=== PATIENT | female | born 1975 | race Caucasian/White ===

== ENCOUNTER → 2018-10-21 08:42 | Outpatient (CLI) | payer OTHER, SELFPAY ==
--- NOTE | 2018-10-21 08:50 | US_ITS ---
STUDY: ULTRASOUND BREAST - LEFT REASON FOR EXAM: Female, 43 years old. Palpable lump left breast. TECHNIQUE: Axial and longitudinal images of the LEFT breast were performed with a high resolution ultrasound transducer. COMPARISON: Comparison is made with prior mammogram done earlier today. FINDINGS: LEFT Breast: The lateral aspect of the left breast was examined by ultrasound. There is homogeneous fibroglandular tissue. No solid or cystic mass lesion is seen. US/Breast Limited Unilateral IMPRESSION: Unremarkable sonographic examination of the lateral aspect of the left breast. ASSESSMENT CATEGORY: BIRADS Category 2: Benign. A letter regarding these results will be sent to the patient by the facility within 30 days. Electronically Signed: Clyde Levin MD at 10:56 EST Tel [phone], Service support ,
--- NOTE | 2018-10-21 08:50 | BI_ITS ---
MAMMOGRAPHY - BILATERAL DIAGNOSTIC REASON FOR EXAM: Female, 43 years old. Left lateral breast discomfort for 3 weeks. PERTINENT HISTORY: Non-contributory. TECHNIQUE: Digital bilateral breast diana (3D mammographic acquisition) in the CC and MLO projections. 2-D mediolateral oblique (MLO) and craniocaudad (CC) views of both breasts were obtained. CAD: Full Field Digital Mammography with Computer Added Detection was performed. COMPARISON: None. Baseline examination. FINDINGS: Breast Composition: There are scattered areas of fibroglandular density. There are no dominant masses or suspicious calcifications. Small benign-appearing bilateral axillary lymph nodes. No other significant abnormalities are identified. BI/DIAG MAMM W/CAD, BILAT IMPRESSION: Negative diagnostic mammogram. With the patient's history of tenderness in the lateral aspect of the left breast, correlation with ultrasound is recommended. ASSESSMENT CATEGORY: BIRADS Category 0: Incomplete. Need additional imaging evaluation. A letter regarding these results will be sent to the patient by the facility within 30 days. Approximately 10% of breast cancers are not detected by mammography. A normal mammogram should not delay biopsy of a clinically suspicious abnormality. Electronically Signed: Clyde Levin MD at 10:46 EST Tel [phone], Service support ,
== END ==
PROVIDERS: Family Provider Family Medicine; PCP Family Medicine
DX: N64.4 Mastodynia (principal)
CPT/HCPCS: 76642; 77062; 77066; G0279

== ENCOUNTER → 2020-09-03 09:24 | Outpatient (CLI) | payer OTHER, SELFPAY ==
[2020-09-03 08:33] VITALS: BMI 27.4
[2020-09-03 12:36] LABS: Absolute Lymphocyte Count 1.35 X10^3/uL (0.83-4.51); Absolute Neutrophil Count 2.9 X10^3/uL (2.0-7.7); Basophil# 0.05 X10^3/uL; Eosinophil# 0.23 X10^3/uL; Eosinophils% 4.6 % (0-5); Hematocrit 32.9 % (37-47); Hemoglobin 9.5 g/dL (12.0-15.0); Lymphocyte # 1.35 X10^3/ul (4.0); Lymphocyte % 26.9 % (19-41); Mean Corp Hgb Conc 28.9 g/dL (32-36); Mean Corpuscular Hgb 20.5 pg (27.0-32.0); Mean Corpuscular Volume 70.9 fL (81-99); Mean Platelet Vol. 11.9 fl (6.2-12.0); Monocyte# 0.44 X10^3/uL; Monocyte% 8.8 % (0-10); NRBC Flagged by Analyzer 0 % (0-5); Neutrophil # 2.94 X10^3/uL (2.7-7.7); Neutrophil % 58.5 % (47-70); Platelet Count 314 K/mm3 (150-450); RBC Distribution Width CV 18.9 % (11.6-14.6); RBC Distribution Width SD 46.8 fl (35.1-43.9); Red Blood Count 4.64 M/mm3 (4.2-5.4)
[2020-09-03 13:00] LABS: ALB/GLOB Ratio 1.1 RATIO (0.9-2.4); AST(SGOT) 16 U/L (15-37); Alanine Aminotransfer ALT/SGPT 28 U/L (13-56); Albumin, Serum 3.7 g/dL (3.2-5.0); Alkaline Phosphatase 59 U/L (45-117); Anion Gap 7 (5-15); BUN 11 mg/dL (7-18); BUN/Creat Ratio 12.3 RATIO (10-20); Calcium,Total 9.1 mg/dL (8.5-10.1); Chloride 109 mmol/L (98-107); Cholesterol 187 mg/dL (200); Creatinine, Serum 0.89 mg/dL (0.55-1.02); EST Glomerular Filtration Rate 73 mL/min (>60); Est Glom Filt Rate - Afr Amer 89 mL/min (>60); Globulin 3.3 g/dL (2.2-4.2); Glucose 80 mg/dL (74-106); High Density Lipoprotein 61 mg/dL; Sodium Level 140 mmol/L (136-145); Triglycerides 64 mg/dL; Very Low Density Lipoprotein 13 mg/dL (5-40)
[2020-09-03 16:34] LABS: Ferritin 3 ng/mL (8-252); Iron 16 ug/dL (50-170); Iron Binding Capacity,Total 421 ug/dL (250-450)
== END ==
PROVIDERS: PCP Internal Medicine; Referring Provider Internal Medicine; Visit Provider Internal Medicine
DX: D64.9 Anemia, unspecified (principal); E78.5 Hyperlipidemia, unspecified
CPT/HCPCS: 36415; 80053; 80061; 82728; 83540; 83550; 85025

== ENCOUNTER → 2020-10-12 10:04 | Outpatient (CLI) | payer OTHER, SELFPAY ==
[2020-09-03 08:33] VITALS: BMI 27.4
[2020-10-12 12:49] LABS: Erythrocyte Sedimentation Rate 12 mm/hr (0-20)
[2020-10-12 12:55] LABS: Absolute Lymphocyte Count 1.48 X10^3/uL (0.83-4.51); Absolute Neutrophil Count 3.6 X10^3/uL (2.0-7.7); Basophil# 0.07 X10^3/uL; Basophil% 1.2 % (0-1); Eosinophil# 0.24 X10^3/uL; Eosinophils% 4.1 % (0-5); Hematocrit 44.4 % (37-47); Hemoglobin 13.4 g/dL (12.0-15.0); Lymphocyte # 1.48 X10^3/ul (4.0); Mean Corp Hgb Conc 30.2 g/dL (32-36); Mean Corpuscular Hgb 24.8 pg (27.0-32.0); Mean Corpuscular Volume 82.2 fL (81-99); Monocyte# 0.47 X10^3/uL; NRBC Flagged by Analyzer 0 % (0-5); Neutrophil # 3.63 X10^3/uL (2.7-7.7); Neutrophil % 61.4 % (47-70); POSITIVE MORPHOLOGY YES; Platelet Count 217 K/mm3 (150-450); White Blood Count 5.9 K/mm3 (4.4-11.0)
[2020-10-12 12:58] LABS: CRP < 2.90 mg/L (0.0-3.0); Rheumatoid Factor < 10.0 IU/mL (<15)
[2020-10-12 13:19] LABS: Differential Indicated SCAN CRITERIA MET
== END ==
PROVIDERS: PCP Internal Medicine; Visit Provider Internal Medicine
DX: D64.9 Anemia, unspecified (principal); M25.50 Pain in unspecified joint
CPT/HCPCS: 36415; 85025; 85652; 86140; 86431

== ENCOUNTER → 2020-12-01 16:17 | Outpatient (CLI) | payer OTHER, SELFPAY ==
[2020-11-30 16:58] VITALS: BMI 27.4
--- NOTE | 2020-12-01 16:19 | RAD_ITS ---
STUDY: X-RAY - LEFT ELBOW REASON FOR EXAM: Female, 45 years old. Worsening left elbow pain for one month. Pain radiates down arm. TECHNIQUE: 3 view(s) of the elbow. COMPARISON: None. FINDINGS: Normal visualized humerus, radius and ulna. Normal radiocapitellar and ulnotrochlear articulations. The soft tissue structures are unremarkable. RAD/Elbow min 3 Views IMPRESSION: Normal x-ray examination of the elbow. Electronically Signed: Pepe Plaza MD at 0:26 EST , Service support ,
== END ==
PROVIDERS: PCP Internal Medicine; Referring Provider Internal Medicine; Visit Provider Internal Medicine
DX: M25.522 Pain in left elbow (principal)
CPT/HCPCS: 73080

== ENCOUNTER → 2021-02-04 07:34 | Outpatient (CLI) | payer OTHER, SELFPAY ==
[2020-11-30 16:58] VITALS: BMI 27.4
--- NOTE | 2021-02-04 07:57 | BI_ITS ---
MAMMOGRAPHY - BILATERAL SCREENING REASON FOR EXAM: Female, 45 years old. Routine annual screening examination. PERTINENT HISTORY: Non-contributory. Occasional left lateral breast pain. TECHNIQUE: Digital bilateral breast yonathan (3D mammographic acquisition) in the CC and MLO projections. 2-D mediolateral oblique (MLO) and craniocaudad (CC) views of both breasts were obtained. CAD: Full Field Digital Mammography with Computer Added Detection was performed. COMPARISON: Comparison is made with prior study dated 10/21/2018. FINDINGS: Breast Composition: There are scattered areas of fibroglandular density. There are no dominant masses or suspicious calcifications. No other significant abnormalities are identified. There has been no significant change since the prior study. BI/SCRN MAMM (CAD)W/YONATHAN BILAT IMPRESSION: Stable bilateral screening mammogram. Yearly follow-up mammogram recommended. (A) ASSESSMENT CATEGORY: BIRADS Category 1: Negative. A letter regarding these results will be sent to the patient by the facility within 30 days. Approximately 10% of breast cancers are not detected by mammography. A normal mammogram should not delay biopsy of a clinically suspicious abnormality. [id number] Electronically Signed: Clyde Levin MD at 9:10 EDT , Service support ,
== END ==
PROVIDERS: PCP Internal Medicine
DX: Z12.31 Encounter for screening mammogram for malignant neoplasm of breast (principal)
CPT/HCPCS: 77063; 77067

== ENCOUNTER → 2021-09-01 08:41 | Outpatient (CLI) | payer OTHER, SELFPAY ==
[2021-09-01 12:02] LABS: Absolute Lymphocyte Count 1.09 X10^3/uL (0.83-4.51); Absolute Neutrophil Count 2.5 X10^3/uL (2.0-7.7); Basophil# 0.04 X10^3/uL; Eosinophil# 0.12 X10^3/uL; Eosinophils% 2.9 % (0-5); Hematocrit 31.3 % (37-47); Hemoglobin 8.6 g/dL (12.0-15.0); Lymphocyte # 1.09 X10^3/ul (0.83-4.51); Mean Corp Hgb Conc 27.5 g/dL (32-36); Mean Corpuscular Volume 72.6 fL (81-99); Mean Platelet Vol. 11.2 fl (6.2-12.0); Monocyte# 0.45 X10^3/uL; Monocyte% 10.7 % (0-10); NRBC Flagged by Analyzer 0 % (0-5); Neutrophil # 2.48 X10^3/uL (2.7-7.7); Neutrophil % 59.2 % (47-70); Platelet Count 386 K/mm3 (150-450); RBC Distribution Width SD 46.8 fl (35.1-43.9); Red Blood Count 4.31 M/mm3 (4.2-5.4); White Blood Count 4.2 K/mm3 (4.4-11.0)
[2021-09-01 12:19] LABS: Vitamin B12 783 pg/mL (211-911); Vitamin D,25 Hydroxy 104.8 ng/mL
[2021-09-01 12:21] LABS: ALB/GLOB Ratio 0.9 RATIO (0.9-2.4); AST(SGOT) 49 U/L (15-37); Alanine Aminotransfer ALT/SGPT 100 U/L (13-56); Albumin, Serum 3.3 g/dL (3.2-5.0); Alkaline Phosphatase 65 U/L (45-117); Anion Gap 5 (5-15); BUN 11 mg/dL (7-18); BUN/Creat Ratio 11.8 RATIO (10-20); Calcium,Total 8.7 mg/dL (8.5-10.1); Chloride 108 mmol/L (98-107); Creatinine, Serum 0.93 mg/dL (0.55-1.02); EST Glomerular Filtration Rate 69 mL/min (>60); Est Glom Filt Rate - Afr Amer 84 mL/min (>60); Ferritin 7 ng/mL (8-252); Globulin 3.6 g/dL (2.2-4.2); Glucose 96 mg/dL (74-106); Iron 22 ug/dL (50-170); Iron Binding Capacity,Total 425 ug/dL (250-450); PERCENT IRON SATURATION 5.2 % (15.0-55.0); Protein, Total 6.9 g/dL (6.4-8.2); Sodium Level 139 mmol/L (136-145); Thyroid Stim Hormone (TSH) 1.18 uIU/mL (0.358-3.74)
[2021-09-02 13:20] LABS: Transferrin 348 mg/dL (192-364)
== END ==
PROVIDERS: PCP Internal Medicine; Referring Provider Physician Assistant; Visit Provider Physician Assistant
DX: M79.7 Fibromyalgia (principal); R05.9 Cough, unspecified; R53.83 Other fatigue
CPT/HCPCS: 36415; 80053; 82306; 82607; 82728; 83540; 83550; 84443; 84466; 85025

== ENCOUNTER → 2021-09-02 08:21 | Outpatient (CLI) | payer OTHER, SELFPAY ==
--- NOTE | 2021-09-02 08:24 | EKG12_ITS ---
Test Reason : PALPS Blood Pressure : / mmHG Vent. Rate : 077 BPM Atrial Rate : 077 BPM P-R Int : 128 ms QRS Dur : 080 ms QT Int : 378 ms P-R-T Axes : 035 013 022 degrees QTc Int : 427 ms Normal sinus rhythm Normal ECG Confirmed by CORBY GONZALEZ, CHARLEY ([id number]), supervising film or videotape editor RADHA READ ([id number]) on 09/06/2021 10:49:16 AM Referred By: Carine Hope Confirmed By:CHARLEY TAVAREZ MD
== END ==
PROVIDERS: PCP Internal Medicine; Referring Provider Physician Assistant; Visit Provider Physician Assistant
DX: R00.2 Palpitations (principal)
CPT/HCPCS: 93005

== ENCOUNTER → 2021-09-28 09:56 | Outpatient (CLI) | payer OTHER, SELFPAY ==
[2021-09-28 12:39] LABS: Absolute Lymphocyte Count 1.24 X10^3/uL (0.83-4.51); Absolute Neutrophil Count 3.2 X10^3/uL (2.0-7.7); Basophil# 0.05 X10^3/uL; Eosinophil# 0.11 X10^3/uL; Eosinophils% 2.2 % (0-5); Hematocrit 33.9 % (37-47); Lymphocyte # 1.24 X10^3/ul (0.83-4.51); Lymphocyte % 24.4 % (19-41); Mean Corp Hgb Conc 29.5 g/dL (32-36); Mean Corpuscular Hgb 21.9 pg (27.0-32.0); Mean Corpuscular Volume 74.3 fL (81-99); Mean Platelet Vol. 12.3 fl (6.2-12.0); Monocyte# 0.47 X10^3/uL; Monocyte% 9.3 % (0-10); NRBC Flagged by Analyzer 0 % (0-5); Neutrophil % 62.9 % (47-70); POSITIVE MORPHOLOGY YES; Platelet Count 295 K/mm3 (150-450); RBC Distribution Width CV 22.9 % (11.6-14.6); RBC Distribution Width SD 59.6 fl (35.1-43.9); Red Blood Count 4.56 M/mm3 (4.2-5.4); White Blood Count 5.1 K/mm3 (4.4-11.0)
[2021-09-28 12:42] LABS: Differential Indicated SCAN CRITERIA MET
[2021-09-28 12:54] LABS: ALB/GLOB Ratio 0.9 RATIO (0.9-2.4); AST(SGOT) 20 U/L (15-37); Alanine Aminotransfer ALT/SGPT 31 U/L (13-56); Albumin, Serum 3.5 g/dL (3.2-5.0); Alkaline Phosphatase 69 U/L (45-117); Anion Gap 5 (5-15); BUN 9 mg/dL (7-18); BUN/Creat Ratio 11.1 RATIO (10-20); Calcium,Total 9.2 mg/dL (8.5-10.1); Chloride 110 mmol/L (98-107); Creatinine, Serum 0.81 mg/dL (0.55-1.02); EST Glomerular Filtration Rate 81 mL/min (>60); Est Glom Filt Rate - Afr Amer 98 mL/min (>60); Globulin 3.7 g/dL (2.2-4.2); Glucose 86 mg/dL (74-106); Potassium 3.9 mmol/L (3.5-5.1); Protein, Total 7.2 g/dL (6.4-8.2); Sodium Level 139 mmol/L (136-145)
[2021-09-28 13:18] LABS: Anisocytosis 2+; Differential Comment SCANNED; Macrocytosis 1+; Microcytosis 1+
== END ==
PROVIDERS: PCP Internal Medicine; Referring Provider Internal Medicine; Visit Provider Internal Medicine
DX: R74.8 Abnormal levels of other serum enzymes (principal); D64.9 Anemia, unspecified
CPT/HCPCS: 36415; 80053; 85025

== ENCOUNTER 2021-12-30 08:50 | Outpatient (CLI) | payer OTHER, SELFPAY ==
[2021-12-30 12:13] LABS: Absolute Lymphocyte Count 1.29 X10^3/uL (0.83-4.51); Absolute Neutrophil Count 2.7 X10^3/uL (2.0-7.7); Basophil# 0.04 X10^3/uL; Basophil% 0.9 % (0-1); Eosinophil# 0.23 X10^3/uL; Eosinophils% 4.9 % (0-5); Hematocrit 38.5 % (37-47); Hemoglobin 12.4 g/dL (12.0-15.0); Lymphocyte # 1.29 X10^3/ul (0.83-4.51); Lymphocyte % 27.5 % (19-41); Mean Corp Hgb Conc 32.2 g/dL (32-36); Mean Corpuscular Hgb 26.3 pg (27.0-32.0); Mean Corpuscular Volume 81.6 fL (81-99); Mean Platelet Vol. 11.7 fl (6.2-12.0); Monocyte# 0.41 X10^3/uL; Monocyte% 8.7 % (0-10); NRBC Flagged by Analyzer 0 % (0-5); Neutrophil # 2.72 X10^3/uL (2.7-7.7); Platelet Count 229 K/mm3 (150-450); RBC Distribution Width CV 17.7 % (11.6-14.6); RBC Distribution Width SD 52.5 fl (35.1-43.9); Red Blood Count 4.72 M/mm3 (4.2-5.4); White Blood Count 4.7 K/mm3 (4.4-11.0)
[2021-12-30 12:26] LABS: Vitamin D,25 Hydroxy 88.2 ng/mL
[2021-12-30 12:31] LABS: ALB/GLOB Ratio 1.1 RATIO (0.9-2.4); AST(SGOT) 20 U/L (15-37); Alanine Aminotransfer ALT/SGPT 35 U/L (13-56); Albumin, Serum 3.4 g/dL (3.2-5.0); Alkaline Phosphatase 63 U/L (45-117); Anion Gap 4 (5-15); BUN 13 mg/dL (7-18); BUN/Creat Ratio 17.6 RATIO (10-20); Chloride 108 mmol/L (98-107); Creatinine, Serum 0.74 mg/dL (0.55-1.02); EST Glomerular Filtration Rate 90 mL/min (>60); Est Glom Filt Rate - Afr Amer 109 mL/min (>60); Globulin 3.1 g/dL (2.2-4.2); Glucose 91 mg/dL (74-106); Protein, Total 6.5 g/dL (6.4-8.2); Sodium Level 138 mmol/L (136-145)
== END 2021-12-30 23:59 | disposition home or self-care (01) ==
LOC: BIMLAB 08:50
PROVIDERS: Physician Assistant; PCP Internal Medicine; Referring Provider Internal Medicine; Visit Provider Internal Medicine
DX: D50.9 Iron deficiency anemia, unspecified (principal); E55.9 Vitamin D deficiency, unspecified
CPT/HCPCS: 36415; 80053; 82306; 85025

== ENCOUNTER → 2022-04-19 | Outpatient (CLI) | payer OTHER, SELFPAY ==
[2022-04-19 12:19] LABS: Absolute Lymphocyte Count 1.15 X10^3/uL (0.83-4.51); Absolute Neutrophil Count 3.8 X10^3/uL (2.0-7.7); Basophil# 0.05 X10^3/uL; Basophil% 0.9 % (0-1); Eosinophil# 0.17 X10^3/uL; Hematocrit 37.8 % (37-47); Hemoglobin 11.8 g/dL (12.0-15.0); Lymphocyte # 1.15 X10^3/ul (0.83-4.51); Lymphocyte % 20.5 % (19-41); Mean Corp Hgb Conc 31.2 g/dL (32-36); Mean Corpuscular Hgb 26.4 pg (27.0-32.0); Mean Corpuscular Volume 84.6 fL (81-99); Mean Platelet Vol. 12.3 fl (6.2-12.0); Monocyte# 0.42 X10^3/uL; Monocyte% 7.5 % (0-10); NRBC Flagged by Analyzer 0 % (0-5); Neutrophil # 3.81 X10^3/uL (2.7-7.7); Neutrophil % 67.9 % (47-70); Platelet Count 271 K/mm3 (150-450); RBC Distribution Width CV 14.9 % (11.6-14.6); RBC Distribution Width SD 45.4 fl (35.1-43.9); Red Blood Count 4.47 M/mm3 (4.2-5.4); White Blood Count 5.6 K/mm3 (4.4-11.0)
[2022-04-19 12:53] LABS: ALB/GLOB Ratio 1.1 RATIO (0.9-2.4); AST(SGOT) 11 U/L (15-37); Alanine Aminotransfer ALT/SGPT 28 U/L (13-56); Albumin, Serum 3.6 g/dL (3.2-5.0); Alkaline Phosphatase 69 U/L (45-117); Anion Gap 6 (5-15); BUN 12 mg/dL (7-18); BUN/Creat Ratio 14.2 RATIO (10-20); Calcium,Total 9.1 mg/dL (8.5-10.1); Chloride 107 mmol/L (98-107); Cholesterol 206 mg/dL (200); Creatinine, Serum 0.85 mg/dL (0.55-1.02); EST Glomerular Filtration Rate 77 mL/min (>60); Est Glom Filt Rate - Afr Amer 93 mL/min (>60); Globulin 3.3 g/dL (2.2-4.2); Glucose 95 mg/dL (74-106); High Density Lipoprotein 44 mg/dL; Protein, Total 6.9 g/dL (6.4-8.2); Sodium Level 140 mmol/L (136-145); Triglycerides 87 mg/dL; Very Low Density Lipoprotein 17 mg/dL (5-40)
== END | disposition home or self-care (01) ==
LOC: BIMLAB 09:24
PROVIDERS: PCP Internal Medicine; Referring Provider Internal Medicine; Visit Provider Internal Medicine
DX: Z00.00 Encounter for general adult medical examination without abnormal findings (principal)
CPT/HCPCS: 36415; 80053; 80061; 85025

== ENCOUNTER → 2022-05-09 | Outpatient (CLI) | payer OTHER, SELFPAY ==
--- NOTE | 2022-05-09 08:43 | BI_ITS ---
MAMMOGRAPHY - BILATERAL SCREENING REASON FOR EXAM: Female, 47 years old. Routine annual screening examination. PERTINENT HISTORY: Non-contributory. TECHNIQUE: Digital bilateral breast yonathan (3D mammographic acquisition) in the CC and MLO projections. 2-D mediolateral oblique (MLO) and craniocaudad (CC) views of both breasts were obtained. CAD: Full Field Digital Mammography with Computer Added Detection was performed. COMPARISON: Comparison is made with prior study 02/04/2021 and 10/21/2018. FINDINGS: Breast Composition: There are scattered areas of fibroglandular density. There are no dominant masses or suspicious calcifications. No other significant abnormalities are identified. There has been no significant change since the prior study. BI/SCRN MAMM (CAD)W/YONATHAN BILAT IMPRESSION: Stable bilateral screening mammogram. Yearly follow-up mammogram recommended. (A) ASSESSMENT CATEGORY: BIRADS Category 1: Negative. A letter regarding these results will be sent to the patient by the facility within 30 days. Approximately 10% of breast cancers are not detected by mammography. A normal mammogram should not delay biopsy of a clinically suspicious abnormality. [id number] Electronically Signed: Clyde Levin MD at 10:16 EDT ,
== END | disposition home or self-care (01) ==
LOC: OPBI 08:41
PROVIDERS: PCP Internal Medicine; Visit Provider Internal Medicine
DX: Z12.31 Encounter for screening mammogram for malignant neoplasm of breast (principal)
CPT/HCPCS: 77063; 77067

== ENCOUNTER 2022-08-10 10:44 | Outpatient (RCR) | payer OTHER, SELFPAY | END 2022-08-10 19:00 | disposition home or self-care (01) | LOC: PT 10:44 | PROVIDERS: PCP Internal Medicine; Referring Provider Physician Assistant; Visit Provider Physician Assistant | DX: M21.372 Foot drop, left foot (principal); R20.8 Other disturbances of skin sensation ==

== ENCOUNTER → 2022-08-15 | Outpatient (CLI) | payer OTHER, SELFPAY ==
[2022-08-15 16:35] LABS: Absolute Lymphocyte Count 1.63 X10^3/uL (0.83-4.51); Absolute Neutrophil Count 5.1 X10^3/uL (2.0-7.7); Basophil# 0.05 X10^3/uL; Basophil% 0.7 % (0-1); Eosinophil# 0.15 X10^3/uL; Hematocrit 39.1 % (37-47); Hemoglobin 12.6 g/dL (12.0-15.0); Lymphocyte # 1.63 X10^3/ul (0.83-4.51); Lymphocyte % 21.5 % (19-41); Mean Corp Hgb Conc 32.2 g/dL (32-36); Mean Corpuscular Volume 89.9 fL (81-99); Mean Platelet Vol. 12.4 fl (6.2-12.0); Monocyte# 0.65 X10^3/uL; Monocyte% 8.6 % (0-10); NRBC Flagged by Analyzer 0 % (0-5); Neutrophil # 5.08 X10^3/uL (2.7-7.7); Neutrophil % 67.1 % (47-70); Platelet Count 259 K/mm3 (150-450); RBC Distribution Width CV 14.5 % (11.6-14.6); RBC Distribution Width SD 47.4 fl (35.1-43.9); Red Blood Count 4.35 M/mm3 (4.2-5.4); White Blood Count 7.6 K/mm3 (4.4-11.0)
[2022-08-15 16:54] LABS: Ferritin 16 ng/mL (8-252); Iron 56 ug/dL (50-170); Iron Binding Capacity,Total 330 ug/dL (250-450)
== END | disposition home or self-care (01) ==
LOC: BIMLAB 15:20
PROVIDERS: PCP Internal Medicine; Referring Provider Physician Assistant; Visit Provider Physician Assistant
DX: D50.9 Iron deficiency anemia, unspecified (principal); E61.1 Iron deficiency
CPT/HCPCS: 36415; 82728; 83540; 83550; 85025

== ENCOUNTER → 2022-09-21 | Outpatient (CLI) | payer OTHER, SELFPAY ==
--- NOTE | 2022-09-21 09:20 | US_ITS ---
STUDY: ULTRASOUND BREAST - LEFT REASON FOR EXAM: Female, 47 years old. Pain in the left breast. TECHNIQUE: Axial and longitudinal images of the LEFT breast were performed with a high resolution ultrasound transducer. # OF IMAGES: 22 COMPARISON: Comparison is made with prior mammogram done earlier in the day as well as prior sonogram of the left breast dated 10/21/2018. FINDINGS: LEFT Breast: The lateral aspect of the left breast was examined by ultrasound. Heterogeneous fibroglandular tissue. No sonographic abnormality is seen. US/Breast Limited Unilateral IMPRESSION: No sonographic abnormality is seen. ASSESSMENT CATEGORY: BIRADS Category 1: Negative. A letter regarding these results will be sent to the patient by the facility within 30 days. Electronically Signed: Clyde Levin MD at 11:04 EST ,
--- NOTE | 2022-09-21 09:20 | BI_ITS ---
MAMMOGRAPHY - UNILATERAL DIAGNOSTIC: LEFT BREAST REASON FOR EXAM: Female, 47 years old. One-month history of pain in the upper outer quadrant of the left breast. PERTINENT HISTORY: Non-contributory. TECHNIQUE: Digital unilateral breast diana (3D mammographic acquisition) in the CC and MLO projections. 2-D mediolateral oblique (MLO) and craniocaudad (CC) views of both breasts were obtained. CAD: Full Field Digital Mammography with Computer Added Detection was performed. COMPARISON: Comparison is made with prior study dated 05/09/2022 and 02/04/2021. FINDINGS: Breast Composition: There are scattered areas of fibroglandular density. There are no dominant masses or suspicious calcifications. No other significant abnormalities are identified. There has been no significant change since the prior study. BI/DIAG MAMM W/CAD, UNILAT IMPRESSION: Stable unilateral diagnostic mammogram. With the patient''s history of pain in the upper outer quadrant of the left breast, targeted correlation with ultrasound is recommended. ASSESSMENT CATEGORY: BIRADS Category 0: Incomplete. Need additional imaging evaluation. A letter regarding these results will be sent to the patient by the facility within 30 days. Approximately 10% of breast cancers are not detected by mammography. A normal mammogram should not delay biopsy of a clinically suspicious abnormality. Electronically Signed: Clyde Levin MD at 10:48 EST ,
== END | disposition home or self-care (01) ==
LOC: OPBI 09:19
PROVIDERS: PCP Internal Medicine; Visit Provider Nurse Practitioner Women's Health
DX: N64.4 Mastodynia (principal)
CPT/HCPCS: 76642; 77061; 77065; G0279

== ENCOUNTER → 2022-11-08 | Outpatient (CLI) | payer OTHER, SELFPAY ==
[2022-11-15 19:25] LABS: HPV APTIMA, High Risk Negative (Negative)
== END | disposition home or self-care (01) ==
LOC: LABSPEC 12:45
PROVIDERS: PCP Internal Medicine; Referring Provider Nurse Practitioner Women's Health; Visit Provider Nurse Practitioner Women's Health
DX: Z12.4 Encounter for screening for malignant neoplasm of cervix (principal)
CPT/HCPCS: 87624; 88175; G0145

== ENCOUNTER → 2022-11-15 | Outpatient (CLI) | payer OTHER, SELFPAY ==
--- NOTE | 2022-11-15 15:05 | US_ITS ---
INDICATION: BLEEDING EXAMINATION: Ultrasound US Pelvis Non OB Complete With Transvaginal Imaging TECHNIQUE: Transabdominal and transvaginal pelvic ultrasound was performed. Grayscale, spectral waveform, and color flow Doppler evaluation of the adnexa. COMPARISON: None. FINDINGS: UTERUS: Anteverted. The uterus measures 12.6 x 9.8 x 6.9. There are multiple fibroids the largest measuring 6.4 x 5.1 x 5.8 cm. The endometrial stripe measures 7.1 in AP diameter which is within normal limits. Tiny nabothian cysts within the lower uterine segment RIGHT OVARY: 2.7 x 3.3 x 1.8 cm. Non-enlarged, normal echogenicity. There is normal arterial inflow and venous outflow present in the right ovary. LEFT OVARY: 3.4 x 2.3 x 2.6 cm. Non-enlarged, normal echogenicity. There is normal arterial inflow and venous outflow present in the left ovary. FREE FLUID: None. US/Pelvic (Non ) IMPRESSION: Large uterus containing multiple fibroids.. Electronically Signed: Marco Huber MD at 16:56 EST ,
== END | disposition home or self-care (01) ==
LOC: US 15:04
PROVIDERS: PCP Internal Medicine; Referring Provider Nurse Practitioner Women's Health; Visit Provider Nurse Practitioner Women's Health
DX: N92.0 Excessive and frequent menstruation with regular cycle (principal); N85.2 Hypertrophy of uterus
CPT/HCPCS: 76830; 76856

== ENCOUNTER 2023-01-02 09:00 | Outpatient (RCR) | payer OTHER, SELFPAY ==
--- NOTE | 2022-09-13 11:26 | HP.PTEVAL ---
Patient's Visit Information KEITH WALDROP is a 47 year old F referred to Physical Therapy by Dr. Poncho Whitaker MD with a diagnosis of LUMBAR STENOSIS. Date of Evaluation: 09/13/22 Physical Therapist: Landy Hernandez PT, Cert MDT - Visit Plan Frequency: 2-3x /Week Duration: 4-6 Weeks Plan: *RECENT H/O L FOOT DROP*. AQUATIC THERAPY FOR PAIN RELIEF, POSTURE CORRECTION/STRENGTHENING, INSTRUCTION IN APPROPRIATE BODY MECHANICS AND ACTIVITY MODIFICATIONS. DLS STARTING WITH A NEUTRAL SPINE PROGRESSING ROM TOLERATED. ASHLEY LE ROM, STRETCHING AND STRENGTHENING. HEP INSTRUCTION. 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 HOURS VARY. MOSTLY SITTING WHEN AT THE OFFICE. Disability: NO. Present symptoms: ASHLEY LOW BACK PAIN LEFT > RIGHT. TWO EPISODES OF LEFT DROP FOOT. LEFT ACHE AND TINGLING DOWN OUTSIDE OF L LEG INTO FEET. Present since: CHRONIC LBP. LLE WEAKNESS STARTED MAY 2022. Pain Scale: WORST 7/10, LEAST 3/10. Currently: 3/10. Is it getting better, worse or staying the same: STAYING THE SAME. Commenced as a result of: SITTING A LOT IN THE HOSPITAL WHEN DAD HAD OPEN HEART SURGERY. Symptoms at onset: MORE LOW BACK PAIN. 2 EPISODES OF LEFT FOOT DROP AND INABILITY TO EXTEND AND CURL TOES - RESOLVED. Worse: SITTING, STANDING, LIFTING, TWISTING STRETCHES. Better: PAIN MEDS, PAIN PATCHES, BEING ON THE MOVE. LAYING DOWN,. Disturbed sleep: NO. Previous history/Previous treatment: CHIROPRACTIC TREATMENTS AND MASSAGE. HAS BEEN GOING TO A CHIROPRACTOR SINCE OFF AND ON. NO BACK SURGERY. NO RAYSHAWN'S. NO PT. Treatment this episode: MOBIC STARTED YESTERDAY. MORE CHIROPRACTIC AND MASSAGE. Coughing/sneezing/straining: NEGATIVE. Gait: NORMAL TIME AND DISTANCE BUT MORE PAIN. Bowel or Bladder Dysfunction: NO. Accidents: NO. Unexplained weight loss: NO. Imaging: RECENT LUMBAR [facility] AT [facility] SHOWING LUMBAR DDD AND ARTHRITIS. PMH/Recent major surgery: FIBROMYALGIA, ARTHRITIS - OA. PATIENT REPORTS SHE HAS ARTHRITIS IN A LOT OF JOINTS. OTHER: PATIENT REPORTS DR. WHITAKER RECOMMENDED TRYING MOBIC AND PT FIRST THEN MAY NEED TO CONSIDER INJECTIONS AND EVERNTUALLY SURGERY. - Objective Sitting/Standing Posture: FAIR. NO RELEVENT LUMBAR LATERAL SHIFT. Active Correction of posture: WORSE. Other Observations: INDEP GAIT AND TRANSFERS. Sensory deficit: ASHLEY LE LIGHT TOUCH SENSATION GROSSLY INTACT AND SYMMETRICAL. ROM deficit: ASHLEY LE'S WFL. Motor deficit: ASHLEY LE'S GROSSLY 5/5 WITH MMT'ING EXCEPT R HIP 4/5, LEFT 4-/5, L KNEE FLEX 4/5, EHL 4/5. Dural Signs: POSITIVE ASHLEY LE'S. Lumbar mvmt loss: flex - NIL. ext - MIN. R SG - MOD. L SG - MOD. PATIENT C/O INCREASED LBP WITH LUMBAR EXTENSION TESTING. Core strength: POOR. Palpation: MILD TENDERNESS LOWER LUMBAR SPINE WITH LIGHT PALPATION. TREATMENT: NEUROMUSCULAR REEDUCATION - RETRAINING OF MVMT AND POSTURE FOR SITTING, LYING AND STANDING ACTIVITIES - Balance/Special Test Scores Oswestry Low Back Score: 12 - Goals Goal 1:: DECREASE C/O LBP Goal Time Frame: 4-6 Weeks Goal 2:: IMPROVE PERSONAL CARE, LIFTING, SITTING, STANDING, TRAVEL AND WORK/HOMEMAKING FUNCTION Goal Time Frame: 4-6 Weeks Goal 3:: INSTRUCT IN PROPHYLAXIS Goal Time Frame: 4-6 Weeks - Anticipated Interventions Patient/Client Instruction: Educate patient on: Condition, Plan of Care, Risk Factors For the Purpose of:: To improve self management Therapeutic Exercise to Include: Strength training, Body mechanics, Postural training, Flexibilty training, Neuromotor development, In an aquatic setting, Dynamic Lumbar Stabilization For the Purpose of:: To decrease pain, To increase ROM, To improve muscle performance and motor function, To increase tolerance to activity/condition/position, To improve ability of physical actions for home/community/work/leisure, To improve self management Cryotherapy (ice pack, ice massage): Yes Thermo therapy (hot pack): Yes Ultrasound (thermal/non thermal): Yes For the Purpose of:: To decrease pain, To improve nutrient delivery to tissue Thank you for the opportunity to evaluate your patient. For Medicare and Medicare HMO plans, please review the plan of care and approve it. It will need to be FAXED BACK to us at [phone] for Medicare purposes. For Medicare only, by signing this I certify the plan of care. Please let me know if there are questions or concerns regarding this plan of care. Physician Signature: Date:
--- NOTE | 2022-11-02 12:15 | HP.PTREVAL ---
Dr. Poncho Morales MD, It has been my pleasure to treat KEITH WALDROP over the last 10 visits for LUMBAR STENOSIS. Please see the progress note below for an update on the physical therapy plan of care! Subjective: PATIENT REPORTS SHE WAS GETTING BETTER WITH AQUATIC THERAPY UNTIL HER DAUGHTER HAD SURGERY AND HAD TO DO A LOT OF LIFTING. SHE STATES SHE FEELS LIKE THE INCREASE IN LIFTING NEGATED HER PROGRESS. Objective/Function: PATIENT WAS SEEN TODAY FOR RE-ASSESSMENT OF PROGRESS TOWARD THE SET PT GOALS AND THE NEED FOR FURTHER PHYSICAL THERAPY VS READINESS FOR DISCHARGE. 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 UPON EXAM TODAY: Motor deficit: ASHLEY LE'S GROSSLY 5/5 WITH MMT'ING EXCEPT LEFT HIP 4/5, AND L EHL 4/5. Dural Signs: POSITIVE LLE. Lumbar mvmt loss: flex - NIL. ext - MIN. R SG - MOD. L SG - MOD. [ End ] Plan Plan: PATIENT AGREEABLE TO CONTINUEING AQUATIC TEHRAPY. *RECENT H/O L FOOT DROP*. AQUATIC THERAPY FOR PAIN RELIEF, POSTURE CORRECTION/STRENGTHENING, INSTRUCTION IN APPROPRIATE BODY MECHANICS AND ACTIVITY MODIFICATIONS. DLS STARTING WITH A NEUTRAL SPINE PROGRESSING ROM TOLERATED. ASHLEY LE ROM, STRETCHING AND STRENGTHENING. HEP INSTRUCTION. Balance/Gait/Functional tests - Balance/Special Test Scores Oswestry Low Back Score: 10 Goals Goal 1:: DECREASE C/O LBP Goal Time Frame: 4-6 Weeks Goal 2:: IMPROVE PERSONAL CARE, LIFTING, SITTING, STANDING, TRAVEL AND WORK/HOMEMAKING FUNCTION Goal Time Frame: 4-6 Weeks Goal Progress: Progressing Goal 3:: INSTRUCT IN PROPHYLAXIS Goal Time Frame: 4-6 Weeks Goal Progress: Progressing Anticipated Interventions Patient/Client Instruction: Educate patient on: Condition, Plan of Care, Risk Factors For the Purpose of:: To improve self management Therapeutic Exercise to Include: Strength training, Body mechanics, Postural training, Flexibilty training, Neuromotor development, In an aquatic setting, Dynamic Lumbar Stabilization For the Purpose of:: To decrease pain, To increase ROM, To improve muscle performance and motor function, To increase tolerance to activity/condition/position, To improve ability of physical actions for home/community/work/leisure, To improve self management Cryotherapy (ice pack, ice massage): Yes Thermo therapy (hot pack): Yes Ultrasound (thermal/non thermal): Yes For the Purpose of:: To decrease pain, To improve nutrient delivery to tissue Please do not hesitate to contact me at [phone] by phone or if you have questions or concerns regarding this new plan of care! Sincerely, Landy Hernandez, PT, Cert MDT
--- NOTE | 2022-11-24 09:13 | HP.PTREVAL ---
Dr. Poncho Morales MD, It has been my pleasure to treat KEITH WALDROP over the last 14 visits for LUMBAR STENOSIS. Please see the progress note below for an update on the physical therapy plan of care! Subjective: Patient has pain in left lumbar ache radiates to glut Objective/Function: POSTURE: mild forward posture. GAIT: reciprocal pattern. NEURO: denies paresthesia/tingling. MMT: quads/hams 4/5 ,hip flexion right 4/5 ,left 4-/5 ,ankle 4/5. LUMBAR ROM: :flexion min loss ,extension mod loss ,side glides WFL Plan Plan: PROGRESS TO POC [place] INTERVENTSIONS. POSTURE CORRECTION/STRENGTHENING, INSTRUCTION IN APPROPRIATE BODY MECHANICS AND ACTIVITY MODIFICATIONS. DLS STARTING WITH A NEUTRAL SPINE PROGRESSING ROM TOLERATED. ASHLEY LE ROM, STRETCHING AND STRENGTHENING. HEP INSTRUCTION. Balance/Gait/Functional tests - Balance/Special Test Scores Oswestry Low Back Score: 10 Goals Goal 1:: DECREASE C/O LBP Goal Time Frame: 4-6 Weeks Goal Progress: Progressing Goal 2:: IMPROVE PERSONAL CARE, LIFTING, SITTING, STANDING, TRAVEL AND WORK/HOMEMAKING FUNCTION Goal Time Frame: 4-6 Weeks Goal Progress: Progressing Goal 3:: INSTRUCT IN PROPHYLAXIS Goal Time Frame: 4-6 Weeks Goal Progress: Progressing Anticipated Interventions Patient/Client Instruction: Educate patient on: Condition, Plan of Care, Risk Factors For the Purpose of:: To improve self management Therapeutic Exercise to Include: Strength training, Body mechanics, Postural training, Flexibilty training, Neuromotor development, In an aquatic setting, Dynamic Lumbar Stabilization For the Purpose of:: To decrease pain, To increase ROM, To improve muscle performance and motor function, To increase tolerance to activity/condition/position, To improve ability of physical actions for home/community/work/leisure, To improve self management Cryotherapy (ice pack, ice massage): Yes Thermo therapy (hot pack): Yes Ultrasound (thermal/non thermal): Yes For the Purpose of:: To decrease pain, To improve nutrient delivery to tissue Please do not hesitate to contact me at [phone] by phone or if you have questions or concerns regarding this new plan of care! Sincerely, Milan Keenan, PT, Cert MDT, OCS
--- NOTE | 2023-01-02 09:52 | HP.PTDCSUM_ITS ---
It has been my pleasure to treat KEITH WALDROP referred by Dr. Poncho Morales MD, with the diagnosis of LUMBAR STENOSIS for a total of 22 visit(s). Discharge Date: Please see the following information for a summary of their discharge status. Subjective: PATIENT REPORTS HER PAIN IS BETTER SINCE STARTING PT BUT STATES SHE DOES NEED A HYSTERECTOMY. GOING TO DO HYSTERECTOMY SOON - WAITING ON [facility] TO HAVE SX. PATIENT REPORTS SHE WENT TO [facility] OVER THE WEEKEND. STATES THE MACHINES ARE DIFFERENT AND SHE HAD TROUBLE ADJUSTING THEIR MACHINES AND WEIGHTS TO TRY TO BE COMFORTABLE. ISN'T SURE IF SHE SHOULD EVEN BE DOING SOME OF THEIR MACHINES BECAUSE THEY ARE DIFFERENT AND HURT. GOING TO [employer] [facility] HERE. DX'D WITH LARGE FIBROIDS AND ENLARGED UTERUS. SHE REPORTS IT IS HARD TO DIFFERENTIATE BETWEEN ABDOMINAL ORGAN PAIN AND BACK PAIN. FAR HER BACK PAIN GOES SHE STATES SHE DOESN'T FEEL READY TO GO TO PAIN MGMT. PATIENT DENIES ASHLEY LE SX'S EXCEPT SOME REAR OCCASSIONS OF L BUTTOCK PAIN. FREQUENT ASHLEY HIP PAIN L> RIGHT. LB Pain Intensity (Out of 10): 3 % Improvement: 35 Objective/Function: PATIENT WAS SEEN TODAY FOR RE-ASSESSMENT OF PROGRESS TOWARD THE SET PT GOALS AND THE NEED FOR FURTHER PHYSICAL THERAPY VS READINESS FOR DISCHARGE. UPON EXAM TODAY: Sensory deficit: ASHLEY LE LIGHT TOUCH SENSATION GROSSLY INTACT AND SYMMETRICAL. ROM deficit: ASHLEY LE'S WFL. Motor deficit: ASHLEY LE'S GROSSLY 5/5 WITH MMT'ING EXCEPT LEFT HIP 4/5, L ANKLE DORSI 4+/5, L EHL 4+/5. Dural Signs: NEGATIVE ASHLEY LE'S. Lumbar mvmt loss: flex - NIL. ext - MIN. R SG - MIN. L SG - MOD. PATIENT C/O INCREASED LBP WITH LUMBAR EXTENSION TESTING AND AT THE END OF THE AVAILABLE ROM ALL PLANES. Core strength: FAIR. Palpation: MILD TENDERNESS LOWER LUMBAR SPINE AND LEFT PARASPINALS WITH LIGHT PALPATION. OVER ALL PATIENT HAS IMPROVED IN TERMS OF SUBJECTIVE PAIN REPORTS, LE AND CORE STRENGTH BUT SHE CONTINUES TO HAVE PAINFUL AND LIMITED BACK ROM AND CORE WEAKNESS. ASHLEY LE DURAL SIGNS WERE POSITIVE AT EVAL AND NEGATIVE NOW. SHE IS INDEP WITH A GYM PROGRAM HERE AT [facility] AND TRIALING EX AT [facility]. WILL GET MEMBERSHIP HERE IF UNABLE TO FIGURE THINGS OUT AT [facility]. NEEDS TO DEAL WITH HYSTERECTOMHY FIRST. Goal 1:: DECREASE C/O LBP Goal Progress: Goal Met Goal 2:: IMPROVE PERSONAL CARE, LIFTING, SITTING, STANDING, TRAVEL AND WORK/HOMEMAKING FUNCTION Goal Progress: Goal Met Goal 3:: INSTRUCT IN PROPHYLAXIS Goal Progress: Goal Met Plan: D/C TO INDEP EX. PATIENT AGREEABLE. If there are questions or concerns regarding this patient's physical therapy, please feel free to call me at [phone]. Thank you for the referral of this patient. Sincerely, Landy Hernandez, PT, Cert MDT Balance/Gait/Functional tests - Balance/Special Test Scores Oswestry Low Back Score: 11
== END 2023-01-02 10:20 | disposition home or self-care (01) ==
LOC: PT 09:00
PROVIDERS: PCP Internal Medicine; Referring Provider Orthopaedic Surgery Orthopaedic Surgery of the Spine; Visit Provider Orthopaedic Surgery Orthopaedic Surgery of the Spine
DX: M48.061 Spinal stenosis, lumbar region without neurogenic claudication (principal)
CPT/HCPCS: 97110; 97112; 97113; 97162; 97164; 97530

== ENCOUNTER 2023-01-08 05:28 | Day surgery (SDC) | payer OTHER, SELFPAY ==
[2023-01-08 05:55] VITALS: BP 107/48; PULSE 83; RESP 16; TEMP 36.9; O2SAT 100; BMI 24.7
[2023-01-08] MEDS: Lactated Ringers 1,000 ML 15 ML IV (05:59)
[2023-01-08 06:00] LABS: Internal QC Validated? YES +Cl - CLEAR BKGD; Pregnancy, Urine Negative Negative
--- NOTE | 2023-01-08 06:35 | PCM.HP.STD ---
[facility] - General General Date of Admission: 01/08/23 Date of Service: 01/08/23 Chief Complaint: Colon cancer screening [facility] Narrative KEITH WALDROP, is a 47 F who presents today for colon cancer screening. She has a past medical history of mild fibromyalgia, hyperlipidemia. She is not having any problems with her bowels. She not have any nausea. She did not have any chest pain or shortness of breath. She does not have any weakness. She has no family history of colon cancer. [facility] Medical History Anemia Arthritis Back pain Back problem Elevated liver enzymes Frequent headaches Migraine headache Non-smoker Home Medications Lactobacillus acidophilus 10 billion cell capsule (Probiotic) 10,000 mmu cells PO DAILY 01/02/23 [History Last Taken Unknown] ascorbic acid (vitamin C) 500 mg tablet (Vitamin C) 500 mg PO DAILY 01/02/23 [History Last Taken Unknown] cholecalciferol (vitamin D3) 25 mcg (1,000 unit) capsule (Vitamin D3) 25 mcg PO DAILY 01/02/23 [History Last Taken Unknown] turmeric 400 mg capsule 400 mg PO DAILY 01/02/23 [History Last Taken Unknown] zinc 50 mg capsule 50 mg PO DAILY 01/02/23 [History Last Taken Unknown] Allergy/AdvReac Type Severity Reaction Status Date / Time erythromycin base AdvReac Mild Upset Verified 01/08/23 05:54 Stomach Family History Other Anxiety and depression Arthritis Asthma Diabetes Heart disease Hyperlipemia Hypertension Myocardial infarction Thyroid disorder Surgical History History of tonsillectomy Social History Smoking Status: Never smoker alcohol intake: never substance use type: does not use caffeine: Yes what type of physical activity do you participate in: walking frequency: 1-2 times per week seatbelt use: always do you feel safe at home: Yes additional social history: - [employer]Has [employer] ROS Review of Systems ROS Unobtainable: other Constitutional Constitutional: Denies fatigue, fever(s), poor appetite, weight gain or weight loss ENT HEENT: Denies mouth lesions Cardiovascular Cardiovascular: Denies abdominal bloating, abdominal edema or abdominal pain Respiratory/Chest Respiratory/Chest: Denies change in mental status, change in phlegm color, chest congestion or chest tightness Gastrointestinal Gastrointestinal: Denies belching, bloating, change in bowel habits, change in stool character, chewing difficulty, coffee ground emesis, constipation, cramping, diarrhea, dyspepsia, dysphagia, early satiety, excessive flatus, fecal incontinence, heartburn, hematemesis, hematochezia, hemorrhoids, loose stools, melena, nausea, odynophagia, rectal bleeding, tenesmus, vomiting or weight changes Genitourinary Genitourinary: Denies abdominal discomfort, burning urination or itching Musculoskeletal Musculoskeletal: Reports as per HPI; Denies muscle weakness or myalgias Integumentary Integumentary: Denies jaundice Neurologic Neurologic: Denies lack of coordination or weakness Psychiatric Psychiatric: Denies confusion, depression, memory loss, mood swings, paranoia or suicidal ideation Endocrine Endocrinology: Denies systems reviewed and no addt'l complaints, except as documented Hematologic/Lymphatic Hematologic/Lymphatic: Denies anemia, easy bleeding, easy bruising or lymphadenopathy Allergic/Immunologic Allergic/Immunologic: Denies systems reviewed and no addt'l complaints, except as documented Vital Signs Vital Signs Vital Signs: 01/08/23 05:55 01/08/23 05:55 Temperature 98.4 F Temperature Source Temporal Pulse Rate 83 Respiratory Rate 16 Respiratory Pattern Normal Blood Pressure 107/48 L Blood Pressure Mean 67 Blood Pressure Source Monitor Blood Pressure Position Semi-Fowlers Blood Pressure Location Right Arm Pulse Ox 100 Oxygen Delivery Method Room Air Weight Weight: 167 lb 8.821 oz Body Mass Index (BMI) 24.7 Physical Exam Const alert General Appearance: cooperative Orientation / Consciousness: oriented to person HEENT hearing grossly normal bilaterally Head and Scalp: normal to inspection Face and Sinus: face symmetric Nose: external nose normal Mouth: oral and palatal mucosa normal Eyes conjunctivae normal General Eye: normal appearance of both eyes Neck full ROM General: normal visual inspection Lymph Lymphatic: no lymphadenopathy noted Chest inspection of chest normal and palpation of chest normal Chest: symmetrical chest wall rise Resp normal respiratory effort Effort and Inspection: able to speak in complete sentences Cardio regular rate GI non-distended Auscultation: normoactive bowel sounds Palpation: soft Percussion: normal to percussion Rectal Exam: deferred no CVA tenderness Back/Spine no CVA tenderness and normal ROM Extremity normal to inspection Peripheral Pulses: Yes pulses 2+ throughout Skin no rashes or lesions noted General Skin Exam: no breakdown, elasticity normal and turgor normal Neuro oriented x3 Speech: speech normal Gait (Neuro): normal gait Motor Exam: strength 5/5 throughout Psych mental status grossly normal Appearance: grossly normal Attitude: calm Activity / Motor Behavior: appropriate eye contact Speech: normal speech Thought Process: normal thought process Thought Content: normal thought content Attention / Concentration: attention grossly intact Memory / Cognition: memory grossly intact Insight: insight good Judgement: judgement good Results Lab / Micro Data Labs: Laboratory Results - last 24 hr 01/08/23 05:47: Urine Test Negative Assessment & Plan Assessment/Plan (1) Encounter for screening colonoscopy: PLAN: She was explained alternatives, risk, benefits including outstanding bleeding, infection, sepsis, perforation, need for emergent urgent . She have an ASA of 1.
[2023-01-08 06:56] VITALS: BP 107/48; BP 107/57; PULSE 71; RESP 14; TEMP 36.9; O2SAT 100
--- NOTE | 2023-01-08 06:59 | OP.CCLET_ITS ---
01/08/2023 Aayush Frederick MD [address] [place] [address] [place] [address] Re : Colonoscopy procedure for Inez Sinclair Dear Dr. Frederick This procedure was performed on Sunday, January 08, 2023. My impressions and recommendations are as follows: Impressions : - The entire examined colon is normal on direct and retroflexion views. - No specimens collected. Recommendations : - Discharge patient to home. - Resume previous diet. - Continue present medications. - Repeat colonoscopy in 10 years for screening purposes. My findings are described in the full procedure note, which is enclosed. If I can be of further assistance, please feel free to contact me at . Sincerely, Amilcar Montero, 01/08/2023 6:58:16 AM This report has been signed electronically.
--- NOTE | 2023-01-08 06:59 | OP.COLON_ITS ---
Patient Name: Inez Sinclair Procedure Date: 01/08/2023 6:06 AM Date of : 1975 Age: 47 Procedure: Colonoscopy Indications: Screening for colorectal malignant neoplasm Providers: Amilcar Montero DO Referring MD: Aayush Frederick MD Medicines: Monitored Anesthesia Care Patient Profile: This is a 47 year old female. Refer to note in patient chart for documentation of history and physical. Last Colonoscopy: none. The patient's first colonoscopy is today. Complications: No immediate complications. Procedure: Pre-Anesthesia Assessment: - Prior to the procedure, a History and Physical was performed, and patient medications and allergies were reviewed. The patient is competent. The risks and benefits of the procedure and the sedation options and risks were discussed with the patient. All questions were answered and informed consent was obtained. Patient identification and proposed procedure were verified by the physician. Mental Status Examination: normal. CV Examination: normal. ASA Grade Assessment: II - A patient with mild systemic disease. After reviewing the risks and benefits, the patient was deemed in satisfactory condition to undergo the procedure. The anesthesia plan was to use monitored anesthesia care (MAC). Immediately prior to administration of medications, the patient was re-assessed for adequacy to receive sedatives. The heart rate, respiratory rate, oxygen saturations, blood pressure, adequacy of pulmonary ventilation, and response to care were monitored throughout the procedure. The physical status of the patient was re-assessed after the procedure. After I obtained informed consent, the scope was passed under direct vision. Throughout the procedure, the patient's blood pressure, pulse, and oxygen saturations were monitored continuously. The colonoscope was introduced through the anus and advanced to the cecum, identified by appendiceal orifice and ileocecal valve. The colonoscopy was performed without difficulty. The patient tolerated the procedure well. The quality of the bowel preparation was good. Scope In: 6:41:52 AM Scope Withdrawal Time 0 hours 6 minutes 38 seconds Scope Out: 6:53:43 AM Total Procedure Duration Time 0 hours 11 minutes 51 seconds Findings: The perianal and digital rectal examinations were normal. The entire examined colon appeared normal on direct and retroflexion views. Impression: - The entire examined colon is normal on direct and retroflexion views. - No specimens collected. Recommendation: - Discharge patient to home. - Resume previous diet. - Continue present medications. - Repeat colonoscopy in 10 years for screening purposes. Procedure Code(s): --- Professional --- G0121, Colorectal cancer screening; colonoscopy on individual not meeting criteria for high risk CPT copyright 2017 [employer]. All rights reserved. The codes documented in this report are preliminary and upon coremaker helper review may be revised to meet current compliance requirements. Amilcar Montero DO 01/08/2023 6:58:16 AM This report has been signed electronically. Number of Addenda: 0 Note Initiated On: 01/08/2023 6:06 AM
[2023-01-08 07:00] VITALS: BP 107/48; BP 109/56; PULSE 72; RESP 16; O2SAT 100
[2023-01-08 07:05] VITALS: BP 100/67; BP 107/48; PULSE 61; RESP 16; O2SAT 98
[2023-01-08 07:11] VITALS: BP 107/48; BP 112/85; PULSE 64; RESP 16; TEMP 36.4; O2SAT 99
[2023-01-08 07:20] VITALS: BP 107/48
== END 2023-01-08 07:30 | disposition home or self-care (01) ==
LOC: EN 05:29 → AC 05:30
PROVIDERS: Anesthesiology; PCP Internal Medicine; Referring Provider Internal Medicine; Visit Provider Internal Medicine Gastroenterology
PROC: 0DJD8ZZ Inspection of Lower Intestinal Tract, Via Natural or Artificial Opening Endoscopic (ICD-10-PCS; CPT 45378; principal; 2023-01-08 06:25)
DX: Z12.11 Encounter for screening for malignant neoplasm of colon (principal)
CPT/HCPCS: G0121; 81025; J7120; J2405

== ENCOUNTER → 2023-01-26 | Outpatient (CLI) | payer OTHER, SELFPAY | END | disposition home or self-care (01) | LOC: LAB 15:24 | PROVIDERS: PCP Internal Medicine; Referring Provider Obstetrics & Gynecology; Visit Provider Obstetrics & Gynecology | DX: Z01.818 Encounter for other preprocedural examination (principal) | CPT/HCPCS: 36415; 83735; 85025; 86850; 86900; 86901 ==

== ENCOUNTER 2023-02-02 20:09 | Observation (INO) | payer OTHER, SELFPAY ==
[2023-01-26 16:05] LABS: Absolute Lymphocyte Count 1.47 X10^3/uL (0.83-4.51); Absolute Neutrophil Count 4.7 X10^3/uL (2.0-7.7); Basophil# 0.07 X10^3/uL; Eosinophil# 0.21 X10^3/uL; Hematocrit 44.4 % (37-47); Hemoglobin 13.8 g/dL (12.0-15.0); Lymphocyte # 1.47 X10^3/ul (0.83-4.51); Lymphocyte % 20.9 % (19-41); Mean Corp Hgb Conc 31.1 g/dL (32-36); Mean Corpuscular Hgb 26.5 pg (27.0-32.0); Mean Corpuscular Volume 85.2 fL (81-99); Mean Platelet Vol. 11.9 fl (6.2-12.0); Monocyte# 0.58 X10^3/uL; Monocyte% 8.2 % (0-10); NRBC Flagged by Analyzer 0 % (0-5); Neutrophil # 4.69 X10^3/uL (2.7-7.7); Neutrophil % 66.6 % (47-70); Platelet Count 282 K/mm3 (150-450); RBC Distribution Width SD 52.4 fl (35.1-43.9); Red Blood Count 5.21 M/mm3 (4.2-5.4)
[2023-01-26 16:54] LABS: Magnesium 2.4 mg/dL (1.6-2.6)
[2023-02-02] VITALS (18 sets, daily range): BP systolic 86–116; BP diastolic 43–68; PULSE 56–96; RESP 10–18; TEMP 36.4–37.2; O2SAT 14–100; BMI 25.5; BMI 26.6
--- NOTE | 2023-02-02 07:26 | PCM.HP.BLA ---
History and Physical Intake Vital Signs ? 12/11/2307:25 12/11/2307:26 Height 5 ft 9 in 5 ft 9 in Weight: 174 lb ? BMI 25.7 ? BP 108/84 H ? Intake Visit Reasons:?enlarged uterus/fibroid consult Chief Complaint: enlarged uterus Functional Support Analyst Required: No Is patient in pain?: No Allergies erythromycin base Adverse Reaction (Mild, Verified 11/08/22 10:46) Upset Stomach Medications ferrous sulfate 325 mg (65 mg iron) tablet 325 mg PO DAILY #90 tabs 09/01/21 [Rx Confirmed 12/11/22] Is last menstrual period known: No Post menopausal: No Patient : No : No PFSH Medical History? Anemia Arthritis Back problem Elevated liver enzymes Frequent headaches Surgical History? History of tonsillectomy Family History? Other Anxiety and depression Arthritis Asthma Diabetes Heart disease Hyperlipemia Hypertension Myocardial infarction Thyroid disorder Social History? Smoking Status:? Never smoker alcohol intake:? never substance use type:? does not use caffeine:? Yes what type of physical activity do you participate in:? walking frequency:? 1-2 times per week seatbelt use:? always do you feel safe at home:? Yes additional social history:? - [employer]Has [employer] ? HPI enlarged uterus/fibroid consult Details: KEITH WALDROP is a 47 year old who presents for uterine fibroids and heavy menses. 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 she does feel lower abdominal bloating and fullness, occasional dyspareunia.? she has some lower back pain but has chronic back problems also. Female Reproductive History Cycle Length: 21-35 Bleeding Duration: 5 Control Method: vasectomy Questions: metorrhagia: Yes (but sporatic and not for 24 hr like before), sexually active: Yes, dyspareunia: No and PCB: No ROS Const Constitutional: Denies fatigue, weight gain or weight loss Cardio Card: Denies chest pain Resp Resp: Denies cough or dyspnea on exertion GI GI: Denies abdominal pain, bloating, change in stool character, constipation or vomiting : Reports as per HPI; Denies difficulty voiding, pelvic pain, urinary frequency, urinary incontinence, urinary urgency, vaginal discharge or vaginal pruritus Exam Const General: cooperative, healthy appearing, no acute distress and well developed Orientation: alert, oriented to person and oriented to place [facility] Head: normal to inspection Neck Neck: normal visual inspection Thyroid: thyroid normal Lymphatic: no lymphadenopathy noted Resp Effort & Inspection: normal respiratory effort GI Palpation: soft, no masses and nontender Rectal Exam: deferred External Female Exam: normal external appearance and normal appearance of the urethra Urethra: normal appearance of the urethra and normal palpation Speculum Exam - Vagina: normal appearance of the vagina and normal vaginal discharge Speculum Exam - Cervix: normal appearance of the cervix Bimanual Exam- Vagina & Uterus: normal bimanual exam, non-tender, enlarged (14 week size wider at top 7-8 cm across at top ) and nodular (anteriorly and to left) Bimanual Exam- Adnexa, other: normal adnexae, no masses, normal and non-tender Pelvic Support: normal Neuro General: patient alert and patient oriented x3 Psych Affect: normal affect Coding Level of Care Code Off vis,est,level 4 Diagnoses Fibroid uterus? D25.9 Enlarged uterus? N85.2 Menorrhagia with regular cycle? N92.0 Assessment and Plan Assessment and Plan (1) Fibroid uterus: ?Status:?Acute ?Comment: 14 week size with 4 and 6 cm size fibroids (2) Enlarged uterus: ?Status:?Acute ?Comment: plan lavhbs (3) Menorrhagia with regular cycle: ?Status:?Acute ?Comment: likely secondary to fibroids Plan After discussing the patient's diagnosis and treatment plan options, patient wishes to proceed with surgical management. I have discussed with the patient the risks, benefits, and alternatives of the procedure which include but are not limited to risks of anesthesia, bleeding, infection, possible damage to bowel, bladder, or surrounding vasculature which could lead to additional surgery to evaluate any complications. Patient agrees to procedure and wishes to proceed. ACOG/uptodate references given for additional information regarding procedure. UPDATE- I have seen the patient and performed any clinically relevant updates to the history and physical exam. Carolina Cool MD
[2023-02-02 10:11] LABS: Internal QC Validated? YES +Cl - CLEAR BKGD; Pregnancy, Urine Negative Negative
[2023-02-02] MEDS: Lactated Ringers 1,000 ML 40 ML IV ×2 (10:16→16:39)
[2023-02-02] MEDS: Magnesium 1 GM over 15 mins IV (10:17)
[2023-02-02] MEDS: Phenazopyridine 95 MG Tablet 190 MG PO (10:18)
[2023-02-02] MEDS: Enoxaparin 40 MG/0.4 ML Syringe SC (10:18)
[2023-02-02] MEDS: Celecoxib 200 MG Capsule 400 MG PO (10:19)
[2023-02-02] MEDS: Scopolamine 1mg/72hr Patch 1 PATCH TD (10:20)
[2023-02-02] MEDS: Acetaminophen 500 MG Tablet 1000 MG PO ×3 (10:20→23:48)
[2023-02-02] MEDS: Gabapentin 600 MG Tablet PO (10:23)
[2023-02-02 10:41] LABS: Bedside Glucose 80 mg/dL (74-106)
[2023-02-02] MEDS: dexAMETHasone 4 MG/ML Vial 8 MG IV (10:42)
--- NOTE | 2023-02-02 11:30 | HYST_PTH ---
PATIENT: KEIHT WALDROP LOC: [facility]3 U#:[id number] AGE/SX: 47/F ROOM: IL318 RE02/02/[address]: Dr. Carolina Cool MD : 1975 BED: 1 DIS: 02/03/2023 SPEC #: [id number] RECD: 02/02/23 17:10 STATUS: DEB MORENO #: [id number] AGATHA: 02/02/23 11:[address]: Carolina Cool DEPT: SURGICAL PATHOLOGY RECD BY: Olena Escalante ENTERED: 02/05/23 08:38 SP TYPE: HYSTERECT OTHR DR: Dr. Aayush Frederick MD Tissues: Uterus, NOS Procedures: Surgery Specimen Level V HEADER OPERATION: ERAS, hysterectomy, LAVH, salpingectomy, cystoscopy PRE-OP DIAGNOSIS: Fibroid uterus, enlarged uterus, menorrhagia with regular cycle TISSUE SUBMITTED: Uterus, cervix, bilateral tubes MICROSCOPIC DIAGNOSIS Uterus, hysterectomy: Cervix ? mild chronic inflammation. Endometrium ? proliferative endometrium. Myometrium ? leiomyomas and adenomyosis. Right and left fallopian tubes - No pathologic change. AM:sangita 02/06/2023 MICROSCOPIC DESCRIPTION Slides are reviewed. GROSS DESCRIPTION Received in fixative is one container labeled with the patient's name and designated uterus. The specimen consists of a macerated uterus consisting of 17 fragments ranging in size from 2.0 to 11.0 cm and weighing 403 gm in aggregate. One detached and one attached fallopian tube is present. Both fallopian tubes have similar appearances with average lengths of 6.0 cm and average diameters of 0.7 cm. A distinct endometrial cavity is not identified due to fragmentation of the specimen. The myometrium ranges in thickness from 1.0 to 3.0 cm. Rubbery nodules resembling leiomyomas are present in the specimen ranging in size from 1.5 to approximately 6.0 cm. The presumed endometrium measures up to 0.2 cm in thickness. Final Block Press Operator sections are submitted as follows: 1 & 2 - cervix and endocervix, 3?&?4 - endometrium with adjacent myometrium, 5 - largest myometrial mass, 6 - second largest myometrial mass, 7 - third largest myometrial mass, 8 - one fallopian tube, 9 - the other fallopian tube. / AM:sangita 02/05/2023 TC:1 CPT: 45032
[2023-02-02] MEDS: Cefazolin 2 GM in 0.9% Normal Saline 100 ML IV (11:50)
[2023-02-02] MEDS: Bupivacaine 0.25% 30 ML Vial (12:20)
[2023-02-02] MEDS: Vasopressin 20 UNITS/ML Vial (13:00)
[2023-02-02] MEDS: Ondansetron 4 MG/2 ML Vial IV (14:51)
--- NOTE | 2023-02-02 17:47 | OP.PCM_ITS ---
Problems Associated Problem List Diagnoses (1) Enlarged uterus: (2) Menorrhagia with regular cycle: (3) Fibroid uterus: Report of Operation Date of Procedure: 02/03/23 Pre-Operative Diagnosis: fibroids enlarged uterus Post-Operative Diagnosis: same Surgery/Procedure Performed:: LAVHBS cystoscopy Description of Surgical Findings:: enlarged uterus multiple fibroids pelvic congestion 420g Surgeon: Carolina Cool software controls engineer: Kim Sahni Type of Anesthesia: General Special Medications: floseal Specimen's removed: uterus, tubes Drains: fabian Estimated Blood Loss (mL): 350 Fluids Replaced: crystalloid Description of Procedure: Patient received preoperative antibiotics and SCDs were on preoperatively. Patient was taken back to the operating room and placed in the dorsal lithotomy position. General anesthesia was induced and patient was prepped and draped in normal sterile fashion. Uterine manipulator was placed inside the uterus and F oley catheter placed in the bladder. The umbilicus was grasped with towel clamps and an intraumbilical incision was made after injecting with quarter percent Marcaine and a Veress needle entered into the abdomen confirmed to be intra-abdominal with a low opening pressure. Abdomen was insufflated with CO2 gas and the Veress needle removed and the 5 mm trocar was placed under direct visualization without complication. Right and left lower quadrants were transilluminated and injected with quarter percent Marcaine and 5 mm ports placed under direct visualization. Pelvis was well visualized see operative findings for additional information. Bilateral fallopian tubes were identified and transected with the LigaSure device across the mesosalpinx to the level of the utero-ovarian ligament which was also transected with the LigaSure device. The broad ligament was opened up by transecting the round ligament bilaterally and skeletonizing the uterine vessels bilaterally and creating a bladder flap using the LigaSure device. The uterine arteries were transected bilaterally with good visualization of the bladder and the ureters were seen to be inferior lateral to the operative area. This was a more difficult procedure due to the multiple fibroids and the pelvic congestion noted but was completed. Attention was then paid to the vaginal portion of the procedure and the cervix was grasped with Cecille clamps and circumferentially injected with dilute vasopressin. A circumferential incision was made and the vaginal mucosa was mobilized off posteriorly and the cul-de-sac entered into sharply and a longneck speculum placed. The anterior cul-de-sac was then identified and entered into sharply. The uterosacral ligaments were clamped cut and suture ligated with 0 Monocryl bilaterally followed by the cardinal ligaments which were clamped cut and suture ligated bilaterally with 0 Monocryl. The uterus serially descended and removed from its blood supply bilaterally. After it was amputated from its blood supply bilaterally additional sutures were placed bilaterally to obtain hemostasis over the pelvic sidewall pedicles particularly over the patient's left pelvic sidewall over the uterine artery 2 additional sutures were required to obtain hemostasis due to pelvic congestion. The uterus was then morcellated through coring and wedge resection with no intra-abdominal spillage which took additional operative time due to the large amount of uterine volume. Pelvic sidewall pedicles were checked and noted to have excellent hemostasis. The posterior peritoneum was then reapproximated with 3-0 Vicryl. A uterosacral stitch with 2-0 PDS was then performed incorporating bilateral uterosacral ligaments and the posterior cul-de-sac to provide a prophylactic apical stitch to reduce the risk for future prolapse due to the strain on the pelvic floor from the enlarged uterine volume of the uterine fibroids. The vaginal cuff was reapproximated using 0 Vicryl [id number] sutures. Excellent hemostasis was noted. [The cystoscopy was then performed and and only left ureteral strong spray was noted and the bladder was noted to have no abnormality or lesions seen. Attention was paid back to the abdominal portion of the procedure and the modified Can stitch was noted to be causing anatomical distortion by bringing in the bilateral uterosacral ligaments too far into the midline and therefore diverting the right ureter too far towards the midline which could be causing reduced ureteral flow and therefore the stitch was removed and cystoscopy repeated and strong ureteral spray noted through the right ureter. The stitch was not replaced due to the patient's anatomy and for concern that it would cause blockage. Attention was then paid back to the abdominal portion of the procedure and the pelvis and cul-de-sac were well visualized and no significant active bleeding noted but some raw areas were noted particularly over the bladder and peritoneum of the cuff therefore Floseal was placed over it and pressure was taken down and the areas visualized and noted to have excellent hemostasis. All ports were removed under direct visualization without complication and the abdomen was desufflated of air. The instruments were removed from the abdomen and the vaginal sweep was negative. Port sites on the abdomen were closed with 4-0 Monocryl interrupted sutures and Steri's and windows were applied. She was awoken and taken recovery in stable condition. Grafts/Implants Used: none Complications none Admit VTE Documentation VTE Present on Admission: No VTE Mechan Device Prophylaxis: SCD's VTE Pharm Prophylaxis ordered?: Yes Multi Select Codes Urinary/Genital Urinary/Genital CPT Codes: 00819 Cystoscopy and 70773 LAVH+BS/O >250gr Uterus
--- NOTE | 2023-02-02 17:48 | DCINST_ITS ---
Discharge Instructions Diet Discharge Diet: No restrictions Activity May resume sexual activity in: 6 weeks Weight Bearing Status: Full weight bearing Dressing / Incision Call your doctor if your incision/area has: Continuous Slow Oozing, Sudden Increased Bleeding, Increased Pain/ Swelling, Increased Redness and Foul Smelling Discharge Call your doctor if you observe: Fever of 101 or Higher, Using more than 1 pad per hour, Shortness of breath, Chest pain and Uncontrolled pain Suture Line Care: Avoid Pulling/Pushing and Avoid Pinching/Bending Remove Dressing in: 1 week (if present) Cleanse incision/area with: Soap & Water and Keep Dressing Clean & Dry Follow Up Care Please Follow Up With: Carolina Cool MD When: Call to make an appointment with your doctor for a postop visit in 2 and 6 weeks. Test Results: Test results from this visit will be discussed in further detail at your follow- up appointment, if applicable. Discharge Plan Admission Attending Provider: Carolina Cool Primary Care Provider: Aayush Frederick Discharge Orders/Prescriptions Prescriptions: New naproxen 250 mg tablet 250 - 500 mg PO Q8H PRN PRN (Reason: MILD PAIN) Qty: 30 1RF oxycodone-acetaminophen [Percocet] 5-325 mg tablet 1 tab PO Q6H PRN (Reason: pain) 7 Days Qty: 20 0RF Continued ascorbic acid (vitamin C) [Vitamin C] 500 mg Tablet 500 mg PO DAILY cholecalciferol (vitamin D3) [Vitamin D3] 25 mcg (1,000 unit) Capsule 25 mcg PO DAILY zinc 50 mg Capsule 50 mg PO DAILY Probiotic 10 billion cell Capsule 10,000 mmu cells PO DAILY turmeric 400 mg Capsule 400 mg PO DAILY Referrals / Follow Up: Aayush Frederick MD [Primary Care Provider] - Disposition Disposition (needs filled in before D/C Order can be placed): Home, Self Care
[2023-02-02 17:59] LABS: Hematocrit 37.1 % (37-47); Hemoglobin 11.6 g/dL (12.0-15.0); Mean Corp Hgb Conc 31.3 g/dL (32-36); Mean Corpuscular Hgb 26.8 pg (27.0-32.0); Mean Corpuscular Volume 85.7 fL (81-99); Platelet Count 216 K/mm3 (150-450); RBC Distribution Width CV 16.6 % (11.6-14.6); RBC Distribution Width SD 52.6 fl (35.1-43.9); Red Blood Count 4.33 M/mm3 (4.2-5.4); White Blood Count 11.6 K/mm3 (4.4-11.0)
[2023-02-02] MEDS: Lactated Ringers 1,000 ML 999 ML IV (18:10)
[2023-02-02] MEDS: oxyCODONE 5 MG Tablet PO (18:48)
[2023-02-02] MEDS: Lactated Ringers 1,000 ML 100 ML IV (19:30)
--- NOTE | 2023-02-02 19:48 | SUR.PHASEII ---
Attempted to stand pt at side of bed to walk to bathroom, pt dizzy and unsteady on her feet. Pt assisted back to bed. BGT 135.
[2023-02-02 20:10] LABS: Bedside Glucose 135 mg/dL (74-106)
--- NOTE | 2023-02-02 20:11 | SUR.PHASEI ---
scop patch removed by Mary Vazquez RN, as per Dr Herrera's instructions
[2023-02-02] MEDS: Ketorolac 30 MG/ML Syringe IV ×2 (20:19→23:48)
[2023-02-02] MEDS: Docusate Sodium 100 MG Capsule PO (22:49)
--- NOTE | 2023-02-02 23:25 | NURSING ---
This RN walked pt to restroom to try to void. Pt was unable to do so. This RN bladder scanned pt to find 70ml of urine. Will continue to monitor.
[2023-02-02] MEDS: 0.9% Saline Lock 10 ML Syringe IV (23:48)
[2023-02-03 01:13] VITALS: BP 116/61; PULSE 71; RESP 18; TEMP 36.9; O2SAT 98
[2023-02-03] MEDS: oxyCODONE 5 MG Tablet PO ×2 (01:22→08:36)
[2023-02-03] MEDS: Lactated Ringers 1,000 ML 100 ML IV (02:54)
[2023-02-03 05:13] VITALS: BP 94/46; PULSE 78; RESP 18; TEMP 36.8; O2SAT 96
[2023-02-03] MEDS: Acetaminophen 500 MG Tablet 1000 MG PO (05:24)
[2023-02-03] MEDS: Ketorolac 30 MG/ML Syringe IV (05:24)
[2023-02-03] MEDS: 0.9% Saline Lock 10 ML Syringe IV (05:24)
--- NOTE | 2023-02-03 06:26 | PN.OBGYN_ITS ---
Subjective Subjective Patient doing well without complaints. Tolerating PO. Ambulating without difficulty. Denies chest pain, shortness of breath, calf pain/swelling, fevers, chills, lightheadedness. Objective Data Objective Data Vital Signs: Vital Signs Temp Pulse Resp BP Pulse Ox O2 Del Method O2 Flow Rate 98.4 F 71 18 116/61 98 Room Air 4 02/03/23 01:13 02/03/23 01:13 02/03/23 01:13 02/03/23 01:13 02/03/23 01:13 02/03/23 01:13 02/02/23 17:45 Oxygen Flow Rate (L/min) 4 Oxygen Delivery Method Room Air Weight: 180 lb Body Mass Index (BMI) 26.6 Intake & Output: Intake and Output for Last 24 Hours 02/01/23 02/02/23 02/03/23 23:59 23:59 23:59 Intake Total 4212 / 4212 740 / 740 Output Total 835 / 1035 900 / 900 Balance 3377 / 3177 -160 / -160 Lab / Micro Data Result Diagrams: 02/02/23 17:45 Labs: Laboratory Results - last 24 hr 02/02/23 09:50: Urine Test Negative 02/02/23 10:13: POC Glucose 80 02/02/23 17:45: WBC 11.6 H, RBC 4.33, Hgb 11.6 L, Hct 37.1, MCV 85.7, MCH 26.8 L , MCHC 31.3 L, RDW Std Deviation 52.6 H, RDW Coeff of Janelle 16.6 H, Plt Count 216, MPV 12.0 02/02/23 19:48: POC Glucose 135 H ROS Constitutional Constitutional: Reports systems reviewed and no addt'l complaints, except as documented Cardiovascular Cardiovascular: Reports systems reviewed and no addt'l complaints, except as documented Respiratory/Chest Respiratory/Chest: Reports systems reviewed and no addt'l complaints, except as documented Gastrointestinal Gastrointestinal: Reports systems reviewed and no addt'l complaints, except as documented Physical Exam Const alert, oriented x3 and no apparent distress HEENT Head and Scalp: atraumatic Resp normal respiratory effort GI soft to palpation and non-tender Assessment & Plan (1) Enlarged uterus: COMMENT: discussed myfembree or hyst. decided on hyst- proceed with LAVHBS (2) Fibroid uterus: COMMENT: 14 week size with 4 and 6 cm size fibroids (3) Menorrhagia with regular cycle: COMMENT: likely secondary to fibroids PLAN: Plan patient is s/p lavhbs cysto POD 1 1. routine ERAS protocol postop care- increase ambulation, encourage oral intake and oral control of pain. lovenox and scds for dvt prophylaxis, patient stable for discharge to home.
[2023-02-03 06:36] LABS: Hematocrit 33.2 % (37-47); Hemoglobin 10.3 g/dL (12.0-15.0); Mean Corpuscular Hgb 26.9 pg (27.0-32.0); Mean Corpuscular Volume 86.7 fL (81-99); Mean Platelet Vol. 11.9 fl (6.2-12.0); Platelet Count 220 K/mm3 (150-450); RBC Distribution Width CV 17.1 % (11.6-14.6); RBC Distribution Width SD 54.7 fl (35.1-43.9); Red Blood Count 3.83 M/mm3 (4.2-5.4); White Blood Count 11.8 K/mm3 (4.4-11.0)
[2023-02-03 07:22] VITALS: O2SAT 95
[2023-02-03] MEDS: Ensure Plus High Protein 120 ML LIQUID PO (08:36)
[2023-02-03 10:30] VITALS: BP 101/56; BP 104/60; PULSE 68; RESP 16; TEMP 36.7; O2SAT 100
[2023-02-03] MEDS: Docusate Sodium 100 MG Capsule PO (10:51)
== END 2023-02-03 11:01 | disposition home or self-care (01) ==
LOC: SDC 21:11 → MS3 21:11
PROVIDERS: Anesthesiology; Admitting Provider Obstetrics & Gynecology; PCP Internal Medicine; Referring Provider Obstetrics & Gynecology; Visit Provider Obstetrics & Gynecology
PROC: 0UT9FZZ Resection of Uterus, Via Natural or Artificial Opening With Percutaneous Endoscopic Assistance (ICD-10-PCS; CPT 58552; principal; 2023-02-02 11:05)
DX: D25.9 Leiomyoma of uterus, unspecified (principal); R14.0 Abdominal distension (gaseous); N92.0 Excessive and frequent menstruation with regular cycle; N85.2 Hypertrophy of uterus; E78.5 Hyperlipidemia, unspecified; M19.90 Unspecified osteoarthritis, unspecified site; D64.9 Anemia, unspecified; Z79.899 Other long term (current) drug therapy
CPT/HCPCS: 58552; 00944; 36415; 81025; 82962; 83735; 85025; 85027; 86850; 86900; 86901; 88307; 96361; 96374; 96376; 99221; J7120; A4216; G0378; J2405; J3475

== ENCOUNTER → 2023-03-19 | Outpatient (CLI) | payer OTHER, SELFPAY | END | disposition home or self-care (01) | LOC: LABSPEC 14:19 | PROVIDERS: PCP Internal Medicine; Referring Provider Obstetrics & Gynecology; Visit Provider Obstetrics & Gynecology | DX: N89.8 Other specified noninflammatory disorders of vagina (principal) | CPT/HCPCS: 87070; 87205 ==

== ENCOUNTER → 2023-06-05 | Outpatient (CLI) | payer OTHER, SELFPAY ==
[2023-06-05 15:33] LABS: Absolute Lymphocyte Count 1.96 X10^3/uL (0.83-4.51); Absolute Neutrophil Count 4.6 X10^3/uL (2.0-7.7); Basophil# 0.06 X10^3/uL; Basophil% 0.8 % (0-1); Eosinophil# 0.21 X10^3/uL; Eosinophils% 2.8 % (0-5); Hematocrit 46.8 % (37-47); Lymphocyte # 1.96 X10^3/ul (0.83-4.51); Lymphocyte % 26.1 % (19-41); Mean Corp Hgb Conc 32.1 g/dL (32-36); Mean Corpuscular Hgb 29.1 pg (27.0-32.0); Mean Corpuscular Volume 90.9 fL (81-99); Mean Platelet Vol. 11.5 fl (6.2-12.0); Monocyte# 0.66 X10^3/uL; Monocyte% 8.8 % (0-10); NRBC Flagged by Analyzer 0 % (0-5); Neutrophil # 4.59 X10^3/uL (2.7-7.7); Neutrophil % 61.2 % (47-70); Platelet Count 273 K/mm3 (150-450); RBC Distribution Width CV 13.7 % (11.6-14.6); RBC Distribution Width SD 45.8 fl (35.1-43.9); Red Blood Count 5.15 M/mm3 (4.2-5.4); White Blood Count 7.5 K/mm3 (4.4-11.0)
[2023-06-05 15:40] LABS: Erythrocyte Sedimentation Rate 3 mm/hr (0-30)
[2023-06-05 16:12] LABS: ALB/GLOB Ratio 1.1 RATIO (0.9-2.4); AST(SGOT) 13 U/L (15-37); Alanine Aminotransfer ALT/SGPT 18 U/L (13-56); Albumin, Serum 3.6 g/dL (3.2-5.0); Alkaline Phosphatase 81 U/L (45-117); Anion Gap 4 (5-15); BUN 16 mg/dL (7-18); BUN/Creat Ratio 19.5 RATIO (10-20); CRP < 2.90 mg/L (0.0-3.0); Chloride 104 mmol/L (98-107); Creatinine, Serum 0.82 mg/dL (0.55-1.02); EST Glomerular Filtration Rate 80 mL/min (>60); Est Glom Filt Rate - Afr Amer 97 mL/min (>60); Globulin 3.4 g/dL (2.2-4.2); Glucose 81 mg/dL (74-106); Potassium 3.7 mmol/L (3.5-5.1); Rheumatoid Factor < 10.0 IU/mL (<15); Sodium Level 139 mmol/L (136-145)
[2023-06-07 15:08] LABS: ANTINUCLEAR ANTIBODIES DIRECT Negative (Negative)
== END | disposition home or self-care (01) ==
LOC: MTLAB 13:36
PROVIDERS: PCP Internal Medicine
DX: M54.2 Cervicalgia (principal)
CPT/HCPCS: 36415; 80053; 85025; 85652; 86038; 86140; 86431

== ENCOUNTER → 2023-06-06 | Outpatient (CLI) | payer OTHER, SELFPAY ==
[2023-06-06 19:40] LABS: Vitamin B12 1092 pg/mL (211-911)
== END | disposition home or self-care (01) ==
LOC: BIMLAB 14:31
PROVIDERS: PCP Internal Medicine; Referring Provider Internal Medicine; Visit Provider Internal Medicine
DX: R20.0 Anesthesia of skin (principal); R20.2 Paresthesia of skin
CPT/HCPCS: 36415; 82607

== ENCOUNTER 2023-08-08 02:59 | Emergency (ER) | payer OTHER, SELFPAY ==
[2023-08-08 03:01] VITALS: BP 131/52; PULSE 90; RESP 24; TEMP 36.2; O2SAT 97; BMI 27.3
[2023-08-08 03:23] LABS: Absolute Lymphocyte Count 0.45 X10^3/uL (0.83-4.51); Absolute Neutrophil Count 8.9 X10^3/uL (2.0-7.7); Basophil# 0.03 X10^3/uL; Basophil% 0.3 % (0-1); Eosinophil# 0.05 X10^3/uL; Eosinophils% 0.5 % (0-5); Hematocrit 42.6 % (37-47); Hemoglobin 14.4 g/dL (12.0-15.0); Lymphocyte # 0.45 X10^3/ul (0.83-4.51); Lymphocyte % 4.5 % (19-41); Mean Corp Hgb Conc 33.8 g/dL (32-36); Mean Corpuscular Hgb 30.5 pg (27.0-32.0); Mean Corpuscular Volume 90.3 fL (81-99); Monocyte# 0.46 X10^3/uL; Monocyte% 4.6 % (0-10); NRBC Flagged by Analyzer 0 % (0-5); Neutrophil # 8.88 X10^3/uL (2.7-7.7); Neutrophil % 89.8 % (47-70); POSITIVE DIFFERENTIAL YES; Platelet Count 163 K/mm3 (150-450); RBC Distribution Width CV 12.8 % (11.6-14.6); RBC Distribution Width SD 42.4 fl (35.1-43.9); Red Blood Count 4.72 M/mm3 (4.2-5.4); White Blood Count 9.9 K/mm3 (4.4-11.0)
[2023-08-08 03:26] LABS: Differential Indicated SCAN CRITERIA MET
--- NOTE | 2023-08-08 03:33 | CT_ITS ---
INDICATION: abd pain COMPARISON: None. IV Contrast dosage and agent: 91 cc [id number]-370 IV. RADIATION DOSAGE (If Supplied By Facility): CTDIvol = ( 13.39 ) mGy, DLP = ( 865.60 ) mGycm A radiation dose optimization technique was used for this scan. FINDINGS: Contrast enhanced serial CT axial images through the abdomen and pelvis with coronal and sagittal reformatted series. SPLEEN: Splenomegaly measuring over 14 cm. APPENDIX: Normal caliber gas containing appendix. PANCREAS: No peripancreatic fat stranding. BOWEL/MESENTERY: No dilated bowel loops. No significant free fluid. No free air. GALLBLADDER: No pericholecystic fat stranding. LIVER/STOMACH: Periportal edema. URINARY COLLECTING SYSTEM/ KIDNEYS: No obstructing ureteral calculus. No significant renal parenchymal abnormality. LUNG BASES: Unremarkable. BONES: Unremarkable for age. CT/Abdomen/Pelvis W IV Cont ONLY IMPRESSION: Periportal edema most commonly associated with aggressive IV hydration. Correlate with laboratory values. No acute abdominal abnormality is otherwise identified, to include normal appendix and no evidence of obstructing ureteral calculus. Splenomegaly. Electronically Signed: Jasbir Saleh MD at 5:05 EDT ,
[2023-08-08 03:40] LABS: Internal QC Validated? YES +Cl - CLEAR BKGD
[2023-08-08 03:41] LABS: Pregnancy, Serum, hCG Quali. NEGATIVE Negative
[2023-08-08 03:43] LABS: ALB/GLOB Ratio 1.1 RATIO (0.9-2.4); AST(SGOT) 125 U/L (15-37); Alanine Aminotransfer ALT/SGPT 95 U/L (13-56); Albumin, Serum 3.4 g/dL (3.2-5.0); Alkaline Phosphatase 79 U/L (45-117); Anion Gap 5 (5-15); BUN 19 mg/dL (7-18); Calcium,Total 8.7 mg/dL (8.5-10.1); Chloride 107 mmol/L (98-107); EST Glomerular Filtration Rate 63 mL/min (>60); Est Glom Filt Rate - Afr Amer 77 mL/min (>60); Estimated Creatinine Clearance 73.46 ml/min; Globulin 3.1 g/dL (2.2-4.2); Glucose 129 mg/dL (74-106); Potassium 3.7 mmol/L (3.5-5.1); Protein, Total 6.5 g/dL (6.4-8.2); Sodium Level 139 mmol/L (136-145)
[2023-08-08] MEDS: Ondansetron 4 MG/2 ML Vial IV (03:43)
[2023-08-08] MEDS: Morphine 4 MG/ML Syringe IV (03:45)
[2023-08-08] MEDS: 0.9% Normal Saline (1000mL) 1,000 ML 999 ML IV (03:46)
[2023-08-08 03:50] LABS: Differential Comment SCANNED
[2023-08-08 03:55] LABS: Lipase 56 U/L (13-75); Troponin-I HS 3 pg/mL (3.0-54.0)
[2023-08-08 04:56] LABS: Mucous, Urine 0 SEEN /hpf (<or=2+); Red Blood Cells-Urine 0 SEEN /hpf (0-5)
[2023-08-08 04:57] LABS: Color, Urine Yellow (Yellow); Glucose, Dipstick Normal (Normal); Ketone-Dipstick Negative (Negative); Leukocyte Esterase-Dipstick 25 /ul (Negative); Nitrite-Dipstick Negative (Negative); Occult Blood-Urine Negative /ul (Negative); Protein-Dipstick 15 mg/dl (Negative); Urine Bilirubin Dipstick Negative (Negative); Urine Clarity Clear (Clear); Urine Urobilinogen Normal (Normal)
[2023-08-08 05:00] VITALS: BP 113/59; PULSE 78; RESP 13; O2SAT 94
[2023-08-08 05:03] LABS: Amorphous Sediment 1+; Bacteria 1+ /hpf (None Seen); Squamous Epithelial Cells - UA 5-10 SEEN /hpf (5-10); White Blood Cells 0-5 SEEN /hpf (0-5)
--- NOTE | 2023-08-08 05:42 | EX.ED.DYSGE1 ---
HPI History of Present Illness Chief Complaint: Abd Pain Informant: patient and spouse/S.O. Narrative Narrative: Patient is a 48-year-old female with past medical history of anxiety hyperlipidemia and fibromyalgia. She states she went to bed normally and then awoke from sleep with pain in the midepigastric to right upper quadrant region of her abdomen. She denies any associated fevers or chills or known sick contacts. She states that the pain radiated up towards her chest slightly and she is concerned this could be cardiac in nature and with his presents for evaluation. [facility] Medical History (Updated 08/09/23 @ 22:[address] Ga Lazar, DO) Anemia Arthritis Back pain Back problem Elevated liver enzymes Enlarged uterus Fibroid uterus Frequent headaches Lightheadedness Menorrhagia with regular cycle Migraine headache Non-smoker Numbness and tingling in both hands Sinusitis Vertigo Home Medications Lactobacillus acidophilus 10 billion cell capsule (Probiotic) 10,000 mmu cells PO DAILY 01/02/23 [History Last Taken Unknown] ascorbic acid (vitamin C) 500 mg tablet (Vitamin C) 500 mg PO DAILY 01/02/23 [History Last Taken Unknown] cholecalciferol (vitamin D3) 25 mcg (1,000 unit) capsule (Vitamin D3) 25 mcg PO DAILY 01/02/23 [History Last Taken Unknown] turmeric 400 mg capsule 400 mg PO DAILY 01/02/23 [History Last Taken Unknown] zinc 50 mg capsule 50 mg PO DAILY 01/02/23 [History Last Taken Unknown] fluticasone propionate 50 mcg/actuation nasal spray,suspension (Flonase Allergy Relief) 1 spray intranasal DAILY 05/16/23 [History Last Taken Unknown] meclizine 25 mg tablet 25 mg PO BID PRN dizziness #30 tabs 05/16/23 [Rx Last Taken Unknown] duloxetine 30 mg capsule,delayed release 30 mg PO QHS #60 caps 06/06/23 [Rx Last Taken Unknown] oxycodone-acetaminophen 5 mg-325 mg tablet (Percocet) 1 tab PO Q6H PRN pain 3 days #12 tabs 08/08/23 [Rx Last Taken Unknown] Allergy/AdvReac Type Severity Reaction Status Date / Time erythromycin base AdvReac Mild Upset Verified 05/16/23 18:16 Stomach Family History Other Anxiety and depression Arthritis Asthma Diabetes Heart disease Hyperlipemia Hypertension Myocardial infarction Thyroid disorder Surgical History History of bilateral salpingectomy History of tonsillectomy Hx of colonoscopy S/P laparoscopic assisted vaginal hysterectomy (LAVH) Social History Smoking Status: Never smoker alcohol intake: never substance use type: does not use caffeine: Yes what type of physical activity do you participate in: walking frequency: 1-2 times per week seatbelt use: always do you feel safe at home: Yes additional social history: - [employer] ROS ROS ED Constitutional Constitutional ED: Denies chills or fever(s) ENT ENT ED: Denies sore throat Cardiovascular Cardiovascular: Denies chest pain Respiratory/Chest Respiratory/Chest: Denies cough or dyspnea Gastrointestinal Gastrointestinal: Reports abdominal pain and nausea; Denies diarrhea or vomiting Genitourinary Genitourinary ED: Denies dysuria or hematuria Musculoskeletal Musculoskeletal: Denies back pain or myalgias Integumentary Denies rash Neurologic Neurologic: Denies headache(s) Hematologic/Lymphatic Hematologic/Lymphatic: Denies easy bleeding or easy bruising EXAM Physical Exam Const Vital Signs: 08/08/23 03:01 08/08/23 05:00 Temperature 97.1 F L Temperature Source Temporal Pulse Rate 90 78 Respiratory Rate 24 H 13 Blood Pressure 131/52 H 113/59 L Blood Pressure Mean 78 77 Pulse Ox 97 94 Oxygen Delivery Method Room Air Room Air Positive well nourished and well developed General Appearance ED: well developed HEENT Reports moist mucous membranes HEENT Narrative: No signs of infection in the posterior pharynx Eyes PERRL and EOMs intact bilaterally General Eye ED: Negative for scleral icterus Neck supple Chest Wall palpation of chest normal Chest Narrative: No bony deformity or crepitance noted Resp normal respiratory effort and clear to auscultation bilaterally Cardio regular rate and regular rhythm Rate: other Other Details: Radial and carotid pulses are equal and symmetric GI non-distended GI Narrative: Abdomen is soft and nondistended with normal active bowel sounds. There is mild pain on palpation in the midepigastric and right upper quadrant region without voluntary guarding or rigidity. No pulsatile mass or fluid wave. Negative Crockett sign. Auscultation: normoactive bowel sounds Palpation: soft Back/Spine no CVA tenderness Extremity normal to inspection Neuro oriented x3, CN's II-XII intact bilaterally and no sensory deficits noted Sensorium / Orientation: alert Motor Exam: strength 5/5 throughout Psych mental status grossly normal Skin no rashes or lesions noted General Skin Exam: Negative for jaundice MDM MDM MDM Narrative Medical decision making narrative: Patient presented to the ER with stable vitals and a soft nonsurgical abdomen. She reported some radiation of pain in the chest and she is low risk for cardiovascular disease and this is not classic cardiac symptoms in nature but based on this concern EKG and troponin will be obtained. Different diagnosis also includes biliary colic versus pancreatitis versus gastroenteritis versus UTI. Patient blood work was obtained which showed just slight elevation to her liver enzymes and CT scan was obtained to check for gallstones or dilation of the gallbladder. This showed periportal edema but otherwise no acute findings. After treatment the patient reported feeling better her abdomen remains soft and nonsurgical and therefore is periportal edema has a large differential diagnosis and could been secondary to her IV fluid resuscitation I do not feel there is need for emergent GI consult. Patient and significant other were informed of this finding and were advised to follow-up with gastroenterology as an outpatient to discuss potential further testing that may be done secondary to this. However at this time as overall work-up is negative patient is feeling better and vitals remained stable she is otherwise safe for discharge. History & Record Review Discussion w/independent historian: Patient and Family Lab Data Attestation: I reviewed the patient's lab results. Labs: Laboratory Results - last 24 hr 08/08/23 08/08/23 03:10 04:50 WBC 9.9 RBC 4.72 Hgb 14.4 Hct 42.6 MCV 90.3 MCH 30.5 MCHC 33.8 RDW Std Deviation 42.4 RDW Coeff of Janelle 12.8 Plt Count 163 MPV 11.0 Immature Gran % (Auto) 0.300 Neut % (Auto) 89.8 H Lymph % (Auto) 4.5 L [place] % (Auto) 4.6 Eos % (Auto) 0.5 Baso % (Auto) 0.3 Absolute Neuts (auto) 8.9 H Absolute Lymphs (auto) 0.45 L Nucleated RBC % 0 Differential Comment SCANNED Sodium 139 Potassium 3.7 Chloride 107 Carbon Dioxide 27.0 Anion Gap 5 BUN 19 H Creatinine 1.00 Estim Creat Clear Calc 73.46 Est GFR (MDRD) Af Amer 77 Est GFR (MDRD) Non-Af 63 BUN/Creatinine Ratio 19.0 Glucose 129 H Calcium 8.7 Total Bilirubin 0.70 AST 125 H ALT 95 H Alkaline Phosphatase 79 Troponin I High Sens 3 Total Protein 6.5 Albumin 3.4 Globulin 3.1 Albumin/Globulin Ratio 1.1 Lipase 56 Serum , Qual NEGATIVE Urine Color Yellow Urine Clarity Clear Urine pH 8.0 Ur Specific [place] 1.010 Urine Protein 15 H Urine Glucose (UA) Normal Urine Ketones Negative Urine Occult Blood Negative Urine Nitrite Negative Urine Bilirubin Negative Urine Urobilinogen Normal Ur Leukocyte Esterase 25 H Urine RBC 0 SEEN Urine WBC 0-5 SEEN Ur Squamous Epith Cells 5-10 SEEN Amorphous Sediment 1+ Urine Bacteria 1+ Urine Mucus 0 SEEN Radiography Diagnostic Testing: Clinical Impression(s) from Imaging Studies Abdomen/Pelvis CT 08/08/23 03:33 IMPRESSION: Periportal edema most commonly associated with aggressive IV hydration. Correlate with laboratory values. No acute abdominal abnormality is otherwise identified, to include normal appendix and no evidence of obstructing ureteral calculus. Splenomegaly. Electronically Signed: Jasbir Saleh MD at 5:05 EDT , Discharge Plan Triage Chief Complaint: Abd Pain ED Provider: Ga Lazar Dx/Rx/DC Orders Clinical Impression: Nonspecific abdominal pain, Elevated liver enzymes Instructions: Abdominal Pain Prescriptions: New oxycodone-acetaminophen [Percocet] 5-325 mg tablet 1 tab PO Q6H PRN (Reason: pain) 3 Days Qty: 12 0RF No Action fluticasone propionate [Flonase Allergy Relief] 50 mcg/actuation spray,suspension 1 spray intranasal DAILY Rx Instructions: administer into each nostril meclizine 25 mg tablet 25 mg PO BID PRN (Reason: dizziness) Qty: 30 2RF duloxetine 30 mg capsule,delayed release(DR/EC) 30 mg PO QHS Qty: 60 1RF ascorbic acid (vitamin C) [Vitamin C] 500 mg Tablet 500 mg PO DAILY cholecalciferol (vitamin D3) [Vitamin D3] 25 mcg (1,000 unit) Capsule 25 mcg PO DAILY zinc 50 mg Capsule 50 mg PO DAILY Probiotic 10 billion cell Capsule 10,000 mmu cells PO DAILY turmeric 400 mg Capsule 400 mg PO DAILY Primary Care Provider: Aayush Frederick Referrals: Aayush Frederick MD [Primary Care Provider] - Amilcar Montero DO [Med Staff - Active Staff] - Activity Restrictions/Additional Instructions: Please follow-up with Dr. Montero or another hand funnel coater secondary to your abdominal pain and the fact your CAT scan today showed periportal edema which has a multitude of causes. Otherwise your CT scan and laboratory studies revealed no clinically significant findings. if you have any further concerns or worsening of symptoms please return to the ER for repeat evaluation Disposition Disposition: Home, Self Care Discharge Date/Time: 08/08/23 06:01
[2023-08-08 05:59] VITALS: BP 113/59; PULSE 778; RESP 13; O2SAT 94
== END 2023-08-08 06:01 | disposition home or self-care (01) ==
PROVIDERS: Emergency Provider Emergency Medicine; PCP Internal Medicine; Visit Provider Emergency Medicine
DX: R10.11 Right upper quadrant pain (principal); R74.8 Abnormal levels of other serum enzymes; R10.13 Epigastric pain; R42 Dizziness and giddiness; Z79.899 Other long term (current) drug therapy; F41.9 Anxiety disorder, unspecified
CPT/HCPCS: 74177; 80053; 81001; 83690; 84484; 84703; 85025; 93005; 96361; 96374; 96375; 99282; J7030; Q9967; A4216; J2405

== ENCOUNTER → 2024-04-02 | Outpatient (CLI) | payer OTHER, SELFPAY ==
--- NOTE | 2024-04-02 14:29 | BI_ITS ---
MAMMOGRAPHY - BILATERAL SCREENING 3-D TOMOSYNTHESIS REASON FOR EXAM: Female, 48 years old. screening mammogram PERTINENT HISTORY: No significant family history. TECHNIQUE: 2-D mammograms and 3-D Tomosynthesis of the breast (s) were performed. CAD was performed. COMPARISON: 05/09/2022 FINDINGS: The breast composition is composed of scattered fibroglandular density. Scattered benign calcifications are seen. No dense spiculated masses or suspicious microcalcifications are identified. No architectural distortion is identified. There is no skin thickening or retraction. There has been no significant change since the prior study. BI/SCRN MAMM (CAD)W/YONATHAN BILAT IMPRESSION: No mammographic signs of malignancy. Routine yearly mammograms recommended. ASSESSMENT CATEGORY: BIRADS Category 1: Negative. A letter regarding these results will be sent to the patient by the facility within 30 days. FOLLOW UP RECOMMENDATION: Yearly follow up mammogram recommended. (A) Approximately 10% of breast cancers are not detected by mammography. A normal mammogram should not delay biopsy of a clinically suspicious abnormality. Electronically Signed: Derian Cano MD at 16:48 EDT ,
== END | disposition home or self-care (01) ==
LOC: OPBI 14:29
PROVIDERS: PCP Internal Medicine; Referring Provider Obstetrics & Gynecology; Visit Provider Obstetrics & Gynecology
DX: Z12.31 Encounter for screening mammogram for malignant neoplasm of breast (principal)
CPT/HCPCS: 77063; 77067

== ENCOUNTER → 2024-04-16 | Outpatient (CLI) | payer OTHER, SELFPAY ==
[2024-04-16 17:41] LABS: ALB/GLOB Ratio 1.2 RATIO (0.9-2.4); AST(SGOT) 20 U/L (15-37); Alanine Aminotransfer ALT/SGPT 26 U/L (13-56); Albumin, Serum 3.8 g/dL (3.2-5.0); Alkaline Phosphatase 74 U/L (45-117); Anion Gap 7 (5-15); BUN 16 mg/dL (7-18); BUN/Creat Ratio 20.1 RATIO (10-20); Calcium,Total 9.2 mg/dL (8.5-10.1); Chloride 106 mmol/L (98-107); EST Glomerular Filtration Rate 82 mL/min (>60); Est Glom Filt Rate - Afr Amer 99 mL/min (>60); Globulin 3.2 g/dL (2.2-4.2); Glucose 87 mg/dL (74-106); Potassium 3.9 mmol/L (3.5-5.1); Sodium Level 136 mmol/L (136-145)
== END | disposition home or self-care (01) ==
LOC: BIMLAB 14:54
PROVIDERS: PCP Internal Medicine; Referring Provider Internal Medicine; Visit Provider Internal Medicine
DX: R74.8 Abnormal levels of other serum enzymes (principal)
CPT/HCPCS: 36415; 80053

== ENCOUNTER → 2024-07-08 | Outpatient (CLI) | payer OTHER, SELFPAY ==
[2024-07-08 14:12] LABS: CRP < 2.90 mg/L (0.0-3.0); Ferritin 55 ng/mL (8-252)
[2024-07-09 16:10] LABS: Angiotensin Convert Enzyme 32 U/L (14-82); Anti-Smooth Muscle ABS 5 Units (0-19); CCP IgG Antibodies 5 units (0-19); Cytoplasmic Ab (C-ANCA) <1:20 titer (Neg:<1:20); Perinuclear Ab (P-ANCA) <1:20 titer (Neg:<1:20)
[2024-07-09 17:07] LABS: Anti-dsDNA Ab <1 IU/mL (0-9); SJOGREN'S Anti-SS-A test < 0.2 AI (0.0-0.9); SJOGREN'S Anti-SS-B test < 0.2 AI (0.0-0.9)
== END | disposition home or self-care (01) ==
PROVIDERS: PCP Internal Medicine; Referring Provider Internal Medicine Pulmonary Disease; Visit Provider Internal Medicine Pulmonary Disease
DX: G25.81 Restless legs syndrome (principal)
CPT/HCPCS: 36415; 82164; 82728; 83516; 86140; 86200; 86225; 86235; 86256

== ENCOUNTER → 2024-07-28 | Outpatient (CLI) | payer OTHER, SELFPAY ==
[2024-07-28 17:53] LABS: Amphetamine Urine VISTA NEGATIVE (<1000 ng/mL); Barbiturate Urine VISTA NEGATIVE (< 200 ng/mL); Benzodiazepine Urine VISTA NEGATIVE (< 200 ng/mL); Cocaine Urine VISTA NEGATIVE (< 300 ng/mL); Ecstacy Urine VISTA NEGATIVE (< 500 ng/mL); Methadone Urine VISTA NEGATIVE (< 300 ng/mL); PCP Urine VISTA NEGATIVE (< 25 ng/mL); THC Urine VISTA NEGATIVE (< 50 ng/mL); Vista UDS pH Range 7
== END | disposition home or self-care (01) ==
PROVIDERS: PCP Internal Medicine; Referring Provider Internal Medicine Pulmonary Disease; Visit Provider Internal Medicine Pulmonary Disease
DX: G47.10 Hypersomnia, unspecified (principal)
CPT/HCPCS: 80307

== ENCOUNTER → 2024-11-28 | Outpatient (CLI) | payer OTHER, SELFPAY ==
--- NOTE | 2024-11-28 13:01 | BI_ITS ---
MAMMOGRAPHY - BILATERAL DIAGNOSTIC REASON FOR EXAM: Female, 49 years old. Left lateral breast pain. PERTINENT HISTORY: Aunt with breast cancer. TECHNIQUE: Digital bilateral breast diana (3D mammographic acquisition) in the CC and MLO projections. 2-D mediolateral oblique (MLO) and craniocaudad (CC) views of both breasts were obtained. CAD: Full Field Digital Mammography with Computer Added Detection was performed. COMPARISON: Comparison is made with prior study April 02, 2024 and September 21, 2022. FINDINGS: Breast Composition: There are scattered areas of fibroglandular density. There are no dominant masses or suspicious calcifications. Stable bilateral axillary lymph nodes. No other significant abnormalities are identified. There has been no significant change since the prior study. BI/DIAG MAMM W/CAD, BILAT IMPRESSION: Stable bilateral diagnostic mammogram. One year follow-up recommended. (A) ASSESSMENT CATEGORY: BIRADS Category 2: Benign. A letter regarding these results will be sent to the patient by the facility within 30 days. Approximately 10% of breast cancers are not detected by mammography. A normal mammogram should not delay biopsy of a clinically suspicious abnormality. Electronically Signed: Clyde Levin MD at 14:48 EST ,
--- NOTE | 2024-11-28 13:01 | US_ITS ---
STUDY: ULTRASOUND BREAST - LEFT REASON FOR EXAM: Female, 49 years old. Left lateral breast pain. TECHNIQUE: Axial and longitudinal images of the LEFT breast were performed with a high resolution ultrasound transducer. # OF IMAGES: 31 COMPARISON: Comparison is made with prior mammogram done earlier today as well as prior sonogram of the left breast dated September 21, 2022. FINDINGS: LEFT Breast: The lateral aspect of the left breast was examined. No sonographic abnormality is seen. US/Breast Limited Unilateral IMPRESSION: No sonographic abnormality is seen. ASSESSMENT CATEGORY: BIRADS Category 1: Negative. A letter regarding these results will be sent to the patient by the facility within 30 days. Electronically Signed: Clyde Levin MD at 15:49 EST ,
== END | disposition home or self-care (01) ==
LOC: OPBI 13:01
PROVIDERS: PCP Internal Medicine; Referring Provider Obstetrics & Gynecology; Visit Provider Obstetrics & Gynecology
DX: N64.4 Mastodynia (principal); Z80.3 Family history of malignant neoplasm of breast
CPT/HCPCS: 76642; 77062; 77066; G0279

== ENCOUNTER → 2025-01-05 | Outpatient (CLI) | payer OTHER, SELFPAY ==
[2025-01-05 12:51] LABS: Absolute Lymphocyte Count 1.34 X10^3/uL (0.83-4.51); Absolute Neutrophil Count 4.5 X10^3/uL (2.0-7.7); Basophil# 0.05 X10^3/uL; Basophil% 0.8 % (0-1); Eosinophil# 0.22 X10^3/uL; Eosinophils% 3.3 % (0-5); Hematocrit 43.9 % (37-47); Hemoglobin 14.3 g/dL (12.0-15.0); Lymphocyte # 1.34 X10^3/ul (0.83-4.51); Lymphocyte % 20.2 % (19-41); Mean Corp Hgb Conc 32.6 g/dL (32-36); Mean Corpuscular Volume 92.2 fL (81-99); Mean Platelet Vol. 11.9 fl (6.2-12.0); Monocyte% 7.5 % (0-10); NRBC Flagged by Analyzer 0 % (0-5); Neutrophil # 4.52 X10^3/uL (2.7-7.7); Neutrophil % 67.9 % (47-70); Platelet Count 204 K/mm3 (150-450); RBC Distribution Width CV 12.7 % (11.6-14.6); RBC Distribution Width SD 43.1 fl (35.1-43.9); Red Blood Count 4.76 M/mm3 (4.2-5.4); White Blood Count 6.7 K/mm3 (4.4-11.0)
[2025-01-05 13:22] LABS: Vitamin B12 1587 pg/mL (211-911); Vitamin D,25 Hydroxy 71.6 ng/mL
[2025-01-05 20:38] LABS: ALB/GLOB Ratio 1.2 RATIO (0.9-2.4); AST(SGOT) 18 U/L (15-37); Alanine Aminotransfer ALT/SGPT 24 U/L (13-56); Albumin, Serum 3.6 g/dL (3.2-5.0); Alkaline Phosphatase 54 U/L (45-117); Anion Gap 4 (5-15); BUN 18 mg/dL (7-18); Calcium,Total 9.3 mg/dL (8.5-10.1); Chloride 106 mmol/L (98-107); Cholesterol 247 mg/dL (200); Creatinine, Serum 0.72 mg/dL (0.55-1.02); EST Glomerular Filtration Rate 92 mL/min (>60); Est Glom Filt Rate - Afr Amer 111 mL/min (>60); Globulin 3.1 g/dL (2.2-4.2); Glucose 88 mg/dL (74-106); High Density Lipoprotein 52 mg/dL; Potassium 4.5 mmol/L (3.5-5.1); Protein, Total 6.7 g/dL (6.4-8.2); Sodium Level 139 mmol/L (136-145); T4 Free Direct 1.03 ng/dL (0.76-1.46); Thyroid Stim Hormone (TSH) 0.741 uIU/mL (0.358-3.740); Triglycerides 71 mg/dL; Very Low Density Lipoprotein 14 mg/dL (5-40)
== END | disposition home or self-care (01) ==
LOC: BIMLAB 10:03
PROVIDERS: PCP Internal Medicine; Referring Provider Internal Medicine; Visit Provider Internal Medicine
DX: E78.5 Hyperlipidemia, unspecified (principal); R53.82 Chronic fatigue, unspecified; Z13.21 Encounter for screening for nutritional disorder
CPT/HCPCS: 36415; 80053; 80061; 82306; 82607; 84439; 84443; 85025

== ENCOUNTER 2025-04-01 09:30 | Outpatient (RCR) | payer OTHER, SELFPAY ==
--- NOTE | 2025-03-06 14:38 | HP.PTEVAL ---
Patient's Visit Information Visit Information Visit Information: KEITH WALDROP is a 49 year old F referred to Physical Therapy by GORGE Salas with a diagnosis of B knee OA and med. meniscal tear. Date of Evaluation: 03/06/25 Physical Therapist: Hernan Mao, PT, ATC Visit Plan Frequency: 2x /Week Duration: 4-6 Weeks Plan: B LE strengthening, core stab ex's, balance and proprio, bike (forward and backwards), and HEP Subjective Subjective: Pt reports she has had B knee pain for several weeks. Pt notes she has had B knee pain since the fourth grade. 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 pt notes she had a MRI performed last week on her R knee which showed she has a medial meniscal tear. 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 Pt reports her knee has popped and locked up on one occasion. Pt reports she is walking better now, but only because she is walking a lot less than before. Pt reports she had injections approximately 2 years ago, and notes they made a difference for over a year. Pt reports she is frustrated with her knees, and wants to be able to get back into the gym and exercise again without increased pain. 2/10 pain while sitting here in the clinic, 10/10 at worst (when her knees pop). Pt reports occasional sleep difficulty secondary to pain Pain B knees: Pain Intensity (Out of 10): 2 Pain Intensity Range: 10 Objective Objective: Neuro: B LE sensation is WNL to lgiht touch. B patellar reflex= 1/3 Palpation: Pt is sore on medial and lateral joint line of R knee. No obvious deformity is present at this time. No crepitus with AROM ROM: L knee 0-125 degrees : R knee 0-5-115 degrees MMT: L knee flex= 41, ext= 45 #F; R knee flex= 36, ext= 35 #F Special tests: Pos apley compression test and [place] Balance/Special Test Scores Lower Extremity Functional Score: 38 Goals Goal 1:: Decrease B knee pain x 50% to aid with sleep Goal Time Frame: 4-6 Weeks Goal 2:: Increase B knee strength x 10#F to aid with return to working out without limitation Goal Time Frame: 4-6 Weeks Goal 3:: Increase R knee flexion ROM to 125 degrees to aide with IADL's Goal Time Frame: 4-6 Weeks Goal 4:: I with HEP Goal Time Frame: 4-6 Weeks Rehabilitation Potential Physical Therapy Diagnosis: Pt has B knee pain and weakness secondary to internal derangements of B knees Rehabilitation Potential: Good Anticipated Interventions Patient/Client Instruction: Educate patient on: Condition and Plan of Care For the Purpose of:: To improve self management Therapeutic Exercise to Include: Strength training, Endurance training, Balance training, Active ROM and Dynamic Lumbar Stabilization For the Purpose of:: To decrease pain, To increase ROM and To improve muscle performance and motor function Cryotherapy (ice pack, ice massage): Yes For the Purpose of:: To decrease pain Text: Thank you for the opportunity to evaluate your patient. For Medicare and Medicare HMO plans, please review the plan of care and approve it. It will need to be FAXED BACK to us at [phone] for Medicare purposes. For Medicare only, by signing this I certify the plan of care. Please let me know if there are questions or concerns regarding this plan of care. Physician Signature: Date:
--- NOTE | 2025-04-01 10:06 | HP.PTREVAL ---
Re-Evaluation Intro: Xochilt Jon, FAUSTINO-C, It has been my pleasure to treat KEITH WALDROP over the last 8 visits for B knee OA and med. meniscal tear. Please see the progress note below for an update on the physical therapy plan of care! Subjective Subjective: Pt reports no improvements at this time Objective Objective/Function: Knee pain level is 3-8/10 ROM: L knee 0-125 , R knee 0-125 degrees MMT: L knee flex= 37, ext= 44 #F; R knee flex= 28, ext= 28 #F Pt has progressed with ROM, regressed with strength Plan Plan Plan: Follow up or discharge in one month following last injection Balance/Gait/Functional tests Balance/Special Test Scores Lower Extremity Functional Score: 43 Goals Goals Goal 1:: Decrease B knee pain x 50% to aid with sleep Goal Time Frame: 4-6 Weeks Goal 2:: Increase B knee strength x 10#F to aid with return to working out without limitation Goal Time Frame: 4-6 Weeks Goal 3:: Increase R knee flexion ROM to 125 degrees to aide with IADL's Goal Time Frame: 4-6 Weeks Goal 4:: I with HEP Goal Time Frame: 4-6 Weeks Anticipated Interventions Anticipated Interventions Patient/Client Instruction: Educate patient on: Condition and Plan of Care For the Purpose of:: To improve self management Therapeutic Exercise to Include: Strength training, Endurance training, Balance training, Active ROM and Dynamic Lumbar Stabilization For the Purpose of:: To decrease pain, To increase ROM and To improve muscle performance and motor function Cryotherapy (ice pack, ice massage): Yes For the Purpose of:: To decrease pain Re-Evaluation Ending Re-evaluation ending: Please do not hesitate to contact me at [phone] by phone or if you have questions or concerns regarding this new plan of care! Sincerely, Hernan Mao, PT, ATC
--- NOTE | 2025-07-07 08:46 | HP.PT.NRP ---
Patient Information Patient Information: KEITH WALDROP was seen in my office for initial evaluation on 03/06/25. The following Plan of Care was established for this patient: POC Established Initial Frequency: 2x /Week Initial Duration: 4-6 Weeks Anticipated Interventions Patient/Client Instruction: Educate patient on: Condition and Plan of Care For the Purpose of:: To improve self management Therapeutic Exercise to Include: Strength training, Endurance training, Balance training, Active ROM and Dynamic Lumbar Stabilization For the Purpose of:: To decrease pain, To increase ROM and To improve muscle performance and motor function Cryotherapy (ice pack, ice massage): Yes For the Purpose of:: To decrease pain Last Seen Last Seen: This patient was last seen in our office . Pertinent comments regarding their Physical therapy will appear below: Pt has not returned in greater than 30 days and is discontinued at this time. At this point I will be discontinuing this patient from physical therapy. I would be happy to see this patient again in the future if found appropriate by the physician. Thank you! Hernan Mao, PT, ATC Balance/Gait/Functional tests Balance/Special Test Scores Lower Extremity Functional Score: 43
== END 2025-04-01 19:00 | disposition home or self-care (01) ==
LOC: PT 09:30
PROVIDERS: PCP Internal Medicine; Referring Provider Nurse Practitioner Family; Visit Provider Nurse Practitioner Family
DX: M17.0 Bilateral primary osteoarthritis of knee (principal); M23.91 Unspecified internal derangement of right knee; S83.206D Unspecified tear of unspecified meniscus, current injury, right knee, subsequent encounter
CPT/HCPCS: 97110; 97161; 97530

== ENCOUNTER → 2025-05-18 | Outpatient (CLI) | payer OTHER, SELFPAY ==
[2025-05-18 17:11] LABS: AST(SGOT) 19 U/L (<=31); Alanine Aminotransfer ALT/SGPT 17 U/L (<=34); Albumin, Serum 4.0 g/dL (3.5-5.0); Alkaline Phosphatase 64 U/L (35-104); Anion Gap 8 (5-15); BUN 12 mg/dL (4-19); BUN/Creat Ratio 17.2 RATIO (10-20); Calcium,Total 9.2 mg/dL (7.6-11.0); Carbon Dioxide 25.2 mmol/L (21.0-32.0); Chloride 105 mmol/L (98-108); Globulin 2.3 g/dL (2.2-4.2); Glucose 90 mg/dL (70-99); Potassium 4.3 mmol/L (3.3-5.1)
== END | disposition home or self-care (01) ==
LOC: BIMLAB 14:31
PROVIDERS: PCP Internal Medicine; Referring Provider Physician Assistant; Visit Provider Physician Assistant
DX: R74.8 Abnormal levels of other serum enzymes (principal)
CPT/HCPCS: 36415; 80053

== ENCOUNTER → 2025-06-30 | Outpatient (CLI) | payer OTHER, SELFPAY ==
[2025-06-30 15:32] LABS: AST(SGOT) 20 U/L (<=31); Alanine Aminotransfer ALT/SGPT 23 U/L (<=34); Albumin, Serum 4.3 g/dL (3.5-5.0); Alkaline Phosphatase 70 U/L (35-104); Anion Gap 13 (5-15); BUN 14 mg/dL (4-19); BUN/Creat Ratio 20.1 RATIO (10-20); Calcium,Total 9.8 mg/dL (7.6-11.0); Carbon Dioxide 22.0 mmol/L (21.0-32.0); Chloride 105 mmol/L (98-108); Cholesterol 207 mg/dL (<=200); Globulin 2.5 g/dL (2.2-4.2); Glucose 109 mg/dL (70-99); Low Density Lipoprotein Calc. 147 mg/dL; Potassium 4.0 mmol/L (3.3-5.1); Triglycerides 66 mg/dL; Very Low Density Lipoprotein 13 mg/dL (5-40); cholesterol:hdl ratio screen 4.45
--- OUTSIDE RECORDS SUMMARY | 2025-06-30 21:30 | XMS RPT_ITS | CCD ---
Author Organization [facility] CliniSyor Care Team Providers Care Quality Control Assessor Name Role Phone Dr. Aayush Frederick Primary Care Provider [phone] Dr. Aayush Frederick Attending Provider [phone] Dr. Aayush Frederick Referring Provider [phone] Dr. Aayush Frederick Primary Care Provider [phone] Dr. Aayush Frederick Referring Provider [phone] MECHELLE Hope Attending Provider Unavailab Dr. Aayush Holcomb Primary Care Provider [phone] Dr. Aayush Frederick Referring Provider [phone] MECHELLE Hope Attending Provider Lukasz Walsh CONTROLS TECHNICIAN, CONTROLS TECHNICIAN-C Lesly Attending Provider [phone] Dasia Guerrero Attending Provider Unavailable Dr. Aayush Frederick Primary Care Provider [phone] Dr. Aayush Frederick Referring Provider [phone] Dr. Carolina Cool Attending Provider [phone] Dr. Amilcar Montero Attending Provider [phone] Dr. Amilcar Montero Other Provider [phone] Dr. Aayush Frederick Primary Care Provider [phone] Dasia Guerrero Attending Provider Unavailable Dr. Aayush Frederick Referring Provider [phone] Mely CONTROLS TECHNICIAN, CONTROLS TECHNICIANAlanC Lesly Attending Provider [phone] Dr. Carolina Cool Attending Provider [phone] Dr. Amilcar Montero Attending Provider [phone] Kylah, Dr. Fitzgerald Other Provider [phone] Dr. Carolina Cool Referring Provider [phone] Dr. Carolina Cool Other Provider [phone] Dr. Carolina Cool Admit Provider [phone] Yoly, Dr. Looney Primary Care Provider [phone] Yoly, Dr. Looney Referring Provider [phone] Yoly, Dr. Looney Primary Care Provider [phone] Yoly, Dr. Looney Referring Provider [phone] Dr. Carolina Cool Attending Provider [phone] Yoly, Dr. Looney Attending Provider [phone] Yoly, Dr. Looney Primary Care Provider [phone] Yoly, Dr. Looney Referring Provider [phone] Ady Bardales Primary Care Provider AMIRAH ALBERTO Attending Unavailable ADY BARDALES Primary Care Unavailable Ady Bardales MD Primary Care Provider ADY BARDALES Primary Care Unavailable CRISTINE BUCIO Attending Unavailable THANG CASTRO Referring Unavailable CRISTINE BUCIO Referring Unavailable ADY BARDALES Primary Care Unavailable Yoly GONZALEZ, Dr. Looney Primary Care Provider Dr. Aayush Frederick MD Referring Provider [phone] Ewa Carter Attending Provider [phone] Silvina GONZALEZ, Dr. Figueroa Attending Provider Dr. Carolina Cool MD Referring Provider [phone] Yoly GONZALEZ, Dr. Looney Attending Provider [phone] Yoly GONZALEZ, Dr. Looney Primary Care Provider Yoly GONZALEZ, Dr. Looney Referring Provider [phone] Chip CONTROLS TECHNICIAN-C, Ewa Attending Provider Silvina GONZALEZ, Dr. Figueroa Attending Provider Silvina GONZALEZ, Dr. Figueroa Referring Provider [phone] Yoly GONZALEZ, Dr. Looney Attending Provider [phone] Dontrell CONTROLS TECHNICIAN-C, Xochilt Attending Provider Lam GONZALEZ, Dr. Keller Attending Provider Dontrell CONTROLS TECHNICIAN-C, Xochilt Referring Provider Yoly GONZALEZ, Dr. Looney Primary Care Provider Yoly GONZALEZ, Dr. Looney Referring Provider [phone] Dontrell CONTROLS TECHNICIAN-C, Xochilt Referring Provider Sarah Ramos Attending Provider Dontrell CONTROLS TECHNICIAN-C, Xochilt Referring Provider Griffin Romano Attending Provider Rodo Gaona MD Attending Provider [phone] Yoly GONZALEZ, Dr. Looney Primary Care Provider Yoly GONZALEZ, Dr. Looney Referring Provider [phone] Griffin Romano Referring Provider Oleghe, Efewongbe Primary Care Unavailable Griffin Romano Referring Unavailable Griffin Romano Attending Unavailable Oleghe, Efewongbe Attending Unavailable Oleghe, Efewongbe Primary Care Unavailable Oleghe, Efewongbe Referring Unavailable Oleghe, Efewongbe Referring Unavailable Oleghe, Efewongbe Primary Care Unavailable Rosa MIN, Griffin Attending Unavailable Xochilt Jon Referring Unavailable Oleghe, Efewongbe Primary Care Unavailable Xochilt Jon Attending Unavailable Oleghe, Efewongbe Referring Unavailable Oleghe, Efewongbe Primary Care Unavailable Xochilt Jon Attending Unavailable Oleghe, Efewongbe Referring Unavailable Oleghe, Efewongbe Primary Care Unavailable Xochilt Jon Attending Unavailable Oleghe, Efewongbe Referring Unavailable Oleghe, Efewongbe Primary Care Unavailable Sarah Deutsch Attending Unavailable Xochilt Jon Attending Unavailable Oleghe, Efewongbe Referring Unavailable Oleghe, Efewongbe Primary Care Unavailable Rodo Gaona Attending Unavailable Oleghe, Efewongbe Referring Unavailable Oleghe, Efewongbe Primary Care Unavailable Oleghe, Efewongbe Primary Care Unavailable Oleghe, Efewongbe Referring Unavailable Griffin Romano Attending Unavailable Oleghe, Efewongbe Attending Unavailable Oleghe, Efewongbe Primary Care Unavailable Oleghe, Efewongbe Referring Unavailable Oleghe, Efewongbe Primary Care Unavailable Carolina Cool Referring Unavailable Carolina Cool Attending Unavailable Oleghe, Efewongbe Primary Care Unavailable Oleghe, Efewongbe Referring Unavailable Ewa Saunders Attending Unavailable Oleghe, Efewongbe Primary Care Unavailable Sibilia, Jarrod V Referring Unavailable Sibilia Jarrod V Attending Unavailable Oleghe, Efewongbe Primary Care Unavailable Sibilia Jarrod V Referring Unavailable Sibilia Jarrod V Attending Unavailable Oleghe, Efewongbe Primary Care Unavailable Oleghe, Efewongbe Referring Unavailable Xochilt Jon Attending Unavailable Oleghe, Efewongbe Primary Care Unavailable Krishna Fritz Attending Unavailable Oleghe, Efewongbe Primary Care Unavailable Oleghe, Efewongbe Referring Unavailable Xochilt Jon Attending Unavailable ANSELMO BENDER DO Primary Care Physician RODO GAONA MD Attending Unavailable ANSELMO BENDER DO Primary Care Unavailable ANSELMO BENDER DO Primary Care Unavailable REFERRING, PHY WO ID Attending Unavailable Allergies Allergy Classification Reported Allergen(s) Allergy Type Date of Onset Reaction(s) Facility (20 sources) Erythromycin; Translations: [erythromycin] Drug Allergy 2 Upset Stomach [facility] (6 sources) Azithromycin; Translations: [AZITHROMYCIN] Drug Allergy 8 Intolerance [facility] (5 sources) DULoxetine; Translations: [DULOXETINE] Drug Allergy 3 Intolerance [facility] Work Phone: (1 source) Erythromycin Drug Allergy [facility] Repository Medications Current Medications Medication Drug Class(es) Dates Sig (Normalized) Sig (Original) ascorbic acid 500 mg oral tablet (20 sources) Vitamin C Start: 01-02-2023 take 1 tablet by mouth once daily Ascorbic Acid (Vitamin C) (Vitamin C) 500 mg Tablet Active 500 mg PO DAILY January 02, 2023 1:00am Start: 09-01-2021 End: 10-25-2022 Ascorbic Acid (Vitamin C) 50 0 mg capsule Discontinued mg PO September 01, 2021 12:00am October 25, 2022 9:32am Start: 09-01-2021 End: 10-25-2022 Ascorbic Acid (Vitamin C) Di scontinued MG PO September 01, 2021 12:00am October 25, 2022 9:32am cholecalciferol 0.025 mg oral capsule (20 sources) Vitamin D Start: 01-02-2023 take 1 capsule by mouth once daily Cholecalciferol (Vitamin D3) (Vitamin D3) 25 mcg (1,000 unit) Capsule Active 25 ug PO DAILY January 02, 2023 1:00am Start: 09-01-2021 End: 10-25-2022 take 1 capsule by mouth once daily Cholecalciferol (Vitamin D3) 50 mcg (2,000 unit) capsule Discontinued 50 ug PO DAILY September 01, 2021 12:00am October 25, 2022 9:32am cyclobenzaprine hydrochloride 10 mg oral tablet (1 source) Muscle Relaxant Start: 12-29-2022 take 10 mg by mouth three times daily Cyclobenzaprine Active 10 MG PO THREE TIMES A DAY December 29, 2022 12:00am DULoxetine 30 mg delayed release oral capsule (16 sources) Serotonin and Norepinephrine Reuptake Inhibitor Start: 05-20-2025 take 1 capsule by mouth once daily Duloxetine 30 mg capsule,delayed release(DR/EC) Active 30 mg PO daily 11 12May 20, 2025 12:00am Start: 04-15-2025 End: 05-20-2025 take 1 capsule by mouth once daily Duloxetine (Cymbalta) 20 mg capsule,delayed release(DR/EC) Discontinued 20 mg PO daily 11 12April 15, 2025 12:00am May 20, 2025 8:23am Start: 06-06-2023 End: 08-31-2023 take 1 capsule by mouth at bedtime Duloxetine 30 mg capsule,delayed release(DR/EC) Discontinued 30 mg PO AT BEDTIME 60 1 June 06, 2023 12:00am August 31, 2023 4:14pm fluticasone propionate 0.05 mg/actuat metered dose nasal spray (11 sources) Corticosteroid Start: 05-16-2023 take 50 ug nasal route once daily Fluticasone Propionate (Flonase Allergy Relief) 50 mcg/actuation spray,suspension Active 1 NMA INTRANASAL DAILY May 16, 2023 12:00am administer into each nostril Start: 05-16-2023 take 1 spray(s) nasa l route once daily Fluticasone Propionate (Flonase Allergy Relief) 50 mcg/actuation spray,suspension Active 1 SPRAY INTRANASAL DAILY May 16, 2023 12:00am administer into each nostril gabapentin 100 mg oral capsule (20 sources) Anti-epileptic Agent Start: 03-31-2025 take 2 capsules by mouth at bedtime Gabapentin 100 mg capsule Active 200 mg PO AT BEDTIME March 31, 2025 9:45am Start: 01-05-2025 End: 03-31-2025 take 1 capsule by mouth twice daily Gabapentin 100 mg capsule Discontinued 100 mg PO TWICE A DAY January 05, 2025 1:00am March 31, 2025 9:45am Start: 11-20-2024 gabapentin (NE URONTIN) 100 mg capsule 200 mg daily at bedtime. 11/20/2024 Active Start: 08-31-2023 End: 01-16-2024 take 1 capsule by mouth twice daily Gabapentin 100 mg capsule Discontinued 100 mg PO TWICE A DAY 60 August 31, 2023 12:00am January 16, 2024 4:17pm lactobacillus acidophilus [id number] unt oral capsule (15 sources) Start: 01-02-2023 take 10 capsules by mouth once daily Lactobacillus Acidophilus (Probiotic) 10 billion cell Capsule Active 76696 NMA PO DAILY January 02, 2023 1:00am Lactobacillus Combination No.8 (Adult Probiotic) 3 billion cell capsule (20 sources) Start: 02-18-2019 take 3 capsules by mouth once daily Lactobacillus Combination No.8 (Adult Probiotic) 3 billion cell capsule Active 3000 MMU CELLS PO DAILY February 18, 2019 10:49am Start: 02-18-2019 End: 10-25-2022 take 3 capsules by mouth once daily Lactobacillus Combination No.8 (Adult Probiotic) 3 billion cell capsule Discontinued 3000 NMA PO DAILY February 18, 2019 12:00am October 25, 2022 9:32am Start: 02-18-2019 End: 10-25-2022 take 3 capsules by mouth once daily Lactobacillus Combination No.8 (Adult Probiotic) 3 billion cell capsule Discontinued 3000 NMA PO DAILY February 17, 2019 11:00pm October 25, 2022 8:32am Start: 02-18-2019 End: 10-25-2022 take 3 capsules by mouth once daily Lactobacillus Combination No.8 (Adult Probiotic) 3 billion cell capsule Discontinued 3000 MMU CELLS PO DAILY February 18, 2019 12:00am October 25, 2022 9:32am Start: 02-18-2019 End: 10-25-2022 take 3 capsules by mouth once daily Lactobacillus Combination No.8 (Adult Probiotic) 3 billion cell capsule Discontinued 3000 MMU CELLS PO DAILY February 17, 2019 11:00pm October 25, 2022 8:32am Start: 02-18-2019 take 3 capsules by m outh once daily Lactobacillus Combination No.8 (Adult Probiotic) 3 billion cell capsule Active 3000 MMU CELLS PO DAILY February 17, 2019 11:00pm Start: 02-18-2019 take 3 capsules by m outh once daily Lactobacillus Combination No.8 (Adult Probiotic) 3 billion cell capsule Active 3000 MMU CELLS PO DAILY February 18, 2019 12:00am multivitamin capsule (13 sources) Start: 02-18-2019 take 1 capsule by mouth once daily multivitamin capsule Active 1 CAP PO DAILY February 18, 2019 10:48am Start: 02-18-2019 End: 10-25-2022 take 1 capsule by mouth once daily multivitamin capsule Discontinued 1 CAP PO DAILY February 18, 2019 12:00am October 25, 2022 9:32am Start: 02-18-2019 End: 10-25-2022 take 1 capsule by mouth once daily multivitamin capsule Discontinued 1 CAP PO DAILY February 17, 2019 11:00pm October 25, 2022 8:32am Start: 02-18-2019 take 1 capsule by mo uth once daily multivitamin capsule Active 1 CAP PO DAILY February 17, 2019 11:00pm Start: 02-18-2019 take 1 capsule by mo uth once daily multivitamin capsule Active 1 CAP PO DAILY February 18, 2019 12:00am Turmeric extract (15 sources) Start: 01-02-2023 take 1 capsule by mo uth once daily Turmeric 400 mg Capsule Active 400 mg PO DAILY January 02, 2023 1:00am Start: 01-02-2023 take 1 capsule by mo uth once daily Turmeric 400 mg Capsule Active 400 mg PO DAILY January 02, 2023 12:00am Start: 01-02-2023 take 400 mg by mouth once sylvia y Turmeric Active 400 MG PO DAILY January 02, 2023 1:00am Start: 01-02-2023 take 400 mg by mouth once sylvia y Turmeric Active 400 MG PO DAILY January 02, 2023 12:00am Zinc (20 sources) Start: 01-02-2023 take 1 capsule by mo uth once daily Zinc 50 mg Capsule Active 50 mg PO DAILY January 02, 2023 1:00am Start: 01-02-2023 take 1 capsule by mo uth once daily Zinc 50 mg Capsule Active 50 mg PO DAILY January 02, 2023 12:00am Start: 01-02-2023 take 50 mg by mouth once daily Zinc Active 50 MG PO DAILY January 02, 2023 1:00am Start: 01-02-2023 take 50 mg by mouth once daily Zinc Active 50 MG PO DAILY January 02, 2023 12:00am Start: 09-01-2021 take 50 mg by mouth once daily Zinc Active 50 MG PO DAILY September 01, 2021 8:12am Start: 09-01-2021 End: 10-25-2022 take 1 tablet by mouth once daily Zinc 50 mg tablet Discontinued 50 mg PO DAILY September 01, 2021 12:00am October 25, 2022 9:32am Start: 09-01-2021 End: 10-25-2022 take 1 tablet by mouth once daily Zinc 50 mg tablet Discontinued 50 mg PO DAILY August 31, 2021 11:00pm October 25, 2022 8:32am Start: 09-01-2021 End: 10-25-2022 take 50 mg by mouth once daily Zinc Discontinued 50 MG PO DAILY September 01, 2021 12:00am October 25, 2022 9:32am Start: 09-01-2021 End: 10-25-2022 take 50 mg by mouth once daily Zinc Discontinued 50 MG PO DAILY August 31, 2021 11:00pm October 25, 2022 8:32am Start: 09-01-2021 take 50 mg by mouth once daily Zinc Active 50 MG PO DAILY August 31, 2021 11:00pm Start: 09-01-2021 take 50 mg by mouth once daily Zinc Active 50 MG PO DAILY September 01, 2021 12:00am Completed/Discontinued Medications Medication Drug Class(es) Dates Sig (Normalized) Sig (Original) acetaminophen 325 mg oral capsule (8 sources) Start: 03-24-2024 End: 03-31-2025 take 1 capsule by mouth once as needed Acetaminophen (Tylenol) 325 mg capsule Discontinued 325 mg PO ONCE as needed March 24, 2024 12:00am March 31, 2025 9:45am acetaminophen 325 mg / oxyCODONE hydrochloride 5 mg oral tablet (20 sources) Opioid Agonist Start: 08-08-2023 End: 08-16-2023 Oxycodone-Acetamino phen (Percocet) 5-325 mg tablet Discontinued 1 {tbl} PO EVERY 6 HOURS as needed for pain 12 3 0 August 08, 2023 August 16, 2023 2:34pm Nonspecific abdominal pain Unspecified abdominal pain Start: 02-02-2023 End: 02-16-2023 Oxycodone-Acetaminophen (Per cocet) 5-325 mg tablet Discontinued 1 {tbl} PO EVERY 6 HOURS as needed for pain 20 7 0 February 02, 2023 February 16, 2023 11:34am Menorrhagia with regular cycle Enlarged uterus Excessive and frequent menstruation with regular cycle Hypertrophy of uterus albuterol 0.83 mg/ml inhalation solution (20 sources) beta2-Adrenergic Agonist Start: 08-15-2021 End: 09-01-2021 take 2.5 mg by inhalation every four hours as needed Albuterol Sulfate 2.5 mg /3 mL (0.083 %) solution for nebulization Discontinued 2.5 mg INHALATION Q4H as needed for bronchospasm 180 0 August 15, 2021 12:00am September 01, 2021 8:10am amoxicillin 500 mg oral capsule (8 sources) Penicillin-class Antibacterial Start: 03-24-2024 End: 01-05-2025 take 1 capsule by mouth twice daily Amoxicillin 500 mg capsule Discontinued 500 mg PO TWICE A DAY March 24, 2024 12:00am January 05, 2025 10:11am amoxicillin 875 mg / clavulanate 125 mg oral tablet (20 sources) Penicillin-class Antibacterial Start: 11-09-2021 End: 12-30-2021 Amoxicillin-Pot Clavulanate (Augmentin) 875-125 mg tablet Discontinued 1 {tbl} PO TWICE A DAY 14 November 09, 2021 1:00am December 30, 2021 9:29am benzonatate 200 mg oral capsule (20 sources) Non-narcotic Antitussive Start: 08-15-2021 End: 09-01-2021 take 1 capsule by mouth three times daily as needed for cough Benzonatate 200 mg capsule Discontinued 200 mg PO THREE TIMES A DAY as needed for cough 60 August 15, 2021 12:00am September 01, 2021 8:10am doxycycline monohydrate 100 mg oral tablet (11 sources) Tetracycline-class Drug Start: 05-22-2023 End: 06-06-2023 take 1 tablet by mouth twice daily Doxycycline Monohydrate 100 mg tablet Discontinued 100 mg PO TWICE A DAY 20 May 22, 2023 12:00am June 06, 2023 1:50pm evening primrose oil 500 mg oral capsule (20 sources) Start: 04-14-2019 End: 09-01-2021 take 1 capsule by mouth three times daily Evening [place] Oil 500 mg capsule Discontinued 500 mg PO THREE TIMES A DAY April 14, 2019 12:00am September 01, 2021 8:11am ferrous sulfate 325 mg oral tablet (20 sources) Start: 09-06-2020 End: 09-01-2021 take 1 tablet by mouth once daily Ferrous Sulfate 325 mg (65 mg iron) tablet Discontinued 325 mg PO DAILY 90 September 06, 2020 12:00am September 01, 2021 8:10am fluconazole 150 mg oral tablet (20 sources) Azole Antifungal Start: 11-14-2021 End: 04-19-2022 Fluconazole 150 mg tablet Discontinued 150 mg PO Every 3 Days 2 November 14, 2021 1:00am April 19, 2022 9:07am march repeat second dose 72 hrs after first dose if symptoms persist LORazepam 0.5 mg oral tablet (11 sources) Benzodiazepine Start: 06-01-2023 End: 06-06-2023 take 1 tablet by mouth twice daily as needed for anxiety Lorazepam 0.5 mg tablet Discontinued 0.5 mg PO TWICE A DAY as needed for anxiety 2 0 June 01, 2023 12:00am June 06, 2023 1:51pm meclizine hydrochloride 25 mg oral tablet (11 sources) Antiemetic Start: 05-16-2023 End: 08-16-2023 take 1 tablet by mouth twice daily as needed for dizziness Meclizine 25 mg tablet Discontinued 25 mg PO TWICE A DAY as needed for dizziness 30 2 May 16, 2023 12:00am August 16, 2023 2:34pm meloxicam 15 mg oral tablet (8 sources) Nonsteroidal Anti-inflammatory Drug Start: 12-24-2023 End: 03-24-2024 take 1 tablet by mouth once daily Meloxicam 15 mg tablet Discontinued 15 mg PO DAILY 30 0 December 24, 2023 1:00am March 24, 2024 8:43am Pain in both knees Pain in right knee Pain in left knee Pain Do not take in conjunction with other NSAIDs. Tylenol is okay. methylPREDNISolone 4 mg oral tablet (20 sources) Corticosteroid Start: 11-09-2021 End: 12-30-2021 take 1 tablet by mouth once Methylprednisolone (Medrol (Jose)) 4 mg tablets,dose pack Discontinued 0 PO per package directions November 09, 2021 1:00am December 30, 2021 9:29am PO PER PKG DIR Multivitamin capsule (8 sources) Start: 02-18-2019 End: 10-25-2022 Multivitamin capsule Discontinued 1 NMA PO DAILY February 18, 2019 12:00am October 25, 2022 9:32am Start: 02-18-2019 End: 10-25-2022 Multivitamin capsule Discont inued 1 NMA PO DAILY February 17, 2019 11:00pm October 25, 2022 8:32am naproxen 250 mg oral tablet (14 sources) Nonsteroidal Anti-inflammatory Drug Start: 02-02-2023 End: 02-16-2023 take 250-500 mg by mouth every eight hours as needed for pain Naproxen 250 mg tablet Discontinued 250 - 500 mg PO EVERY 8 HOURS NEEDED as needed for MILD PAIN 30 1 February 02, 2023 12:00am February 16, 2023 11:33am predniSONE 10 mg oral tablet (20 sources) Start: 08-10-2022 End: 09-11-2022 take 4 tablets by mouth once daily at mealtime Prednisone 10 mg tablet Discontinued 10 mg PO DAILY 30 0 August 10, 2022 12:00am September 11, 2022 11:41am Take 4 tablets for 3 days; Take 3 tablets for 3 days; Take 2 tablets for 3 days; Take 1 tablet for 3 days Take with food or milk vitamin e 90 mg oral capsule (20 sources) Start: 04-14-2019 End: 09-01-2021 take 1 capsule by mouth twice daily Vitamin E 200 unit capsule Discontinued 200 U PO TWICE A DAY April 14, 2019 2:46pm September 01, 2021 8:11am Start: 02-18-2019 End: 04-14-2019 take 1 capsule by mouth once daily Vitamin E 200 unit capsule Discontinued 200 U PO DAILY February 18, 2019 12:00am April 14, 2019 2:47pm Problems Active Problems Problem Classification Problem Date Documented Date Episodic/Chronic Abdominal pain (17 sources) Nonspecific abdominal pain; Translations: [Unspecified abdominal pain] 08-08-2023 Episodic Acquired foot deformities (4 sources) Foot drop, left foot; Translations: [Other acquired deformities of ankle and foot] Episodic Anxiety disorders (20 sources) Generalized anxiety disorder; Translations: [Generalized anxiety disorder] 09-03-2020 Chronic Comment on above: [id number] done Asthma (20 sources) Reactive airway disease; Translations: [Unspecified asthma, uncomplicated] 08-15-2021 Chronic Benign neoplasm of uterus (20 sources) Uterine leiomyoma; Translations: [Leiomyoma of uterus, unspecified] 11-22-2022 Episodic Comment on above: 14 week size with 4 and 6 cm size fibroids Conditions associated with dizziness or vertigo (20 sources) Lightheadedness; Translations: [Dizziness and giddiness] 06-06-2023 Episodic Deficiency and other anemia (20 sources) Anemia; Translations: [Anemia, unspecified] 09-28-2021 Episodic Deficiency and other anemia (1 source) Anemia, unspecified; Translations: [Anemia, unspecified] Episodic Disorders of lipid metabolism (20 sources) Hyperlipidemia; Translations: [Hyperlipidemia, unspecified] Onset: 01-15-2025 02-18-2019 Chronic Gastritis and duodenitis (8 sources) Gastritis; Translations: [Gastritis, unspecified, without bleeding] 08-16-2023 Episodic Immunizations and screening for infectious disease (14 sources) Viral antibody titer - finding; Translations: [Raised antibody titer] 01-05-2025 Episodic Joint disorders and dislocations; trauma-related (20 sources) Derangement of right knee; Translations: [Unspecified internal derangement of right knee] Onset: 02-19-2025 03-04-2025 Chronic Comment on above: PT eval and treat Joint disorders and dislocations; trauma-related (20 sources) Tear of meniscus of knee; Translations: [Unspecified tear of unspecified meniscus, current injury, right knee, initial encounter] Onset: 04-01-2025 03-04-2025 Episodic Comment on above: PT referral for eval and treat Malaise and fatigue (15 sources) Fatigue; Translations: [Chronic fatigue, unspecified] Onset: 01-05-2025 01-05-2025 Chronic Menstrual disorders (20 sources) Menorrhagia; Translations: [Excessive and frequent menstruation with regular cycle] Chronic Comment on above: likely secondary to fibroids Nutritional deficiencies (2 sources) Vitamin D deficiency; Translations: [Vitamin D deficiency, unspecified] Onset: 12-16-2024 12-16-2024 Chronic Osteoarthritis (20 sources) Bilateral osteoarthritis of knees; Translations: [Bilateral primary osteoarthritis of knee] Onset: 04-01-2025 03-04-2025 Chronic Comment on above: request visco bilate ral knees, dx OA and cartilage loss Other aftercare (6 sources) Encounter for follow-up examination after completed treatment for conditions other than malignant neoplasm; Translations: [Follow-up examination, following surgery, unspecified] 02-16-2023 Episodic Other connective tissue disease (20 sources) Fibromyalgia; Translations: [Fibromyalgia] 02-18-2019 Episodic Other connective tissue disease (1 source) Fibromyalgia; Translations: [Myalgia and myositis, unspecified] Episodic Other diseases of veins and lymphatics (8 sources) Venous stasis; Translations: [Other specified disorders of veins] 04-01-2025 Episodic Other female genital disorders (18 sources) Enlarged uterus; Translations: [Hypertrophy of uterus] 11-08-2022 Episodic Comment on above: discussed myfembree or hyst. decided on hyst- proceed with LAVS Other female genital disorders (9 sources) Hypertrophy of uterus; Translations: [Hypertrophy of uterus] Episodic Other female genital disorders (12 sources) Vaginal discharge; Translations: [Other specified noninflammatory disorders of vagina] 03-19-2023 Episodic Comment on above: culture sent Other female genital disorders (3 sources) Other specified noninflammatory disorders of vagina; Translations: [Leukorrhea, not specified as infective] 03-19-2023 Episodic Other hereditary and degenerative nervous system conditions (1 source) Restless legs syndrome; Translations: [Restless legs syndrome] Onset: 08-14-2024 Chronic Other liver diseases (20 sources) Elevated liver enzymes level; Translations: [Abnormal levels of other serum enzymes] 09-28-2021 Episodic Other liver diseases (2 sources) Abnormal levels of other serum enzymes; Translations: [Other nonspecific abnormal serum enzyme levels] Onset: 05-21-2025 Episodic Other lower respiratory disease (20 sources) Cough; Translations: [Cough] 08-15-2021 Episodic Comment on above: Unknown if patient h as had the Tdap immunization. Patient agreed to check for pertussis. Other nervous system disorders (7 sources) Anesthesia of skin; Translations: [Disturbance of skin sensation] Episodic Other nervous system disorders (11 sources) Paresthesia of hand ; Translations: [Anesthesia of skin] 06-06-2023 Episodic Other non-traumatic joint disorders (1 source) Pain in left knee; Translations: [Pain in left knee] Onset: 04-30-2025 Episodic Other skin disorders (14 sources) Dusky discoloration of skin; Translations: [Other skin changes] 03-04-2025 Episodic Comment on above: Referral to vascular for eval and treat Other upper respiratory infections (14 sources) Sinusitis; Translations: [Chronic sinusitis, unspecified] 05-16-2023 Chronic Residual codes; unclassified (1 source) Hypersomnia, unspecified; Translations: [Hypersomnia, unspecified] Onset: 08-19-2024 Chronic Residual codes; unclassified (20 sources) Insomnia; Translations: [Insomnia, unspecified] 02-18-2019 Episodic Unclassified (16 sources) Dusky discoloration of skin; Translations: [dusky lower extremities] Unclassified (7 sources) M23.91 - Unspecified internal derangement of right knee,M17.0 - Bilateral primary osteoarthritis of knee,S83.206A - Unspecified tear of unspecified meniscus, current injury, right knee, initial encounter Unclassified (2 sources) Osteoarthritis of both knees Unclassified (2 sources) Tear of meniscus of right knee Past or Other Problems Problem Classification Problem Date Documented Da te Episodic/Chronic Nonmalignant breast conditions (20 sources) Mastodynia; Translations: [Pain of left breast] Onset: 12-16-2024 Episodic Comment on above: imaging Other gastrointestinal disorders (5 sources) Splenomegaly; Translations: [Splenomegaly, not elsewhere classified] Onset: 08-30-2023 08-30-2023 Episodic Other non-traumatic joint disorders (12 sources) Pain in right knee; Translations: [Pain in both knees] Onset: 02-19-2025 01-16-2024 Episodic Other screening for suspected conditions (not mental disorders or infectious disease) (20 sources) Patient encounter status; Translations: [Encounter for screening for malignant neoplasm of colon] Onset: 08-30-2023 Episodic Results Test Name Value Interpretation Reference Range Facility MRI KNEE W/O CONTRAST LEFTon 05-26-2025 MRI KNEE W/O CONTRAST LEFT ORIGINAL EXAMINATION: MRI OF THE LEFT KNEE WITHOUT CONTRAST05/25/2025 1:31 pm COMPARISON: None TECHNIQUE: Multiplanar multisequence MRI of the left knee was performed without the administration of intravenous contrast. HISTORY: ORDERING SYSTEM PROVIDED HISTORY: Reason for Exam: PAIN IN LEFT KNEE, , no given history of recent trauma or surgery, normal x-rays reported FINDINGS: Bones and joints: Normal bone marrow signal. No focal or high-grade articular cartilage defect in the medial and lateral femorotibial compartments. No significant joint effusion or popliteal cyst. Menisci: The lateral meniscus is normal. There is a small oblique/horizontal tear in the inferior surface of the medial meniscal body and posterior horn junction. No meniscal extrusion or para meniscal cyst. Patellofemoral compartment: No patellar tracking abnormality or focal/high-grade chondromalacia. Patellar retinacula are intact. No obvious impingement of the suprapatellar or infrapatellar fat. CRUCIATE LIGAMENTS: The cruciate ligaments are intact with no recent or high-grade sprain. EXTENSOR MECHANISM: Intact distal quadriceps and patellar tendons. LATERAL COLLATERAL LIGAMENT COMPLEX/OTHER LATERAL SUPPORTING STRUCTURES: Intact IT band, lateral collateral ligament proper, biceps femoris tendon and popliteus tendon. MEDIAL COLLATERAL LIGAMENT COMPLEX: The superficial and deep components of medial collateral ligaments show no recent or high-grade sprain. Other muscles and tendons: Noncontributory. Other soft tissues: Unremarkable IMPRESSION: There is a medial meniscal tear as described. No other significant internal derangement in the knee. Interpreted by: Luther Burton MD Preliminary Report By: Luther Burton MD Electronically signed By Luther Burton MD Dictated Date: 05/26/2025 4:42:01 PM Prelim Date: 05/26/2025 4:46:38 PM Sign Date: 05/26/2025 4:46:38 PM Ordering Provider: RODO Beltran [facility] Internal Medicine Office Vis itohilda 05-20-2025 Internal Medicine Office Visit [facility] [place] [address] OFFICE VISIT Date of Service: 05/20/25 MR#: [id number] Acct: [id number] Name: KEITH WALDROP Rep #: [id number] : 1975 Provider: MECHELLE Perry Age/Sex: 50/F Location: [facility] [place] [facility] Status: Signed Intake Vital Signs 04/14/25 14:10 04/30/25 08:30 05/20/25 08:12 Height 5 ft 9 in 5 ft 9 in 5 ft 9 in Weight: 183 lb 4 oz 180 lb 188 lb BMI 27.0 26.6 27.7 BP 118/68 110/66 Blood Pressure Location Rt brachial Lt brachial Position Sitting Sitting Respiration 16 16 Pulse 86 87 Pulse Source Monitor Monitor Temp 97.1 F L 99.1 F Temp Source Temporal Temporal Pulse Oximetry (%) 97 Oxygen Delivery Method room air Intake Visit Reasons: 6 wk FU [employer] Required: No Is patient in pain?: No Allergies erythromycin base Adverse Reaction (Mild, Verified 05/20/25 08:12) Upset Stomach Medications ???Medication ???Instructions ???Recorded ???Confirmed ???Type Lactobacillus acidophilus 10 10,000 mmu cells PO DAILY 01/02/23 05/20/25 History billion cell capsule (Probiotic) ascorbic acid (vitamin C) 500 mg 500 mg PO DAILY 01/02/23 05/20/25 History tablet (Vitamin C) cholecalciferol (vitamin D3) 25 25 mcg PO DAILY 01/02/23 05/20/25 History mcg (1,000 unit) capsule (Vitamin D3) turmeric 400 mg capsule 400 mg PO DAILY 01/02/23 05/20/25 History zinc 50 mg capsule 50 mg PO DAILY 01/02/23 05/20/25 H istory fluticasone propionate 50 1 spray intranasal DAILY 05/16/23 05/20/25 History mcg/actuation nasal spray,suspension (Flonase Allergy Relief) gabapentin 100 mg capsule 200 mg PO QHS 03/31/25 05/20/25 Hi story duloxetine 30 mg capsule,delayed 30 mg PO QDAY #30 caps 05/20/25 Rx release Nurse's Note: Pt states she does not notice a real difference w/ duloxetine, denies any adverse reactions. Pt looked at liver enzymes on portal and appeared to look good to her. Would need refill if keeping on duloxetine. [facility] Medical History Left knee pain Elevated Rod-Garcia virus antibody titer Encounter for vitamin deficiency screening Chronic fatigue Gastritis Epigastric abdominal tenderness Lightheadedness Numbness and tingling in both hands Sinusitis Vertigo Back pain Migraine headache Non-smoker Fibroid uterus Enlarged uterus Menorrhagia with regular cycle Elevated liver enzymes Anemia Frequent headaches Back problem Arthritis Surgical History History of bilateral salpingectomy S/P laparoscopic assisted vaginal hysterectomy (LAVH) Hx of colonoscopy History of tonsillectomy Family History Other Anxiety and depression Arthritis Asthma CVA (cerebral vascular accident) Diabetes Heart disease Hyperlipemia Hypertension Lupus Myocardial infarction Osteopenia Thyroid disorder Social History Smoking Status: Never smoker alcohol intake: never substance use type: does not use caffeine: Yes what type of physical activity do you participate in: walking frequency: 1-2 times per week seatbelt use: always do you feel safe at home: Yes additional social history: - [employer] Rarely uses aspirin. Does not use ibuprofen regularly. Questionnaire PQH-9 BMS Over the last 2 weeks, how often have you been bothered by any of the following problems? 1. Little interest or pleasure in doing things: not at all 2. Feeling down, depressed, or hopeless: nearly every day (typical/smidge worse) 3. Trouble falling or staying asleep, or sleeping too much: nearly every day 4. Feeling tired or having little energy: nearly every day (no more than normal) 5. Poor appetite or overeating: several days (improvement) 6. Feeling bad about yourself - or that you are a failure or have let yourself and your family down: not at all 7. Trouble concentrating on things, such as reading the newspaper or watching television: not at all 8. Moving or speaking so slowly that other people could have noticed? - Or the opposite - being so fidgety or restless that you have been moving around a lot more than usual: not at all 9. Thoughts that you would be better off or of hurting yourself in some way: not at all Total score: 10 If you checked off any problems, how difficult have these problems made it for you to do your work, take care of things at home, or get along with other people?: not difficult at all Source: Developed by Drs. Jarrod Otero, Oralia Rebolledo, Josiah Zelaya and colleagues, with an educational joann from [facility] (more content not included)... Normal [facility] Anion gap in Serum or Plasma Ordered By: Griffin Lee on 05-18-2025 Anion gap [Moles/Vol] 8 mmol/L 5-15 [facility] BUN/creatinine ratioOrdered By: Griffin Lee on 05-18-2025 Urea nitrogen/Creatinine [Mass ratio] 17.2 mg/mg 10-20 [facility] Bilirubin, totalOrdered By: Griffin Lee on 05-18-2025 Bilirubin [Mass/Vol] 0.23 mg/dL 0.00-1.30 [facility] Carbon dioxide, total [Moles /volume] in Central venous bloodOrdered By: Griffin Lee on 05-18-2025 CO2 [Moles/Vol] 25.2 mmol/L 21.0-32.0 [facility] Chloride assayOrdered By: Iam tthew Rosa on 05-18-2025 Chloride [Moles/Vol] 105 mmol/L 98-108 [facility] Comprehensive Metabolic Prof ilon 05-18-2025 Albumin [Mass/Vol] 4.0 g/dL Normal 3.5-5.0 [facility] Comment on above: Performed By: #### L 500.4050 #### [facility] [address] [place], [address] Albumin/Globulin [Mass ratio] 1.8 {ratio} Normal 0.9-2.4 [facility] Comment on above: Performed By: #### L [id number] #### [facility] [address] [place], [address] ALK PHOS 64 U/L Normal 35-104 [facility] Comment on above: Performed By: #### L [id number] #### [facility] [address] [place], [address] ALT [Catalytic activity/Vol] 17 U/L Normal <=34 [facility] Comment on above: Performed By: #### L [id number] #### [facility] [address] [place], [address] AST [Catalytic activity/Vol] 19 U/L Normal <=31 [facility] Comment on above: Performed By: #### L [id number] #### [facility] [address] [place], [address] Bilirubin [Mass/Vol] 0.23 mg/dL Normal 0.00-1.30 [facility] Comment on above: Performed By: #### L [id number] #### [facility] [address] [place], [address] BUN/CRE 17.2 RATIO Normal 10-20 [facility] Comment on above: Performed By: #### L [id number] #### [facility] [address] [place], [address] Calcium [Mass/Vol] 9.2 mg/dL Normal 7.6-11.0 [facility] Comment on above: Performed By: #### L [id number] #### [facility] [address] [place], [address] Chloride [Moles/Vol] 105 mmol/L Normal 98-108 [facility] Comment on above: Performed By: #### L [id number] #### [facility] [address] [place], [address] CO2 [Moles/Vol] 25.2 mmol/L Normal 21.0-32.0 [facility] Comment on above: Performed By: #### L [id number] #### [facility] [address] [place], [address] Creatinine [Mass/Vol] 0.67 mg/dL Low 0.70-1.20 [facility] Comment on above: Performed By: #### L [id number] #### [facility] [address] [place], [address] GAP 8 Normal 5-15 [facility] Comment on above: Performed By: #### L [id number] #### [facility] [address] [place], [address] GFR/1.73 sq M.predicted among non-blacks MDRD (S/P/Bld) [Vol rate/Area] 108 mL/min/{1.73_m2} Normal >60 [facility] Comment on above: Result Comment: mL/m in/1.73m2 CKD-EPI Creatinine Equation (2020) Performed By: #### L [id number] #### [facility] [address] [place], [address] Globulin (S) [Mass/Vol] 2.3 g/dL Normal 2.2-4.2 [facility] Comment on above: Performed By: #### L [id number] #### [facility] [address] [place], [address] Glucose [Mass/Vol] 90 mg/dL Normal 70-99 [facility] Comment on above: Performed By: #### L [id number] #### [facility] [address] [place], [address] Potassium [Moles/Vol] 4.3 mmol/L Normal 3.3-5.1 [facility] Comment on above: Performed By: #### L [id number] #### [facility] [address] [place], [address] Sodium [Moles/Vol] 139 mmol/L Normal 133-145 [facility] Comment on above: Performed By: #### L [id number] #### [facility] [address] [place], [address] T PROT 6.2 g/dL Normal 5.9-8.4 [facility] Comment on above: Performed By: #### L [id number] #### [facility] [address] [place], [address] Urea nitrogen [Mass/Vol] 12 mg/dL Normal 4-19 [facility] Comment on above: Performed By: #### L 500.4050 #### [facility] [address] [place], [address] Glomerular filtration rate ( GFR) estimation/1.73 sq m using serum, plasma, or whole bOrdered By: Griffin Lee on 05-18-2025 GFR/1.73 sq M.predicted among non-blacks MDRD (S/P/Bld) [Vol rate/Area] 108 mL/min/{1.73_m2} >60 [facility] Comment on above: mL/min/1.73m2 CKD-EP I Creatinine Equation (2020) Laboratory - Chemistry and C hemistry - challengeOrdered By: Griffin Lee on 05-18-2025 AST [Catalytic activity/Vol] 19 U/L <32 [facility] Potassium measurement (mass/ volume)Ordered By: Griffin Lee on 05-18-2025 Potassium (Unsp spec) [Mass/Vol] 4.3 mmol/L 3.3-5.1 [facility] Serum creatinine measurement (mass/volume)Ordered By: Griffin Lee on 05-18-2025 Creatinine [Mass/Vol] 0.67 mg/dL Low 0.70-1.20 [facility] Serum globulin measurementOr dered By: Griffin Lee on 05-18-2025 Globulin (S) [Mass/Vol] 2.3 g/dL 2.2-4.2 [facility] Serum glucose measurement (m ass/volume)Ordered By: Griffin Lee on 05-18-2025 Glucose [Mass/Vol] 90 mg/dL 70-99 [facility] Serum or plasma alanine yang otransferase (ALT) measurementOrdered By: Griffin Lee on 05-18-2025 ALT [Catalytic activity/Vol] 17 U/L <35 [facility] Serum or plasma albumin gely urement (mass/volume)Ordered By: Griffin Lee on 05-18-2025 Albumin [Mass/Vol] 4.0 g/dL 3.5-5.0 [facility] Serum or plasma albumin/glob ulin mass ratioOrdered By: Griffin Lee on 05-18-2025 Albumin/Globulin [Mass ratio] 1.8 {ratio} 0.9-2.4 [facility] Serum or plasma alkaline lizzie sphatase measurementOrdered By: Griffin Lee on 05-18-2025 ALP [Catalytic activity/Vol] 64 U/L 35-104 [facility] Serum or plasma calcium gely urement (mass/volume)Ordered By: Griffin Lee on 05-18-2025 Calcium [Mass/Vol] 9.2 mg/dL 7.6-11.0 [facility] Serum or plasma urea nitroge n measurement (mass/volume)Ordered By: Griffin Lee on 05-18-2025 Urea nitrogen [Mass/Vol] 12 mg/dL 4- [facility] Sodium levelOrdered By: Michael katlin Lee on 05-18-2025 Sodium [Moles/Vol] 139 mmol/L 133-145 [facility] Total proteinOrdered By: Nima Lee on 05-18-2025 Protein [Mass/Vol] 6.2 g/dL 5.9-8.4 [facility] Orthopedic Visit Reporton Orthopedic Visit Report [facility] [address] [place] [address] [address] [place] [address] OFFICE VISIT Date of Service: 04/30/25 MR#: [id number] Acct: [id number] Name: KEITH WALDROP Rep #: [id number] : 1975 Provider: Dr. Rodo ramirez MD Age/Sex: 50/F Location: [facility] [place].[facility] Status: Signed Intake Vital Signs 03/31/25 09:53 04/14/25 14:10 04/30/25 08:30 Height 5 ft 9 in 5 ft 9 in 5 ft 9 in Weight: 185 lb 180 lb BMI 27.3 26.6 BP 126/74 H Blood Pressure Location Lt brachial Position Sitting Respiration 16 Pulse 73 Pulse Source Monitor Temp 98.6 F Temp Source Temporal Pulse Oximetry (%) 100 Oxygen Delivery Method room air Intake Visit Reasons: BL KNEES Chief Complaint: Bilateral knee pain Accompanied by: Self Is patient in pain?: Yes Pain scale (1-10): 4 Allergies erythromycin base Adverse Reaction (Mild, Verified 04/30/25 08:32) Upset Stomach Medications ???Medication ???Instructions ???Recorded ???Confirmed ???Type Lactobacillus acidophilus 10 10,000 mmu cells PO DAILY 01/02/23 04/30/25 History billion cell capsule (Probiotic) ascorbic acid (vitamin C) 500 mg 500 mg PO DAILY 01/02/23 04/30/25 History tablet (Vitamin C) cholecalciferol (vitamin D3) 25 25 mcg PO DAILY 01/02/23 04/30/25 History mcg (1,000 unit) capsule (Vitamin D3) turmeric 400 mg capsule 400 mg PO DAILY 01/02/23 04/30/25 History zinc 50 mg capsule 50 mg PO DAILY 01/02/23 04/30/25 H istory fluticasone propionate 50 1 spray intranasal DAILY 05/16/23 04/30/25 History mcg/actuation nasal spray,suspension (Flonase Allergy Relief) gabapentin 100 mg capsule 200 mg PO QHS 03/31/25 04/30/25 Hi story duloxetine 20 mg capsule,delayed 20 mg PO QDAY #30 caps 04/15/25 Rx release (Cymbalta) Have you fallen in the past year?: No PFSH Medical History (Updated 04/30/25 @ 08:52 by Rodo Gaona MD) Left knee pain Elevated Rod-Garcia virus antibody titer Encounter for vitamin deficiency screening Chronic fatigue Gastritis Epigastric abdominal tenderness Lightheadedness Numbness and tingling in both hands Sinusitis Vertigo Back pain Migraine headache Non-smoker Fibroid uterus Enlarged uterus Menorrhagia with regular cycle Elevated liver enzymes Anemia Frequent headaches Back problem Arthritis Surgical History History of bilateral salpingectomy S/P laparoscopic assisted vaginal hysterectomy (LAVH) Hx of colonoscopy History of tonsillectomy Family History Other Anxiety and depression Arthritis Asthma CVA (cerebral vascular accident) Diabetes Heart disease Hyperlipemia Hypertension Lupus Myocardial infarction Osteopenia Thyroid disorder Social History Smoking Status: Never smoker alcohol intake: never substance use type: does not use caffeine: Yes what type of physical activity do you participate in: walking frequency: 1-2 times per week seatbelt use: always do you feel safe at home: Yes additional social history: - [employer] Rarely uses aspirin. Does not use ibuprofen regularly. HPI BL KNEES Details: This documentation accurately reflects the service provided and the decisions made by me, Dr. Rodo Gaona MD 04/30/25 0801. Part of today???s visit was documented by [ ], acting as scribe. KEITH WALDROP is a 50 year old F here today for right knee pain. Supplemental Info MRI of the right knee 02/26/2025 from [facility] lateral meniscus lateral tibiofemoral cartilage appeared normal. Minimal fluid signal within the posterior horn the lateral meniscus does not extend to the articular surface with mild meniscal extrusion likely related to degeneration. Fluid signal with fraying of the posterior horn medial meniscus mild meniscal extrusion may relate to degeneration. Blunting of the body in the medial meniscus which can be seen with small radial tear. 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 I independently reviewed the imaging. Concur with radiologist report. [facility] Imaging Services [address] [place] [address] Knee 4 or More Views MR#: [id number] Acct: [id number] Name: KEITH WALDROP Rep #: [id number] : 1975 F 49 From: Juan Jose Rivear MD PCP: Dr. Aayush Frederick MD Status: DEP AMB Study: K (more content not included)... Normal [facility] Internal Medicine Office Vis iton 04-14-2025 Internal Medicine Office Visit [facility] [address] [place] [address] [place] [address] OFFICE VISIT Date of Service: 04/14/25 MR#: [id number] Acct: [id number] Name: KEITH WALDROP Rep #: [id number] : 1975 Provider: MECHELLE Perry Age/Sex: 49/F Location: [facility] [place] Status: Signed Intake Vital Signs 03/31/25 09:53 04/10/25 15:44 04/14/25 14:10 Height 5 ft 9 in 5 ft 9 in 5 ft 9 in Weight: 185 lb 183 lb 4 oz BMI 27.3 27.0 BP 126/74 H 118/68 Blood Pressure Location Lt brachial Rt brachial Position Sitting Sitting Respiration 16 16 Pulse 73 86 Pulse Source Monitor Monitor Temp 98.6 F 97.1 F L Temp Source Temporal Temporal Pulse Oximetry (%) 100 Oxygen Delivery Method room air Intake Visit Reasons: ACUTE DIZZINESS AND OTHER CONCERNS Chief Complaint: dizziness [employer] Required: No Accompanied by: Self Is patient in pain?: No Allergies erythromycin base Adverse Reaction (Mild, Verified 04/14/25 14:10) Upset Stomach Medications ???Medication ???Instructions ???Recorded ???Confirmed ???Type Lactobacillus acidophilus 10 10,000 mmu cells PO DAILY 01/02/23 04/14/25 History billion cell capsule (Probiotic) ascorbic acid (vitamin C) 500 mg 500 mg PO DAILY 01/02/23 04/14/25 History tablet (Vitamin C) cholecalciferol (vitamin D3) 25 25 mcg PO DAILY 01/02/23 04/14/25 History mcg (1,000 unit) capsule (Vitamin D3) turmeric 400 mg capsule 400 mg PO DAILY 01/02/23 04/14/25 History zinc 50 mg capsule 50 mg PO DAILY 01/02/23 04/14/25 H istory fluticasone propionate 50 1 spray intranasal DAILY 05/16/23 04/14/25 History mcg/actuation nasal spray,suspension (Flonase Allergy Relief) gabapentin 100 mg capsule 200 mg PO QHS 03/31/25 04/14/25 Hi story duloxetine 20 mg capsule,delayed 20 mg PO QDAY #30 caps 04/15/25 Rx release (Cymbalta) Have you fallen in the past year?: No Nurse's Note: feels like she is dizzy but not really dizzy [facility] Medical History Elevated Rod-Garcia virus antibody titer Encounter for vitamin deficiency screening Chronic fatigue Gastritis Epigastric abdominal tenderness Lightheadedness Numbness and tingling in both hands Sinusitis Vertigo Back pain Migraine headache Non-smoker Fibroid uterus Enlarged uterus Menorrhagia with regular cycle Elevated liver enzymes Anemia Frequent headaches Back problem Arthritis Surgical History History of bilateral salpingectomy S/P laparoscopic assisted vaginal hysterectomy (LAVH) Hx of colonoscopy History of tonsillectomy Family History Other Anxiety and depression Arthritis Asthma CVA (cerebral vascular accident) Diabetes Heart disease Hyperlipemia Hypertension Lupus Myocardial infarction Osteopenia Thyroid disorder Social History Smoking Status: Never smoker alcohol intake: never substance use type: does not use caffeine: Yes what type of physical activity do you participate in: walking frequency: 1-2 times per week seatbelt use: always do you feel safe at home: Yes additional social history: - [employer] Rarely uses aspirin. Does not use ibuprofen regularly. HPI HPI Chief Complaint: dizziness Details: KEITH WALDROP, is a 49 F who presents to the office today for f/u on some chronic conditions. She states that she has not felt good since college when she had MONO. She states that she currently sees naturopathic physician who have been treating her since [id number]. She has been taking natural medications / supplements. She states that last year they did labs that showed Chronic Charlton antibodies. Again she states that she has had symptoms since college. She states about 3 years ago she started to have a woozines in her head. She states that she is not spinning but that some quick movements can make it worse. She also has noticed that when she is boating that it gets worse. She states that stress makes this worse, more physical activity / exertion. She states that she always feels like she is unrested all the time despite having sleep. She has had sleep studies and all sorts of testing. She states that she does have a history of anxiety issues and about 2-3 years ago she was started on Cymbalta for both the anxiety and the Chronic Fibromyalgia. She states that initially she felt great when starting the medication. She states that it was the best two months that she had felt in many years. She had an ER visit about 2 years ago and was found to have some elevations in her liver enzymes. The Cymbalta was stopped and she was referred to l (more content not included)... Normal [facility] Orthopedic Visit Reporton Orthopedic Visit Report [facility] [address] [place] [address] [address] [id number] OFFICE VISIT Date of Service: 04/01/25 MR#: [id number] Acct: [id number] Name: KEITH WALDROP Rep #: [id number] : 1975 Provider: GORGE carter Age/Sex: 49/F Location: [facility] [place].[facility] Status: Signed Intake Vital Signs 3 02/19/25 08:33 03/31/25 09:53 Height 5 ft 9 in 5 ft 9 in Intake Visit Reasons: BILATERAL KNEES Is patient in pain?: Yes Allergies erythromycin base Adverse Reaction (Mild, Verified 04/01/25 10:43) Upset Stomach Medications 3 ???Medication ???Instructions ???Recorded ???Confirmed ???Type Lactobacillus acidophilus 10 10,000 mmu cells PO DAILY 01/02/23 04/01/25 History billion cell capsule (Probiotic) ascorbic acid (vitamin C) 500 mg 500 mg PO DAILY 01/02/23 04/01/25 History tablet (Vitamin C) cholecalciferol (vitamin D3) 25 25 mcg PO DAILY 01/02/23 04/01/25 History mcg (1,000 unit) capsule (Vitamin D3) turmeric 400 mg capsule 400 mg PO DAILY 01/02/23 04/01/25 History zinc 50 mg capsule 50 mg PO DAILY 01/02/23 04/01/25 H istory fluticasone propionate 50 1 spray intranasal DAILY 05/16/23 04/01/25 History mcg/actuation nasal spray,suspension (Flonase Allergy Relief) gabapentin 100 mg capsule 200 mg PO QHS 03/31/25 04/01/25 Hi story [facility] Medical History Elevated Rod-Garcia virus antibody titer Encounter for vitamin deficiency screening Chronic fatigue Gastritis Epigastric abdominal tenderness Lightheadedness Numbness and tingling in both hands Sinusitis Vertigo Back pain Migraine headache Non-smoker Fibroid uterus Enlarged uterus Menorrhagia with regular cycle Elevated liver enzymes Anemia Frequent headaches Back problem Arthritis Surgical History History of bilateral salpingectomy S/P laparoscopic assisted vaginal hysterectomy (LAVH) Hx of colonoscopy History of tonsillectomy Family History (Updated 03/31/25 @ 09:47 by Nikki Alexandra) Other Anxiety and depression Arthritis Asthma CVA (cerebral vascular accident) Diabetes Heart disease Hyperlipemia Hypertension Lupus Myocardial infarction Osteopenia Thyroid disorder Social History (Updated 03/31/25 @ 09:46 by Nikki Alexandra) Smoking Status: Never smoker alcohol intake: never substance use type: does not use caffeine: Yes what type of physical activity do you participate in: walking frequency: 1-2 times per week seatbelt use: always do you feel safe at home: Yes additional social history: - [employer]Has [employer] Rarely uses aspirin. Does not use ibuprofen regularly. HPI BILATERAL KNEES Details: This documentation accurately reflects the service provided and the decisions made by me, Xochilt Jon, FAUSTINO-C 04/01/25 1031. Part of today???s visit was documented by [LUIS Carrera], acting as scribe. KEITH WALDROP is a 49 year old F here today for bilateral knee 3rd euflexxa injections. Patient notes that her knees are getting worse. Her pain is worsening. Patient had to walk down the stairs backwards due to her pain. She notes that she was discharged from physical therapy this morning due to her worsening. No redness around injection site. Agree with above. Patient complains of stiffness and increased pain for 2 hours postinjection from last week's injection. Patient has been participating in PT and states as of today's session, PT is d/c' ing her due to lack of progression and to pursue further evaluation.. Patient has resumed typical activities, no adverse reaction from the medication. She wishes to pursue bilateral Euflexxa knee injections 3/3 today. Verbalizes frustration with lack of improvement despite multiple OTC oral and topical products, injections, PT. Also verbalizes unsure of etiology of prolonged pain including arthritis, meniscal injury, fibromyalgia or autoimmune playing part in lack of progression. ROS Const All systems reviewed are unremarkable except as noted in H and other (A O x 3, no apparent distress. No recent illness.) ENT Denies dizziness Card Denies chest pain, Denies dyspnea, Denies edema and Reports other (No palpitations) Resp Denies cough, Denies dyspnea and Reports other (No recent URI) GI Reports system reviewed and no additional complaints, except as documented, Denies nausea and Denies vomiting Musc Reports as per HPI, Reports arthralgias and Reports stiffness Neuro No dizziness Psych Reports system reviewed and no additional complaints, except as documented Iglesia/Lymph Denies easy bleeding and Denies easy bruising Ortho Exam Right Knee KNEE: Skin is pink, warm, dry and int (more content not included)... Normal [facility] Re-Evaluation - PT (1)on Re-Evaluation - PT (1) [facility] Physical Therapy [facility] [address] [place] [address] / REEVALUATION / MEDICARE RECERTIFICATION PHYSICAL THERAPY MR#: [id number] Acct: [id number] Name: KEITH WALDROP Rep #: [id number] : 1975 49 From: Hernan Mao PT, ATC Referring Dr.: GORGE Jon Status:REG RCR Insurance: [facility] SELF PAY INSURANCE Re-Evaluation Intro: Xochilt Jon, GORGE, It has been my pleasure to treat KEITH WALDROP over the last 8 visits for B knee OA and med. meniscal tear. Please see the progress note below for an update on the physical therapy plan of care! Subjective Subjective: Pt reports no improvements at this time Objective Objective/Function: Knee pain level is 3-8/10 ROM: L knee 0-125 , R knee 0-125 degrees MMT: L knee flex= 37, ext= 44 #F; R knee flex= 28, ext= 28 #F Pt has progressed with ROM, regressed with strength Plan Plan Plan: Follow up or discharge in one month following last injection Balance/Gait/Functio nal tests Balance/Special Test Scores Lower Extremity Functional Score: 43 Goals Goals Goal 1:: Decrease B knee pain x 50% to aid with sleep Goal Time Frame: 4-6 Weeks Goal 2:: Increase B knee strength x 10#F to aid with return to working out without limitation Goal Time Frame: 4-6 Weeks Goal 3:: Increase R knee flexion ROM to 125 degrees to aide with IADL's Goal Time Frame: 4-6 Weeks Goal 4:: I with HEP Goal Time Frame: 4-6 Weeks Anticipated Interventions Anticipated Interventions Patient/Client Instruction: Educate patient on: Condition and Plan of Care For the Purpose of:: To improve self management Therapeutic Exercise to Include: Strength training, Endurance training, Balance training, Active ROM and Dynamic Lumbar Stabilization For the Purpose of:: To decrease pain, To increase ROM and To improve muscle performance and motor function Cryotherapy (ice pack, ice massage): Yes For the Purpose of:: To decrease pain Re-Evaluation Ending Re-evaluation ending: Please do not hesitate to contact me at [phone] by phone or if you have questions or concerns regarding this new plan of care! Sincerely, Hernan Mao, PT, ATC 04/01/25 1006 CC: GORGE Jon; Dr. Aayush Frederick MD [facility] Signed For Medicare only, by signing this I certify the plan of care. Physicians Signature Date Normal [facility] MR/BMS.Michelle 03-31-2025 MR/BMS.S [facility] Vascular Surgery 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 Accompanied by: Self Is patient in pain?: Yes (B/L knee) Pain scale (1-10): 5 Allergies erythromycin base Adverse Reaction (Mild, Verified 04/01/25 10:43) Upset Stomach Medications ???Medication ???Instructions ???Recorded ???Confirmed ???Type Lactobacillus acidophilus 10 10,000 mmu cells PO DAILY 01/02/23 04/01/25 History billion cell capsule (Probiotic) ascorbic acid (vitamin C) 500 mg 500 mg PO DAILY 01/02/23 04/01/25 History tablet (Vitamin C) cholecalciferol (vitamin D3) 25 25 mcg PO DAILY 01/02/23 04/01/25 History mcg (1,000 unit) capsule (Vitamin D3) turmeric 400 mg capsule 400 mg PO DAILY 01/02/23 04/01/25 History zinc 50 mg capsule 50 mg PO DAILY 01/02/23 04/01/25 H istory fluticasone propionate 50 1 spray intranasal DAILY 05/16/23 04/01/25 History mcg/actuation nasal spray,suspension (Flonase Allergy Relief) gabapentin 100 mg capsule 200 mg PO QHS 03/31/25 04/01/25 Hi story [facility] Medical History Elevated Rod-Garcia virus antibody titer Encounter for vitamin deficiency screening Chronic fatigue Gastritis Epigastric abdominal tenderness Lightheadedness Numbness and tingling in both hands Sinusitis Vertigo Back pain Migraine headache Non-smoker Fibroid uterus Enlarged uterus Menorrhagia with regular cycle Elevated liver enzymes Anemia Frequent headaches Back problem Arthritis Surgical History History of bilateral salpingectomy S/P laparoscopic assisted vaginal hysterectomy (LAVH) Hx of colonoscopy History of tonsillectomy Family History (Updated 03/31/25 @ 09:47 by Nikki Alexandra) Other Anxiety and depression Arthritis Asthma CVA (cerebral vascular accident) Diabetes Heart disease Hyperlipemia Hypertension Lupus Myocardial infarction Osteopenia Thyroid disorder Social History (Updated 03/31/25 @ 09:46 by Nikki Alexandra) Smoking Status: Never smoker alcohol intake: never substance use type: does not use caffeine: Yes what type of physical activity do you participate in: walking frequency: 1-2 times per week seatbelt use: always do you feel safe at home: Yes additional social history: - [employer]Has [employer] Rarely uses aspirin. Does not use ibuprofen regularly. HPI HPI HPI: KEITH WALDROP, is a 49 F who presents to the office today for evaluation of purple discoloration in her bilateral feet as referred from orthopedics. She reports that at her last orthopedics visit it was noticed that her feet appeared dark purple and so she was sent here for evaluation. She reports that her feet have become discolored with prolonged sitting/standing/leg dependency for over 20 years. She does not have any associated pain, numbness/paresthesia s, claudication. Her feet sometimes feel a bit cooler to touch during these times. The color improves with walking. She does not have any wounds or prominent varicosities. She does sometimes notices some lower extremity aching worst at the end of the day. She denies any history of DVT/SVT/PE or prior peripheral vascular interventions. She is not diabetic. ROS General General: No weight change, fatigue, colon cancer or breast cancer HEENT HEENT: No difficulty swallowing, eye surgery or swollen glands Endo Endocrine: No thyroid disease, diabetes mellitus or thyroid cancer Additional Details: dental problems Skin Skin: No rash or changing moles Musc Musculoskeletal: Yes back problems and arthritis; No rheumatoid arthritis or gout Cardio Cardiovascular: No murmur, pacemaker, heart disease, atrial fibrillation, high blood pressure, heart attack or heart stent Psych Psychiatric: No depression or anxiety Resp Respiratory: No shortness of breath, No sleep apnea, No cough, No COPD, No asthma and No emphysema Gastro Gastrointestinal: No abdominal pain, No nausea or vomiting, No diarrhea, No constipation, No blood in stool, No acid reflux, No hemorrhoids, No ulcers, (more content not included)... Normal [facility] Orthopedic Visit Reporton Orthopedic Visit Report [facility] [address] [place] [address] OFFICE VISIT Date of Service: 03/24/25 MR#: [id number] Acct: [id number] Name: KEITH WALDROP Rep #: [id number] : 1975 Provider: GORGE carter Age/Sex: 49/F Location: [facility] [place] Status: Signed Intake Vital Signs 3 02/19/25 08:33 Height 5 ft 9 in Intake Visit Reasons: BILATERAL KNEES Allergies erythromycin base Adverse Reaction (Mild, Verified 03/24/25 15:14) Upset Stomach Medications 3 ???Medication ???Instructions ???Recorded ???Confirmed ???Type Lactobacillus acidophilus 10 10,000 mmu cells PO DAILY 01/02/23 03/24/25 History billion cell capsule (Probiotic) ascorbic acid (vitamin C) 500 mg 500 mg PO DAILY 01/02/23 03/24/25 History tablet (Vitamin C) cholecalciferol (vitamin D3) 25 25 mcg PO DAILY 01/02/23 03/24/25 History mcg (1,000 unit) capsule (Vitamin D3) turmeric 400 mg capsule 400 mg PO DAILY 01/02/23 03/24/25 History zinc 50 mg capsule 50 mg PO DAILY 01/02/23 03/24/25 H istory fluticasone propionate 50 1 spray intranasal DAILY 05/16/23 03/24/25 History mcg/actuation nasal spray,suspension (Flonase Allergy Relief) acetaminophen 325 mg capsule 325 mg PO ONCE PRN 03/24/24 History (Tylenol) gabapentin 100 mg capsule 100 mg PO BID 01/05/25 03/24/25 Hi story [facility] Medical History Elevated Rod-Garcia virus antibody titer Encounter for vitamin deficiency screening Chronic fatigue Gastritis Epigastric abdominal tenderness Lightheadedness Numbness and tingling in both hands Sinusitis Vertigo Back pain Migraine headache Non-smoker Fibroid uterus Enlarged uterus Menorrhagia with regular cycle Elevated liver enzymes Anemia Frequent headaches Back problem Arthritis Surgical History History of bilateral salpingectomy S/P laparoscopic assisted vaginal hysterectomy (LAVH) Hx of colonoscopy History of tonsillectomy Family History Other Anxiety and depression Arthritis Asthma Diabetes Heart disease Hyperlipemia Hypertension Myocardial infarction Thyroid disorder Social History Smoking Status: Never smoker alcohol intake: never substance use type: does not use caffeine: Yes what type of physical activity do you participate in: walking frequency: 1-2 times per week seatbelt use: always do you feel safe at home: Yes additional social history: - [employer]Has [employer] HPI BILATERAL KNEES Details: This documentation accurately reflects the service provided and the decisions made by me, DOREEN SalasC 03/24/25 8656. Part of today???s visit was documented by Deena CLAYTON, acting as scribe. KEITH WALDROP is a 49 year old F here today for 2nd bilateral knee Euflexxa injections. She states that she did have some soreness after her last injection which made it hard for her to ambulate but she notes that this is typical for her. Agree with above. Patient complains of stiffness and increased pain for 2 hours postinjection from last week's injection, then after 48 hours it has eased. Patient has been participating in PT and voices concern that PT stated she may need surgical intervention. Patient has resumed typical activities, no adverse reaction from the medication. She wishes to pursue bilateral knee injections today. ROS Const All systems reviewed are unremarkable except as noted in H and other (A O x 3, no apparent distress. No recent illness.) ENT Denies dizziness Card Denies chest pain, Denies dyspnea, Denies edema and Reports other (No palpitations) Resp Denies cough, Denies dyspnea and Reports other (No recent URI) GI Reports system reviewed and no additional complaints, except as documented, Denies nausea and Denies vomiting Musc Reports as per HPI, Reports arthralgias and Reports stiffness Neuro No dizziness Psych Reports system reviewed and no additional complaints, except as documented Iglesia/Lymph Denies easy bleeding and Denies easy bruising Ortho Exam Right Knee KNEE: Skin is pink, warm, dry and intact. No swelling is present Range of motion: 5 to 100 degrees; painful 0-5 and greater than 100 Palpation: Mild tenderness to the lateral > medial joint line Gait: Slow steady gait, stiff legged Full range of distal joints with no symptom aggravation Distal motor or sensory intact with dusky appearance and delayed cap refill at 4-5 seconds. Improves with leg in extension and after ambulation for a few seconds Left Knee KNEE: ROM 0 to 110 degrees Palpation: Mild (more content not included)... Normal [facility] Orthopedic Visit Reporton Orthopedic Visit Report [facility] [address] [place] [address] [place], [place] [id number] OFFICE VISIT Date of Service: 03/16/25 MR#: [id number] Acct: [id number] Name: KEITH WALDROP Rep #: [id number] : 1975 Provider: GORGE carter Age/Sex: 49/F Location: [facility] Status: Signed Intake Vital Signs 3 02/19/25 08:33 Height 5 ft 9 in Intake Visit Reasons: BILATERAL KNEES Is patient in pain?: Yes Allergies erythromycin base Adverse Reaction (Mild, Verified 03/16/25 14:45) Upset Stomach Medications 3 ???Medication ???Instructions ???Recorded ???Confirmed ???Type Lactobacillus acidophilus 10 10,000 mmu cells PO DAILY 01/02/23 03/16/25 History billion cell capsule (Probiotic) ascorbic acid (vitamin C) 500 mg 500 mg PO DAILY 01/02/23 03/16/25 History tablet (Vitamin C) cholecalciferol (vitamin D3) 25 25 mcg PO DAILY 01/02/23 03/16/25 History mcg (1,000 unit) capsule (Vitamin D3) turmeric 400 mg capsule 400 mg PO DAILY 01/02/23 03/16/25 History zinc 50 mg capsule 50 mg PO DAILY 01/02/23 03/16/25 H istory fluticasone propionate 50 1 spray intranasal DAILY 05/16/23 03/16/25 History mcg/actuation nasal spray,suspension (Flonase Allergy Relief) acetaminophen 325 mg capsule 325 mg PO ONCE PRN 03/24/24 History (Tylenol) gabapentin 100 mg capsule 100 mg PO BID 01/05/25 03/16/25 Hi story [facility] Medical History (Updated 03/04/25 @ 11:05 by Xochilt Jon NP-C) Elevated Rod-Garcia virus antibody titer Encounter for vitamin deficiency screening Chronic fatigue Gastritis Epigastric abdominal tenderness Lightheadedness Numbness and tingling in both hands Sinusitis Vertigo Back pain Migraine headache Non-smoker Fibroid uterus Enlarged uterus Menorrhagia with regular cycle Elevated liver enzymes Anemia Frequent headaches Back problem Arthritis Surgical History History of bilateral salpingectomy S/P laparoscopic assisted vaginal hysterectomy (LAVH) Hx of colonoscopy History of tonsillectomy Family History Other Anxiety and depression Arthritis Asthma Diabetes Heart disease Hyperlipemia Hypertension Myocardial infarction Thyroid disorder Social History Smoking Status: Never smoker alcohol intake: never substance use type: does not use caffeine: Yes what type of physical activity do you participate in: walking frequency: 1-2 times per week seatbelt use: always do you feel safe at home: Yes additional social history: - [employer]Has [employer] HPI BILATERAL KNEES Details: This documentation accurately reflects the service provided and the decisions made by me, GORGE Salas 03/16/25 7407. Part of today???s visit was documented by [ ], acting as scribe. KEITH WALDROP is a 49 year old F here today for bilateral 1st Euflexxa injection. Patient notes that she continues to have pain and denies any changes since her last appointment. She is hopeful for a good outcome and some relief. She denies any pain medications. Agree with above, patient wishes to pursue Euflexxa injection as previously discussed and prior authorized to bilateral knees. No new injuries. ROS Const All systems reviewed are unremarkable except as noted in H and other (A O x 3, no apparent distress. No recent illness.) ENT Denies dizziness Card Denies chest pain, Denies dyspnea, Denies edema and Reports other (No palpitations) Resp Denies cough, Denies dyspnea and Reports other (No recent URI) GI Reports system reviewed and no additional complaints, except as documented, Denies nausea and Denies vomiting Musc Reports as per HPI, Reports arthralgias and Reports stiffness Neuro No dizziness Psych Reports system reviewed and no additional complaints, except as documented Iglesia/Lymph Denies easy bleeding and Denies easy bruising Ortho Exam Right Knee KNEE: Skin is pink, warm, dry and intact. Positive mild anterior swelling is present Range of motion: 5 to 100 degrees; painful 0-5 and greater than 100 Palpation: Mild tenderness to the lateral > medial joint line Gait: Slow steady gait Full range of distal joints with no symptom aggravation Distal motor or sensory intact with dusky appearance and delayed cap refill at 4-5 seconds. Improves with leg in extension and after ambulation for a few seconds Left Knee KNEE: ROM 0 to 110 degrees Palpation: Mild tenderness to the medial greater than lateral joint line Full range of distal joints with no symptom aggravation Distal motor or sensory intact with dusky appearance and delayed cap refil (more content not included)... Normal [facility] Inital Evaluation (1) - PTon 03-06-2025 Inital Evaluation (1) - PT [facility] Physical Therapy [facility] [address] [place] [address] / REHABILITATION SERVICES INITIAL EVALUATION MR#: [id number] Acct: [id number] Name: KEITH WALDROP Rep #: [id number] : 1975 49 From: Hernan Mao PT, ATC Referring Dr.: GORGE Salas Status: REG RCR Insurance: [facility] SELF PAY INSURANCE Patient's Visit Information Visit Information Visit Information: KEITH WALDROP is a 49 year old F referred to Physical Therapy by GORGE Salas with a diagnosis of B knee OA and med. meniscal tear. Date of Evaluation: 03/06/25 Physical Therapist: Hernan Mao, PT, ATC Visit Plan Frequency: 2x /Week Duration: 4-6 Weeks Plan: B LE strengthening, core stab ex's, balance and proprio, bike (forward and backwards), and HEP Subjective Subjective: Pt reports she has had B knee pain for several weeks. Pt notes she has had B knee pain since the fourth grade. 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 pt notes she had a MRI performed last week on her R knee which showed she has a medial meniscal tear. 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 Pt reports her knee has popped and locked up on one occasion. Pt reports she is walking better now, but only because she is walking a lot less than before. Pt reports she had injections approximately 2 years ago, and notes they made a difference for over a year. Pt reports she is frustrated with her knees, and wants to be able to get back into the gym and exercise again without increased pain. 2/10 pain while sitting here in the clinic, 10/10 at worst (when her knees pop). Pt reports occasional sleep difficulty secondary to pain Pain B knees: Pain Intensity (Out of 10): 2 Pain Intensity Range: 10 Objective Objective: Neuro: B LE sensation is WNL to lgiht touch. B patellar reflex= 1/3 Palpation: Pt is sore on medial and lateral joint line of R knee. No obvious deformity is present at this time. No crepitus with AROM ROM: L knee 0-125 degrees : R knee 0-5-115 degrees MMT: L knee flex= 41, ext= 45 #F; R knee flex= 36, ext= 35 #F Special tests: Pos apley compression test and McMurrays Balance/Special Test Scores Lower Extremity Functional Score: 38 Goals Goal 1:: Decrease B knee pain x 50% to aid with sleep Goal Time Frame: 4-6 Weeks Goal 2:: Increase B knee strength x 10#F to aid with return to working out without limitation Goal Time Frame: 4-6 Weeks Goal 3:: Increase R knee flexion ROM to 125 degrees to aide with IADL's Goal Time Frame: 4-6 Weeks Goal 4:: I with HEP Goal Time Frame: 4-6 Weeks Rehabilitation Potential Physical Therapy Diagnosis: Pt has B knee pain and weakness secondary to internal derangements of B knees Rehabilitation Potential: Good Anticipated Interventions Patient/Client Instruction: Educate patient on: Condition and Plan of Care For the Purpose of:: To improve self management Therapeutic Exercise to Include: Strength training, Endurance training, Balance training, Active ROM and Dynamic Lumbar Stabilization For the Purpose of:: To decrease pain, To increase ROM and To improve muscle performance and motor function Cryotherapy (ice pack, ice massage): Yes For the Purpose of:: To decrease pain Text: Thank you for the opportunity to evaluate your patient. For Medicare and Medicare HMO plans, please review the plan of care and approve it. It will need to be FAXED BACK to us at [phone] for Medicare purposes. For Medicare only, by signing this I certify the plan of care. Please let me know if there are questions or concerns regarding this plan of care. Physician Signature: D ate: 03/06/25 1438 CC: GORGE Jon; Dr. Aayush Frederick MD [facility] Signed Normal [facility] Orthopedic Visit Reporton Orthopedic Visit Report [facility] [address] [place] [address] OFFICE VISIT Date of Service: 03/04/25 MR#: [id number] Acct: [id number] Name: KEITH WALDROP Rep #: [id number] : 1975 Provider: GORGE carter Age/Sex: 49/F Location: [facility] [place] Status: Signed Intake Vital Signs 02/19/25 08:33 Height 5 ft 9 in Intake Visit Reasons: RIGHT KNEE Is patient in pain?: Yes Allergies erythromycin base Adverse Reaction (Mild, Verified 03/04/25 09:40) Upset Stomach Medications ???Medication ???Instructions ???Recorded ???Confirmed ???Type Lactobacillus acidophilus 10 10,000 mmu cells PO DAILY 01/02/23 03/04/25 History billion cell capsule (Probiotic) ascorbic acid (vitamin C) 500 mg 500 mg PO DAILY 01/02/23 03/04/25 History tablet (Vitamin C) cholecalciferol (vitamin D3) 25 25 mcg PO DAILY 01/02/23 03/04/25 History mcg (1,000 unit) capsule (Vitamin D3) turmeric 400 mg capsule 400 mg PO DAILY 01/02/23 03/04/25 History zinc 50 mg capsule 50 mg PO DAILY 01/02/23 03/04/25 H istory fluticasone propionate 50 1 spray intranasal DAILY 05/16/23 03/04/25 History mcg/actuation nasal spray,suspension (Flonase Allergy Relief) acetaminophen 325 mg capsule 325 mg PO ONCE PRN 03/24/24 History (Tylenol) gabapentin 100 mg capsule 100 mg PO BID 01/05/25 03/04/25 Hi story [facility] Medical History (Updated 03/04/25 @ 11:05 by GORGE Salas) Elevated Rod-Garcia virus antibody titer Encounter for vitamin deficiency screening Chronic fatigue Gastritis Epigastric abdominal tenderness Lightheadedness Numbness and tingling in both hands Sinusitis Vertigo Back pain Migraine headache Non-smoker Fibroid uterus Enlarged uterus Menorrhagia with regular cycle Elevated liver enzymes Anemia Frequent headaches Back problem Arthritis Surgical History History of bilateral salpingectomy S/P laparoscopic assisted vaginal hysterectomy (LAVH) Hx of colonoscopy History of tonsillectomy Family History Other Anxiety and depression Arthritis Asthma Diabetes Heart disease Hyperlipemia Hypertension Myocardial infarction Thyroid disorder Social History Smoking Status: Never smoker alcohol intake: never substance use type: does not use caffeine: Yes what type of physical activity do you participate in: walking frequency: 1-2 times per week seatbelt use: always do you feel safe at home: Yes additional social history: - [employer] HPI RIGHT KNEE Details: This documentation accurately reflects the service provided and the decisions made by me, GORGE Salas 03/04/25 6927. Part of today???s visit was documented by [ ], acting as scribe. KEITH WALDROP is a 49 year old F here today for a followup on her right knee. She states that she is ambulating better but she is not going to the gym. She is frustrated as she cant work out. She is no longer wearing a knee brace as it didnt seem to help since the weekend. She had an MRI which is here for review. She is not taking any pain medication. She does not have any swelling anymore. Agree with above. Patient states she believes her right knee has improved approximately 50% since last visit. Has stopped wearing hinged knee brace over the last few days with no instability, lo cking or catching. Continues to use caution with step use. Patient states her left knee is now sore and aggravated than her right, which is typical for her knees. States she has not resumed her workouts or going to the gym and wishes to get back into typical routines. Patient does take as needed Tylenol and turmeric. Patient follows with naturopathic doctor and chiropractor. No new injuries to the knees reported. Patient did get Euflexxa series in December to January 2024 with some overall improvements, however she did state her knees were sore for weeks following the injections. Reports intermittent dusky to black discoloration of bilateral lower extremities and feet for years, has never had evaluated ROS Const All systems reviewed are unremarkable except as noted in H and other (A O x 3, no apparent distress. No recent illness.) ENT Denies dizziness Card Denies chest pain, Denies dyspnea, Denies edema and Reports other (No palpitations) Resp Denies cough, Denies dyspnea and Reports other (No recent URI) GI Reports system reviewed and no additional complaints, except as documented, Denies nausea and Denies vomiting Musc Reports as per HPI, Reports arthralgias and Reports stiffness Neuro No dizziness (more content not included)... Normal [facility] MRI KNEE W/O CONTRAST RIGHTo n 02-26-2025 MRI KNEE W/O CONTRAST RIGHT ORIGINAL EXAMINATION: MRI OF THE RIGHT KNEE WITHOUT CONTRAST 02/26/2025 10:48 am TECHNIQUE: Multiplanar multisequence MRI of the right knee was performed without the administration of intravenous contrast. COMPARISON: None. HISTORY: ORDERING SYSTEM PROVIDED HISTORY: Reason for Exam: INTERNAL DERANGEMENT, pain and clicking FINDINGS: The cruciate ligaments appear normal. The medial collateral ligament, lateral collateral ligament and iliotibial band are intact. The lateral meniscus and lateral tibiofemoral cartilage appear normal. Minimal fluid signal within the posterior horn of the lateral meniscus, which does not extend to the articular surface, with mild meniscal extrusion is likely related to degeneration. Fluid signal with fraying of the posterior horn of the medial meniscus with mild meniscal extrusion may relate to degeneration. Blunting of the body of the medial meniscus, which can be seen with a small radial tear (series 9, image 15). The medial tibiofemoral cartilage appears intact. The patellar tendon, quadriceps tendon and retinaculum appear unremarkable. Articular cartilage loss along the lateral the patella with no definite bony involvement, likely indicative of grade 3 chondromalacia. Small suprapatellar joint effusion. Small amount of fluid surrounding the distal portion of the popliteus tendon. No aggressive osseous lesion. IMPRESSION: Suspect small radial free edge tear of the medial meniscus body. Degeneration of the lateral and medial meniscus. 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 Small suprapatellar joint effusion. I have personally reviewed the images of this examination and agree with the resident's findings and interpretation. Interpreted by: Zeb Flores MD Preliminary Report By: Raymond Garza Electronically signed By Zeb Flores MD Dictated Date: 02/26/2025 10:50:02 AM Prelim Date: 02/26/2025 2:51:16 PM Sign Date: 02/26/2025 2:51:16 PM Ordering Provider: TANIA REFERRING Normal [facility] Knee 4 or More Viewson 02-19 Knee 4 or More Views [facility] Imaging Services [address] [place] [address] Knee 4 or More Views MR#: [id number] Acct: [id number] Name: KEITH WALDROP Rep #: [id number] : 1975 F 49 From: Juan Jose Rivera MD PCP: Dr. Aayush Frederick MD Status: DEP AMB Study: Knee 4 or More Views Date of Exam: 02/19/25 Exam# [id number] Ordering Dr: Xochilt Jon EXAM: XR Right Knee Complete, 4 or More Views CLINICAL INDICATION: PAIN X 1 DAY, NO RECENT INJURY TECHNIQUE: Four or more views of the right knee. COMPARISON: No relevant prior studies available. FINDINGS: BONES/JOINTS: Unremarkable. No acute fracture. No dislocation. SOFT TISSUES: Unremarkable. RAD/Knee 4 or More Views IMPRESSION: No acute fracture. Reading Location: [facility] CC: GORGE Jon; Dr. Aayush Frederick MD [employer] Specialist: Signed Normal [facility] Orthopedic Visit Reporton Orthopedic Visit Report [facility] [address] [place] [address] [address] [place] [address] OFFICE VISIT Date of Service: 02/19/25 MR#: [id number] Acct: [id number] Name: KEITH WALDROP Rep #: [id number] : 1975 Provider: GORGE carter Age/Sex: 49/F Location: [facility] [place] Status: Signed Intake Vital Signs 01/05/25 09:09 02/19/25 08:33 Height 5 ft 9 in 5 ft 9 in Intake Visit Reasons: RIGHT KNEE Is patient in pain?: Yes Allergies erythromycin base Adverse Reaction (Mild, Verified 02/19/25 09:51) Upset Stomach Medications ???Medication ???Instructions ???Recorded ???Confirmed ???Type Lactobacillus acidophilus 10 10,000 mmu cells PO DAILY 01/02/23 02/19/25 History billion cell capsule (Probiotic) ascorbic acid (vitamin C) 500 mg 500 mg PO DAILY 01/02/23 02/19/25 History tablet (Vitamin C) cholecalciferol (vitamin D3) 25 25 mcg PO DAILY 01/02/23 02/19/25 History mcg (1,000 unit) capsule (Vitamin D3) turmeric 400 mg capsule 400 mg PO DAILY 01/02/23 02/19/25 History zinc 50 mg capsule 50 mg PO DAILY 01/02/23 02/19/25 H istory fluticasone propionate 50 1 spray intranasal DAILY 05/16/23 02/19/25 History mcg/actuation nasal spray,suspension (Flonase Allergy Relief) acetaminophen 325 mg capsule 325 mg PO ONCE PRN 03/24/24 History (Tylenol) gabapentin 100 mg capsule 100 mg PO BID 01/05/25 02/19/25 Hi story [facility] Medical History (Updated 02/19/25 @ 10:36 by Xochilt Jon NP-C) Elevated Rod-Garcia virus antibody titer Encounter for vitamin deficiency screening Chronic fatigue Gastritis Epigastric abdominal tenderness Lightheadedness Numbness and tingling in both hands Sinusitis Vertigo Back pain Migraine headache Non-smoker Fibroid uterus Enlarged uterus Menorrhagia with regular cycle Elevated liver enzymes Anemia Frequent headaches Back problem Arthritis Surgical History History of bilateral salpingectomy S/P laparoscopic assisted vaginal hysterectomy (LAVH) Hx of colonoscopy History of tonsillectomy Family History Other Anxiety and depression Arthritis Asthma Diabetes Heart disease Hyperlipemia Hypertension Myocardial infarction Thyroid disorder Social History Smoking Status: Never smoker alcohol intake: never substance use type: does not use caffeine: Yes what type of physical activity do you participate in: walking frequency: 1-2 times per week seatbelt use: always do you feel safe at home: Yes additional social history: - [employer] HPI RIGHT KNEE Details: This documentation accurately reflects the service provided and the decisions made by me, GORGE Salas 02/19/25 0936. Part of today???s visit was documented by [ Norma], acting as scribe. KEITH WALDROP is a 49 year old F here today for right knee pain. She notes that on Sunday, she loaded a window at work and then she got up from the desk and felt a pop and pain with ambulation. Patient then woke up yesterday with knee stiffness but still walked on her treadmill. She has been icing her knee and woke up this morning, and felt a popping and clicking into her knee. Patient then bent over to pick something up this morning and she wasn't able to weight bear for about 15 minutes. Patient is now able to weightbear. She notes that every time if clicks she feels like she has instability. Patient complains of pain over her lateral knee and anterior knee. She had bilateral Euflexxa injections with Michael and Natalie Gonsalez and finished the series in January 2024. She had increased pain after the gel injections possibility due to the fullness of the injection. Patient denies any bracing. She denies any recent injections. She denies any recent xrays. Patient denies any medications. Agree with above. Alvina is a pleasant 49-year-old female with significant aggravation of right knee pain, popping and sensation of instability for the last couple of days. Symptoms eased after a few hours upon awakening yesterday, this morning symptoms were more significant as noted above. Currently she is able to weight-bear but states her knee feels, full. On the inside no braces, wraps or anti-inflammatories attempted. Better with nonweightbearing activity ROS Const All systems reviewed are unremarkable except as noted in H and other (A O x 3, no apparent distress. No recent illness.) ENT Denies dizziness Card Denies chest pain, Denies dyspnea, Denies edema and Reports other (No palpitations) Resp Denies cough, Denies dyspnea and Reports other (No recent URI) GI Reports system r (more content not included)... Normal [facility] 45-[id number]-Otrmsej DOrdered By: Anita lana Panfilorositaanita on 01-05-2025 Vitamin D 25-Hydroxy 71.6 ng/mL [facility] Comment on above: Vitamin D 25(OH) Sta tus Range Deficiency <20 ng/mL (50nmol/L) Insufficiency 20 - 30 ng/mL (50 - 75 nmol/L) Sufficiency 30 - 100 ng/mL (75 - 250 nmol/L) Toxicity >100 ng/mL (>250 nmol/L) Absolute lymphocyte countOrd ered By: Lubnamarlonnoah Frederick on 01-05-2025 Lymphocytes Auto (Unsp spec) [#/Vol] 1.34 10*3/uL 0.83-4.51 [facility] Absolute neutrophil countOrd ered By: Rufinanoah Whittakerrositaanita on 01-05-2025 Neutrophils (Bld) [#/Vol] 4.5 10*3/uL 2.0-7.7 [facility] Albumin to globulin ratioOrd ered By: Rufinanoah Whittakerrositaanita on 01-05-2025 Albumin/Globulin [Mass ratio] 1.2 {ratio} 0.9-2.4 [facility] Automated lymphocyte count a s percentage of total leukocytesOrdered By: Deniseaghumberto Frederick on 01-05-2025 Lymphocytes/100 WBC Auto (Unsp spec) 20.2 % 19-41 [facility] Basophil percentageOrdered B y: Lubnamarlonnoah Frederick on 01-05-2025 Basophils/100 WBC (Bld) 0.8 % 0-1 [facility] Bilirubin, totalOrdered By: Lubnahumberto Frederick on 01-05-2025 Bilirubin [Mass/Vol] 0.40 mg/dL 0.20-1.00 [facility] Comment on above: For patients on eltr ombopag therapy, use of Dimension [place] TBIL is not recommended. Blood urea nitrogen (BUN)/cr eatinine ratioOrdered By: Aayush Frederick on 01-05-2025 Urea nitrogen/Creatinine [Mass ratio] 25.0 mg/mg High 10-20 [facility] CBC W/Diff, Automatedon 12-14 Absolute Lymph 1.34 X10 3/uL Normal 0.83-4.51 [facility] Comment on above: Performed By: #### L 506.1000, L501.9520, L100.0100, L503.0105, L500.4050, L500.4100, L506.0400 ####[facility] [address] [place], [address] Absolute Neut 4.5 X10 3/uL Normal 2.0-7.7 [facility] Comment on above: Performed By: #### L 506.1000, L501.9520, L100.0100, L503.0105, L500.4050, L500.4100, L506.0400 ####[facility] [address] [place], [address] Basophils/100 WBC (Bld) 0.8 % Normal 0-1 [facility] Comment on above: Performed By: #### L 506.1000, L501.9520, L100.0100, L503.0105, L500.4050, L500.4100, L506.0400 ####[facility] [address] [place], [address] Eosinophils/100 WBC (Bld) 3.3 % Normal 0-5 [facility] Comment on above: Performed By: #### L 506.1000, L501.9520, L100.0100, L503.0105, L500.4050, L500.4100, L506.0400 ####[facility] [address] [place], [address] Erythrocyte distribution width (RBC) [Ratio] 12.7 % Normal 11.6-14.6 [facility] Comment on above: Performed By: #### L 506.1000, L501.9520, L100.0100, L503.0105, L500.4050, L500.4100, L506.0400 ####[facility] [address] [place], [address] Hematocrit (Bld) [Volume fraction] 43.9 % Normal 37-47 [facility] Comment on above: Performed By: #### L 506.1000, L501.9520, L100.0100, L503.0105, L500.4050, L500.4100, L506.0400 ####[facility] [address] [place], [address] Hemoglobin (Bld) [Mass/Vol] 14.3 g/dL Normal 12.0-15.0 [facility] Comment on above: Performed By: #### L 506.1000, L501.9520, L100.0100, L503.0105, L500.4050, L500.4100, L506.0400 ####[facility] [address] [place], [address] IG% 0.300 Normal 0.0-0.9 [facility] Comment on above: Result Comment: IG% - Immature Granulocytes (promyelocytes, myelocytes and metamyelocytes) > 1% indicates that a LEFT SHIFT is Present. Performed By: #### L 506.1000, L501.9520, L100.0100, L503.0105, L500.4050, L500.4100, L506.0400 ####[facility] [address] [place], [address] Lymphocytes/100 WBC (Bld) 20.2 % Normal 19-41 [facility] Comment on above: Performed By: #### L 506.1000, L501.9520, L100.0100, L503.0105, L500.4050, L500.4100, L506.0400 ####[facility] [address] [place], [address] MCH (RBC) [Entitic mass] 30.0 pg Normal 27.0-32.0 [facility] Comment on above: Performed By: #### L 506.1000, L501.9520, L100.0100, L503.0105, L500.4050, L500.4100, L506.0400 ####[facility] [address] [place], [address] MCHC (RBC) [Mass/Vol] 32.6 g/dL Normal 32-36 [facility] Comment on above: Performed By: #### L 506.1000, L501.9520, L100.0100, L503.0105, L500.4050, L500.4100, L506.0400 ####[facility] [address] [place], [address] MCV (RBC) [Entitic vol] 92.2 fL Normal 81-99 [facility] Comment on above: Performed By: #### L 506.1000, L501.9520, L100.0100, L503.0105, L500.4050, L500.4100, L506.0400 ####[facility] [address] [place], [address] Monocytes/100 WBC (Bld) 7.5 % Normal 0-10 [facility] Comment on above: Performed By: #### L 506.1000, L501.9520, L100.0100, L503.0105, L500.4050, L500.4100, L506.0400 ####[facility] [address] [place], [address] Neutrophils/100 WBC (Bld) 67.9 % Normal 47-70 [facility] Comment on above: Performed By: #### L 506.1000, L501.9520, L100.0100, L503.0105, L500.4050, L500.4100, L506.0400 ####[facility] [address] [place], [address] Nucleated RBC (Bld) [#/Vol] 0 10*3/uL Normal 0-5 [facility] Comment on above: Performed By: #### L 506.1000, L501.9520, L100.0100, L503.0105, L500.4050, L500.4100, L506.0400 ####[facility] [address] [place], [address] Platelet mean volume (Bld) [Entitic vol] 11.9 fL Normal 6.2-12.0 [facility] Comment on above: Performed By: #### L 506.1000, L501.9520, L100.0100, L503.0105, L500.4050, L500.4100, L506.0400 ####[facility] [address] [place], [address] Platelets (Bld) [#/Vol] 204 10*3/uL Normal 150-450 [facility] Comment on above: Performed By: #### L 506.1000, L501.9520, L100.0100, L503.0105, L500.4050, L500.4100, L506.0400 ####[facility] [address] [place], [address] RBC (Bld) [#/Vol] 4.76 10*6/uL Normal 4.2-5.4 [facility] Comment on above: Performed By: #### L 506.1000, L501.9520, L100.0100, L503.0105, L500.4050, L500.4100, L506.0400 ####[facility] [address] [place], [address] RDW SD 43.1 fl Normal 35.1-43.9 [facility] Comment on above: Performed By: #### L 506.1000, L501.9520, L100.0100, L503.0105, L500.4050, L500.4100, L506.0400 ####[facility] [address] [place], [address] WBC (Bld) [#/Vol] 6.7 10*3/uL Normal 4.4-11.0 [facility] Comment on above: Performed By: #### L 506.1000, L501.9520, L100.0100, L503.0105, L500.4050, L500.4100, L506.0400 ####[facility] [address] [place], [address] Carbon dioxide measurementOr dered By: Aayush Frederick on 01-05-2025 CO2 [Moles/Vol] 28.0 mmol/L 21.0-32.0 [facility] Chloride measurementOrdered By: Aayush Frederick on 01-05-2025 Chloride [Moles/Vol] 106 mmol/L 98-107 [facility] Comprehensive Metabolic Prof ilon 01-05-2025 Albumin [Mass/Vol] 3.6 g/dL Normal 3.2-5.0 [facility] Comment on above: Performed By: #### L 506.1000, L501.9520, L100.0100, L503.0105, L500.4050, L500.4100, L506.0400 ####[facility] [address] [place], [address] Albumin/Globulin [Mass ratio] 1.2 {ratio} Normal 0.9-2.4 [facility] Comment on above: Performed By: #### L 506.1000, L501.9520, L100.0100, L503.0105, L500.4050, L500.4100, L506.0400 ####[facility] [address] [place], [address] ALK P 54 U/L Normal 45-117 [facility] Comment on above: Performed By: #### L 506.1000, L501.9520, L100.0100, L503.0105, L500.4050, L500.4100, L506.0400 ####[facility] [address] [place], [address] ALT [Catalytic activity/Vol] 24 U/L Normal 13-56 [facility] Comment on above: Performed By: #### L 506.1000, L501.9520, L100.0100, L503.0105, L500.4050, L500.4100, L506.0400 ####[facility] [address] [place], [address] AST [Catalytic activity/Vol] 18 U/L Normal 15-37 [facility] Comment on above: Performed By: #### L 506.1000, L501.9520, L100.0100, L503.0105, L500.4050, L500.4100, L506.0400 ####[facility] [address] [place], [address] Bilirubin [Mass/Vol] 0.40 mg/dL Normal 0.20-1.00 [facility] Comment on above: Result Comment: For patients on eltrombopag therapy, use of Dimension [place] TBIL is not recommended. Performed By: #### L 506.1000, L501.9520, L100.0100, L503.0105, L500.4050, L500.4100, L506.0400 ####[facility] [address] [place], [address] BUN/CRE 25.0 RATIO High 10-20 [facility] Comment on above: Performed By: #### L 506.1000, L501.9520, L100.0100, L503.0105, L500.4050, L500.4100, L506.0400 ####[facility] [address] [place], [address] CA,Total 9.3 mg/dL Normal 8.5-10.1 [facility] Comment on above: Performed By: #### L 506.1000, L501.9520, L100.0100, L503.0105, L500.4050, L500.4100, L506.0400 ####[facility] [address] [place], [address] Chloride [Moles/Vol] 106 mmol/L Normal 98-107 [facility] Comment on above: Performed By: #### L 506.1000, L501.9520, L100.0100, L503.0105, L500.4050, L500.4100, L506.0400 ####[facility] [address] [place], [address] CO2 [Moles/Vol] 28.0 mmol/L Normal 21.0-32.0 [facility] Comment on above: Performed By: #### L 506.1000, L501.9520, L100.0100, L503.0105, L500.4050, L500.4100, L506.0400 ####[facility] [address] [place], [address] Creatinine [Mass/Vol] 0.72 mg/dL Normal 0.55-1.02 [facility] Comment on above: Result Comment: The validity of the calculated GFR GFRAA in patients over 70 years has not been determined. Clinical correlation is essential. Performed By: #### L 506.1000, L501.9520, L100.0100, L503.0105, L500.4050, L500.4100, L506.0400 ####[facility] [address] [place], [address] EST GFR - AA 111 mL/min Normal >60 [facility] Comment on above: Result Comment: Afri can Sammarinese GFR Calc Performed By: #### L 506.1000, L501.9520, L100.0100, L503.0105, L500.4050, L500.4100, L506.0400 ####[facility] [address] [place], [address] GAP 4 Low 5-15 [facility] Comment on above: Performed By: #### L 506.1000, L501.9520, L100.0100, L503.0105, L500.4050, L500.4100, L506.0400 ####[facility] [address] [place], [address] GFR/1.73 sq M.predicted among non-blacks MDRD (S/P/Bld) [Vol rate/Area] 92 mL/min/{1.73_m2} Normal >60 [facility] Comment on above: Result Comment: Non- GFR Calc Performed By: #### L 506.1000, L501.9520, L100.0100, L503.0105, L500.4050, L500.4100, L506.0400 ####[facility] [address] [place], [address] Globulin (S) [Mass/Vol] 3.1 g/dL Normal 2.2-4.2 [facility] Comment on above: Performed By: #### L 506.1000, L501.9520, L100.0100, L503.0105, L500.4050, L500.4100, L506.0400 ####[facility] [address] [place], [address] Glucose [Mass/Vol] 88 mg/dL Normal 74-106 [facility] Comment on above: Performed By: #### L 506.1000, L501.9520, L100.0100, L503.0105, L500.4050, L500.4100, L506.0400 ####[facility] [address] [place], [address] Potassium [Moles/Vol] 4.5 mmol/L Normal 3.5-5.1 [facility] Comment on above: Performed By: #### L 506.1000, L501.9520, L100.0100, L503.0105, L500.4050, L500.4100, L506.0400 ####[facility] [address] [place], [place], [id number] Sodium [Moles/Vol] 139 mmol/L Normal 136-145 [facility] Comment on above: Performed By: #### L 506.1000, L501.9520, L100.0100, L503.0105, L500.4050, L500.4100, L506.0400 ####[facility] [address] [place], [address] T PROT 6.7 g/dL Normal 6.4-8.2 [facility] Comment on above: Performed By: #### L 506.1000, L501.9520, L100.0100, L503.0105, L500.4050, L500.4100, L506.0400 ####[facility] [address] [place], [place], [id number] Urea nitrogen [Mass/Vol] 18 mg/dL Normal 7-18 [facility] Comment on above: Performed By: #### L 506.1000, L501.9520, L100.0100, L503.0105, L500.4050, L500.4100, L506.0400 ####[facility] [address] [place], [place], [phone] Direct serum free thyroxine (FT4) measurementOrdered By: Aayush Frederick on 01-05-2025 Free T4 [Mass/Vol] 1.03 ng/dL 0.76-1.46 [facility] Eosinophil percentageOrdered By: Aayush Frederick on 01-05-2025 Eosinophils/100 WBC (Bld) 3.3 % 0-5 [facility] Erythrocyte distribution wid th ratioOrdered By: Aayush Frederick on 01-05-2025 Erythrocyte distribution width (RBC) [Ratio] 12.7 % 11.6-14.6 [facility] Erythrocyte distribution wid th standard deviationOrdered By: Aayush Frederick on 01-05-2025 Erythrocyte distribution width (RBC) [Entitic vol] 43.1 fL 35.1-43.9 [facility] Erythrocyte distribution width (RBC) [Ratio] 43.1 fl 35.1-43.9 [facility] Estimated glomerular filtrat ion rate (GFR) AmericanOrdered By: Aayush Frederick on 01-05-2025 Estimated GFR (MDRD) Amer 111 mL/min >60 [facility] Comment on above: GFR Calc Glomerular filtration rate ( GFR) estimationOrdered By: Aayush Frederick on 01-05-2025 Estimated GFR (MDRD) Non-Af Amer 92 mL/min >60 [facility] Comment on above: Non- GFR Calc GFR/1.73 sq M.predicted among non-blacks MDRD (S/P/Bld) [Vol rate/Area] 92 mL/min/{1.73_m2} >60 [facility] Comment on above: Non- GFR Calc Glucose measurementOrdered B y: Aayush Frederick on 01-05-2025 Glucose [Mass/Vol] 88 mg/dL 74-106 [facility] Hematocrit Auto (Bld) [Volum e fraction]Ordered By: Aayush Frederick on 01-05-2025 Hematocrit (Bld) [Volume fraction] 43.9 % 37-47 [facility] Hemoglobin measurementOrdere d By: Aayush Frederick on 01-05-2025 Hemoglobin (Bld) [Mass/Vol] 14.3 g/dL 12.0-15.0 [facility] High density lipoprotein (HD L) measurementOrdered By: Aayush Frederick on 01-05-2025 Cholesterol in HDL [Mass/Vol] 52 mg/dL >40 [facility] Comment on above: The drugs N-Acetylcy steine and Metamizole may falsely depress this assay. Reference Range HDL <40 mg/dL Low HDL Cholesterol HDL >or= 60 mg/dL High HDL Cholesterol Immature granulocytes/100 WB C Auto (Bld)Ordered By: Aayush Frederick on 01-05-2025 Immature granulocytes/100 WBC (Bld) 0.300 % 0.0-0.9 [facility] Comment on above: IG% - Immature Granu locytes (promyelocytes, myelocytes and metamyelocytes) > 1% indicates that a LEFT SHIFT is Present. Internal Medicine Office Vis itohilda 01-05-2025 Internal Medicine Office Visit [facility] [address] [place], [place] [address] OFFICE VISIT Date of Service: 01/05/25 MR#: [id number] Acct: [id number] Name: KEITH WALDROP Rep #: [id number] : 1975 Provider: Dr. Aayush azul MD Age/Sex: 49/F Location: [facility] [place] Status: Signed Intake Vital Signs 11/27/24 15:03 01/05/25 09:09 Height 5 ft 9 in 5 ft 9 in Weight: 184 lb 4 oz BMI 27.1 BP 138/78 H Blood Pressure Location Rt brachial Position Sitting Respiration 16 Pulse 64 Pulse Source Monitor Temp 97.6 F L Temp Source Temporal Pulse Oximetry (%) 96 Oxygen Delivery Method room air Intake Visit Reasons: DISCUSS ROD GARCIA Chief Complaint: DISCUSS POSSIBILITY OF MEDS [employer] Required: No Accompanied by: Self Is patient in pain?: No Allergies erythromycin base Adverse Reaction (Mild, Verified 01/05/25 09:05) Upset Stomach Medications ???Medication ???Instructions ???Recorded ???Confirmed ???Type Lactobacillus acidophilus 10 10,000 mmu cells PO DAILY 01/02/23 01/05/25 History billion cell capsule (Probiotic) ascorbic acid (vitamin C) 500 mg 500 mg PO DAILY 01/02/23 01/05/25 History tablet (Vitamin C) cholecalciferol (vitamin D3) 25 25 mcg PO DAILY 01/02/23 01/05/25 History mcg (1,000 unit) capsule (Vitamin D3) turmeric 400 mg capsule 400 mg PO DAILY 01/02/23 01/05/25 History zinc 50 mg capsule 50 mg PO DAILY 01/02/23 01/05/25 H istory fluticasone propionate 50 1 spray intranasal DAILY 05/16/23 01/05/25 History mcg/actuation nasal spray,suspension (Flonase Allergy Relief) acetaminophen 325 mg capsule 325 mg PO ONCE PRN 03/24/24 History (Tylenol) gabapentin 100 mg capsule 100 mg PO BID 01/05/25 01/05/25 Hi story Have you fallen in the past year?: No Nurse's Note: working with natural pathic doctor wants to discuss meds for rod garcia PFSH Medical History (Updated 01/05/25 @ 18:[address] Aayush Frederick MD) Elevated Rod-Garcia virus antibody titer Encounter for vitamin deficiency screening Chronic fatigue Gastritis Epigastric abdominal tenderness Lightheadedness Numbness and tingling in both hands Sinusitis Vertigo Back pain Migraine headache Non-smoker Fibroid uterus Enlarged uterus Menorrhagia with regular cycle Elevated liver enzymes Anemia Frequent headaches Back problem Arthritis Surgical History History of bilateral salpingectomy S/P laparoscopic assisted vaginal hysterectomy (LAVH) Hx of colonoscopy History of tonsillectomy Family History Other Anxiety and depression Arthritis Asthma Diabetes Heart disease Hyperlipemia Hypertension Myocardial infarction Thyroid disorder Social History Smoking Status: Never smoker alcohol intake: never substance use type: does not use caffeine: Yes what type of physical activity do you participate in: walking frequency: 1-2 times per week seatbelt use: always do you feel safe at home: Yes additional social history: - [employer] HPI HPI Chief Complaint: DISCUSS POSSIBILITY OF MEDS Details: KEITH WALDROP, is a 49 F who presents to the office today to discuss some concerns. Has been seeing a operations manager station and had some testing done which showed elevated IgG levels of Rod- Garcia. Normal IgM levels. Prior history of infectious mononucleosis. She states that her operations manager station advised that she go on an antiviral medication. She has felt unwell for years and no acute changes. This is progressively worsening. Had been prescribed Cymbalta she states that she felt the best she had ever been on Cymbalta however, had significant elevation in her liver enzymes which improved after she discontinued. ROS Const Constitutional: No body ache, excessive sweating, fatigue, fever(s), frequent falls, headache(s), snoring, weakness, weight change, sleep problems or change in appetite Eyes Eyes: No blurry vision, change in vision, floaters, visual disturbances, eye pain or Light sensitivity ENT ENT: No abnormal hearing, ear or mastoid pain, tinnitus, balance problems, nosebleed/epistaxis, nasal congestion, headache(s), neck pain or sore throat Resp Respiratory: No cough, excessive phlegm production, pain on inspiration, shortness of breath, snoring or wheezing Cardio Cardiology: No chest pain at rest, chest pain with exertion, excessive sweating, shortness of breath, dyspnea on exertion, lightheadedness, orthopnea or palpitations Gastro GI: No abdominal pain, change in bowel habits, constipation, cramping, diarrhea, nausea/dyspepsia or vomiting Genitourinary-Female : (more content not included)... Normal [facility] Laboratory - Chemistry and C hemistry - challengeOrdered By: Aayush Frederick on 01-05-2025 AST [Catalytic activity/Vol] 18 U/L 15-37 [facility] Lipid Profileon 01-05-2025 Cholesterol [Mass/Vol] 247 mg/dL High 200 [facility] Comment on above: Result Comment: <200 mg/dL Desirable 200-240 mg/dL Borderline >240 mg/dL High Risk Performed By: #### L 506.1000, L501.9520, L100.0100, L503.0105, L500.4050, L500.4100, L506.0400 ####[facility] [address] [place], [place], [address] Cholesterol in HDL [Mass/Vol] 52 mg/dL Normal [facility] Comment on above: Result Comment: The drugs N-Acetylcysteine and Metamizole may falsely depress this assay. Reference Range HDL <40 mg/dL Low HDL Cholesterol HDL >or= 60 mg/dL High HDL Cholesterol Performed By: #### L 506.1000, L501.9520, L100.0100, L503.0105, L500.4050, L500.4100, L506.0400 ####[facility] [address] [place], [place], [phone] Cholesterol in LDL [Mass/Vol] 181 mg/dL High 0-130 [facility] Comment on above: Performed By: #### L 506.1000, L501.9520, L100.0100, L503.0105, L500.4050, L500.4100, L506.0400 ####[facility] [address] [place], [place], [phone] Cholesterol in VLDL [Mass/Vol] 14 mg/dL Normal 5-40 [facility] Comment on above: Performed By: #### L 506.1000, L501.9520, L100.0100, L503.0105, L500.4050, L500.4100, L506.0400 ####[facility] [address] [place], [address](236) Triglyceride [Mass/Vol] 71 mg/dL Normal [facility] Comment on above: Result Comment: The drugs N-Acetylcysteine and Metamizole may falsely depress this assay. Serum Triglycerides Reference Interval Normal <150 mg/dL Borderline high 150 - 199 mg/dL High 200 - 499 mg/dL Very High > or = 500 mg/dL Performed By: #### L 506.1000, L501.9520, L100.0100, L503.0105, L500.4050, L500.4100, L506.0400 ####[facility] [address] [place], [place], [phone] Low density lipoprotein (LDL ) cholesterol measurementOrdered By: Aayush Frederick on 01-05-2025 Cholesterol in LDL [Mass/Vol] 181 mg/dL High 0-130 [facility] Lymphocytes Auto (Unsp spec) [#/Vol]Ordered By: Aayush Frederick on 01-05-2025 Lymphocytes (Bld) [#/Vol] 1.34 10*3/uL 0.83-4.51 [facility] Lymphocytes/100 WBC Auto (Un sp spec)Ordered By: Aayush Frederick on 01-05-2025 Lymphocytes/100 WBC (Bld) 20.2 % 19-41 [facility] MCV (mean corpuscular volume ) determinationOrdered By: Aayush Frederick on 01-05-2025 MCV (RBC) [Entitic vol] 92.2 fL 81-99 [facility] Mean corpuscular hemoglobin (MCH) determinationOrdered By: Aayush Frederick on 01-05-2025 MCH (RBC) [Entitic mass] 30.0 pg 27.0-32.0 [facility] Mean corpuscular hemoglobin concentration (MCHC) determinationOrdered By: Aayush Frederick on 01-05-2025 MCHC (RBC) [Mass/Vol] 32.6 g/dL 32-36 [facility] Mean platelet volume determi nationOrdered By: Aayush Frederick on 01-05-2025 Platelet mean volume (Bld) [Entitic vol] 11.9 fL 6.2-12.0 [facility] Monocyte percentageOrdered B y: Aayush Frederick on 01-05-2025 Monocytes/100 WBC (Bld) 7.5 % 0-10 [facility] Neutrophil percentageOrdered By: Aayush Frederick on 01-05-2025 Neutrophils/100 WBC (Bld) 67.9 % 47-70 [facility] Nucleated red blood cell per centageOrdered By: Aayush Frederick on 01-05-2025 Nucleated RBC/100 WBC (Bld) [Ratio] 0 % 0-5 [facility] Platelet countOrdered By: Denise Frederick on 01-05-2025 Platelets (Bld) [#/Vol] 204 10*3/uL 150-450 [facility] Potassium measurementOrdered By: Aayush Frederick on 01-05-2025 Potassium [Moles/Vol] 4.5 mmol/L 3.5-5.1 [facility] RBC Auto (Bld) [#/Vol]Ordere d By: Aayush Frederick on 01-05-2025 RBC (Bld) [#/Vol] 4.76 10*6/uL 4.2-5.4 [facility] Serum anion gap measurementO rdered By: Aayush Frederick on 01-05-2025 Anion gap [Moles/Vol] 4 mmol/L Low 5-15 [facility] Serum globulin measurementOr dered By: Aayush Frederick on 01-05-2025 Globulin (S) [Mass/Vol] 3.1 g/dL 2.2-4.2 [facility] Serum or plasma alanine yang otransferase (ALT) measurementOrdered By: Aayush Frederick on 01-05-2025 ALT [Catalytic activity/Vol] 24 U/L 13-56 [facility] Serum or plasma albumin gely urement (mass/volume)Ordered By: Aayush Frederick on 01-05-2025 Albumin [Mass/Vol] 3.6 g/dL 3.2-5.0 [facility] Serum or plasma alkaline lizzie sphatase measurementOrdered By: Aayush Frederick on 01-05-2025 ALP [Catalytic activity/Vol] 54 U/L 45-117 [facility] Serum or plasma calcium gely urement (mass/volume)Ordered By: Aayush Frederick on 01-05-2025 Calcium [Mass/Vol] 9.3 mg/dL 8.5-10.1 [facility] Serum or plasma cholesterol measurement (mass/volume)Ordered By: Aayush Frederick on 01-05-2025 Cholesterol [Mass/Vol] 247 mg/dL High <200 [facility] Comment on above: <200 mg/dL Desirable 200-240 mg/dL Borderline >240 mg/dL High Risk Serum or plasma creatinine m easurement (mass/volume)Ordered By: Aayush Frederick on 01-05-2025 Creatinine [Mass/Vol] 0.72 mg/dL 0.55-1.02 [facility] Comment on above: The validity of the calculated GFR & GFRAA in patients over 70 years has not been determined. Clinical correlation is essential. Serum or plasma thyroid stim ulating hormone (TSH) measurement (units/volume)Ordered By: Aayush Frederick on 01-05-2025 TSH Qn 0.741 uIU/mL 0.358-3.740 [facility] Serum or plasma urea nitroge n measurement (mass/volume)Ordered By: Lubnamarlonnoah Whittakerrositaanita on 01-05-2025 Urea nitrogen [Mass/Vol] 18 mg/dL 7-18 [facility] Sodium levelOrdered By: Denisega humberto Frederick on 01-05-2025 Sodium [Moles/Vol] 139 mmol/L 136-145 [facility] T4 Free Directon 01-05-2025 T4 FREE DIRECT 1.03 ng/dL Normal 0.76-1.46 [facility] Comment on above: Performed By: #### L 506.1000, L501.9520, L100.0100, L503.0105, L500.4050, L500.4100, L506.0400 ####[facility] [address] [place], [place], [id number] TSH QnOrdered By: Aayush Panfilojessenia on 01-05-2025 Thyroid Stimulating Hormone (TSH) 0.741 uIU/mL 0.358-3.740 [facility] Thyroid Stim Hormone (TSH)on 01-05-2025 TSH 0.741 uIU/mL Normal 0.358-3.740 [facility] Comment on above: Performed By: #### L 506.1000, L501.9520, L100.0100, L503.0105, L500.4050, L500.4100, L506.0400 ####[facility] [address] [place], [place], [phone] Total proteinOrdered By: Sarath loja Panfilorositaanita on 01-05-2025 Protein [Mass/Vol] 6.7 g/dL 6.4-8.2 [facility] Triglycerides measurementOrd ered By: Rufinanoah Whittakerrositaanita on 01-05-2025 Triglyceride [Mass/Vol] 71 mg/dL <199 [facility] Comment on above: The drugs N-Acetylcy steine and Metamizole may falsely depress this assay.Serum Triglycerides Reference Interval Normal <150 mg/dL Borderline high 150 - 199 mg/dL High 200 - 499 mg/dL Very High > or = 500 mg/dL Very low density lipoprotein (VLDL) cholesterol measurementOrdered By: Aayush Frederick on 01-05-2025 Very low density lipoprotein (VLDL) cholesterol measurement 14 mg/dL [facility] VLDL Cholesterol 14 mg/dL -40 [facility] Vitamin B12on 01-05-2025 Cobalamin (Vitamin B12) [Mass/Vol] 1587 pg/mL High 211911 [facility] Comment on above: Performed By: #### L 506.1000, L501.9520, L100.0100, L503.0105, L500.4050, L500.4100, L506.0400 ####[facility] [address] [place], [address] Vitamin B12 measurementOrder ed By: Aayush Frederick on 01-05-2025 Cobalamin (Vitamin B12) [Mass/Vol] 1587 pg/mL High 211911 [facility] Vitamin D,25 Hydroxyon 01-05 Vitamin D 25-OH 71.6 ng/mL Normal [facility] Comment on above: Result Comment: Melva min D 25(OH) Status Range Deficiency <20 ng/mL (50nmol/L) Insufficiency 20 - 30 ng/mL (50 - 75 nmol/L) Sufficiency 30 - 100 ng/mL (75 - 250 nmol/L) Toxicity >100 ng/mL (>250 nmol/L) Performed By: #### L 506.1000, L501.9520, L100.0100, L503.0105, L500.4050, L500.4100, L506.0400 ####[facility] [address] [place], [address] White blood cell (WBC) count Ordered By: Aayush Frederick on 01-05-2025 WBC (Bld) [#/Vol] 6.7 10*3/uL 4.4-11.[address] [facility] Telephone (AGGBRCR) KEITH WALDROP ([id number]) 1975 F Date Time Provider Department 12/17/24 CRISTINE BUCIO AGGBRCR During your visit today, we recorded the following information about you: Cristine Bucio MD 12/17/2024 2:25 PM Signed Patient notified of vitamin D results. She was offered tamoxifen for her breast pain. She declines at this time. She is willing to try tomd-fsg-usvjgxm lidocaine patches/gel. Cristine Bucio MD Allergies As of Date: 12/17/2024 Noted Allergy Reaction ARITHROMYCIN (AZITHROMYCIN) 11/18/2017 5 - Intolerance Comments: Nausea CYMBALTA (DULOXETINE) 08/30/2023 5 - Intolerance Date Reviewed: 12/16/2024 Reviewed by: Cristine Bucio MD - Fully Assessed Reason for Visit: Results [95] Prescriptions as of 12/17/2024 - gabapentin (NEURONTIN) 100 mg capsule 200 mg daily at bedtime. Problem List As Of Date 12/17/2024 Noted Resolved Splenomegaly [R16.1] 08/30/2023 Elevated liver function tests [R79.89] 08/30/2023 Encounter Status:Closed by CRISTINE BUCIO on 12/17/[address] [facility] 25(OH)D3 SerPl-mCncon 2024 25-hydroxyvitamin D3 [Mass/Vol] 69.8 ng/mL Normal >=30.0 [facility] Comment on above: Order Comment: Speci men Type: BLOOD SPECIMEN Ordering Facility: [facility] Address: [address] [place] [address] Result Comment: Clas sification of 25 [place] Vitamin D status: Deficiency: <= 20.0 ng/ml. Insufficiency: 21.0-29.0 ng/ml. Sufficiency: >= 30.0 ng/ml. Performed By: #### 1 989-3 #### [facility] LABORATORY CLIA [id number] [address] [place] [address] [facility] 25-hydroxyvitamin D3 [Mass/V ol]on 12-16-2024 Interpretation and review of laboratory results Normal [facility] CNOVon 12-16-2024 CNOV Office Visit (AGGBRCR) KEITH WALDROP ([id number]) 1975 F Date Time Provider Department 12/16/24 2:30 PM CRISTINE BUCIO AGGBRCR During your visit today, we recorded the following information about you: Pulse Blood pressure Weight Height 87/minute 114/78 81.6 kg 1.753 m Cristine Bucio MD 12/16/2024 3:46 PM Signed Cristine Bucio MD [facility] [address] [place], [place] [id number] HPI: Keith Waldrop is a 49 year old White female who presents in regards to chronic left breast pain that waxes and wanes. She has had multiple diagnostic imaging studies. She has tried evening primrose oil and vitamin E with no significant improvement. She has also tried support breast which actually makes the pain worse. There is family history of breast cancer in her mother paternal great aunt. There are no exam notes on file for this visit. No question data found. Obstetric History No data available PAST MEDICAL HISTORY Diagnosis Date Fibromyalgia PAST SURGICAL HISTORY Procedure Laterality Date TONSILLECTOMY AND ADENOIDECTOMY 4 yrs old TOTAL ABDOM HYSTERECTOMY 2022 still has ovaries FAMILY HISTORY Problem Relation Age of Onset Breast Cancer Maternal Aunt great aunt CURRENT MEDICATIONS: gabapentin (NEURONTIN) 100 mg capsule 200 mg daily at bedtime. CURRENT ALLERGIES: ALLERGIES Allergen Reactions Arithromycin [Azith* Intolerance Nausea Cymbalta [Duloxetin* Intolerance Social History Tobacco Use Smoking status: Never Smokeless tobacco: Never LABS AND IMAGING: Breast imaging from 11/28/2024 was reviewed. The imaging was read as negative. Review of Systems Constitutional: Negative for chills, fever, malaise/fatigue and weight loss. HENT: Negative for hearing loss. Eyes: Negative for blurred vision. Respiratory: Negative for cough, shortness of breath and wheezing. Cardiovascular: Negative for palpitations. Gastrointestinal: Negative for abdominal pain, nausea and vomiting. Musculoskeletal: Positive for back pain, joint pain, myalgias and neck pain. Neurological: Negative for dizziness, tingling, tremors and headaches. PHYSICAL EXAM: BP 114/78 Pulse 87 Ht 175.3 cm (5' 9) Wt 81.6 kg (180 lb) LMP 11/13/2017 BMI 26.58 kg/m? General appearance: Well appearing, alert, in no acute distress Skin: skin color, texture, turgor normal, no suspicious rashes or lesions Eyes: Anicteric sclera, Pupils are equally round and reactive Abdomen: soft, non-tender, non-distended Extremities: No clubbing, cyanosis, or edema. Heart: Regular rate and rhythm Lungs: Clear to ascultation bilaterally Neuro: Alert and oriented times three Physical Exam Chest: Breasts: Breasts are symmetrical. Right: No swelling, inverted nipple, mass, nipple discharge, skin change or tenderness. Left: Tenderness (Mild tenderness) present. No swelling, inverted nipple, mass, nipple discharge or skin change. Lymphadenopathy: Upper Body: Right upper body: No axillary adenopathy. Left upper body: No axillary adenopathy. Participation of a fellow, resident, medical student, or advanced practice provider student in performing the sensitive examination was discussed with the patient or authorized direct marketing representative. The patient or authorized direct marketing representative has agreed to proceed with the sensitive examination. (Sensitive examination includes inspection and/or palpation of the breasts, pelvis, prostate and anorectal regions) The mammogram was reviewed in detail. Plan IMPRESSION/PLAN: Keith Waldrop is a 49 year old White female who presents in regards to chronic left breast pain that waxes and wanes. She has had multiple diagnostic imaging studies. She has tried evening primrose oil and vitamin E with no significant improvement. She has also tried support breast which actually makes the pain worse. There is family history of breast cancer in her mother paternal great aunt. Clinical breast examination finds no evidence of any discrete suspicious mass, skin change, nipple discharge or lymphadenopathy in either breast. She is not having significant breast tenderness today. Recent breast imaging from November 28 was reviewed both films are reports. The imaging was read as negative. The patient has agreed to participate in her vitamin D and breast pain study approved to the IRB. I am checking a vitamin D level. If low will replace. If the vitamin D level is normal, we will recommend other feasible options for the breast pain. DIAGNOSIS: Encounter Diagnosis ICD-10-CM 1. Breast pain, left N64.4 JamieKeiIAM 12/16/2024 3:46 PM Signed Keith Waldrop is a 49 year old female who presents for New Patient (Present for ongoing left breast pain x 7 yrs. Thought she felt something in her breast, had a mammo and US and both came back negative. ) Kei Ayala MA Referrin (more content not included)... Normal [facility] VITAMIN D 25 HYDROXYon 12-16 25-hydroxyvitamin D3 [Mass/Vol] 69.8 ng/mL 30.0 - PINF ng/mL [facility] Comment on above: Classification of 25 [place] Vitamin D status: Deficiency: <= 20.0 ng/ml. Insufficiency: 21.0-29.0 ng/ml. Sufficiency: >= 30.0 ng/ml. Breast Limited Unilateralon 11-28-2024 Breast Limited Unilateral [facility] Imaging Services [address] [place] [id number] Breast Limited Unilateral MR#: [id number] Acct: [id number] Name: KEITH WALDROP Rep #: [id number] : 1975 F 49 From: Clyde balbuena MD PCP: Dr. Aayush Frederick MD Status: REG CLI Study: Breast Limited Unilateral Date of Exam: Exam# [id number] Ordering Dr: Ewa Saunders CONTROLS TECHNICIAN-C [id number] STUDY: ULTRASOUND BREAST - LEFT REASON FOR EXAM: Female, 49 years old. Left lateral breast pain. TECHNIQUE: Axial and longitudinal images of the LEFT breast were performed with a high resolution ultrasound transducer. # OF IMAGES: 31 COMPARISON: Comparison is made with prior mammogram done earlier today as well as prior sonogram of the left breast dated September 21, 2022. FINDINGS: LEFT Breast: The lateral aspect of the left breast was examined. No sonographic abnormality is seen. US/Breast Limited Unilateral IMPRESSION: No sonographic abnormality is seen. ASSESSMENT CATEGORY: BIRADS Category 1: Negative. A letter regarding these results will be sent to the patient by the facility within 30 days. Electronically Signed: Clyde Levin MD at 15:49 EST Reading Location ID and State: [address] [place] [address] , Service support , CC: GORGE Saunders; Dr. Aayush Frederick MD Capital Equipment Specialist: Signed [facility] DIAG MAMM W/CAD, BILATon DIAG MAMM W/CAD, [facility] Imaging Services [address] [place], [place] [address] DIAG MAMM W/CAD, BILAT MR#: [id number] Acct: [id number] Name: KEITH WALDROP Rep #: [id number] : 1975 F 49 From: Clyde balbuena MD PCP: Dr. Aayush Frederick MD Status: [facility] Study: DIAG MAMM W/CAD, BILAT Date of Exam: 11/28/24 Exam# [id number] Ordering Dr: Ewa Saunders [id number] MAMMOGRAPHY - BILATERAL DIAGNOSTIC REASON FOR EXAM: Female, 49 years old. Left lateral breast pain. PERTINENT HISTORY: Aunt with breast cancer. TECHNIQUE: Digital bilateral breast diana (3D mammographic acquisition) in the CC and MLO projections. 2-D mediolateral oblique (MLO) and craniocaudad (CC) views of both breasts were obtained. CAD: Full Field Digital Mammography with Computer Added Detection was performed. COMPARISON: Comparison is made with prior study April 02, 2024 and September 21, 2022. FINDINGS: Breast Composition: There are scattered areas of fibroglandular density. There are no dominant masses or suspicious calcifications. Stable bilateral axillary lymph nodes. No other significant abnormalities are identified. There has been no significant change since the prior study. BI/DIAG MAMM W/CAD, BILAT IMPRESSION: Stable bilateral diagnostic mammogram. One year follow-up recommended. (A) ASSESSMENT CATEGORY: BIRADS Category 2: Benign. A letter regarding these results will be sent to the patient by the facility within 30 days. Approximately 10% of breast cancers are not detected by mammography. A normal mammogram should not delay biopsy of a clinically suspicious abnormality. Electronically Signed: Clyde Levin MD at 14:48 EST , CC: GORGE Saunders; Dr. Aayush Frederick MD Capital Equipment Specialist: Signed Normal [facility] Automation Tech Office Visit Reporton 11-27-2024 Automation Tech Office Visit Report [facility] [address], [address] [place] [address] OFFICE VISIT Date of Service: 11/27/24 MR#: [id number] Acct: [id number] Name: KEITH WALDROP NEGRITA Rep #: [id number] : 1975 Provider: GORGE Mixon Age/Sex: 49/F Location: 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 Allergies erythromycin base Adverse Reaction (Mild, Verified 11/27/24 15:02) Upset Stomach Medications ???Medication ???Instructions ???Recorded ???Confirmed ???Type Lactobacillus acidophilus 10 10,000 mmu cells PO DAILY 01/02/23 11/27/24 History billion cell capsule (Probiotic) ascorbic acid (vitamin C) 500 mg 500 mg PO DAILY 01/02/23 11/27/24 History tablet (Vitamin C) cholecalciferol (vitamin D3) 25 25 mcg PO DAILY 01/02/23 11/27/24 History mcg (1,000 unit) capsule (Vitamin D3) turmeric 400 mg capsule 400 mg PO DAILY 01/02/23 11/27/24 History zinc 50 mg capsule 50 mg PO DAILY 01/02/23 11/27/24 History fluticasone propionate 50 1 spray intranasal DAILY 05/16/23 11/27/24 History mcg/actuation nasal spray,suspension (Flonase Allergy Relief) acetaminophen 325 mg capsule 325 mg PO ONCE PRN 03/24/24 11/27/24 History (Tylenol) amoxicillin 500 mg capsule 500 mg PO BID 03/24/24 11/27/24 History PFSH Medical History Gastritis Epigastric abdominal tenderness Lightheadedness Numbness and tingling in both hands Sinusitis Vertigo Back pain Migraine headache Non-smoker Fibroid uterus Enlarged uterus Menorrhagia with regular cycle Elevated liver enzymes Anemia Frequent headaches Back problem Arthritis Surgical History History of bilateral salpingectomy S/P laparoscopic assisted vaginal hysterectomy (LAVH) Hx of colonoscopy History of tonsillectomy Family History Other Anxiety and depression Arthritis Asthma Diabetes Heart disease Hyperlipemia Hypertension Myocardial infarction Thyroid disorder Social History Smoking Status: Never smoker alcohol intake: never substance use type: does not use caffeine: Yes what type of physical activity do you participate in: walking frequency: 1-2 times per week seatbelt use: always do you feel safe at home: Yes additional social history: - [employer] HPI breast exam/left breast pain Details: KEITH WALDROP is a 49 year old who presents for possible breast lump/breast tenderness. Patient reports she has experienced breast pain to the left side prior and have had ultrasound which was normal. (2021). She reports this went away and came back over the past week. She states she has the breast pain to the left breast but also this morning noticed a lump to the left breast as well. She denies bleeding from the nipples, inverted nipples, erythema, fever or chills. Most recent mammogram was in March 2024 and normal with dense breast tissue. ROS Const Constitutional: Reports system reviewed and no additional complaints, except as documented : Reports system reviewed and no additional complaints, except as documented; Denies nipple discharge Skin Skin/Breast: Reports as per HPI, breast mass (see HPI) and breast pain (See hPI); Denies breast skin changes or nipple discharge Psych Psych: Reports system reviewed and no additional complaints, except as documented Exam Const General: cooperative and no acute distress Orientation: oriented x3 HENMT Head: normal to inspection Neck Neck: normal visual inspection Chest Breast inspection: normal inspection of the breasts and normal inspection of the axillae Breast palpation: normal palpation of the axillae and abnormal palpation of the breast (left lump vs dense tissue lateral to nipple) Resp Effort Inspection: normal respiratory effort Coding Level of Care Code Established Pt Off vis,est,level 3 Patient Type Established Diagnoses Breast pain N64.4 Breast lump N63.0 Assessment and Plan Assessment and Plan (1) Breast pain: Plan: further evaluate with diagnostic mammogram and ultrasound. Final plan with results. No clinical signs of infection noted on exam today. (2) Breast lump: Plan: Further evaluate with diagnostic and ultrasound. Final plan with results. Has this scheduled for next Sunday. Orders: Orders Breast Limited Unilateral Today N64.4 - Mastodynia DIAG MAMM W/CAD, BILAT Today N64.4 - Mastodynia 01 (more content not included)... Normal [facility] Urine Drug Screen (VISTA)on 07-28-2024 AMPHETAMINES Negative Normal <1000 ng/mL [facility] Comment on above: Order Comment: UNK Performed By: #### L 505.5000 #### [facility] Laboratory [address] [place] [address] BARBITIURATES Negative Normal < 200 ng/mL [facility] Comment on above: Order Comment: UNK Performed By: #### L 505.5000 #### [facility] [address] [place] [address] BENZODIAZIPINE Negative Normal < 200 ng/mL [facility] Comment on above: Order Comment: UNK Performed By: #### L 505.5000 #### [facility] [address] [place] [address] COCAINE Negative Normal < 300 ng/mL [facility] Comment on above: Order Comment: UNK Performed By: #### L 505.5000 #### [facility] [address] [place] [address] ECSTACY Negative Normal < 500 ng/mL [facility] Comment on above: Order Comment: UNK Performed By: #### L 505.5000 #### [facility] [address] [place] [address] METHADONE Negative Normal < 300 ng/mL [facility] Comment on above: Order Comment: UNK Performed By: #### L 505.5000 #### [facility] [address] [place] [address] OPIATES Negative Normal < 300 ng/mL [facility] Comment on above: Order Comment: UNK Performed By: #### L 505.5000 #### [facility] [address] [place] [address] PCP Negative Normal < 25 ng/mL [facility] Comment on above: Order Comment: UNK Performed By: #### L 505.5000 #### [facility] [address] [place], [address] THC Negative Normal < 50 ng/mL [facility] Comment on above: Order Comment: UNK Performed By: #### L 505.5000 #### [facility] [address] [place], [address] VISTA UDS PH 7 Normal [facility] Comment on above: Order Comment: UNK Performed By: #### L 505.5000 #### [facility] [address] [place], [place], [phone] Miscellaneous Lab Procedureo n 07-22-2024 [facility] [place] Normal [facility] Comment on above: Order Comment: [id number] Anti-Synthetase Profile SER RF Result Comment: TEST RESULTS LIMITS Anti-Synthetase Profile (RDL) Anti-Ada-1 Ab (RDL) <20 Units <20 Anti-PL-7 Ab (RDL), Negative Negative Anti-PL-12 Ab (RDL), Negative Negative Anti-EJ Ab (RDL), Negative Negative Anti-OJ Ab (RDL), Negative Negative Interpretation for Anti-Ada-1: Negative: <20 Weak Positive: 20 - 39 Moderate Positive: 40 - 80 Strong Positive: >80 Given overlapping phenotypes, autoantibody positivity should be interpreted in the context of clinical and other laboratory findings. [facility] ORIGINAL REPORT ON FILE IN LAB CONTAINS ADDITIONAL TEST SITE INFORMATION. Performed By: #### L 3100.8260, L803.2200, L503.6550, L801.1543, L4600.0100, L3100.5500, L3100.9100, L3300.1200, L801.1541, L501.6710 ####[facility] [address] [place], [place], [phone] Miscellaneous Lab Procedure 2on 07-22-2024 MISC LAB TEST 2 Normal [facility] Comment on above: Order Comment: [id number] Anti-U3 INNER TUBE TUBER MACHINE OPERATOR Antibodies SER/RF Result Comment: TEST RESULTS LIMITS Anti-U3 INNER TUBE TUBER MACHINE OPERATOR (Fibrillarin)(RDL), Negative Negative [facility]. ORIGINAL REPORT ON FILE IN LAB CONTAINS ADDITIONAL TEST SITE INFORMATION. Performed By: #### L 3100.6900, L803.2200, L503.6550, L801.1543, L4600.0100, L3100.5500, L3100.9100, L3300.1200, L801.1541, L501.6710 ####[facility] [address] [place], [address] ANCAon 07-09-2024 Atypical pANCA <1:20 Normal Neg:<1:20 [facility] Comment on above: Result Comment: The atypical pANCA pattern has been observed in a significant percentage of patients with ulcerative colitis, primary sclerosing cholangitis and autoimmune hepatitis. Performed By: #### L 3100.6900, L803.2200, L503.6550, L801.1543, L4600.0100, L3100.5500, L3100.9100, L3300.1200, L801.1541, L501.6710 ####[facility] [address] [place], [address] Cytoplasmic Ab <1:20 Normal Neg:<1:20 [facility] Comment on above: Performed By: #### L 3100.6900, L803.2200, L503.6550, L801.1543, L4600.0100, L3100.5500, L3100.9100, L3300.1200, L801.1541, L501.6710 ####[facility] [address] [place], [place], [address] Perinuclear Ab. <1:20 Normal Neg:<1:20 [facility] Comment on above: Result Comment: The presence of positive fluorescence exhibiting P-ANCA or C-ANCA patterns alone is not specific for the diagnosis of Natalee's Granulomatosis (WG) or microscopic polyangiitis. Decisions about treatment should not be based solely on ANCA IFA results. The International ANCA Group Consensus recommends follow up testing of positive sera with both MT- 3 and MPO-ANCA enzyme immunoassays. As many as 5% serum samples are positive only by EIA. Ref. AM J Clin Pathol 1999;111:507-513. Performed By: #### L 3100.6900, L803.2200, L503.6550, L801.1543, L4600.0100, L3100.5500, L3100.9100, L3300.1200, L801.1541, L501.6710 ####[facility] [address] [place], [address] Angiotensin Convert Enzymeon 07-09-2024 ANGIOT-CONV.ENZ 32 U/L Normal 14-82 [facility] Comment on above: Performed By: #### L 3100.6900, L803.2200, L503.6550, L801.1543, L4600.0100, L3100.5500, L3100.9100, L3300.1200, L801.1541, L501.6710 ####[facility] [address] [place], [place], [phone] Anti-Smooth Muscle ABSon ANTISMOOTH MUSC 5 Units Normal 0-19 [facility] Comment on above: Result Comment: Nega tive 0 - 19 Weak positive 20 - 30 Moderate to strong positive >30 Actin Antibodies are found in 52-85% of patients with autoimmune hepatitis or chronic active hepatitis and in 22% of patients with primary biliary cirrhosis. Performed By: #### L 3100.6900, L803.2200, L503.6550, L801.1543, L4600.0100, L3100.5500, L3100.9100, L3300.1200, L801.1541, L501.6710 ####[facility] [address] [place], [place], [phone] Anti-dsDNA Abon 07-09-2024 ANTI-DNA (DS)AB <1 Normal 0-9 [facility] Comment on above: Result Comment: Nega tive <5 Equivocal 5 - 9 Positive >9 Performed at: [address] [id number] Test Clerk: Ab Trammell PhD, Phone: [phone] Performed By: #### L 3100.6900, L803.2200, L503.6550, L801.1543, L4600.0100, L3100.5500, L3100.9100, L3300.1200, L801.1541, L501.6710 ####[facility] [address] [place], [place], [phone] CCP IgG Antibodieson 024 CCP IgG Ab. 5 units Normal 0-19 [facility] Comment on above: Result Comment: Nega tive <20 Weak positive 20 - 39 Moderate positive 40 - 59 Strong positive >59 Performed at: [address] [id number] Test Clerk: Ab Trammell PhD, Phone: [phone] Performed By: #### L 3100.6900, L803.2200, L503.6550, L801.1543, L4600.0100, L3100.5500, L3100.9100, L3300.1200, L801.1541, L501.6710 ####[facility] [address] [place], [place], [phone] Sjogren's Antibodies A/Bon 0 07-09-2024 ANTI-SS-A < 0.2 Normal 0.0-0.9 [facility] Comment on above: Performed By: #### L 3100.6900, L803.2200, L503.6550, L801.1543, L4600.0100, L3100.5500, L3100.9100, L3300.1200, L801.1541, L501.6710 ####[facility] [address] [place], [place], [phone] ANTI-SS-B < 0.2 Normal 0.0-0.9 [facility] Comment on above: Performed By: #### L 3100.6900, L803.2200, L503.6550, L801.1543, L4600.0100, L3100.5500, L3100.9100, L3300.1200, L801.1541, L501.6710 ####[facility] [address] [place], [place], [id number] CRPon 07-08-2024 C-REACTIVE PROT < 2.90 Normal 0.0-3.0 [facility] Comment on above: Result Comment: C-Re active Protein (CRP) provides useful information for the diagnosis, therapy and monitoring of inflammatory processes and associated diseases. For the evaluation of Relative Risk for Cardiovascular Disease, a High Sensitivity CRP (HSCRP) should be ordered. Performed By: #### L 3100.6900, L803.2200, L503.6550, L801.1543, L4600.0100, L3100.5500, L3100.9100, L3300.1200, L801.1541, L501.6710 ####[facility] [address] [place], [address] Ferritinon 07-08-2024 Ferritin [Mass/Vol] 55 ng/mL Normal 8-252 [facility] Comment on above: Performed By: #### L 3100.6900, L803.2200, L503.6550, L801.1543, L4600.0100, L3100.5500, L3100.9100, L3300.1200, L801.1541, L501.6710 ####[facility] [address] [place], [place], [phone] Absolute lymphocyte countOrd ered By: Ga Lazar on 08-08-2023 Lymphocytes Auto (Unsp spec) [#/Vol] 0.45 10*3/uL 0.83-4.51 [facility] Amorphous sediment detection in urine sediment by light microscopyOrdered By: Ga Lazar on 08-08-2023 Amorphous sediment LM Ql (Urine sed) 1+ [facility] Basophil percentageOrdered B y: Ga Lazar on 08-08-2023 Basophil percentage 0-5 SEEN /hpf 0-5 [facility] Basophils/100 WBC (Bld) 0.3 % 0-1 [facility] Bilirubin [Mass/Vol] 0.70 mg/dL 0.20-1.00 [facility] Comment on above: For patients on eltr ombopag therapy, use of Dimension [place] TBIL is not recommended. Chloride [Moles/Vol] 107 mmol/L 98-107 [facility] Eosinophils/100 WBC (Bld) 0.5 % 0-5 [facility] Glucose [Mass/Vol] 129 mg/dL 74-106 [facility] Comment on above: Fasting Glucose resu lt greater than or equal to 126 mg/dL suggests DIABETES MELLITUS per A.D.A. criteria. Neutrophils (Bld) [#/Vol] 8.9 10*3/uL 2.0-7.7 [facility] Neutrophils/100 WBC (Bld) 89.8 % 47-70 [facility] Potassium [Moles/Vol] 3.7 mmol/L 3.5-5.1 [facility] Protein [Mass/Vol] 6.5 g/dL 6.4-8.2 [facility] Sodium [Moles/Vol] 139 mmol/L 136-145 [facility] WBC (Bld) [#/Vol] 9.9 10*3/uL 4.4-11.0 [facility] Beta hCG serum qualOrdered B y: Ga Lazar on 08-08-2023 Beta HCG ( test) Ql Negative [facility] Bilirubin Test strip Ql (U)O rdered By: Ga Lazar on 08-08-2023 Bilirubin Ql (U) Negative Negative [facility] Blood erythrocytes count (nu mber/volume)Ordered By: Ga Lazar on 08-08-2023 RBC (Bld) [#/Vol] 4.72 10*6/uL 4.2-5.4 [facility] Blood hemoglobin measurement (mass/volume)Ordered By: Ga Lazar on 08-08-2023 Hemoglobin (Bld) [Mass/Vol] 14.4 g/dL 12.0-15.0 [facility] Blood lymphocytes/100 leukoc ytesOrdered By: Ga Lazar on 08-08-2023 Lymphocytes/100 WBC (Bld) 4.5 % 19-41 [facility] Blood manual differential co mment interpretation (narrative result)Ordered By: Ga Lazar on 08-08-2023 Manual differential comment Maxx (Bld) [Interp] SCANNED [facility] Comment on above: LYMPHOPENIA NOTED Blood monocytes/100 leukocyt esOrdered By: Ga Lazar on 08-08-2023 Monocytes/100 WBC (Bld) 4.6 % 0-10 [facility] Blood platelet mean volumeOr dered By: Ga Lazar on 08-08-2023 Platelet mean volume (Bld) [Entitic vol] 11.0 fL 6.2-12.0 [facility] Determination of erythrocyte mean corpuscular volume (MCV)Ordered By: Ga Lazar on 08-08-2023 MCV (RBC) [Entitic vol] 90.3 fL 81-99 [facility] Hematocrit Auto (Bld) [Volum e fraction]Ordered By: Ga Lazar on 08-08-2023 Hematocrit (Bld) [Volume fraction] 42.6 % 37-47 [facility] Ketones Test strip Ql (U)Ord ered By: Ga Lazar on 08-08-2023 Ketones Ql (U) Negative Negative [facility] Laboratory - Chemistry and C hemistry - challengeOrdered By: Ga Lazar on 08-08-2023 ALP [Catalytic activity/Vol] 79 U/L 45-117 [facility] ALT [Catalytic activity/Vol] 95 U/L 13-56 [facility] CO2 [Moles/Vol] 27.0 mmol/L 21.0-32.0 [facility] Globulin (S) [Mass/Vol] 3.1 g/dL 2.2-4.2 [facility] Lipase [Catalytic activity/Vol] 56 U/L 13-75 [facility] Comment on above: Please note:LIPASE r evised reference range effective 23. New Lipase methodology. Expected to produce lower values than the previous assay method. NEW Reference Range: 13 - 75 U/L Urea nitrogen/Creatinine [Mass ratio] 19.0 mg/mg 10-20 [facility] Laboratory - Hematology and Cell countsOrdered By: Ga Lazar on 08-08-2023 Erythrocyte distribution width (RBC) [Entitic vol] 42.4 fL 35.1-43.9 [facility] Erythrocyte distribution width (RBC) [Ratio] 12.8 % 11.6-14.6 [facility] Immature granulocytes/100 WBC (Bld) 0.300 % 0.0-0.9 [facility] Comment on above: IG% - Immature Granu locytes (promyelocytes, myelocytes and metamyelocytes) > 1% indicates that a LEFT SHIFT is Present. MCH (RBC) [Entitic mass] 30.5 pg 27.0-32.0 [facility] Nucleated RBC/100 WBC (Bld) [Ratio] 0 % 0-5 [facility] MCHC Auto (RBC) [Mass/Vol]Or dered By: Ga Lazar on 08-08-2023 MCHC (RBC) [Mass/Vol] 33.8 g/dL 32-36 [facility] Mucus LM Ql (Urine sed)Order ed By: Ga Lazar on 08-08-2023 Mucus Ql (Urine sed) 0 SEEN /hpf [facility] Nitrite Test strip Ql (U)Ord ered By: Ga Lazar on 08-08-2023 Nitrite Ql (U) Negative Negative [facility] No Panel InformationOrdered By: Ga Lazar on 08-08-2023 Estimated Creatinine Clearance Calc 73.46 ml/min [facility] Estimated GFR (MDRD) Amer 77 mL/min >60 [facility] Comment on above: GFR Calc Estimated GFR (MDRD) Non-Af Amer 63 mL/min >60 [facility] Comment on above: Non- GFR Calc Troponin I High Sensitivity 3 pg/mL 3.0-54.0 [facility] Comment on above: Please Note: [place] t Units and Gender Specific Reference Ranges. For more information see Policy Stat Procedure [place] High Sensitivity Troponin (TNIH) and attachments. Platelets bldOrdered By: Enrique Lazar on 08-08-2023 Platelets (Bld) [#/Vol] 163 10*3/uL 150-450 [facility] Protein Test strip Ql (U)Ord ered By: Ga Lazar on 08-08-2023 Protein Ql (U) 15 mg/dl Negative [facility] Serum or plasma albumin gely urement (mass/volume)Ordered By: Ga Lazar on 08-08-2023 Albumin [Mass/Vol] 3.4 g/dL 3.2-5.0 [facility] Serum or plasma albumin/glob ulin mass ratioOrdered By: Ga Lazar on 08-08-2023 Albumin/Globulin [Mass ratio] 1.1 {ratio} 0.9-2.4 [facility] Serum or plasma calcium gely urement (mass/volume)Ordered By: Ga Lazar on 08-08-2023 Calcium [Mass/Vol] 8.7 mg/dL 8.5-10.1 [facility] Serum or plasma creatinine m easurement (mass/volume)Ordered By: Ga Lazar on 08-08-2023 Creatinine [Mass/Vol] 1.00 mg/dL 0.55-1.02 [facility] Comment on above: The validity of the calculated GFR & GFRAA in patients over 70 years has not been determined. Clinical correlation is essential. Serum or plasma urea nitroge n measurement (mass/volume)Ordered By: Ga Lazar on 08-08-2023 Urea nitrogen [Mass/Vol] 19 mg/dL 7-18 [facility] Squamous epithelial cells de tection in urine sediment by light microscopyOrdered By: Ga Lazar on 08-08-2023 Epithelial cells.squamous LM Ql (Urine sed) 5-10 SEEN /hpf 5-10 [facility] Thin prep Papanicolaou smear with manual screeningOrdered By: Ga Lazar on 08-08-2023 Thin prep Papanicolaou smear with manual screening 125 U/L 15-37 [facility] Thin prep Papanicolaou smear with manual screening 5 5-15 [facility] Urine blood detectionOrdered By: Ga Lazar on 08-08-2023 RBC Ql (U) Negative Negative [facility] RBC Ql (U) 0 SEEN /hpf 0-5 [facility] Urine clarityOrdered By: Enrique Lazar on 08-08-2023 Clarity (U) Clear Clear [facility] Urine color determinationOrd ered By: Ga Lazar on 08-08-2023 Color (U) Yellow Yellow [facility] Urine glucose detectionOrder ed By: Ga Lazar on 08-08-2023 Glucose Ql (U) Normal mg/dl Normal [facility] Urine leukocyte esterase det ection by dipstickOrdered By: Ga Lazar on 08-08-2023 Leukocyte esterase Test strip Ql (U) 25 /ul Negative [facility] Urine pHOrdered By: Ga villalba on 08-08-2023 pH (U) 8.0 [pH] 5.0 - 8.0 [facility] Urine sediment bacteria coun t by microscopy (number/high power field)Ordered By: Ga Lazar on 08-08-2023 Bacteria LM.HPF (Urine sed) [#/Area] 1 /[HPF] None Seen [facility] Urine specific gravity measu rementOrdered By: Ga Lazar on 08-08-2023 Specific gravity (U) [Rel density] 1.010 1.002-1.030 [facility] Urobilinogen Auto test strip Ql (U)Ordered By: Ga Lazar on 08-08-2023 Urobilinogen Ql (U) Normal mg/dl Normal [facility] Laboratory - Chemistry and C hemistry - challengeOrdered By: Aayush Frederick on 06-06-2023 Cobalamin (Vitamin B12) [Mass/Vol] 1092 pg/mL 211-911 [facility] Absolute lymphocyte counton 06-05-2023 Lymphocytes Auto (Unsp spec) [#/Vol] 1.96 10*3/uL 0.83-4.51 [facility] Basophil percentageon 2022 Basophils/100 WBC (Bld) 0.8 % 0-1 [facility] Bilirubin [Mass/Vol] 0.40 mg/dL 0.20-1.00 [facility] Comment on above: For patients on eltr ombopag therapy, use of Dimension [place] TBIL is not recommended. Chloride [Moles/Vol] 104 mmol/L 98-107 [facility] Eosinophils/100 WBC (Bld) 2.8 % 0-5 [facility] Glucose [Mass/Vol] 81 mg/dL 74-106 [facility] Neutrophils (Bld) [#/Vol] 4.6 10*3/uL 2.0-7.7 [facility] Neutrophils/100 WBC (Bld) 61.2 % 47-70 [facility] Potassium [Moles/Vol] 3.7 mmol/L 3.5-5.1 [facility] Protein [Mass/Vol] 7.0 g/dL 6.4-8.2 [facility] Sodium [Moles/Vol] 139 mmol/L 136-145 [facility] WBC (Bld) [#/Vol] 7.5 10*3/uL 4.4-11.0 [facility] Blood erythrocytes count (nu mber/volume)on 06-05-2023 RBC (Bld) [#/Vol] 5.15 10*6/uL 4.2-5.4 [facility] Blood hemoglobin measurement (mass/volume)on 06-05-2023 Hemoglobin (Bld) [Mass/Vol] 15.0 g/dL 12.0-15.0 [facility] Blood lymphocytes/100 leukoc yteson 07-25-2023 Lymphocytes/100 WBC (Bld) 26.1 % 19-41 [facility] Blood monocytes/100 leukocyt eson 06-05-2023 Monocytes/100 WBC (Bld) 8.8 % 0-10 [facility] Blood platelet mean volumeon 06-05-2023 Platelet mean volume (Bld) [Entitic vol] 11.5 fL 6.2-12.0 [facility] Determination of erythrocyte mean corpuscular volume (MCV)on 06-05-2023 MCV (RBC) [Entitic vol] 90.9 fL 81-99 [facility] Erythrocyte sedimentation ra eugene 06-05-2023 ESR (Bld) [Velocity] 3 mm/h 0-30 [facility] Hematocrit Auto (Bld) [Volum e fraction]on 06-05-2023 Hematocrit (Bld) [Volume fraction] 46.8 % 37-47 [facility] Laboratory - Chemistry and C hemistry - challengeon 06-05-2023 ALP [Catalytic activity/Vol] 81 U/L 45-117 [facility] ALT [Catalytic activity/Vol] 18 U/L 13-56 [facility] CO2 [Moles/Vol] 31.0 mmol/L 21.0-32.0 [facility] Globulin (S) [Mass/Vol] 3.4 g/dL 2.2-4.2 [facility] Urea nitrogen/Creatinine [Mass ratio] 19.5 mg/mg 10-20 [facility] Laboratory - Hematology and Cell countson 06-05-2023 Erythrocyte distribution width (RBC) [Entitic vol] 45.8 fL 35.1-43.9 [facility] Erythrocyte distribution width (RBC) [Ratio] 13.7 % 11.6-14.6 [facility] Immature granulocytes/100 WBC (Bld) 0.300 % 0.0-0.9 [facility] Comment on above: IG% - Immature Granu locytes (promyelocytes, myelocytes and metamyelocytes) > 1% indicates that a LEFT SHIFT is Present. MCH (RBC) [Entitic mass] 29.1 pg 27.0-32.0 [facility] Nucleated RBC/100 WBC (Bld) [Ratio] 0 % 0-5 [facility] MCHC Auto (RBC) [Mass/Vol]on 06-05-2023 MCHC (RBC) [Mass/Vol] 32.1 g/dL 32-36 [facility] No Panel Informationon 06-05 Anti-Nuclear Antibody Screen Negative Negative [facility] Comment on above: Performed at: - [address] [facility] [id number] [place], [place] [id number] Director: Ab Trammell PhD, Phone: [phone] Estimated GFR (MDRD) Amer 97 mL/min >60 [facility] Comment on above: GFR Calc Estimated GFR (MDRD) Non-Af Amer 80 mL/min >60 [facility] Comment on above: Non- GFR Calc Platelets bldon 06-05-2023 Platelets (Bld) [#/Vol] 273 10*3/uL 150-450 [facility] Serum or plasma C reactive p rotein measurement (mass/volume)on 06-05-2023 CRP [Mass/Vol] mg/L 0.0-3.0 [facility] Comment on above: C-Reactive Protein ( CRP) provides useful information for thediagnosis, therapy and monitoring of inflammatory processesand associated diseases. For the evaluation of Relative Riskfor Cardiovascular Disease, a High Sensitivity CRP (HSCRP)should be ordered. Serum or plasma albumin gely urement (mass/volume)on 06-05-2023 Albumin [Mass/Vol] 3.6 g/dL 3.2-5.0 [facility] Serum or plasma albumin/glob ulin mass ratioon 06-05-2023 Albumin/Globulin [Mass ratio] 1.1 {ratio} 0.9-2.4 [facility] Serum or plasma calcium gely urement (mass/volume)on 06-05-2023 Calcium [Mass/Vol] 9.0 mg/dL 8.5-10.1 [facility] Serum or plasma creatinine m easurement (mass/volume)on 06-05-2023 Creatinine [Mass/Vol] 0.82 mg/dL 0.55-1.02 [facility] Comment on above: The validity of the calculated GFR & GFRAA in patients over 70 years has not been determined. Clinical correlation is essential. Serum or plasma urea nitroge n measurement (mass/volume)on 06-05-2023 Urea nitrogen [Mass/Vol] 16 mg/dL 7-18 [facility] Serum rheumatoid factor dete ctionon 06-05-2023 Rheumatoid factor Ql (S) < 10.0 IU/mL <15 [facility] Thin prep Papanicolaou smear with manual screeningon 06-05-2023 Thin prep Papanicolaou smear with manual screening 13 U/L 15-37 [facility] Thin prep Papanicolaou smear with manual screening 4 5-15 [facility] Thin prep Papanicolaou smear with manual screeningOrdered By: Dr. Cool on 03-23-2023 Thin prep Papanicolaou smear with manual screening Neisseria or beta-hemolytic Streptococcus isolated. [facility] Gram stain for investigation of transfusion reactionOrdered By: Dr. Cool on 03-20-2023 Microscopic observation Gram stain Nom (Unsp spec) [facility] Gram stain for investigation of transfusion reactionOrdered By: Carolina Cool on 03-19-2023 Microscopic observation Gram stain Nom (Unsp spec) [facility] Thin prep Papanicolaou smear with manual screeningOrdered By: Carolina Cool on 03-19-2023 Thin prep Papanicolaou smear with manual screening Neisseria or beta-hemolytic Streptococcus isolated. [facility] Basophil percentageOrdered B y: Dr. Cool on 02-03-2023 WBC (Bld) [#/Vol] 11.8 10*3/uL 4.4-11.0 [facility] Blood erythrocytes count (nu mber/volume)Ordered By: Dr. Cool on 02-03-2023 RBC (Bld) [#/Vol] 3.83 10*6/uL 4.2-5.4 [facility] Blood hemoglobin measurement (mass/volume)Ordered By: Dr. Cool on 02-03-2023 Hemoglobin (Bld) [Mass/Vol] 10.3 g/dL 12.0-15.0 [facility] Blood platelet mean volumeOr dered By: Dr. Cool on 02-03-2023 Platelet mean volume (Bld) [Entitic vol] 11.9 fL 6.2-12.0 [facility] Determination of erythrocyte mean corpuscular volume (MCV)Ordered By: Dr. Cool on 02-03-2023 MCV (RBC) [Entitic vol] 86.7 fL 81-99 [facility] Hematocrit Auto (Bld) [Volum e fraction]Ordered By: Dr. Cool on 02-03-2023 Hematocrit (Bld) [Volume fraction] 33.2 % 37-47 [facility] Laboratory - Hematology and Cell countsOrdered By: Dr. Cool on 02-03-2023 Erythrocyte distribution width (RBC) [Entitic vol] 54.7 fL 35.1-43.9 [facility] Erythrocyte distribution width (RBC) [Ratio] 17.1 % 11.6-14.6 [facility] MCH (RBC) [Entitic mass] 26.9 pg 27.0-32.0 [facility] MCHC Auto (RBC) [Mass/Vol]Or dered By: Dr. Cool on 02-03-2023 MCHC (RBC) [Mass/Vol] 31.0 g/dL 32-36 [facility] Platelets bldOrdered By: Dr. Cool on 02-03-2023 Platelets (Bld) [#/Vol] 220 10*3/uL 150-450 [facility] Glucose Glucometer (dC) [M ass/Vol]Ordered By: Dr. Cool on 02-02-2023 Glucose [Mass/Vol] 135 mg/dL 74-106 [facility] Comment on above: MANAGEMENT OF PATIEN T CARE PER NURSING PROTOCOL Laboratory - Chemistry and C hemistry - challengeOrdered By: Dr. Cool on 02-02-2023 HCG ( test) Ql (U) Negative [facility] Comment on above: Very dilute urine sp ecimens, as indicated by a low specificgravity, may not contain direct marketing representative levels of hCG. If is still suspected, a first morning urinespecimen should be collected 48 hours later and tested. Absolute lymphocyte countOrd ered By: Dr. Cool on 01-26-2023 Lymphocytes Auto (Unsp spec) [#/Vol] 1.47 10*3/uL 0.83-4.51 [facility] Basophil percentageOrdered B y: Dr. Cool on 01-26-2023 Basophils/100 WBC (Bld) 1.0 % 0-1 [facility] Eosinophils/100 WBC (Bld) 3.0 % 0-5 [facility] Neutrophils (Bld) [#/Vol] 4.7 10*3/uL 2.0-7.7 [facility] Neutrophils/100 WBC (Bld) 66.6 % 47-70 [facility] Blood lymphocytes/100 leukoc ytesOrdered By: Dr. Cool on 01-26-2023 Lymphocytes/100 WBC (Bld) 20.9 % 19-41 [facility] Blood monocytes/100 leukocyt esOrdered By: Dr. Cool on 01-26-2023 Monocytes/100 WBC (Bld) 8.2 % 0-10 [facility] Laboratory - Chemistry and C hemistry - challengeOrdered By: Dr. Nelson on 01-26-2023 Magnesium [Mass/Vol] 2.4 mg/dL 1.6-2.6 [facility] Laboratory - Hematology and Cell countsOrdered By: Dr. Cool on 01-26-2023 Immature granulocytes/100 WBC (Bld) 0.300 % 0.0-0.9 [facility] Comment on above: IG% - Immature Granu locytes (promyelocytes, myelocytes and metamyelocytes) > 1% indicates that a LEFT SHIFT is Present. Nucleated RBC/100 WBC (Bld) [Ratio] 0 % 0-5 [facility] Laboratory - Chemistry and C hemistry - challengeOrdered By: Dr. Layton on 01-08-2023 HCG ( test) Ql (U) Negative [facility] Comment on above: Very dilute urine sp ecimens, as indicated by a low specificgravity, may not contain direct marketing representative levels of hCG. If is still suspected, a first morning urinespecimen should be collected 48 hours later and tested. Cervical or vagninal specime n microscopic examination by cytology stain (reported asOrdered By: Lesly Boone on 11-08-2022 Cytology report Cyto stain Doc (Cvx/Vag) Comment . [facility] Comment on above: The Pap smear is a s creening test designed to aid in thedetection of premalignant and malignant conditions of theuterine cervix. It is not a diagnostic procedure andshould not be used as the sole means of detecting cervicalcancer. Both false-positive and false-negative reports dooccur. Detection in cervical specim en of any of human papilloma virus (HPV) 16, 18, 31, 33,Ordered By: Lesly Boone on 11-08-2022 HPV 16+18+31+33+35+39+45+51+ 52+56+58+59+66+68 DNA Probe+sig amp Ql (Cvx) Negative Negative [facility] Comment on above: This nucleic acid am plification test detects fourteen high-risk HPV types (16,18,31,33,35,39,45,51,52,56,58,59,66,68)without differentiation. Laboratory - CytologyOrdered By: Lesly Boone on 11-08-2022 [employer] Person Cyto stain Nom (Cvx/Vag) [ID] Comment . [facility] Comment on above: Fallon briones, Car Shagger (ASCP) Laboratory - Miscellaneous t estsOrdered By: Lesly Boone on 11-08-2022 Service comment (Unsp spec) [Interp] Comment . [facility] Comment on above: This liquid based Th inPrep(R) pap test was screened withthe use of an image guided system. Service comment (Unsp spec) [Interp] . . [facility] Liquid-based cerv Pap + CT/G C by DELON w reflex to high-risk HPV for ASCUSOrdered By: Lesly Boone on 11-08-2022 Cytology report Cyto stain.thin prep Doc (Cvx/Vag) Comment . [facility] Comment on above: Criteria not met, HP V Genotype not performed.Performed at: - [address] [id number] Director: Terrie Jaimes MD, Phone: [phone] at: =[facility] [id number] Director: Terrie Jaimes MD, Phone: [phone] No Panel InformationOrdered By: Lesly Boone on 11-08-2022 Pathology report final diagnosis Narrative Comment . [facility] Comment on above: NEGATIVE FOR INTRAEP ITHELIAL LESION OR MALIGNANCY. Absolute lymphocyte countOrd ered By: Carine Hope on 08-15-2022 Lymphocytes Auto (Unsp spec) [#/Vol] 1.63 10*3/uL 0.83-4.51 [facility] Basophil percentageOrdered B y: Carine Hope on 08-15-2022 Basophils/100 WBC (Bld) 0.7 % 0-1 [facility] Eosinophils/100 WBC (Bld) 2.0 % 0-5 [facility] Neutrophils (Bld) [#/Vol] 5.1 10*3/uL 2.0-7.7 [facility] Neutrophils/100 WBC (Bld) 67.1 % 47-70 [facility] WBC (Bld) [#/Vol] 7.6 10*3/uL 4.4-11.0 [facility] Blood erythrocytes count (nu mber/volume)Ordered By: Carine Hope on 08-15-2022 RBC (Bld) [#/Vol] 4.35 10*6/uL 4.2-5.4 [facility] Blood hemoglobin measurement (mass/volume)Ordered By: Carine Hope on 08-15-2022 Hemoglobin (Bld) [Mass/Vol] 12.6 g/dL 12.0-15.0 [facility] Blood lymphocytes/100 leukoc ytesOrdered By: Carine Hope on 08-15-2022 Lymphocytes/100 WBC (Bld) 21.5 % 19-41 [facility] Blood monocytes/100 leukocyt esOrdered By: Carine Hope on 08-15-2022 Monocytes/100 WBC (Bld) 8.6 % 0-10 [facility] Blood platelet mean volumeOr dered By: Carine Hope on 08-15-2022 Platelet mean volume (Bld) [Entitic vol] 12.4 fL 6.2-12.0 [facility] Determination of erythrocyte mean corpuscular volume (MCV)Ordered By: Carine Hope on 08-15-2022 MCV (RBC) [Entitic vol] 89.9 fL 81-99 [facility] Hematocrit Auto (Bld) [Volum e fraction]Ordered By: Carine Hope on 08-15-2022 Hematocrit (Bld) [Volume fraction] 39.1 % 37-47 [facility] Iron measurement (mass/mass) Ordered By: Carine Hope on 08-15-2022 Iron (Unsp spec) [Mass/Mass] 56 ug/dL 50-170 [facility] Laboratory - Hematology and Cell countsOrdered By: Carine Hope on 08-15-2022 Erythrocyte distribution width (RBC) [Entitic vol] 47.4 fL 35.1-43.9 [facility] Erythrocyte distribution width (RBC) [Ratio] 14.5 % 11.6-14.6 [facility] Immature granulocytes/100 WBC (Bld) 0.100 % 0.0-0.9 [facility] [facility] Comment on above: IG% - Immature Granu locytes (promyelocytes, myelocytes and metamyelocytes) > 1% indicates that a LEFT SHIFT is Present. MCH (RBC) [Entitic mass] 29.0 pg 27.0-32.0 [facility] Nucleated RBC/100 WBC (Bld) [Ratio] 0 % 0-5 [facility] MCHC Auto (RBC) [Mass/Vol]Or dered By: Carine Hope on 08-15-2022 MCHC (RBC) [Mass/Vol] 32.2 g/dL 32-36 [facility] No Panel InformationOrdered By: Carine Hope on 08-15-2022 Total Iron Binding Capacity 330 ug/dL 250-450 [facility] Platelets bldOrdered By: Hayden Hope on 08-15-2022 Platelets (Bld) [#/Vol] 259 10*3/uL 150-450 [facility] Serum or plasma ferritin kati surement (mass/volume)Ordered By: Carine Hope on 08-15-2022 Ferritin [Mass/Vol] 16 ng/mL 8-252 [facility] Absolute lymphocyte counton 04-19-2022 Lymphocytes Auto (Unsp spec) [#/Vol] 1.15 10*3/uL 0.83-4.51 [facility] Work Phone: Basophil percentageon 2021 Basophils/100 WBC (Bld) 0.9 % 0-1 [facility] Work Phone: Bilirubin [Mass/Vol] 0.20 mg/dL 0.20-1.00 [facility] Work Phone: Comment on above: For patients on eltr ombopag therapy, use of Dimension [place] TBIL is not recommended. Chloride [Moles/Vol] 107 mmol/L 98-107 [facility] Work Phone: Cholesterol [Mass/Vol] 206 mg/dL <200 [facility] Work Phone: Comment on above: <200 mg/dL Desirable 200-240 mg/dL Borderline >240 mg/dL High Risk Eosinophils/100 WBC (Bld) 3.0 % 0-5 [facility] Work Phone: Glucose [Mass/Vol] 95 mg/dL 74-106 [facility] Work Phone: Neutrophils (Bld) [#/Vol] 3.8 10*3/uL 2.0-7.7 [facility] Work Phone: Neutrophils/100 WBC (Bld) 67.9 % 47-70 [facility] Work Phone: Potassium [Moles/Vol] 4.0 mmol/L 3.5-5.1 [facility] Work Phone: Protein [Mass/Vol] 6.9 g/dL 6.4-8.2 [facility] Work Phone: Sodium [Moles/Vol] 140 mmol/L 136-145 [facility] Work Phone: Triglyceride [Mass/Vol] 87 mg/dL [facility] Work Phone: Comment on above: The drugs N-Acetylcy steine and Metamizole may falsely depress this assay.Serum Triglycerides Reference Interval Normal <150 mg/dL Borderline high 150 - 199 mg/dL High 200 - 499 mg/dL Very High > or = 500 mg/dL WBC (Bld) [#/Vol] 5.6 10*3/uL 4.4-11.0 [facility] Work Phone: Blood erythrocytes count (nu mber/volume)on 04-19-2022 RBC (Bld) [#/Vol] 4.47 10*6/uL 4.2-5.4 [facility]: Blood hemoglobin measurement (mass/volume)on 04-19-2022 Hemoglobin (Bld) [Mass/Vol] 11.8 g/dL 12.0-15.0 [facility] Work Phone: Blood lymphocytes/100 leukoc yteson 04-19-2022 Lymphocytes/100 WBC (Bld) 20.5 % 19-41 [facility] Work Phone: Blood monocytes/100 leukocyt eson 04-19-2022 Monocytes/100 WBC (Bld) 7.5 % 0-10 [facility] Work Phone: Blood platelet mean volumeon 04-19-2022 Platelet mean volume (Bld) [Entitic vol] 12.3 fL 6.2-12.0 [facility] Work Phone: Determination of erythrocyte mean corpuscular volume (MCV)on 04-19-2022 MCV (RBC) [Entitic vol] 84.6 fL 81-99 [facility] Work Phone: Hematocrit Auto (Bld) [Volum e fraction]on 04-19-2022 Hematocrit (Bld) [Volume fraction] 37.8 % 37-47 [facility] Work Phone: Laboratory - Chemistry and C hemistry - challengeon 04-19-2022 ALP [Catalytic activity/Vol] 69 U/L 45-117 [facility] Work Phone: ALT [Catalytic activity/Vol] 28 U/L 13-56 [facility] Work Phone: CO2 [Moles/Vol] 27.0 mmol/L 21.0-32.0 [facility] Work Phone: Globulin (S) [Mass/Vol] 3.3 g/dL 2.2-4.2 [facility] Work Phone: Urea nitrogen/Creatinine [Mass ratio] 14.2 mg/mg 10-20 [facility] Work Phone: Laboratory - Hematology and Cell countson 04-19-2022 Erythrocyte distribution width (RBC) [Entitic vol] 45.4 fL 35.1-43.9 [facility] Work Phone: Erythrocyte distribution width (RBC) [Ratio] 14.9 % 11.6-14.6 [facility] Work Phone: Immature granulocytes/100 WBC (Bld) 0.200 % 0.0-0.9 [facility] Work Phone: Comment on above: IG% - Immature Granu locytes (promyelocytes, myelocytes and metamyelocytes) > 1% indicates that a LEFT SHIFT is Present. MCH (RBC) [Entitic mass] 26.4 pg 27.0-32.0 [facility] Work Phone: Nucleated RBC/100 WBC (Bld) [Ratio] 0 % 0-5 [facility] Work Phone: MCHC Auto (RBC) [Mass/Vol]on 04-19-2022 MCHC (RBC) [Mass/Vol] 31.2 g/dL 32-36 [facility] Work Phone: No Panel Informationon 04-19 Estimated GFR (MDRD) Amer 93 mL/min >60 [facility] Work Phone: Comment on above: GFR Calc Estimated GFR (MDRD) Non-Af Amer 77 mL/min >60 [facility] Work Phone: Comment on above: Non- GFR Calc Platelets bldon 04-19-2022 Platelets (Bld) [#/Vol] 271 10*3/uL 150-450 [facility] Work Phone: Serum or plasma albumin gely urement (mass/volume)on 04-19-2022 Albumin [Mass/Vol] 3.6 g/dL 3.2-5.0 [facility] Work Phone: Serum or plasma albumin/glob ulin mass ratioon 04-19-2022 Albumin/Globulin [Mass ratio] 1.1 {ratio} 0.9-2.4 [facility] Work Phone: Serum or plasma calcium gely urement (mass/volume)on 04-19-2022 Calcium [Mass/Vol] 9.1 mg/dL 8.5-10.1 [facility] Work Phone: Serum or plasma cholesterol in HDL measurement (mass/volume)on 04-19-2022 Cholesterol in HDL [Mass/Vol] 44 mg/dL [facility] Work Phone: Comment on above: The drugs N-Acetylcy steine and Metamizole may falsely depress this assay. Reference Range HDL <40 mg/dL Low HDL Cholesterol HDL >or= 60 mg/dL High HDL Cholesterol Serum or plasma cholesterol in VLDL measurement (mass/volume)on 04-19-2022 Cholesterol in VLDL [Mass/Vol] 17 mg/dL 5-40 [facility] Work Phone: Serum or plasma creatinine m easurement (mass/volume)on 04-19-2022 Creatinine [Mass/Vol] 0.85 mg/dL 0.55-1.02 [facility] Work Phone: Comment on above: The validity of the calculated GFR & GFRAA in patients over 70 years has not been determined. Clinical correlation is essential. Serum or plasma low density lipoprotein (LDL) cholesterol measurement (mass/volume)on 04-19-2022 Cholesterol in LDL [Mass/Vol] 145 mg/dL 0-130 [facility] Work Phone: Serum or plasma urea nitroge n measurement (mass/volume)on 04-19-2022 Urea nitrogen [Mass/Vol] 12 mg/dL 7-18 [facility] Work Phone: Thin prep Papanicolaou smear with manual screeningon 04-19-2022 Thin prep Papanicolaou smear with manual screening 11 U/L 15-37 [facility] Work Phone: Thin prep Papanicolaou smear with manual screening 6 5-15 [facility] Work Phone: Absolute lymphocyte counton 12-30-2021 Lymphocytes Auto (Unsp spec) [#/Vol] 1.29 10*3/uL 0.83-4.51 [facility] Work Phone: [phone] Basophil percentageon 2021 Basophils/100 WBC (Bld) 0.9 % 0-1 [facility] Work Phone: [phone] Bilirubin [Mass/Vol] 0.20 mg/dL 0.20-1.00 [facility] Work Phone: [phone] Comment on above: For patients on eltr ombopag therapy, use of Dimension [place] TBIL is not recommended. Chloride [Moles/Vol] 108 mmol/L 98-107 [facility] Work Phone: [phone] Eosinophils/100 WBC (Bld) 4.9 % 0-5 [facility] Work Phone: [phone] Glucose [Mass/Vol] 91 mg/dL 74-106 [facility] Work Phone: [phone] Neutrophils (Bld) [#/Vol] 2.7 10*3/uL 2.0-7.7 [facility] Work Phone: [phone] Neutrophils/100 WBC (Bld) 58.0 % 47-70 [facility] Work Phone: [phone] Potassium [Moles/Vol] 4.0 mmol/L 3.5-5.1 [facility] Work Phone: [phone] Protein [Mass/Vol] 6.5 g/dL 6.4-8.2 [facility] Work Phone: [phone] Sodium [Moles/Vol] 138 mmol/L 136-145 [facility] Work Phone: [phone] WBC (Bld) [#/Vol] 4.7 10*3/uL 4.4-11.0 [facility] Work Phone: Blood erythrocytes count (nu mber/volume)on 12-30-2021 RBC (Bld) [#/Vol] 4.72 10*6/uL 4.2-5.4 [facility] Work Phone: Blood hemoglobin measurement (mass/volume)on 12-30-2021 Hemoglobin (Bld) [Mass/Vol] 12.4 g/dL 12.0-15.0 [facility] Work Phone: Blood lymphocytes/100 leukoc yteson 12-30-2021 Lymphocytes/100 WBC (Bld) 27.5 % 19-41 [facility] Work Phone: Blood monocytes/100 leukocyt eson 12-30-2021 Monocytes/100 WBC (Bld) 8.7 % 0-10 [facility] Work Phone: Blood platelet mean volumeon 12-30-2021 Platelet mean volume (Bld) [Entitic vol] 11.7 fL 6.2-12.0 [facility] Work Phone: Determination of erythrocyte mean corpuscular volume (MCV)on 12-30-2021 MCV (RBC) [Entitic vol] 81.6 fL 81-99 [facility] Work Phone: Hematocrit Auto (Bld) [Volum e fraction]on 12-30-2021 Hematocrit (Bld) [Volume fraction] 38.5 % 37-47 [facility] Work Phone: Laboratory - Chemistry and C hemistry - challengeon 12-30-2021 ALP [Catalytic activity/Vol] 63 U/L 45-117 [facility] Work Phone: ALT [Catalytic activity/Vol] 35 U/L 13-56 [facility] Work Phone: CO2 [Moles/Vol] 26.0 mmol/L 21.0-32.0 [facility] Work Phone: Globulin (S) [Mass/Vol] 3.1 g/dL 2.2-4.2 [facility] Work Phone: Urea nitrogen/Creatinine [Mass ratio] 17.6 mg/mg 10-20 [facility] Work Phone: Laboratory - Hematology and Cell countson 12-30-2021 Erythrocyte distribution width (RBC) [Entitic vol] 52.5 fL 35.1-43.9 [facility] Work Phone: Erythrocyte distribution width (RBC) [Ratio] 17.7 % 11.6-14.6 [facility] Work Phone: Immature granulocytes/100 WBC (Bld) 0.000 % 0.0-0.9 [facility] Work Phone: Comment on above: IG% - Immature Granu locytes (promyelocytes, myelocytes and metamyelocytes) > 1% indicates that a LEFT SHIFT is Present. MCH (RBC) [Entitic mass] 26.3 pg 27.0-32.0 [facility] Work Phone: Nucleated RBC/100 WBC (Bld) [Ratio] 0 % 0-5 [facility] Work Phone: MCHC Auto (RBC) [Mass/Vol]on 12-30-2021 MCHC (RBC) [Mass/Vol] 32.2 g/dL 32-36 [facility] Work Phone: No Panel Informationon 12-30 Estimated GFR (MDRD) Amer 109 mL/min >60 [facility] Work Phone: Comment on above: GFR Calc Estimated GFR (MDRD) Non-Af Amer 90 mL/min >60 [facility] Work Phone: Comment on above: Non- GFR Calc Vitamin D 25-Hydroxy 88.2 ng/mL [facility] Work Phone: Comment on above: Vitamin D 25(OH) Sta tus Range Deficiency <20 ng/mL (50nmol/L) Insufficiency 20 - 30 ng/mL (50 - 75 nmol/L) Sufficiency 30 - 100 ng/mL (75 - 250 nmol/L) Toxicity >100 ng/mL (>250 nmol/L) Platelets bldon 12-30-2021 Platelets (Bld) [#/Vol] 229 10*3/uL 150-450 [facility] Work Phone: Serum or plasma albumin gely urement (mass/volume)on 12-30-2021 Albumin [Mass/Vol] 3.4 g/dL 3.2-5.0 [facility] Work Phone: Serum or plasma albumin/glob ulin mass ratioon 12-30-2021 Albumin/Globulin [Mass ratio] 1.1 {ratio} 0.9-2.4 [facility] Work Phone: Serum or plasma calcium gely urement (mass/volume)on 12-30-2021 Calcium [Mass/Vol] 9.0 mg/dL 8.5-10.1 [facility] Work Phone: Serum or plasma creatinine m easurement (mass/volume)on 12-30-2021 Creatinine [Mass/Vol] 0.74 mg/dL 0.55-1.02 [facility] Work Phone: Comment on above: The validity of the calculated GFR & GFRAA in patients over 70 years has not been determined. Clinical correlation is essential. Serum or plasma urea nitroge n measurement (mass/volume)on 12-30-2021 Urea nitrogen [Mass/Vol] 13 mg/dL 7-18 [facility] Work Phone: Thin prep Papanicolaou smear with manual screeningon 12-30-2021 Thin prep Papanicolaou smear with manual screening 20 U/L 15-37 [facility] Work Phone: Thin prep Papanicolaou smear with manual screening 4 5-15 [facility] Work Phone: HPVon 01-31-2021 HPV Interp Normal See Interp HPVN [facility] ([place]) Comment on above: Order Comment: Order placed by AP_HPV_ORDER rule from [id number] Result Comment: High Risk HPV Typing: NEGATIVE HPV types 16, 18, 31, 33, 35, 39, 45, 51, 52, 56, 58, 59, 66 and 68 DNA were undetectable or below the pre-set threshold. The mauro High-Risk HPV DNA Test is not intended for use as a screening device for Pap normal women under age 30 and is not intended to substitute for regular Pap screening. The mauro High-Risk HPV DNA Test is designed to augment existing methods for the detection of cervical disease and should be used in conjunction with clinical information derived from other diagnostic and screening tests, physical examinations and full medical history in accordance with appropriate patient management procedures. NOTE: A negative result does not preclude the presence of HPV infection because results depend on adequate specimen collection, absence of inhibitors and sufficient DNA to be detected. See Interp HPVN Performed By: #### H PV #### [place] [address] HPV Source Cervix Normal [facility] ([place]) Comment on above: Order Comment: Order placed by AP_HPV_ORDER rule from [id number] Performed By: #### H PV #### [place] [address] Member Service Representative Cytology Reporton 2020 Member Service Representative Cytology Report . Pathology Reports Accession: Collected Date/Time: Received Date/Time: Pathologist: [id number] 01/19/2021 08:52 EST 01/20/2021 18:00 EST Member Service Representative Cytology Report SPECIMEN: Specimen Description: Liquid Prep w/ HPV Specimen: Cervical/Endocervica l Screening or Diagnostic: Screening RELEVANT HISTORY: LMP: 12/28/20 [id number] SPECIMEN ADEQUACY: SATISFACTORY FOR EVALUATION ENDOCERVICAL/TRANSFO RMATIONAL ZONE COMPONENT ABSENT/INSUFFICIENT INTERPRETATION/RESUL TS: NEGATIVE FOR INTRAEPITHELIAL LESION OR MALIGNANCY ADJUNCTIVE TESTING: HIGH RISK HPV DNA TESTING ORDERED, REPORT TO FOLLOW UNDER SEPARATE COVER COMMENT: This Pap Test was successfully processed and evaluated with the assistance of the [employer] ThinPrep Test Imaging System. Electronically Signed by Pathology report verified by [facility] Screened by: [place] Electronically signed by Jennifer RANDALL ([place]) Sign-Out Date: 01/26/2021 11:47 Performing Lab: [address] Disclaimer The Pap test is a screening test for cervical cancer. As evidenced by published data, it is subject to both inherent false negative and false positive results. Your patient's results should be interpreted in context with pertinent clinical history including gynecological examination. Normal [facility] ([place]) Comment on above: Performed By: #### G YCR #### [facility] [address] [place] [id number] Vital Signs Date Time Vital Sign Value Performing Clinician Sloan [email or web address] 05-20-2025 08:12-0400 Body height 175.[address] Aayush Frederick MD Work Phone: [facility] 05-20-2025 08:12-0400 Body mass index (BMI) [Ratio] 27.7 kg/m2 Dr. Aayush Frederick MD Work Phone: [facility] 05-20-2025 08:12-0400 Body temperature 99.1 [degF] Dr. Aayush Frederick MD Work Phone: [facility] 05-20-2025 08:12-0400 Body weight 85.[address] Aayush Frederick MD Work Phone: [facility] 05-20-2025 08:12-0400 Diastolic blood pressure 66 mm[Hg] Dr. Aayush Frederick MD Work Phone: [facility] 05-20-2025 08:12-0400 Heart rate 87 /min Dr. Aayush Frederick MD Work Phone: [facility] 05-20-2025 08:12-0400 Respiratory rate 16 /min Dr. Aayush Frederick MD Work Phone: [facility] 05-20-2025 08:12-0400 SaO2% (BldA) [Mass fraction] 97 % Dr. Aayush Frederick MD Work Phone: [facility] 05-20-2025 08:12-0400 Systolic blood pressure 110 mm[Hg] Dr. Aayush Frederick MD Work Phone: [facility] 04-30-2025 08:30-0400 Body height 175.[address] Aayush Frederick MD Work Phone: [facility] 04-30-2025 08:30-0400 Body mass index (BMI) [Ratio] 26.6 kg/m2 Dr. Aayush Frederick MD Work Phone: [facility] 04-30-2025 08:30-0400 Body weight 81.[address] Aayush Frederick MD Work Phone: [facility] 04-14-2025 14:10-0400 Body height 175.[address] Aayush Frederick MD Work Phone: [facility] 04-14-2025 14:10-0400 Body mass index (BMI) [Ratio] 27 kg/m2 Dr. Aayush Frederick MD Work Phone: [facility] 04-14-2025 14:10-0400 Body temperature 97.1 [degF] Dr. Aayush Frederick MD Work Phone: [facility] 04-14-2025 14:10-0400 Body weight 83.[address] Aayush Frederick MD Work Phone: [facility] 04-14-2025 14:10-0400 Diastolic blood pressure 68 mm[Hg] Dr. Aayush Frederick MD Work Phone: [facility] 04-14-2025 14:10-0400 Heart rate 86 /min Dr. Aayush Frederick MD Work Phone: [facility] 04-14-2025 14:10-0400 Respiratory rate 16 /min Dr. Aayush Frederick MD Work Phone: [facility] 04-14-2025 14:10-0400 Systolic blood pressure 118 mm[Hg] Dr. Aayush Frederick MD Work Phone: [facility] 03-31-2025 09:53-0400 Body height 175.[address] Aayush Frederick MD Work Phone: [facility] 03-31-2025 09:53-0400 Body mass index (BMI) [Ratio] 27.3 kg/m2 Dr. Aayush Frederick MD Work Phone: [facility] 03-31-2025 09:53-0400 Body temperature 98.6 [degF] Dr. Aayush Frederick MD Work Phone: [facility] 03-31-2025 09:53-0400 Body weight 83.[address] Aayush Frederick MD Work Phone: [facility] 03-31-2025 09:53-0400 Diastolic blood pressure 74 mm[Hg] Dr. Aayush Frederick MD Work Phone: [facility] 03-31-2025 09:53-0400 Heart rate 73 /min Dr. Aayush Frederick MD Work Phone: [facility] 03-31-2025 09:53-0400 Respiratory rate 16 /min Dr. Aayush Frederick MD Work Phone: [facility] 03-31-2025 09:53-0400 SaO2% (BldA) [Mass fraction] 100 % Dr. Aayush Frederick MD Work Phone: [facility] 03-31-2025 09:53-0400 Systolic blood pressure 126 mm[Hg] Dr. Aayush Frederick MD Work Phone: [facility] 02-19-2025 08:33-0400 Body height 175.[address] Aayush Frederick MD Work Phone: [facility] 01-05-2025 09:09-0500 Body height 175.[address] Aayush Frederick MD Work Phone: [facility] 01-05-2025 09:09-0500 Body mass index (BMI) [Ratio] 27.1 kg/m2 Dr. Aayush Frederick MD Work Phone: [facility] 01-05-2025 09:09-0500 Body temperature 97.6 [degF] Dr. Aayush Frederick MD Work Phone: [facility] 01-05-2025 09:09-0500 Body weight 83.[address] Aayush Frederick MD Work Phone: [facility] 01-05-2025 09:09-0500 Diastolic blood pressure 78 mm[Hg] Dr. Aayush Frederick MD Work Phone: [facility] 01-05-2025 09:09-0500 Heart rate 64 /min Dr. Aayush Frederick MD Work Phone: [facility] 01-05-2025 09:09-0500 Respiratory rate 16 /min Dr. Aayush Frederick MD Work Phone: [facility] 01-05-2025 09:09-0500 SaO2% (BldA) [Mass fraction] 96 % Dr. Aayush Frederick MD Work Phone: [facility] 01-05-2025 09:09-0500 Systolic blood pressure 138 mm[Hg] Dr. Aayush Frederick MD Work Phone: [facility] 12-16-2024 14:41-0500 Body height 175.3 cm Cristine Bucio MD Work Phone: [facility] 12-16-2024 14:41-0500 Body mass index (BMI) [Ratio] 26.58 kg/m2 Cristine Bucio MD Work Phone: [facility] 12-16-2024 14:41-0500 Body weight 81.65 kg Cristine Bucio MD Work Phone: [facility] 12-16-2024 14:41-0500 Diastolic blood pressure 78 mm[Hg] Cristine Bucio MD Work Phone: [facility] 12-16-2024 14:41-0500 Heart rate 87 /min Cristine Bucio MD Work Phone: [facility] 12-16-2024 14:41-0500 Systolic blood pressure 114 mm[Hg] Cristine Bucio MD Work Phone: [facility] 11-27-2024 15:03-0500 Body mass index (BMI) [Ratio] 27.4 kg/m2 Dr. Aayush Frederick MD Work Phone: [facility] 11-27-2024 15:03-0500 Body weight 84.[address] Aayush Frederick MD Work Phone: [facility] 11-27-2024 15:03-0500 Diastolic blood pressure 83 mm[Hg] Dr. Aayush Frederick MD Work Phone: [facility] 11-27-2024 15:03-0500 Systolic blood pressure 126 mm[Hg] Dr. Aayush Frederick MD Work Phone: [facility] 08-08-2023 05:59-0400 Diastolic blood pressure 59 mm[Hg] Dr. Aayush Frederick Work Phone: [facility] 08-08-2023 05:59-0400 Heart rate 778 /min Dr. Aayush Frederick Work Phone: [facility] 08-08-2023 05:59-0400 Respiratory rate 13 /min Dr. Aayush Frederick Work Phone: [facility] 08-08-2023 05:59-0400 SaO2% (BldA) [Mass fraction] 94 % Dr. Aayush Frederick Work Phone: [facility] 08-08-2023 05:59-0400 Systolic blood pressure 113 mm[Hg] Dr. Aayush Frederick Work Phone: [facility] 08-08-2023 03:01-0400 Body height 175.[address] Aayush Frederick Work Phone: [facility] 08-08-2023 03:01-0400 Body mass index (BMI) [Ratio] 27.3 kg/m2 Dr. Aayush Frederick Work Phone: [facility] 08-08-2023 03:01-0400 Body temperature 97.1 [degF] Dr. Aayush Frederick Work Phone: [facility] 08-08-2023 03:01-0400 Body weight 83.[address] Aayush Frederick Work Phone: [facility] 06-06-2023 13:52-0400 Body height 175.[address] Aayush Frederick Work Phone: [facility] 06-06-2023 13:52-0400 Body mass index (BMI) [Ratio] 25.6 kg/m2 Dr. Aayush Frederick Work Phone: [facility] 06-06-2023 13:52-0400 Body temperature 96.6 [degF] Dr. Aayush Frederick Work Phone: [facility] 06-06-2023 13:52-0400 Body weight 78.[address] Aayush Frederick Work Phone: [facility] 06-06-2023 13:52-0400 Diastolic blood pressure 76 mm[Hg] Dr. Aayush Frederick Work Phone: [facility] 06-06-2023 13:52-0400 Heart rate 100 /min Dr. Aayush Frederick Work Phone: [facility] 06-06-2023 13:52-0400 Respiratory rate 18 /min Dr. Aayush Frederick Work Phone: [facility] 06-06-2023 13:52-0400 SaO2% (BldA) [Mass fraction] 98 % Dr. Aayush Frederick Work Phone: [facility] 06-06-2023 13:52-0400 Systolic blood pressure 118 mm[Hg] Dr. Aayush Frederick Work Phone: [facility] 05-16-2023 18:18-0400 Body mass index (BMI) [Ratio] 25.9 kg/m2 Dr. Aayush Frederick Work Phone: [facility] 05-16-2023 18:18-0400 Body temperature 98.3 [degF] Dr. Aayush Frederick Work Phone: [facility] 05-16-2023 18:18-0400 Body weight 79.[address] Aayush Frederick Work Phone: [facility] 05-16-2023 18:18-0400 Diastolic blood pressure 76 mm[Hg] Dr. Aayush Frederick Work Phone: [facility] 05-16-2023 18:18-0400 Heart rate 90 /min Dr. Aayush Frederick Work Phone: [facility] 05-16-2023 18:18-0400 Respiratory rate 14 /min Dr. Aayush Frederick Work Phone: [facility] 05-16-2023 18:18-0400 SaO2% (BldA) [Mass fraction] 97 % Dr. Aayush Frederick Work Phone: [facility] 05-16-2023 18:18-0400 Systolic blood pressure 122 mm[Hg] Dr. Aayush Frederick Work Phone: [facility] 03-19-2023 11:17-0400 Body height 175.[address] Aayush Frederick Work Phone: [facility] 03-19-2023 11:16-0400 Body mass index (BMI) [Ratio] 25.7 kg/m2 Dr. Aayush Frederick Work Phone: [facility] 03-19-2023 11:16-0400 Body weight 79.[address] Aayush Frederick Work Phone: [facility] 03-19-2023 11:16-0400 Diastolic blood pressure 77 mm[Hg] Dr. Aayush Frederick Work Phone: [facility] 03-19-2023 11:16-0400 Systolic blood pressure 124 mm[Hg] Dr. Aayush Frederick Work Phone: [facility] 02-16-2023 11:34-0400 Body mass index (BMI) [Ratio] 25.7 kg/m2 Dr. Aayush Frederick Work Phone: [facility] 02-16-2023 11:34-0400 Body weight 78.[address] Aayush Frederick Work Phone: [facility] 02-16-2023 11:34-0400 Diastolic blood pressure 87 mm[Hg] Dr. Aayush Frederick Work Phone: [facility] 02-16-2023 11:34-0400 Systolic blood pressure 129 mm[Hg] Dr. Aayush Frederick Work Phone: [facility] 02-03-2023 10:30-0400 Body temperature 98 [degF] Dr. Aayush Frederick Work Phone: [facility] 02-03-2023 10:30-0400 Diastolic blood pressure 60 mm[Hg] Dr. Aayush Frederick Work Phone: [facility] 02-03-2023 10:30-0400 Heart rate 68 /min Dr. Aayush Frederick Work Phone: [facility] 02-03-2023 10:30-0400 Respiratory rate 16 /min Dr. Aayush Frederick Work Phone: [facility] 02-03-2023 10:30-0400 SaO2% (BldA) [Mass fraction] 100 % Dr. Aayush Frederick Work Phone: [facility] 02-03-2023 10:30-0400 Systolic blood pressure 104 mm[Hg] Dr. Aayush Frederick Work Phone: [facility] 02-02-2023 21:13-0400 Body height 175.[address] Aayush Frederick Work Phone: [facility] 02-02-2023 21:13-0400 Body mass index (BMI) [Ratio] 26.6 kg/m2 Dr. Aayush Frederick Work Phone: [facility] 02-02-2023 21:13-0400 Body weight 81.[address] Aayush Frederick Work Phone: [facility] 02-02-2023 17:45-0400 Inhaled oxygen flow rate 4 L/min Dr. Aayuhs Frederick Work Phone: [facility] 01-08-2023 07:11-0500 Body temperature 97.6 [degF] Dr. Aayush Frederick Work Phone: [facility] 01-08-2023 07:11-0500 Diastolic blood pressure 85 mm[Hg] Dr. Aayush Frederick Work Phone: [facility] 01-08-2023 07:11-0500 Heart rate 64 /min Dr. Aayush Frederick Work Phone: [facility] 01-08-2023 07:11-0500 Respiratory rate 16 /min Dr. Aayush Frederick Work Phone: [facility] 01-08-2023 07:11-0500 SaO2% (BldA) [Mass fraction] 99 % Dr. Aayush Frederick Work Phone: [facility] 01-08-2023 07:11-0500 Systolic blood pressure 112 mm[Hg] Dr. Aayush Frederick Work Phone: [facility] 01-08-2023 05:55-0500 Body height 175.[address] Aayush Frederick Work Phone: [facility] 01-08-2023 05:55-0500 Body mass index (BMI) [Ratio] 24.7 kg/m2 Dr. Aayush Frederick Work Phone: [facility] 01-08-2023 05:55-0500 Body weight [address] Aayush Frederick Work Phone: [facility] 12-11-2022 08:26-0500 Body height 175.[address] Aayush Frederick Work Phone: [facility] 12-11-2022 08:25-0500 Body mass index (BMI) [Ratio] 25.7 kg/m2 Dr. Aayush Frederick Work Phone: [facility] 12-11-2022 08:25-0500 Body weight 78.[address] Aayush Frederick Work Phone: [facility] 12-11-2022 08:25-0500 Diastolic blood pressure 84 mm[Hg] Dr. Aayush Frederick Work Phone: [facility] 12-11-2022 08:25-0500 Systolic blood pressure 108 mm[Hg] Dr. Aayush Frederick Work Phone: [facility] 11-08-2022 10:53-0500 Body height 175.[address] Aayush Frederick Work Phone: [facility] 11-08-2022 10:46-0500 Body mass index (BMI) [Ratio] 25.8 kg/m2 Dr. Aayush Frederick Work Phone: [facility] 11-08-2022 10:46-0500 Body weight 79.[address] Aayush Frederick Work Phone: [facility] 11-08-2022 10:46-0500 Diastolic blood pressure 84 mm[Hg] Dr. Aayush Frederick Work Phone: [facility] 11-08-2022 10:46-0500 Systolic blood pressure 124 mm[Hg] Dr. Aayush Frederick Work Phone: [facility] 10-25-2022 08:35-0500 Body mass index (BMI) [Ratio] 25.8 kg/m2 Dr. Aayush Frederick Work Phone: [facility] 10-25-2022 08:35-0500 Body weight 79.[address] Aayush Frederick Work Phone: [facility] 09-11-2022 11:45-0400 Body height 175.[address] Aayush Frederick Work Phone: [facility] Work Phone: 09-11-2022 11:32-0400 Body mass index (BMI) [Ratio] 25.9 kg/m2 Dr. Aayush Frederick Work Phone: [facility] 09-11-2022 11:32-0400 Body weight 79.[address] Aayush Frederick Work Phone: [facility] 09-11-2022 11:32-0400 Diastolic blood pressure 76 mm[Hg] Dr. Aayush Frederick Work Phone: [facility] 09-11-2022 11:32-0400 Systolic blood pressure 122 mm[Hg] Dr. Aayush Frederick Work Phone: [facility] 08-09-2022 09:23-0400 Body height 175.[address] Aayush Frederick Work Phone: [facility] Work Phone: 08-09-2022 09:23-0400 Body mass index (BMI) [Ratio] 25.8 kg/m2 Dr. Aayush Frederick Work Phone: [facility] 08-09-2022 09:23-0400 Body temperature 98.7 [degF] Dr. Aayush Frederick Work Phone: [facility] 08-09-2022 09:23-0400 Body weight 79.[address] Aayush Frederick Work Phone: [facility] 08-09-2022 09:23-0400 Diastolic blood pressure 78 mm[Hg] Dr. Aayush Frederick Work Phone: [facility] 08-09-2022 09:23-0400 Heart rate 89 /min Dr. Aayush Frederick Work Phone: [facility] 08-09-2022 09:23-0400 Respiratory rate 14 /min Dr. Aayush Frederick Work Phone: [facility] 08-09-2022 09:23-0400 SaO2% (BldA) [Mass fraction] 99 % Dr. Aayush Frederick Work Phone: [facility] 08-09-2022 09:23-0400 Systolic blood pressure 130 mm[Hg] Dr. Aayush Frederick Work Phone: [facility] 04-19-2022 09:11-0400 Body height 172.[address] Aayush Frederick Work Phone: [facility] Work Phone: 04-19-2022 09:11-0400 Body mass index (BMI) [Ratio] 28.8 kg/m2 Dr. Aayush Frederick Work Phone: [facility] Work Phone: 04-19-2022 09:11-0400 Body temperature 98.1 [degF] Dr. Aayush Frederick Work Phone: [facility] Work Phone: 04-19-2022 09:11-0400 Body weight 86.[address] Aayush Frederick Work Phone: [facility] Work Phone: 04-19-2022 09:11-0400 Diastolic blood pressure 76 mm[Hg] Dr. Aayush Frederick Work Phone: [facility] Work Phone: 04-19-2022 09:11-0400 Heart rate 87 /min Dr. Aayush Frederick Work Phone: [facility] Work Phone: 04-19-2022 09:11-0400 Respiratory rate 14 /min Dr. Aayush Frederick Work Phone: [facility] Work Phone: 04-19-2022 09:11-0400 SaO2% (BldA) [Mass fraction] 99 % Dr. Aayush Frederick Work Phone: [facility] Work Phone: 04-19-2022 09:11-0400 Systolic blood pressure 120 mm[Hg] Dr. Aayush Frederick Work Phone: [facility] Work Phone: 12-30-2021 07:30-0500 Body mass index (BMI) [Ratio] 31.1 kg/m2 Dr. Aayush Frederick Work Phone: [facility] Work Phone: 12-30-2021 07:30-0500 Body temperature 98.9 [degF] Dr. Aayush Frederick Work Phone: [facility] Work Phone: 12-30-2021 07:30-0500 Body weight 92.[address] Aayush Frederick Work Phone: [facility] Work Phone: 12-30-2021 07:30-0500 Diastolic blood pressure 80 mm[Hg] Dr. Aayush Frederick Work Phone: [facility] Work Phone: 12-30-2021 07:30-0500 Heart rate 74 /min Dr. Aayush Frederick Work Phone: [facility] Work Phone: 12-30-2021 07:30-0500 Respiratory rate 16 /min Dr. Aayush Frederick Work Phone: [facility] Work Phone: 12-30-2021 07:30-0500 SaO2% (BldA) [Mass fraction] 99 % Dr. Aayush Frederick Work Phone: [facility] Work Phone: 12-30-2021 07:30-0500 Systolic blood pressure 124 mm[Hg] Dr. Aayush Frederick Work Phone: [facility] Work Phone: Encounters Encounter Date Encounter Type Care Provider Facility Start: 05-25-2025 End: 05-25-2025 ambulatory RODO GAONA MD Facility:[facility] Start: 05-25-2025 End: 05-25-2025 Patient encounter procedure RODO GAONA MD [facility] Start: 05-20-2025 End: 05-20-2025 Patient encounter procedure Griffin MIN -[facility] Work Phone: Start: 05-20-2025 End: 05-20-[address] Aayush Frederick MD Work Phone: -[facility] Start: 05-18-2025 End: 05-18-[address] Aayush Frederick MD Work Phone: -[facility] Start: 05-18-2025 End: 05-18-2025 Patient encounter procedure Griffin MIN -[facility] Start: 05-18-2025 End: 05-18-2025 ambulatory Aayush Frederick Facility:[facility] Start: 04-30-2025 End: 04-30-[address] Rodo Gaona MD -[facility] Work Phone: Start: 04-30-2025 End: 04-30-[address] Aayush Frederick MD Work Phone: [facility] Work Phone: Start: 04-14-2025 End: 04-14-2025 Patient encounter procedure Griffin MIN -[facility] Work Phone: Start: 04-14-2025 End: 04-14-[address] Aayush Frederick MD Work Phone: [facility] Work Phone: Start: 04-01-2025 End: 04-01-2025 Patient encounter procedure Xochlit LOGANC -[facility] Work Phone: Start: 04-01-2025 End: 04-01-[address] Aayush Frederick MD Work Phone: [facility] Work Phone: Start: 04-01-2025 ambulatory Xochilt Jon Facility :[facility] Start: 04-01-2025 Registered Recurring Xochilt Jon [employer]OLS TECHNICIAN-C -Physical Therapy Work Phone: Start: 03-31-2025 End: 03-31-2025 Patient encounter procedure Sarah MIN -[facility] Work Phone: Start: 03-31-2025 End: 03-31-[address] Aayush Frederick MD Work Phone: [facility] Work Phone: Start: 03-30-2025 Registered Recurring Xochilt Jon CONTROLS TECHNICIAN-C -Physical Therapy Work Phone: Start: 03-24-2025 End: 03-24-2025 Patient encounter procedure Xochilt Jon CONTROLS TECHNICIAN-C -[facility] Work Phone: Start: 03-24-2025 End: 03-24-[address] Aayush Frederick MD Work Phone: [facility] Work Phone: Start: 03-23-2025 Registered Recurring Xochilt Jon CONTROLS TECHNICIAN-C -Physical Therapy Work Phone: Start: 03-16-2025 End: 03-16-2025 Patient encounter procedure Xochilt Jon CONTROLS TECHNICIAN-C -[facility] Work Phone: Start: 03-16-2025 End: 03-16-2025 ambulatory Aayush Frederick Facility:[facility] Start: 03-04-2025 End: 03-04-2025 Patient encounter procedure Xochilt Jon CONTROLS TECHNICIAN-C -[facility] Work Phone: Start: 03-04-2025 End: 03-04-2025 ambulatory Aayush Frederick Facility:[facility] Start: 02-26-2025 End: 02-26-2025 ambulatory ANSELMO BENDER Facility:[facility] Start: 02-19-2025 End: 02-19-2025 Patient encounter procedure Xochilt Jon CONTROLS TECHNICIAN-C -[facility] Work Phone: Start: 02-19-2025 End: 02-19-2025 ambulatory Aayush Frederick Facility:[facility] Start: 01-05-2025 End: 01-05-[address] Aayush Frederick MD -Laboratory, [place] Start: 01-05-2025 End: 01-05-[address] Aayush Frederick MD -[facility] Work Phone: Start: 01-05-2025 End: 01-05-[address] Aayush Frederick MD Work Phone: [facility] Work Phone: Start: 01-05-2025 End: 01-05-2025 ambulatory [facility] Facility:[facility] Start: 12-19-2024 End: 12-19-2024 Patient encounter procedure [facility] Provider [facility] Start: 12-17-2024 End: 12-17-2024 Telephone encounter Cristine Bucio MD Work Phone: [facility] Comment on above: Results Start: 12-16-2024 End: 12-16-2024 ambulatory CRISTINE BUCIO Facility:[facility] Start: 12-16-2024 End: 12-16-2024 Patient encounter procedure Cristine Bucio MD Work Phone: [facility] Comment on above: Breast pain, left (P rimary Dx); Vitamin D deficiency Start: 12-16-2024 End: 12-16-2024 ambulatory LLOYD JEFFY Facility:[facility] Start: 11-28-2024 End: 11-28-[address] Carolina Cool MD -Outpatient Breast Imaging Work Phone: Start: 11-27-2024 End: 11-27-2024 Patient encounter procedure Ewa LOGANC -[facility] Work Phone: Start: 11-27-2024 End: 11-28-2024 ambulatory [facility] Facility:[facility] Start: 07-28-2024 End: 07-28-2024 ambulatory [facility] Facility:[facility] Start: 07-08-2024 End: 07-08-2024 ambulatory [facility] Facility:[facility] Start: 08-29-2023 End: 08-29-2023 ambulatory Amirah Alberto MD, PhD Work Phone: Gastroenterology Comment on above: Splenomegaly (Primar y Dx); Elevated liver function tests Start: 08-29-2023 End: 08-29-2023 Telemedicine consultation with patient Amirah Alberto MD, PhD Work Phone: [facility] Start: 08-08-2023 End: 08-08-2023 Emergency department patient [facility] Start: 06-06-2023 End: 06-06-[address] Aayush Frederick Work Phone: [facility] Work Phone: Start: 06-06-2023 End: 06-06-[address] Aayush Frederick Work Phone: [facility] Internal Medicine Work Phone: Start: 06-05-2023 End: 06-05-[address] Aayush Frederick Work Phone: [facility] Work Phone: Start: 06-05-2023 End: 06-05-[address] Aayush Frederick Work Phone: [facility] Work Phone: Start: 05-16-2023 End: 05-16-[address] Aayush Frederick Work Phone: [facility] Internal Medicine Work Phone: Start: 03-19-2023 End: 03-19-[address] Aayush Frederick Work Phone: [facility] Work Phone: Start: 03-19-2023 End: 03-19-[address] Aayush Frederick Work Phone: [facility] Start: 03-19-2023 End: 03-19-[address] Aayush Frederick Work Phone: [facility] Start: 02-16-2023 End: 02-16-[address] Aayush Frederick Work Phone: [facility] Start: 02-03-2023 Non-patient / Non-visit Dr. Aayush Frederick Work Phone: [facility] Start: 02-02-2023 End: 02-03-2023 Evaluation and management of inpatient Dr. Aayush Frederick Work Phone: [facility]-Medical Surgical 3 Start: 02-02-2023 Non-patient / Non-visit Dr. Aayush Frederick Work Phone: [facility] Start: 01-26-2023 End: 01-26-[address] Aayush Frederick Work Phone: [facility]-Laboratory Start: 01-08-2023 Non-patient / Non-visit Dr. Aayush Frederick Work Phone: [facility] Start: 01-08-2023 End: 01-08-2023 Admission to same day surgery center Dr. Aayush Frederick Work Phone: [facility]-Endoscopy Start: 01-08-2023 End: 01-08-[address] Aayush Frederick Work Phone: [facility] Work Phone: Start: 01-02-2023 End: 01-02-[address] Aayush Frederick Work Phone: [facility] Work Phone: Start: 01-02-2023 End: 01-02-[address] Aayush Frederick Work Phone: [facility]-Physical Therapy Start: 12-11-2022 End: 12-11-[address] Aayush Frederick Work Phone: [facility] Start: 11-29-[address] Delvis Frederick Work Phone: [facility]-Physical Therapy Start: 11-17-[address] Delvis Frederick Work Phone: [facility]-Physical Therapy Start: 11-15-2022 End: 11-15-[address] Aayush Frederick Work Phone: [facility] Work Phone: Start: 11-15-2022 End: 11-15-[address] Aayush Frederick Work Phone: [facility] Start: 11-08-2022 End: 11-08-[address] Aayush Frederick Work Phone: [facility] Work Phone: Start: 11-08-2022 End: 11-08-[address] Aayush Frederick Work Phone: [facility]-Laboratory, Specimen Start: 11-08-2022 End: 11-08-[address] Aayush Frederick Work Phone: [facility] Start: 10-25-2022 Non-patient / Non-visit Dr. Aayush Frederick Work Phone: [facility] Start: 09-29-[address] Delvis Frederick Work Phone: [facility]-Physical Therapy Start: 09-21-2022 End: 09-21-[address] Aayush Frederick Work Phone: [facility] Work Phone: Start: 09-21-2022 End: 09-21-[address] Aayush Frederick Work Phone: [facility]-Outpatient Breast Imaging Start: 09-11-2022 End: 09-11-[address] Aayush Frederick Work Phone: [facility] Start: 08-15-2022 End: 08-15-[address] Aayush Frederick Work Phone: [facility] Work Phone: Start: 08-15-2022 End: 08-15-[address] Aayush Frederick Work Phone: [facility]-Laboratory, [facility] Start: 08-10-[address] Delvis Frederick Work Phone: [facility]-Physical Therapy Start: 08-09-2022 End: 08-09-[address] Aayush Frederick Work Phone: [facility] Internal Medicine Start: 05-09-2022 End: 05-09-[address] Aayush Frederick Work Phone: [facility]-Outpatient Breast Imaging Start: 04-19-[address] Aayush Frederick Work Phone: [facility] Work Phone: Start: 04-19-2022 End: 04-19-2022 Encounter for general adult medical examination without abnormal findings Dr. Aayush Frederick Work Phone: [facility] Internal Medicine Start: 04-19-2022 End: 04-19-[address] Aayush Frederick Work Phone: [facility] Internal Medicine Start: 12-30-2021 End: 12-30-[address] Aayush Frederick Work Phone: [facility]-Laboratory, [facility] Procedures Date Procedure Procedure Detail Performing Clinician Start: 02-19-2025 X-ray of knee, four or more views Dr. Aayush Frederick MD Work Phone: Start: 01-05-2025 Measurement of renal function Dr. Aayush Frederick MD Work Phone: Comment on above: GFR Calc Start: 01-05-2025 Vitamin D, 25-hydrox y measurement Dr. Aayush Frederick MD Work Phone: Comment on above: Vitamin D 25(OH) Sta tus Range Deficiency <20 ng/mL (50nmol/L) Insufficiency 20 - 30 ng/mL (50 - 75 nmol/L) Sufficiency 30 - 100 ng/mL (75 - 250 nmol/L) Toxicity >100 ng/mL (>250 nmol/L) Start: 11-28-2024 Bilateral mammography Gay Frederick MD Work Phone: Start: 11-28-[address] Aayush Frederick MD Work Phone: Start: 08-08-2023 Computed tomography of abdomen and pelvis with intravenous contrast Dr. Aayush Frederick Work Phone: Start: 03-19-2023 Cytopathology proced ure, preparation of smear, genital source Dr. Aayush Frederick Work Phone: Start: 03-19-2023 Investigation of tra nsfusion reaction Dr. Aayush Frederick Work Phone: Start: 02-02-[address] Citlali Frederick Work Phone: Start: 01-08-[address] Marni Frederick Work Phone: Start: 11-15-[address] Anita Frederick Work Phone: Start: 11-15-[address] Aayush Frederick Work Phone: Start: 09-21-[address] Marni Frederick Work Phone: Start: 09-21-[address] Aayush Frederick Work Phone: Start: 05-09-2022 Screening mammography Gay Frederick Work Phone: Cytopathology proced ure, preparation of smear, genital source Dr. Aayush Frederick Work Phone: Investigation of tra nsfusion reaction Dr. Aayush Frederick Work Phone: None (qualifier value) RODO GAONA MD Tonsillectomy RODO GAONA MD Plan of Treatment Date Care Activity Detail Author Start: 03-04-[address] [facility] Work Phone: Start: 02-11-2025 End: 02-11-2025 Patient encounter procedure 02/11/2025 10:00 AM EDT Office Visit [facility] 1 [facility] [address] [place] [address] Cristine Bucio MD [address] [place] [address] 8 week follow up. [facility] Comment on above: 8 week follow up. Start: 07-13-2024 Covid-19 Vaccine ( season) Covid-19 Vaccine ( season) [facility] Start: 07-13-2024 Influenza vaccination Influenza Vacc ine (#1) [facility] Start: 07-13-2023 Influenza vaccination Influenza Vacc ine (#1) [facility] Start: 02-03-2023 Patient discharge [facility] Start: 02-02-2023 End: 02-02-2023 [facility] Start: 02-02-2023 Following clinical pathway protocol [facility] Start: 02-02-2023 Admission procedure [facility] Start: 02-02-2023 Vital signs measurements [facility] Start: 02-02-2023 Introduction of urin katie catheter [facility] Start: 02-02-2023 Ambulation therapy management [facility] Start: 02-02-2023 Continuous pulse oximetry [facility] Start: 02-02-2023 Elevation of head of bed [facility] Start: 02-02-2023 Incentive spirometry [facility] Start: 02-02-2023 Measuring intake and output [facility] Start: 02-02-2023 End: 02-02-2023 Notification of physician [facility] Start: 02-02-2023 Oxygen therapy [facility] Start: 02-02-2023 Patient education [facility] Start: 02-02-2023 Procedures relating to eating and drinking [facility] Start: 02-02-2023 Taking patient vital signs [facility] Start: 02-02-2023 Anesthesia vaginal hysterectomy incl biopsy ANESTH VAGINAL HYSTERECTOMY [facility] Start: 02-02-2023 Laps w/vag hysterect 250 gm/&rmvl tube&/ovaries LAPARO-VAG HYST INCL T/O [facility] Start: 01-08-2023 Patient discharge [facility] Start: 11-12-2022 [facility] Start: 08-09-2022 Patient referral [facility] Work Phone: Start: 04-19-2022 Patient referral [facility] Work Phone: Start: 2022 Cologuard (FIT-DNA) Cologuard (FIT-D NA) [facility] Start: 2022 Colonoscopy Colonoscopy [facility] Start: 2022 Colorectal Cancer Screening Colorectal Cancer Screening [facility] Start: [address] Colonography [facility] Start: 2022 Diabetes Screening Diabetes Screenin g [facility] Start: 2022 Fecal Occult Blood Fecal Occult Bloo d [facility] Start: 2022 Lipid 1996 panel - Serum or Plasma Lipid Screening [facility] Start: 2022 Lipid panel Lipid Screening [facility] Start: 2022 Screening for malign ant neoplasm of colon [facility] Start: 2022 Sigmoidoscopy Sigmoidoscopy [facility] Start: 2017 Mammography Mammogram Screening [facility] Start: 2017 Screening for malign ant neoplasm of breast Mammogram Screening [facility] Start: 2007 HPV Testing HPV Testing [facility] Start: 1998 Pap Testing Pap Testing [facility] Start: 1998 Screening for malign ant neoplasm of cervix Cervical Cancer Screening [facility] Start: 1996 Hepatitis B Vaccine (1 of 3 - 19+ 3-dose series) Hepatitis B Vaccine (1 of 3 - 19+ 3-dose series) [facility] Start: 1996 Urine microalbumin profile DTaP,Tdap,Td Vaccine (1 - Tdap) [facility] Start: 1995 Anxiety Screening Anxiety Screening [facility] Start: 1995 Depression Screening Depression Scre ening [facility] Start: 1995 Hepatitis C Screening Hepatitis C [facility] Start: 1995 Hepatitis C screening Hepatitis C [facility] Start: 1995 HIV Screening HIV Screening [facility] Start: 1995 HIV screening HIV Screening [facility] Start: 1977 Covid-19 Vaccine (#1) Covid-19 Vacci ne (#1) [facility] Start: 1977 Hepatitis B Vaccine (1 of 3 - 3-dose series) Hepatitis B Vaccine (1 of 3 - 3-dose series) [facility] Colonoscopy [facility] Work Phone: Colonoscopy [facility] metabo lic 1999 panel - Serum or Plasma [facility] metabo lic 1999 panel - Serum or Plasma [facility] MR Brain WO and W contrast IV [facility] MR Lower Extremity Joint [facility] MR Lower Extremity Joint [facility] MR Lower Extremity Joint [facility] Patient Education Abdominal Pain [facility] Work Phone: Patient referral [facility] Work Phone: [facility] Immunizations Immunization Date Immunization Notes Care Provider [facility] 09-03-2020 influenza, injectable,quadrivalent , preservative free, pediatric Dr. Aayush Frederick Work Phone: [facility] 09-03-2020 Flucelvax Quad (PF) (flu vac qs 2019(4 yr up)CD(PF)) 60 mcg ([address] Aayush Frederick Work Phone: [facility] Work Phone: 09-03-2020 influenza virus vaccine, unspecified formulation Amirah Alberto MD, PhD Work Phone: [facility] 08-14-2009 influenza virus vaccine, unspecified formulation Amirah Alberto MD, PhD Work Phone: [facility] Work Phone: 09-16-2008 influenza virus vaccine, unspecified formulation Amirah Alberto MD, PhD Work Phone: [facility] Work Phone: 09-11-2007 influenza virus vaccine, unspecified formulation Amirah Alberto MD, PhD Work Phone: [facility] 09-19-2006 influenza virus vaccine, unspecified formulation Amirah Alberto MD, PhD Work Phone: [facility] Work Phone: Payers Date Payer Category Payer Private Health Insurance [id number] 2024 Self-pay [id number] 2019 Unknown MMO MMO SUPERMED PPO [id number] 2019-Present [phone] [address] [place] [address] PPO [id number] 2019 Unknown [id number] 1977 Unknown [id number] 27 1977 Unknown [id number] [id number] 27 Unknown [facility] PACKAGE PLAN [id number] Unknown [id number] [id number] 62 Unknown [id number] 2.16.840.1.168397.3.579.2.4 62 Unknown [id number] 2.16.840.1.037022.3.579.2.4 62 Unknown [id number] 2.16.840.1.909509.3.579.2.4 62 Unknown [id number] 2.16.840.1.549353.3.579.2.4 62 Unknown [id number] 2.16.840.1.890867.3.579.2.4 62 Unknown [id number] 2.16.840.1.435805.3.579.2.4 62 Unknown [id number] 2.16.840.1.321525.3.579.2.4 62 Unknown [id number] 2.16.840.1.813860.3.579.2.4 62 Unknown [id number] 2.16.840.1.906436.3.579.2.4 62 Unknown [id number] 2.16.840.1.266658.3.579.2.4 62 Unknown [id number] 2.16.840.1.629116.3.579.2.4 62 Unknown [id number] 2.16.840.1.136870.3.579.2.4 62 Unknown [id number] 2.16.840.1.213789.3.579.2.4 62 Unknown [id number] 2.16.840.1.342067.3.579.2.4 62 Unknown [id number] 2.16.840.1.467049.3.579.2.4 62 Unknown [id number] 2.16.840.1.865882.3.579.2.4 62 Unknown [id number] 2.16.840.1.857822.3.579.2.4 62 Social History Date Type Detail Facility Start: 04-19-2022 End: 08-08-2023 Tobacco smoking status NHIS Unknown if ever smoked [facility] Start: 1975 Sex Assigned At Female [facility] Start: 11-18-2017 End: 01-18-2021 Tobacco smoking status NHIS Never smoked tobacco [facility] Start: 11-18-2017 End: 12-16-2024 Tobacco use and exposure Smokeless tobacco non-user [facility] Start: 08-29-2018 End: 12-16-2024 Alcohol intake Not Asked [facility] Start: 08-29-2018 End: 08-29-2023 History of Social function [facility] Start: 08-29-2018 End: 08-29-2023 Tobacco use panel [facility] National Score (1-100), lower number is lower risk 72 [facility] Start: 1975 Sex Assigned At Not on file [facility] Start: 01-02-2019 End: 01-15-2025 Sex Female (finding) [facility] Sexual Orientation Alexander Langston jag Alexander Motley NEGATED: Highlighted row [facility] Medical Equipment Procedure Code Equipment Code Equipment Origin al Text Equipment Identifier Dates Laparoscopy with vaginal hysterectomy Collagen haemostatic agent, non-antimicrobial ([id number] FDA Start: 02-02-2023 Goals Date Patient Goal Desired Activity /State Functional Status Date Assessment Result Facility 02-03-2023 Functional status Up ad chito;Bathroom Priv ilege [facility] Work Phone: Mental Status Date Assessment Result Facility 02-03-2023 Cognitive function Level Of Cons ciousness Awake;Alert;Appropriate;Follow s Commands [facility] Work Phone: 02-02-2023 Cognitive function Voice/Name [facility] Work Phone: 01-08-2023 Cognitive function Voice/Name [facility] Work Phone: Clinical Notes 11-08-2022 to 04-30-2025 Note Date & Type Note Facility 04-30-2025 Progress note [facility] 04-30-2025 Progress note Note Date/Time April 30, 2025 8:59am [facility] [address] [place] [address] OFFICE VISIT Date of Service: 04/30/25 MR#: [id number] Acct: [id number] Name: KEITH WALDROP Rep #: [id number] : 1975 Provider: Dr. Hesham Gaona MD Age/Sex: 50/F Location: [facility] Status: Signed Intake Vital Signs 03/31/25 09:53 04/14/25 14:10 04/30/25 08:30 Height 5 ft 9 in 5 ft 9 in 5 ft 9 in Weight: 185 lb 180 lb BMI 27.3 26.6 BP 126/74 H Blood Pressure Location Lt brachial Position Sitting Respiration 16 Pulse 73 Pulse Source Monitor Temp 98.6 F Temp Source Temporal Pulse Oximetry (%) 100 Oxygen Delivery Method room air Intake Visit Reasons: BL KNEES Chief Complaint: Bilateral knee pain Accompanied by: Self Is patient in pain?: Yes Pain scale (1-10): 4 Allergies erythromycin base Adverse Reaction (Mild, Verified 04/30/25 08:32) Upset Stomach Medications ?Medication ?Instructions ?Recorded ?Confirmed ?Type Lactobacillus acidophilus 10 10,000 mmu cells PO DAILY 01/02/23 04/30/25 History billion cell capsule (Probiotic) ascorbic acid (vitamin C) 500 mg 500 mg PO DAILY 01/0204/30/25 History tablet (Vitamin C) cholecalciferol (vitamin D3) 25 25 mcg PO DAILY 04/30/25 History mcg (1,000 unit) capsule (Vitamin D3) turmeric 400 mg capsule 400 mg PO DAILY 01/02/23 History zinc 50 mg capsule 50 mg PO DAILY 01/02/2304/12 History fluticasone propionate 50 1 spray intranasal DAILY 04/0304/30/25 History mcg/actuation nasal spray,suspension (Flonase Allergy Relief) gabapentin 100 mg capsule 200 mg PO QHS 03/31/2504/30 History duloxetine 20 mg capsule,delayed 20 mg PO QDAY #30 cap s 04/15/25 04/30/25 Rx release (Cymbalta) Have you fallen in the past year?: No PFSH Medical History (Updated 04/30/25 @ 08:52 by Rodo Gaona MD) Left knee pain Elevated Rod-Garcia virus antibody titer Encounter for vitamin deficiency screening Chronic fatigue Gastritis Epigastric abdominal tenderness Lightheadedness Numbness and tingling in both hands Sinusitis Vertigo Back pain Migraine headache Non-smoker Fibroid uterus Enlarged uterus Menorrhagia with regular cycle Elevated liver enzymes Anemia Frequent headaches Back problem Arthritis Surgical History History of bilateral salpingectomy S/P laparoscopic assisted vaginal hysterectomy (LAVH) Hx of colonoscopy History of tonsillectomy Family History Other Anxiety and depression Arthritis Asthma CVA (cerebral vascular accident) Diabetes Heart disease Hyperlipemia Hypertension Lupus Myocardial infarction Osteopenia Thyroid disorder Social History Smoking Status: Never smoker alcohol intake: never substance use type: does not use caffeine: Yes what type of physical activity do you participate in: walking frequency: 1-2 times per week seatbelt use: always do you feel safe at home: Yes additional social history: - [employer] Rarely uses aspirin. Does not use ibuprofen regularly. HPI BL KNEES Details: This documentation accurately reflects the service provided and the decisions made by me, Dr. Rodo Gaona MD 04/30/25 0801. Part of today?s visit was documented by [ ], acting as scribe. KEITH WALDROP is a 50 year old F here today for right knee pain. Supplemental Info MRI of the right knee 02/26/2025 from [facility] lateral meniscus lateral tibiofemoral cartilage appeared normal. Minimal fluid signal within the posterior horn the lateral meniscus does not extend to the articular surface with mild meniscal extrusion likely related to degeneration. Fluid signal with fraying of the posterior horn medial meniscus mild meniscal extrusion may relate to degeneration. Blunting of the body in the medial meniscus which can be seen with small radial tear. 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 I independently reviewed the imaging. Concur with radiologist report. [facility] Imaging Services [address] [place] [address] Knee 4 or More Views MR#: [id number] Acct: [id number] Name: KEITH WALDROP Rep #: [id number] : 1975 F 49 From: Juan Jose Rivera MD PCP: Dr. Aayush Frederick MD Status: DEP AMB Study: Knee 4 or More Views Date of Exam: 02/19/25 Exam# [id number] Ordering Dr: Xochilt Jon CONTROLS TECHNICIAN-C EXAM: XR Right Knee Complete, 4 or More Views CLINICAL INDICATION: PAIN X 1 DAY, NO RECENT INJURY TECHNIQUE: Four or more views of the right knee. COMPARISON: No relevant prior studies available. FINDINGS: BONES/JOINTS: Unremarkable. No acute fracture. No dislocation. SOFT TISSUES: Unremarkable. RAD/Knee 4 or More Views IMPRESSION: No acute fracture. Reading Location: [facility] Radiology [address] [place] [address] Knee 4 or More Views MR#: [id number] Acct: [id number] Name: KEITH WALDROP Rep #: [id number] : 1975 F 48 From: Nile Rowley DO PCP: Dr. Aayush Frederick MD Status: DEP AMB Study: Knee 4 or More Views Date of Exam: 12/24/23 Exam# [id number] Ordering Dr: Sunshine Osorio EXAM: XR LEFT KNEE COMPLETE, 4 OR MORE VIEWS CLINICAL INDICATION: Pain TECHNIQUE: Four or more views of the left knee. COMPARISON: No relevant prior studies available. FINDINGS: BONES/JOINTS: No significant abnormality. No acute fracture. No subluxation. Normal alignment. Preservation of the joint space. No sclerotic or destructive changes observed. SOFT TISSUES: No significant abnormality. No soft tissue swelling or gas. No radiopaque foreign body. RAD/Knee 4 or More Views IMPRESSION: Negative left knee x-rays. Electronically Signed: Nile V. Hrarietjeannie, DO at 17:10 EST , Coding Level of Care Code Off vis,est,level 4 Diagnoses Other tear of medial meniscus of right knee, unspecified whether old or current tear, subsequent encounter S83.241D Encounter type: subsequent encounter Meniscus of knee: medial Meniscus tear of knee type: other type Tear current or old: unspecified Primary osteoarthritis of both knees M17.0 Osteoarthritis type: primary Assessment and Plan Assessment and Plan (1) Tear of meniscus of right knee: Status: Acute Qualifiers: Encounter type: subsequent encounter Meniscus of knee: medial Meniscustear of knee type: other type Tear current or old: unspecified Qualified Code(s): S83.241D - Other tear of medial meniscus, current injury, right knee, subsequent encounter Plan: 50-year-old female with right knee pain, osteoarthritis of the patellofemoral joint as well as medial meniscus tear possible lateral meniscus tear as well. The patient has mild medial meniscus extrusion and the tear goes towards the root could actually involve the root given the extrusion although the extrusion is mild. The patient has already had multiple rounds of conservative managementincluding intra-articular cortisone injections. The surgical option here would be to consider knee arthroscopy for possible medial meniscus repair or partial meniscectomy. I did let the patient know this would not fix the pain from the patellofemoral joint to see no focal cartilage defects that would be amenable tocartilage restorationism procedures at this point although doing a diagnostic arthroscopy could help further elucidate exactly the extent of the patella chondromalacia. This would be 6 weeks on crutches 3 to 4 months for recovery. 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 In addition the patient has ongoing left knee pain has similar symptoms on the left side as the right and failed conservative management including viscosupplementation and cortisone injections. We will go ahead and order an MRI of the left knee and follow patient up after that as well to further decide and see if there is anything else that can be done on the left side. (2) Osteoarthritis of knees, bilateral: Status: Acute Qualifiers: Osteoarthritis type: primary Qualified Code(s): M17.0 - Bilateral primary osteoarthritis of knee Orders: Orders Lower Ext Joint Only (Routine) Today M25.562 - Pain in left knee Clinical Quality Measures Falls Risk Screening/Assistive Devices Have you fallen in the past year?: No Ortho Exam General General: Yes no acute distress Neurologic: Yes alert and Yes oriented x3 Psychologic: Yes reasonable and appropriate Right Knee Skin/Wound: Yes CDI, No erythema, No ecchymosis and No swelling Knee ROM: Yes ROM-Flexion 0-140 Examination: Yes Med jt line tenderness, Yes Lat jt line tenderness, Yes TTP infpole patella, No Crepitus, Yes Pain with flexion, Yes Rhonda's Test, No TTP Patellar tendon, No TTP Tibial tubercle, No TTP Pes Anserine and No Illiotibial band tenderness Quad Atrophy: No Stability: NML: Anterior Drawer, NML: Surekha, NML: Posterior Drawer, NML: Valgus 0, NML: Valgus 30, NML: Varus 0 and NML: Varus 30 Patella Translation: 2 Apprehension with Lateral Translation: No Patellar Tilt Normal: Yes Patella Grind: No KNEE: NVI, normal gait, normal alignment Left Knee Skin/Wound: Yes CDI, No ecchymosis, No erythema and No swelling Knee ROM: Yes ROM-Flexion 0-140 Examination: Yes med jt line tenderness, Yes Lat jt line tenderness, Yes TTP infpole patella, No Crepitus, Yes Pain with flexion, Yes Rhonda's Test, No TTP Patellar tendon, No TTP Tibial tubercle, No TTP Pes Anserine and No Illiotibial band tenderness Quad Atrophy: No Stability: NML: Anterior Drawer, NML: Surekha, NML: Posterior Drawer, NML: Valgus 0, NML: Valgus 30, NML: Varus 0 and NML: Varus 30 Apprehension with Lateral Translation: No Patella Translation: 2 Patellar Tilt Normal: Yes Patella Grind: No KNEE: normal gait, NVI, normal alignment 04/30/25 0859 <Electronically signed by Rodo stevens MD> Date _ Rodo Gaona MD Cosigner Signature: Date (if applicable) CC: ~ [place] [facility] Work Phone: 1(800) 151-249004-10-2025 Evaluation note* Diagnosis Onset Date Resolution Status Admit Date Internal derangement of righ t knee acute February 19, 2025 9:34am Dusky discoloration of skin acute March 04, 2025 9:30am Internal derangement of righ t knee acute March 04, 2025 9:30am Osteoarthritis of knees, bilateral acute March 04, 2025 9:30am Tear of meniscus of right knee acute March 04, 2025 9:30am Osteoarthritis of knees, bilateral acute March 16, 2025 2: 32pm Osteoarthritis of knees, bilateral acute March 24, 2025 3 :04pm Tear of meniscus of right knee acute March 24, 2025 3:04pm Venous stasis acute March 31, 025 9:32am Osteoarthritis of knees, bilateral acute April 01, 2025 1 0:30am Tear of meniscus of right knee acute April 01, 2025 10:30am Fibromyalgia chronic April 14 1:59pm Generalized anxiety disorder chronic April 14, 2025 1:59pm Osteoarthritis of knees, bilateral acute April 30, 2025 8:29am Tear of meniscus of right knee acute April 30, 2025 8:29am Generalized anxiety disorder chronic May 20, 2025 8:02am [place] [facility] Work Phone: 1(758) 127-852104-10-2025 Evaluation note* Diagnosis Onset Date Resolution Status Admit Date Internal derangement of righ t knee acute February 19, 2025 9:34am Dusky discoloration of skin acute March 04, 2025 9:30am Internal derangement of righ t knee acute March 04, 2025 9:30am Osteoarthritis of knees, bilateral acute March 04, 2025 9:30am Tear of meniscus of right knee acute March 04, 2025 9:30am Osteoarthritis of knees, bilateral acute March 16, 2025 2: 32pm Osteoarthritis of knees, bilateral acute March 24, 2025 3 :04pm Tear of meniscus of right knee acute March 24, 2025 3:04pm Venous stasis acute March 31, 2 025 9:32am Osteoarthritis of knees, bilateral acute April 01, 2025 1 0:30am Tear of meniscus of right knee acute April 01, 2025 10:30am Fibromyalgia chronic April 14 1:59pm Generalized anxiety disorder chronic April 14, 2025 1:59pm Osteoarthritis of knees, bilateral acute April 30, 2025 8:29am Tear of meniscus of right knee acute April 30, 2025 8:29am Fibromyalgia chronic May 20 8:02am Generalized anxiety disorder chronic May 20, 2025 8:02am [facility] Work Phone: 1([phone]) 843-775902-24-2025 Evaluation note* Diagnosis Onset Date Resolution Status Admit Date Anemia acute January 05, 2025 9:00am Elevated Rod-Garcia virus antibody titer acute January 05, 025 9:00am Chronic fatigue chronic January 05, 2025 9:00am Fibromyalgia chronic December 9:00am Internal derangement of righ t knee acute February 19, 2025 9:34am Dusky discoloration of skin acute March 04, 2025 9:30am Internal derangement of righ t knee acute March 04, 2025 9:30am Osteoarthritis of knees, bilateral acute March 04, 2025 9:30am Tear of meniscus of right knee acute March 04, 2025 9:30am Osteoarthritis of knees, bilateral acute March 16, 2025 2: 32pm Osteoarthritis of knees, bilateral acute March 24, 2025 3 :04pm Tear of meniscus of right knee acute March 24, 2025 3:04pm [facility] Work Phone: 1([phone]) 798-935002-24-2025 Evaluation note* Diagnosis Onset Date Resolution Status Admit Date Anemia acute January 05, 2025 9:00am Elevated Rod-Garcia virus antibody titer acute January 05, 2 025 9:00am Chronic fatigue chronic January 05, 2025 9:00am Fibromyalgia chronic December 9:00am Internal derangement of righ t knee acute February 19, 2025 9:34am Dusky discoloration of skin acute March 04, 2025 9:30am Internal derangement of righ t knee acute March 04, 2025 9:30am Osteoarthritis of knees, bilateral acute March 04, 2025 9:30am Tear of meniscus of right knee acute March 04, 2025 9:30am Osteoarthritis of knees, bilateral acute March 16, 2025 2: 32pm Osteoarthritis of knees, bilateral acute March 24, 2025 3 :04pm Tear of meniscus of right knee acute March 24, 2025 3:04pm Venous stasis acute March 31, 025 9:32am Osteoarthritis of knees, bilateral acute April 01, 2025 1 0:30am Tear of meniscus of right knee acute April 01, 2025 10:30am [facility] Work Phone: 1([phone]) 586-990502-24-2025 Evaluation note* Diagnosis Onset Date Resolution Status Admit Date Anemia acute January 05, 2025 9:00am Elevated Rod-Garcia virus antibody titer acute January 05, 2 025 9:00am Chronic fatigue chronic January 05, 2025 9:00am Fibromyalgia chronic December 9:00am Internal derangement of righ t knee acute February 19, 2025 9:34am Dusky discoloration of skin acute March 04, 2025 9:30am Internal derangement of righ t knee acute March 04, 2025 9:30am Osteoarthritis of knees, bilateral acute March 04, 2025 9:30am Tear of meniscus of right knee acute March 04, 2025 9:30am Osteoarthritis of knees, bilateral acute March 16, 2025 2: 32pm Osteoarthritis of knees, bilateral acute March 24, 2025 3 :04pm Tear of meniscus of right knee acute March 24, 2025 3:04pm Venous stasis acute March 31, 2 025 9:32am Osteoarthritis of knees, bilateral acute April 01, 2025 1 0:30am Tear of meniscus of right knee acute April 01, 2025 10:30am Fibromyalgia chronic April 14 1:59pm Generalized anxiety disorder chronic April 14, 2025 1:59pm Osteoarthritis of knees, bilateral acute April 30, 2025 8:29am Tear of meniscus of right knee acute April 30, 2025 8:29am [facility] Work Phone: [phone] Miscellaneous Notes* Telephone Encounter - Cristine Bucio MD - 12/17/2024 2:24 PM EST Patient notified of vitamin D results. She was offered tamoxifen for her breast pain. She declines at this time. She is willing to try [id number] lidocaine patches/gel. Cristine Bucio [facility] encounter Note * Telephone Encounter - Cristine Bucio MD - 12/17/2024 2:24 PM EST Patient notified of vitamin D results. She was offered tamoxifen for her breast pain. She declines at this time. She is willing to try [id number] lidocaine patches/gel. Cristine Bucio MD [facility]02-04[facility]25 NoteHNO ID: [id number] Author: KEI AYALA MA Service: ? Author Type: Service Center Assistant Type: Progress Notes Filed: 12/16/2024 15:46 Note Text: Keith Waldrop is a 49 year old female who presents for New Patient (Present for ongoing left breast pain x 7 yrs. Thought she felt something in her breast, had a mammo and US and both came back negative. ) [facility] History of Present illness Narrative* Kei Ayala MA - 12/16/2024 2:41 PM EST Keith Waldrop is a 49 year old female who presents for New Patient (Present for ongoing left breastpain x 7 yrs. Thought she felt something in her breast, had a mammo and US and both came back negative. ) Kei Ayala MA * Cristine Bucio MD - 12/16/2024 1:09 PM EST Images from the original note were not included. Cristine Bucio MD [facility] [address] [place] [address] HPI: Keith Waldrop is a 49 year old White female who presents in regards to chronic left breast pain that waxes and wanes. She has had multiple diagnostic imaging studies. She has tried evening primrose oil and vitamin E with no significant improvement. She has also tried support breast which actually makes the pain worse. There is family history of breast cancer in her mother paternal great aunt. There are no exam notes on file for this visit. No question data found. Obstetric History No data available PAST MEDICAL HISTORY Diagnosis Date Fibromyalgia PAST SURGICAL HISTORY Procedure Laterality Date TONSILLECTOMY & ADENOIDECTOMY <AGE [age] yrs old TOTAL ABDOM HYSTERECTOMY 2022 still has ovaries FAMILY HISTORY Problem Relation Age of Onset Breast Cancer Maternal Aunt great aunt CURRENT MEDICATIONS: gabapentin (NEURONTIN) 100 mg capsule 200 mg daily at bedtime. CURRENT ALLERGIES: ALLERGIES Allergen Reactions Arithromycin [Azith* Intolerance Nausea Cymbalta [Duloxetin* Intolerance Social History Tobacco Use Smoking status: Never Smokeless tobacco: Never LABS AND IMAGING: Breast imaging from 11/28/2024 was reviewed. The imaging was read as negative. Review of Systems Constitutional: Negative for chills, fever, malaise/fatigue and weight loss. HENT: Negative for hearing loss. Eyes: Negative for blurred vision. Respiratory: Negative for cough, shortness of breath and wheezing. Cardiovascular: Negative for palpitations. Gastrointestinal: Negative for abdominal pain, nausea and vomiting. Musculoskeletal: Positive for back pain, joint pain, myalgias and neck pain. Neurological: Negative for dizziness, tingling, tremors and headaches. PHYSICAL EXAM: BP 114/78 Pulse 87 Ht 175.3 cm (5' 9) Wt 81.6 kg (180 lb) LMP 11/13/2017 BMI 26.58 kg/m General appearance: Well appearing, alert, in no acute distress Skin: skin color, texture, turgor normal, no suspicious rashes or lesions Eyes: Anicteric sclera, Pupils are equally round and reactive Abdomen: soft, non-tender, non-distended Extremities: No clubbing, cyanosis, or edema. Heart: Regular rate and rhythm Lungs: Clear to ascultation bilaterally Neuro: Alert and oriented times three Physical Exam Chest: Breasts: Breasts are symmetrical. Right: No swelling, inverted nipple, mass, nipple discharge, skin change or tenderness. Left: Tenderness (Mild tenderness) present. No swelling, inverted nipple, mass, nipple discharge orskin change. Lymphadenopathy: Upper Body: Right upper body: No axillary adenopathy. Left upper body: No axillary adenopathy. Participation of a fellow, resident, medical student, or advanced practice provider student in performing the sensitive examination was discussed with the patient or authorized direct marketing representative. The patient or authorized direct marketing representative has agreed to proceed with the sensitive examination. (Sensitive examination includes inspection and/or palpation of the breasts, pelvis, prostate and anorectal regions) The mammogram was reviewed in detail. Plan IMPRESSION/PLAN: Keith Waldrop is a 49 year old White female who presents in regards to chronic left breast pain that waxes and wanes. She has had multiple diagnostic imaging studies. She has tried evening primrose oil and vitamin E with no significant improvement. She has also tried support breast which actually makes the pain worse. There is family history of breast cancer in her mother paternal great aunt. Clinical breast examination finds no evidence of any discrete suspicious mass, skin change, nipple discharge or lymphadenopathy in either breast. She is not having significant breast tenderness today. Recent breast imaging from November 28 was reviewed both films are reports. The imaging was read as negative. The patient has agreed to participate in her vitamin D and breast pain study approved to the IRB. Alfredo checking a vitamin D level. If low will replace. If the vitamin D level is normal, we will recommend other feasible options for the breast pain. DIAGNOSIS: Encounter Diagnosis ICD-10-CM 1. Breast pain, left N64.4 documented [facility] NoteHNO ID: [id number] Author: CRISTINE BUCIO MD Service: ? Author Type: Physician Type: Progress Notes Filed: 12/16/2024 15:46 Note Text: Cristine Bucio MD [facility] [address] [place] [address] HPI: Keith Waldrop is a 49 year old White female who presents in regards to chronic left breast pain that waxes and wanes. She has had multiple diagnostic imaging studies. She has tried evening primrose oil and vitamin E with no significant improvement. She has also tried support breast which actually makes the pain worse. There is family history of breast cancer in her mother paternal great aunt. There are no exam notes on file for this visit. No question data found. Obstetric History No data available PAST MEDICAL HISTORY Diagnosis Date Fibromyalgia PAST SURGICAL HISTORY Procedure Laterality Date TONSILLECTOMY AND ADENOIDECTOMY 4 yrs old TOTAL ABDOM HYSTERECTOMY 2022 still has ovaries FAMILY HISTORY Problem Relation Age of Onset Breast Cancer Maternal Aunt great aunt CURRENT MEDICATIONS: gabapentin (NEURONTIN) 100 mg capsule 200 mg daily at bedtime. CURRENT ALLERGIES: ALLERGIES Allergen Reactions Arithromycin [Azith* Intolerance Nausea Cymbalta [Duloxetin* Intolerance Social History Tobacco Use Smoking status: Never Smokeless tobacco: Never LABS AND IMAGING: Breast imaging from 11/28/2024 was reviewed. The imaging was read as negative. Review of Systems Constitutional: Negative for chills, fever, malaise/fatigue and weight loss. HENT: Negative for hearing loss. Eyes: Negative for blurred vision. Respiratory: Negative for cough, shortness of breath and wheezing. Cardiovascular: Negative for palpitations. Gastrointestinal: Negative for abdominal pain, nausea and vomiting. Musculoskeletal: Positive for back pain, joint pain, myalgias and neck pain. Neurological: Negative for dizziness, tingling, tremors and headaches. PHYSICAL EXAM: BP 114/78 Pulse 87 Ht 175.3 cm (5' 9) Wt 81.6 kg (180 lb) LMP 11/13/2017 BMI 26.58 kg/m? General appearance: Well appearing, alert, in no acute distress Skin: skin color, texture, turgor normal, no suspicious rashes or lesions Eyes: Anicteric sclera, Pupils are equally round and reactive Abdomen: soft, non-tender, non-distended Extremities: No clubbing, cyanosis, or edema. Heart: Regular rate and rhythm Lungs: Clear to ascultation bilaterally Neuro: Alert and oriented times three Physical Exam Chest: Breasts: Breasts are symmetrical. Right: No swelling, inverted nipple, mass, nipple discharge, skin change or tenderness. Left: Tenderness (Mild tenderness) present. No swelling, inverted nipple, mass, nipple discharge or skin change. Lymphadenopathy: Upper Body: Right upper body: No axillary adenopathy. Left upper body: No axillary adenopathy. Participation of a fellow, resident, medical student, or advanced practice provider student in performing the sensitive examination was discussed with the patient or authorized direct marketing representative. The patient or authorized direct marketing representative has agreed to proceed with the sensitive examination. (Sensitive examination includes inspection and/or palpation of the breasts, pelvis, prostate and anorectal regions) The mammogram was reviewed in detail. Plan IMPRESSION/PLAN: Keith Waldrop is a 49 year old White female who presents in regards to chronic left breast pain that waxes and wanes. She has had multiple diagnostic imaging studies. She has tried evening primrose oil and vitamin E with no significant improvement. She has also tried support breast which actually makes the pain worse. There is family history of breast cancer in her mother paternal great aunt. Clinical breast examination finds no evidence of any discrete suspicious mass, skin change, nipple discharge or lymphadenopathy in either breast. She is not having significant breast tenderness today. Recent breast imaging from November 28 was reviewed both films are reports. The imaging was read as negative. The patient has agreed to participate in her vitamin D and breast pain study approved to the IRB. I am checking a vitamin D level. If low will replace. If the vitamin D level is normal, we will recommend other feasible options for the breast pain. DIAGNOSIS: Encounter Diagnosis ICD-10-CM 1. [facility] note * Diagnosis Onset Date Resolution Status Admit Date Breast pain noneactive November 27, 2024 2:57pm Breast lump noneactive November 27, 2024 2:57pm Anemia acute January 05, 2025 9:00am Elevated Rod-Garcia virus antibody titer acute January 05, 2 025 9:00am Chronic fatigue chronic January 05, 2025 9:00am Fibromyalgia chronic December 9:00am [facility] Work Phone: [phone] Evaluation note* Diagnosis Onset Date Resolution Status Admit Date Breast pain noneactive November 27, 2024 2:57pm Breast lump noneactive November 27, 2024 2:57pm Anemia acute January 05, 2025 9:00am Elevated Rod-Garcia virus antibody titer acute January 05, 2 025 9:00am Chronic fatigue chronic January 05, 2025 9:00am Fibromyalgia chronic December 9:00am Internal derangement of righ t knee acute February 19, 2025 9:34am Dusky discoloration of skin acute March 04, 2025 9:30am Internal derangement of righ t knee acute March 04, 2025 9:30am Osteoarthritis of knees, bilateral acute March 04, 2025 9:30am Tear of meniscus of right knee acute March 04, 2025 9:30am Osteoarthritis of knees, bilateral acute March 16, 2025 2: 32pm [facility] Work Phone: [phone]) [phone] NoteHNO ID: [id number] Author: Amirah Alberto MD, PhD Service: ? Author Type: Physician Type: Progress Notes Filed: 08/30/2023 10:22 AM Note Text: 8:55 AM end 9:05 AM VIRTUAL VISIT I have communicated my name and active licensure. The patient's identity and physical location were verified at the time of this visit. Either the patient or their legal direct marketing representative has been informed of the risks and benefits of -- and alternatives to -- treatment through a remote evaluation and consents to proceed with the evaluation remotely. I had a virtual visit with Ms. Waldrop today who was referred by Ady Bardales MD for evaluation and treatment of periportal edema. A copy of this visit will be sent to the referring physician via the shared medical record. I have personally interviewed and examined this patient and have confirmed or modified the review of systems both general and GI specific in the nursing notes. UPDATED HISTORY: Patient is a 48 yo female who has a history of fibromyalgia, abdominal pain, cervicalgia, bilateral paresthesias of the hand, and who has been Percocet for a long time. Recently Cymbalta was added. Blood work done the day before starting this medication her liver tests were normal. ALT was 18 and AST was 13. She has more recently had nausea, vomiting, dyspepsia and tremor. Was seen in the ED for belching and burping. CT abd and pelvis that was done showed periportal edema. Comment from the Radiologist was that this may have been secondary to aggressive IV hydration. Social History Tobacco Use Smoking status: Never Smokeless tobacco: Never MEDICATIONS per Care everywhere Percocet 5/325 ascorbic acid cholecalciferol cyclobenzaprine cymbalta fluticasone lactobacillus meclizine turmeric zinc MVI PMH from Care Everywhere abdominal pain acquired foot deformities anxiety asthma vertigo anemia disorders of lipid metabolism menstrual disorders - s/p THBSO fibromyalgia anesthesia of skin ALLERGIES Allergen Reactions Arithromycin [Azith* Intolerance Nausea REVIEW OF SYSTEMS: PAIN ASSESSMENT: Negative for pain, history of chronic pain, or current treatment for a chronic pain condition. GENERAL: No weight loss, malaise or fevers RESPIRATORY: Negative for cough, hemoptysis, wheezing, COPD, dyspnea or shortness of breath CARDIOVASCULAR: Negative for chest pain, leg swelling, hypertension, CHF or palpitations GI: See HPI : No history of dysuria, frequency or incontinence PHYSICAL FINDINGS OF NOTE: General - Normal, healthy, cooperative, in no acute distress Able to interact verbally by video conference Psych - ORIENTATION: normal to time place, person and situation Mood/Affect: AFFECT AND MOOD: Normal REVIEWED ITEMS CT abd and pelvis: FINDINGS: Contrast enhanced serial CT axial images through the abdomen and pelvis with coronal and sagittal reformatted series. SPLEEN: Splenomegaly measuring over 14 cm. APPENDIX: Normal caliber gas containing appendix. PANCREAS: No peripancreatic fat stranding. BOWEL/MESENTERY: No dilated bowel loops. No significant free fluid. No free air. GALLBLADDER: No pericholecystic fat stranding. LIVER/STOMACH: Periportal edema. URINARY COLLECTING SYSTEM/ KIDNEYS: No obstructing ureteral calculus. No significant renal parenchymal abnormality. LUNG BASES: Unremarkable. BONES: Unremarkable for age. CT/Abdomen/Pelvis W IV Cont ONLY IMPRESSION: Periportal edema most commonly associated with aggressive IV hydration. Correlate with laboratory values. No acute abdominal abnormality is otherwise identified, to include normal appendix and no evidence of obstructing ureteral calculus. Splenomegaly. Electronically Signed: Jasbir Saleh MD at 5:05 EDT , Blood work tot prot 6.5, alb 3.4, alk phos 79, ALT 95, AST 125, tot bili 0.7 BUN 19, Creat 1.0 K 3.7 IMPRESSION/PLAN 48 yo female who had normal liver function tests before starting Cymbalta. This medication is known to be associated with the symptoms that she has experienced as well as the elevation in liver tests. Her PCP has asked her to wean off this medication. Anticipate that her blood work will resolve. Will take time. Recommend 3 months and 6 months, Of concern is the splenomegaly. Her platelet count was 165,000. Patients in the [facility] can have asymptomatic histoplasmosis but this is usually demonstrated with lesions in the lung liver and spleen. Recommend followup CT of the abdomen in 6 months. RTC prn. I spent a total of 30 minutes on the date of the service which included preparing to see the patient, [id number] patient care, completing clinical documentation, obtaining and/or reviewing separately obtained history, counseling and educating t (more content not included)...[facility]10-18-2023 History of Present illness Narrative* Amirah Alberto MD, PhD - 08/29/2023 8:55 AM EDT 8:55 AM end 9:05 AM VIRTUAL VISIT I have communicated my name and active licensure. The patient's identity and physical location wereverified at the time of this visit. Either the patient or their legal direct marketing representative has been informed of the risks and benefits of -- and alternatives to -- treatment through a remote evaluation andconsents to proceed with the evaluation remotely. I had a virtual visit with Ms. Yahir vergara who was referred by Ady Bardales MD for evaluation and treatment of periportal edema. A copy of this visit will be sent to the referring physician via the shared medical record. I have personally interviewed and examined this patient and have confirmed or modified the review of systems both general and GI specific in the nursing notes. UPDATED HISTORY: Patient is a 48 yo female who has a history of fibromyalgia, abdominal pain, cervicalgia, bilateralparesthesias of the hand, and who has been Percocet for a long time. Recently Cymbalta was added. Blood work done the day before starting this medication her liver tests were normal. ALT was 18 and AST was 13. She has more recently had nausea, vomiting, dyspepsia and tremor. Was seen in the ED for belching and burping. CT abd and pelvis that was done showed periportal edema. Comment from the Radiologist was that this may have been secondary to aggressive IV hydration. Social History Tobacco Use Smoking status: Never Smokeless tobacco: Never MEDICATIONS per Care everywhere Percocet 5/325 ascorbic acid cholecalciferol cyclobenzaprine cymbalta fluticasone lactobacillus meclizine turmeric zinc MVI PMH from Care Everywhere abdominal pain acquired foot deformities anxiety asthma vertigo anemia disorders of lipid metabolism menstrual disorders - s/p THBSO fibromyalgia anesthesia of skin ALLERGIES Allergen Reactions Arithromycin [Azith* Intolerance Nausea REVIEW OF SYSTEMS: PAIN ASSESSMENT: Negative for pain, history of chronic pain, or current treatment for a chronic pain condition. GENERAL: No weight loss, malaise or fevers RESPIRATORY: Negative for cough, hemoptysis, wheezing, COPD, dyspnea or shortness of breath CARDIOVASCULAR: Negative for chest pain, leg swelling, hypertension, CHF or palpitations GI: See HPI : No history of dysuria, frequency or incontinence PHYSICAL FINDINGS OF NOTE: General - Normal, healthy, cooperative, in no acute distress Able to interact verbally by video conference Psych - ORIENTATION: normal to time place, person and situation Mood/Affect: AFFECT AND MOOD: Normal REVIEWED ITEMS CT abd and pelvis: FINDINGS: Contrast enhanced serial CT axial images through the abdomen and pelvis with coronal and sagittal reformatted series. SPLEEN: Splenomegaly measuring over 14 cm. APPENDIX: Normal caliber gas containing appendix. PANCREAS: No peripancreatic fat stranding. BOWEL/MESENTERY: No dilated bowel loops. No significant free fluid. No free air. GALLBLADDER: No pericholecystic fat stranding. LIVER/STOMACH: Periportal edema. URINARY COLLECTING SYSTEM/ KIDNEYS: No obstructing ureteral calculus. No significant renal parenchymal abnormality. LUNG BASES: Unremarkable. BONES: Unremarkable for age. CT/Abdomen/Pelvis W IV Cont ONLY IMPRESSION: Periportal edema most commonly associated with aggressive IV hydration. Correlate with laboratory values. No acute abdominal abnormality is otherwise identified, to include normal appendix and no evidence of obstructing ureteral calculus. Splenomegaly. Electronically Signed: Jasbir Saleh MD at 5:05 EDT , Blood work tot prot 6.5, alb 3.4, alk phos 79, ALT 95, AST 125, tot bili 0.7 BUN 19, Creat 1.0 K 3.7 IMPRESSION/PLAN 48 yo female who had normal liver function tests before starting Cymbalta. This medication is knownto be associated with the symptoms that she has experienced as well as the elevation in liver tests. Her PCP has asked her to wean off this medication. Anticipate that her blood work will resolve. Will take time. Recommend 3 months and 6 months, Of concern is the splenomegaly. Her platelet count was 165,000. Patients in the [facility] can have asymptomatic histoplasmosis but this is usually demonstrated with lesions in the lung liver and spleen. Recommend followup CT of the abdomen in 6 months. RTC prn. I spent a total of 30 minutes on the date of the service which included preparing to see the patient, [id number] patient care, completing clinical documentation, obtaining and/or reviewing separately obtained history, counseling and educating the patient/family/caregiver, and communicating with ot her HCPs (not separately reported). Amirah Alberto MD, PhD cc: Quality Control Assessor Role and Specialty Contact Info Address Ady Bardales [facility] [address] [facility] [address] [facility] [facility]02-27-[address] [facility]02-21-2023 Discharge summary Author Landy Hernandez [facility] January 02, 2023 9:52am Note Date/Time January 02, 2023 9:52am [facility] Physical Therapy [facility] [address] [place] [address]. [address] [place] [address] / REHABILITATION SERVICES DISCHARGE SUMMARY MR#: [id number] Acct: [id number] Name: KEITH WALDROP Rep #: [id number] : 1975 47 From: Landy Hernandez PT, Cert. MDT Referring Dr.: Dr. Anselmo Morales MD Status : REG RCR Insurance: [facility] SELF PAY INSURANCE It has been my pleasure to treat KEITH WALDROP referred by Dr. Anselmo Morales MD, with the diagnosis of LUMBAR STENOSIS for a total of 22 visit(s). Discharge Date: Please see the following information for a summary of their discharge status. Subjective: PATIENT REPORTS HER PAIN IS BETTER SINCE STARTING PT BUT STATES SHE DOES NEED A HYSTERECTOMY. GOING TO DO HYSTERECTOMY SOON - WAITING ON TABITHA'T TO HAVE SX. PATIENT REPORTS SHE WENT TO [employer] OVER THE WEEKEND. STATES THE MACHINES ARE DIFFERENT AND SHE HAD TROUBLE ADJUSTING THEIR MACHINES AND WEIGHTS TO TRY TO BE COMFORTABLE. ISN'T SURE IF SHE SHOULD EVEN BE DOING SOME OF THEIR MACHINES BECAUSE THEY ARE DIFFERENT AND HURT. GOING TO [employer] [facility] HERE. DX'D WITH LARGE FIBROIDS AND ENLARGED UTERUS. SHE REPORTS IT IS HARD TO DIFFERENTIATE BETWEEN ABDOMINAL ORGAN PAIN AND BACK PAIN. FAR HER BACK PAIN GOES SHE STATES SHE DOESN'T FEEL READY TO GO TO PAIN MGMT. PATIENTDENIES ASHLEY LE SX'S EXCEPT SOME REAR OCCASSIONS OF L BUTTOCK PAIN. FREQUENT ASHLEY HIP PAIN L> RIGHT. LB Pain Intensity (Out of 10): 3 % Improvement: 35 Objective/Function: PATIENT WAS SEEN TODAY FOR RE-ASSESSMENT OF PROGRESS TOWARD THE SET PT GOALS AND THE NEED FOR FURTHER PHYSICAL THERAPY VS READINESS FOR DISCHARGE. UPON EXAM TODAY: Sensory deficit: ASHLEY LE LIGHT TOUCH SENSATION GROSSLY INTACT AND SYMMETRICAL. ROM deficit: ASHLEY LE'S WFL. Motor deficit: ASHLEY LE'S GROSSLY 5/5 WITH MMT'ING EXCEPT LEFT HIP 4/5, L ANKLE DORSI 4+/5, L EHL 4+/5. Dural Signs: NEGATIVE ASHLEY LE'S. Lumbar mvmt loss: flex - NIL. ext - MIN. R SG - MIN. L SG - MOD. PATIENT C/O INCREASED LBP WITH LUMBAR EXTENSIONTESTING AND AT THE END OF THE AVAILABLE ROM ALL PLANES. Core strength: FAIR. Palpation: MILD TENDERNESS LOWER LUMBAR SPINE AND LEFT PARASPINALS WITH LIGHT PALPATION. OVER ALL PATIENT HAS IMPROVED IN TERMS OF SUBJECTIVE PAIN REPORTS, LE AND CORE STRENGTH BUT SHE CONTINUES TO HAVE PAINFUL AND LIMITED BACK ROM AND CORE WEAKNESS. ASHLEY LE DURAL SIGNS WERE POSITIVE AT EVAL AND NEGATIVE NOW. SHE IS INDEP WITH A GYM PROGRAM HERE AT [employer] AND TRIALING EX AT [employer]. WILL GET MEMBERSHIP HERE IF UNABLE TO FIGURE THINGS OUT AT [employer]. NEEDS TO DEAL WITH HYSTERECTOMHY FIRST. Goal 1:: DECREASE C/O LBP Goal Progress: Goal Met Goal 2:: IMPROVE PERSONAL CARE, LIFTING, SITTING, STANDING, TRAVEL AND WORK/HOMEMAKING FUNCTION Goal Progress: Goal Met Goal 3:: INSTRUCT IN PROPHYLAXIS Goal Progress: Goal Met Plan: D/C TO INDEP EX. PATIENT AGREEABLE. If there are questions or concerns regarding this patient's physical therapy, please feel free to call me at [phone]. Thank you for the referral of thispatient. Sincerely, Landy Hernandez, PT, Cert MDT Balance/Gait/Functional tests - Balance/Special Test Scores Oswestry Low Back Score: 11 <Electronically signed by Landy Hernandez PT, Cert. MDT> 01/02/23 0952 CC: Dr. Anselmo Morales MD; Dr. Aayush Frederick MD ~ TYESHA Signed [facility] Work Phone: [phone] 543-807812-28-2022 NotePap Smear Specimen AdequacyDecemb2021 12:56pmComment.Satisfactory for evaluation. Endocervical and/or squamous metaplasticcells (endocervical component)are present.[email or web address] INTERFACED A#[id number] Medical Trihealth Rehabilitation Hospital Work Phone: Comment on above:Satisfactory for evaluation. Endocervical and/or squamous metaplasticcells (endocervical component)are present.11-08-2022 NotePap Smear Specimen AdequacyDecember 2021 12:56pm Comment.Satisfactory for evaluation. Endocervical and/or squamous metaplasticcells (endocervical component)are present.[employer] INTERFACED A#[id number] Medical Trihealth Rehabilitation HospitalComment on above:Satisfactory for evaluation. Endocervical and/or squamous metaplasticcells (endocervical component)are present.11-08-2022 NotePap Smear Specimen AdequacyDecember 2021 12:56pmComment.Satisfactory for evaluation. Endocervical and/or squamous metaplasticcells (endocervical component)are present.[facility] INTERFACED A#[id number] Pike Medical Center on above:Satisfactory for evaluation. Endocervical and/or squamous metaplasticcells (endocervical component)are present.11-08-2022 NotePap Smear Specimen AdequacyDecember 2021 12:56pmComment.Satisfactory for evaluation. Endocervical and/or squamous metaplasticcells (endocervical component)are present.[facility] INTERFACED A#[id number] Medical Trihealth Rehabilitation HospitalCompromed[facility] on above:Satisfactory for evaluation. Endocervical and/or squamous metaplasticcells (endocervical component)are present.11-08-2022 NotePap Smear Specimen AdequacyDecember 2021 1:56pmComment.Satisfactory for evaluation. Endocervical and/or squamous metaplasticcells (endocervical component)are present.[facility] INTERFACED A#[id number] Medical Trihealth Rehabilitation HospitalCompromed[facility] on above:Satisfactory for evaluation. Endocervical and/or squamous metaplasticcells (endocervical component)are present.11-08-2022 NotePap Smear Specimen AdequacyDecember 2021 1:56pmComment.Satisfactory for evaluation. Endocervical and/or squamous metaplasticcells (endocervical component)are present.[facility] INTERFACED A#[id number] Medical Trihealth Rehabilitation HospitalCompromed[facility] on above:Satisfactory for evaluation. Endocervical and/or squamous metaplasticcells (endocervical component)are present.Evaluation + Plan note No data available for this section [facility] Evaluation note* Diagnosis Onset Date Resolution Status Anemia acute Elevated liver enzymes acute Fibromyalgia chronic Colon cancer screening acute Preventative health care acu te [facility] Work Phone: Evaluation note* Diagnosis Onset Date Resolution Status Numbness of left foot noneac tive Foot drop, left noneactive [facility] Work Phone: Evaluation note* Diagnosis Onset Date Resolution Status Numbness of left foot noneac tive Foot drop, left noneactive Breast pain, left acute [facility] Work Phone: evaluation note* Diagnosis Onset Date Resolution Status Numbness of left foot noneac tive Foot drop, left noneactive Breast pain, left resolved Enlarged uterus acute Menorrhagia with regular cycle acute Encounter for routine gynecological examination noneactive [facility] Work Phone: Evaluation note* Diagnosis Onset Date Resolution Status Breast pain, left resolved Enlarged uterus acute Menorrhagia with regular cycle acute Encounter for routine gynecological examination noneactive Enlarged uterus acute Fibroid uterus acute Menorrhagia with regular cycle acute [facility] Work Phone: evaluation note* Diagnosis Onset Date Resolution Status Breast pain, left resolved Enlarged uterus acute Menorrhagia with regular cycle acute Encounter for routine gynecological examination noneactive Enlarged uterus acute Fibroid uterus acute Menorrhagia with regular cycle acute Encounter for screening colonoscopy acute [facility] Work Phone: Evaluation note* Diagnosis Onset Date Resolution Status Enlarged uterus acute Menorrhagia with regular cycle acute Encounter for routine gynecological examination noneactive Enlarged uterus acute Fibroid uterus acute Menorrhagia with regular cycle acute Encounter for screening colonoscopy acute Enlarged uterus acute Fibroid uterus acute Menorrhagia with regular cycle acute [facility] Work Phone: Evaluation note* Diagnosis Onset Date Resolution Status Encounter for routine gynecological examination noneactive Encounter for screening colonoscopy acute [facility] Work Phone: Evaluation note* Diagnosis Onset Date Resolution Status Encounter for screening colonoscopy acute Postoperative examination no neactive Vaginal discharge acute Postoperative examination no neactive [facility] Work Phone: Evaluation note* Diagnosis Onset Date Resolution Status Postoperative examination no neactive Vaginal discharge acute Postoperative examination no neactive Sinusitis acute Vertigo acute Lightheadedness acute Numbness and tingling in both hands acute Generalized anxiety disorder chronic [facility] Work Phone: Evaluation note* Diagnosis Onset Date Resolution Status Sinusitis acute Vertigo acute Lightheadedness acute Numbness and tingling in both hands acute Generalized anxiety disorder chronic [facility] Work Phone: Evaluation note* Diagnosis Splenomegaly- Primary Elevated liver function tests Other abnormal blood chemistry documented in this [facility]* Diagnosis Breast pain, left- Primary Mastodynia Vitamin D deficiency Unspecified vitamin D deficiency documented in this encounter [facility] Hospital[facility] and physical note Author Amilcar Montero [facility] January 08, 2023 6:36am Note Date/Time January 08, 2023 6:36am [facility] Medical Records Department [address] [place] [address] History & Physical Exam 01/08/23 0635 MR#: [id number] Acct: [id number] Name: KEITH WALDROP Rep #:[id number] : 1975 47 From: Amilcar Montero DO PCP: Dr. Aayush Frederick MD Status:R [facility] Location: [place] [address] HPI - General General Date of Admission: 01/08/23 Date of Service: 01/08/23 Chief Complaint: Colon cancer screening HPI Narrative KEITH WALDROP, is a 47 F who presents today for colon cancer screening. She hasa past medical history of mild fibromyalgia, hyperlipidemia. She is not having any problems with her bowels. She not have any nausea. She did not have any chest pain or shortness of breath. She does not have any weakness. She has no family history of colon cancer. [facility] Anemia Arthritis Back pain Back problem Elevated liver enzymes Frequent headaches Migraine headache Non-smoker Home Medications Lactobacillus acidophilus 10 billion cell capsule (Probiotic) 10,000 mmu cells PO DAILY 01/02/23 [History Last Taken Unknown] ascorbic acid (vitamin C) 500 mg tablet (Vitamin C) 500 mg PO DAILY 01/02/23 [History Last Taken Unknown] cholecalciferol (vitamin D3) 25 mcg (1,000 unit) capsule (Vitamin D3) 25 mcg PO DAILY 01/02/23 [History Last Taken Unknown] turmeric 400 mg capsule 400 mg PO DAILY 01/02/23 [History Last Taken Unknown] zinc 50 mg capsule 50 mg PO DAILY 01/02/23 [History Last Taken Unknown] Allergy/AdvReac Type Severity Reaction Status Date / Time erythromycin base AdvReac Mild Upset Verified 01/08/23 05:54 Stomach Family History Other Anxiety and depression Arthritis Asthma Diabetes Heart disease Hyperlipemia Hypertension Myocardial infarction Thyroid disorder Surgical History History of tonsillectomy Social History Smoking Status: Never smoker alcohol intake: never substance use type: does not use caffeine: Yes what type of physical activity do you participate in: walking frequency: 1-2 times per week seatbelt use: always do you feel safe at home: Yes additional social history: - [employer] ROS Review of Systems ROS Unobtainable: other Constitutional Constitutional: Denies fatigue, fever(s), poor appetite, weight gain or weight loss ENT HEENT: Denies mouth lesions Cardiovascular Cardiovascular: Denies abdominal bloating, abdominal edema or abdominal pain Respiratory/Chest Respiratory/Chest: Denies change in mental status, change in phlegm color, chestcongestion or chest tightness Gastrointestinal Gastrointestinal: Denies belching, bloating, change in bowel habits, change in stool character, chewing difficulty, coffee ground emesis, constipation, cramping, diarrhea, dyspepsia, dysphagia, early satiety, excessive flatus, fecalincontinence, heartburn, hematemesis, hematochezia, hemorrhoids, loose stools, melena, nausea, odynophagia, rectal bleeding, tenesmus, vomiting or weight changes Genitourinary Genitourinary: Denies abdominal discomfort, burning urination or itching Musculoskeletal Musculoskeletal: Reports as per HPI; Denies muscle weakness or myalgias Integumentary Integumentary: Denies jaundice Neurologic Neurologic: Denies lack of coordination or weakness Psychiatric Psychiatric: Denies confusion, depression, memory loss, mood swings, paranoia orsuicidal ideation Endocrine Endocrinology: Denies systems reviewed and no addt'l complaints, except as documented Hematologic/Lymphatic Hematologic/Lymphatic: Denies anemia, easy bleeding, easy bruising or lymphadenopathy Allergic/Immunologic Allergic/Immunologic: Denies systems reviewed and no addt'l complaints, except as documented Vital Signs Vital Signs Vital Signs: 01/08/23 05:55 01/08/23 05:55 Temperature 98.4 F Temperature Source Temporal Pulse Rate 83 Respiratory Rate 16 Respiratory Pattern Normal Blood Pressure 107/48 L Blood Pressure Mean 67 Blood Pressure Source Monitor Blood Pressure Position Semi-Fowlers Blood Pressure Location Right Arm Pulse Ox 100 Oxygen Delivery Method Room Air Weight Weight: 167 lb 8.821 oz Body Mass Index (BMI) 24.7 Physical Exam Const alert General Appearance: cooperative Orientation / Consciousness: oriented to person HEENT hearing grossly normal bilaterally Head and Scalp: normal to inspection Face and Sinus: face symmetric Nose: external nose normal Mouth: oral and palatal mucosa normal Eyes conjunctivae normal General Eye: normal appearance of both eyes Neck full ROM General: normal visual inspection Lymph Lymphatic: no lymphadenopathy noted Chest inspection of chest normal and palpation of chest normal Chest: symmetrical chest wall rise Resp normal respiratory effort Effort and Inspection: able to speak in complete sentences Cardio regular rate GI non-distended Auscultation: normoactive bowel sounds Palpation: soft Percussion: normal to percussion Rectal Exam: deferred no CVA tenderness Back/Spine no CVA tenderness and normal ROM Extremity normal to inspection Peripheral Pulses: Yes pulses 2+ throughout Skin no rashes or lesions noted General Skin Exam: no breakdown, elasticity normal and turgor normal Neuro oriented x3 Speech: speech normal Gait (Neuro): normal gait Motor Exam: strength 5/5 throughout Psych mental status grossly normal Appearance: grossly normal Attitude: calm Activity / Motor Behavior: appropriate eye contact Speech: normal speech Thought Process: normal thought process Thought Content: normal thought content Attention / Concentration: attention grossly intact Memory / Cognition: memory grossly intact Insight: insight good Judgement: judgement good Results Lab / Micro Data Labs: Laboratory Results - last 24 hr 01/08/23 05:47: Urine Test Negative Assessment & Plan Assessment/Plan (1) Encounter for screening colonoscopy: PLAN: She was explained alternatives, risk, benefits including outstanding bleeding, infection, sepsis, perforation, need for emergent urgent . She have an ASA of 1. 01/08/23 0636 <Electronically signed by Amilcar Montero DO> Cosigner Signature (if applicable): CC: Dr. Aayush Frederick MD; Amilcar Montero DO~ Signed [facility] Work Phone: Hospital Discharge instructions Additional Instructions Implant [facility] Work Phone: Hospital Discharge instructions Additional Instructions Please follow-up with Dr. Montero or another mobile paint specialist secondary to your abdominal pain and the fact your CAT scan today showed periportal edema which has a multitude of causes. Otherwise your CT scan and laboratory studies revealed no clinically significant findings. if you have any further concerns or worsening of symptoms please return [facility] the [facility]WS[facility] Work Phone: Hospital Discharge instructions No data available for this section [facility] Progress note No data available for this section [facility] Reason for referral (narrative)No reason for referral information availableWSamaritan North Health Center Work Phone: Summary Purpose Family History No Family History Records Found Relationship Condition Age at Onset Recorded Date/T rocio Not Specified Diabetes mellitus Unknown Arthritis Unknown Cardiac disease Unknown Hyperlipidemia Unknown Myocardial infarction Unknown Anxiety and depression Unknown Hypertension Unknown Disorder of thyroid Unknown Asthma Unknown Relationship Condition Age at Onset Recorded Date/T rocio Not Specified Diabetes mellitus Unknown Lupus Unknown Arthritis Unknown Cardiac disease Unknown Hyperlipidemia Unknown Myocardial infarction Unknown Osteopenia Unknown Anxiety and depression Unknown Hypertension Unknown Disorder of thyroid Unknown Cerebrovascular accident (CVA) Unknown Asthma Unknown Advance Directives No Advanced Directives Records Found Advance Directive Response Recorded Date/ Time Name of Medical Power of Trail Maintenance Worker GRIFFIN WALDROP January 02, 2023 12:10pm Living Will Yes January 02, 2 023 12:10pm Power of Trail Maintenance Worker Yes January 02, 2023 12:10pm Advance Directive Response Recorded Date/ Time Name of Medical Power of Trail Maintenance Worker GRIFFIN WALDROP January 02, 2023 1:10pm Name of Medical Power of Trail Maintenance Worker SPOUSE February 02, 2023 9:13pm Living Will Yes February 02, 2023 9:13pm Power of Trail Maintenance Worker Yes February 02 9:13pm Advance Directive Response Recorded Date/ Time Living Will Yes February 02, 2023 9:13pm Power of Trail Maintenance Worker Yes February 02 9:13pm Advance Directive Response Recorded Date/ Time Living Will No August 08, 2023 3:04am Power of Trail Maintenance Worker No July 3:04am Chief Complaint and Reason for Visit Chief Complaint 3 M FU follow up Reason for Visit Anemia Elevated liver enzymes Fibromyalgia Colon cancer screening Preventative health care Chief Complaint SCREENING FOOT ISSUES/NUMBNESS L FOOT DROP/NUMBNESS. RX HERE Reason for Visit Numbness of left braeden t Foot drop, left Chief Complaint FOOT ISSUES/NUMBNESS L FOOT DROP/NUMBNESS. RX HERE breast pain MASTODYNIA LUMBAR STENOSIS / PT HAS RX Reason for Visit Numbness of left braeden t Foot drop, left Breast pain, left Chief Complaint FOOT ISSUES/NUMBNESS L FOOT DROP/NUMBNESS. RX HERE breast pain MASTODYNIA Amb Documentation Annual (SHINGLE CUTTER) ROUTINE ANNUAL AUB LUMBAR STENOSIS / PT HAS RX Reason for Visit Numbness of left braeden t Foot drop, left Breast pain, left Enlarged uterus Menorrhagia with regular cycle Encounter for routine gynecological examination Chief Complaint breast pain MASTODYNIA Amb Documentation Annual (SHINGLE CUTTER) ROUTINE ANNUAL AUB enlarged uterus/fibroid consult LUMBAR STENOSIS / PT HAS RX Reason for Visit Breast pain, left Enlarged uterus Menorrhagia with regular cycle Encounter for routine gynecological examination Enlarged uterus Fibroid uterus Menorrhagia with regular cycle Chief Complaint breast pain MASTODYNIA Amb Documentation Annual (SHINGLE CUTTER) ROUTINE ANNUAL AUB enlarged uterus/fibroid consult LUMBAR STENOSIS / PT HAS RX Reason for Visit Breast pain, left Enlarged uterus Menorrhagia with regular cycle Encounter for routine gynecological examination Enlarged uterus Fibroid uterus Menorrhagia with regular cycle Encounter for screening colonoscopy Chief Complaint Amb Documentation Annual (SHINGLE CUTTER) ROUTINE ANNUAL AUB enlarged uterus/fibroid consult LUMBAR STENOSIS / PT HAS RX E-ORDER LAVH, BS LAVH, BS LAVH, BS Reason for Visit Enlarged uterus Menorrhagia with regular cycle Encounter for routine gynecological examination Enlarged uterus Fibroid uterus Menorrhagia with regular cycle Encounter for screening colonoscopy Enlarged uterus Fibroid uterus Menorrhagia with regular cycle Chief Complaint Amb Documentation Annual (SHINGLE CUTTER) ROUTINE ANNUAL AUB enlarged uterus/fibroid consult LUMBAR STENOSIS / PT HAS RX E-ORDER LAVH, BS LAVH, BS LAVH, BS Reason for Visit Encounter for routin e gynecological examination Encounter for screening colonoscopy Chief Complaint enlarged uterus/fibr oid consult LUMBAR STENOSIS / PT HAS RX E-ORDER LAVH, BS LAVH, BS LAVH, BS 2 wk LAVHBS 6 WK POST OP Reason for Visit Encounter for screen ing colonoscopy Postoperative examination Vaginal discharge Postoperative examination Chief Complaint 2 wk LAVHBS 6 WK POST OP SINUS INFECTION FOR 2 WEEKS NEURO CONCERNS Reason for Visit Postoperative examin ation Vaginal discharge Postoperative examination Sinusitis Vertigo Lightheadedness Numbness and tingling in both hands Generalized anxiety disorder Chief Complaint SINUS INFECTION FOR 2 WEEKS NEURO CONCERNS ABD PAIN Reason for Visit Sinusitis Vertigo Lightheadedness Numbness and tingling in both hands Generalized anxiety disorder Chief Complaint Admit Date breast exam/left breast pain November 2:57pm BREAST PAIN November 28, 2024 1 :01pm DISCUSS ROD GARCIA January 05, 2025 9:00am Reason for Visit Admit Date Breast pain November 27, 2024 2 :57pm Breast lump November 27, 2024 2 :57pm Anemia January 05, 2025 9:00am Elevated Rod-Garcia virus antibody tit er January 05, 2025 9:00am Chronic fatigue January 05, 2025 9:00am Fibromyalgia January 05, 2025 9:00am Chief Complaint Admit Date breast exam/left breast pain November 2:57pm BREAST PAIN November 28, 2024 1 :01pm DISCUSS ROD GARCIA January 05, 2025 9:00am RIGHT KNEE February 19, 2025 9:3 4am room 6 February 19, 2025 10: 11am RIGHT KNEE March 04, 2025 9:3 0am BILATERAL KNEES March 16, 2025 2:32pm OA ASHLEY KNEES/RX HERE March 23, 2025 10:0 0am BILATERAL KNEES March 24, 2025 3:04p m Reason for Visit Admit Date Breast pain November 27, 2024 2 :57pm Breast lump November 27, 2024 2 :57pm Anemia January 05, 2025 9:00am Elevated Rod-Garcia virus antibody tit er January 05, 2025 9:00am Chronic fatigue January 05, 2025 9:00am Fibromyalgia January 05, 2025 9:00am Internal derangement of right knee February 19, 2025 9:34am Dusky discoloration of skin March 04, 2025 9:30am Internal derangement of right knee March 04, 2025 9:30am Osteoarthritis of knees, bilateral March 04, 2025 9:30am Tear of meniscus of right knee February 9:30am Osteoarthritis of knees, bilateral March 162024 2:32pm Chief Complaint Admit Date DISCUSS ROD GARCIA January 05, 2025 9:00am RIGHT KNEE February 19, 2025 9:3 4am room 6 February 19, 2025 10: 11am RIGHT KNEE March 04, 2025 9:3 0am BILATERAL KNEES March 16, 2025 2:32pm BILATERAL KNEES March 24, 2025 3:04p m OA ASHLEY KNEES/RX HERE March 30, 2025 3:00 pm Discoloration of LE March 31, 2025 9:32a m Reason for Visit Admit Date Anemia January 05, 2025 9:00am Elevated Rod-Garcia virus antibody tit er January 05, 2025 9:00am Chronic fatigue January 05, 2025 9:00am Fibromyalgia January 05, 2025 9:00am Internal derangement of right knee February 19, 2025 9:34am Dusky discoloration of skin March 04, 2025 9:30am Internal derangement of right knee March 04, 2025 9:30am Osteoarthritis of knees, bilateral March 04, 2025 9:30am Tear of meniscus of right knee February 9:30am Osteoarthritis of knees, bilateral March 162024 2:32pm Osteoarthritis of knees, bilateral March 122024 3:04pm Tear of meniscus of right knee March 24, 2025 3:04pm Chief Complaint Admit Date DISCUSS ROD GARCIA January 05, 2025 9:00am RIGHT KNEE February 19, 2025 9:3 4am room February 19, 2025 10: 11am RIGHT KNEE March 04, 2025 9:3 0am BILATERAL KNEES March 16, 2025 2:32pm BILATERAL KNEES March 24, 2025 3:04p m Discoloration of LE March 31, 2025 9:32a m OA ASHLEY KNEES/RX HERE April 01, 2025 9:30 am BILATERAL KNEES April 01, 2025 10:30 am Chief Complaint Admit Date DISCUSS ROD GARCIA January 05, 2025 9:00am RIGHT KNEE February 19, 2025 9:3 4am room February 19, 2025 10: 11am RIGHT KNEE March 04, 2025 9:3 0am BILATERAL KNEES March 16, 2025 2:32pm BILATERAL KNEES March 24, 2025 3:04p m Discoloration of LE March 31, 2025 9:32a m OA ASHLEY KNEES/RX HERE April 01, 2025 9:30 am BILATERAL KNEES April 01, 2025 10:30 am ACUTE DIZZINESS AND OTHER CONCERNS April 14, 2025 1:59pm Reason for Visit Admit Date Anemia January 05, 2025 9:00am Elevated Rod-Garcia virus antibody tit er January 05, 2025 9:00am Chronic fatigue January 05, 2025 9:00am Fibromyalgia January 05, 2025 9:00am Internal derangement of right knee February 19, 2025 9:34am Dusky discoloration of skin March 04, 2025 9:30am Internal derangement of right knee March 04, 2025 9:30am Osteoarthritis of knees, bilateral March 04, 2025 9:30am Tear of meniscus of right knee February 9:30am Osteoarthritis of knees, bilateral March 162024 2:32pm Osteoarthritis of knees, bilateral March 122024 3:04pm Tear of meniscus of right knee March 24, 2025 3:04pm Venous stasis March 31, 2025 9:32a m Osteoarthritis of knees, bilateral March 132024 10:30am Tear of meniscus of right knee April 01, 2025 10:30am Chief Complaint Admit Date DISCUSS ROD GARCIA January 05, 2025 9:00am RIGHT KNEE February 19, 2025 9:3 4am room 6 February 19, 2025 10: 11am RIGHT KNEE March 04, 2025 9:3 0am BILATERAL KNEES March 16, 2025 2:32pm BILATERAL KNEES March 24, 2025 3:04p m Discoloration of LE March 31, 2025 9:32a m OA ASHLEY KNEES/RX HERE April 01, 2025 9:30 am BILATERAL KNEES April 01, 2025 10:30 am ACUTE DIZZINESS AND OTHER CONCERNS April 14, 2025 1:59pm BL KNEES April 30, 2025 8:29 am Reason for Visit Admit Date Anemia January 05, 2025 9:00am Elevated Rod-Garcia virus antibody tit er January 05, 2025 9:00am Chronic fatigue January 05, 2025 9:00am Fibromyalgia January 05, 2025 9:00am Internal derangement of right knee February 19, 2025 9:34am Dusky discoloration of skin March 04, 2025 9:30am Internal derangement of right knee March 04, 2025 9:30am Osteoarthritis of knees, bilateral March 04, 2025 9:30am Tear of meniscus of right knee February 9:30am Osteoarthritis of knees, bilateral March 162024 2:32pm Osteoarthritis of knees, bilateral March 122024 3:04pm Tear of meniscus of right knee March 24, 2025 3:04pm Venous stasis March 31, 2025 9:32a m Osteoarthritis of knees, bilateral March 132024 10:30am Tear of meniscus of right knee April 01, 2025 10:30am Fibromyalgia April 14, 2025 1:59p m Generalized anxiety disorder April 14, 2 025 1:59pm Osteoarthritis of knees, bilateral April 30, 2025 8:29am Tear of meniscus of right knee April 8:29am Chief Complaint Admit Date RIGHT KNEE February 19, 2025 9:3 4am room 6 February 19, 2025 10: 11am RIGHT KNEE March 04, 2025 9:3 0am BILATERAL KNEES March 16, 2025 2:32pm BILATERAL KNEES March 24, 2025 3:04p m Discoloration of LE March 31, 2025 9:32a m OA ASHLEY KNEES/RX HERE April 01, 2025 9:30 am BILATERAL KNEES April 01, 2025 10:30 am ACUTE DIZZINESS AND OTHER CONCERNS April 14, 2025 1:59pm BL KNEES April 30, 2025 8:29 am 6 wk FU May 20, 2025 8:02a m Reason for Visit Admit Date Internal derangement of right knee February 19, 2025 9:34am Dusky discoloration of skin March 04, 2025 9:30am Internal derangement of right knee March 04, 2025 9:30am Osteoarthritis of knees, bilateral March 04, 2025 9:30am Tear of meniscus of right knee February 9:30am Osteoarthritis of knees, bilateral March 162024 2:32pm Osteoarthritis of knees, bilateral March 122024 3:04pm Tear of meniscus of right knee March 24, 2025 3:04pm Venous stasis March 31, 2025 9:32a m Osteoarthritis of knees, bilateral March 132024 10:30am Tear of meniscus of right knee April 01, 2025 10:30am Fibromyalgia April 14, 2025 1:59p m Generalized anxiety disorder April 14 025 1:59pm Osteoarthritis of knees, bilateral April 30, 2025 8:29am Tear of meniscus of right knee April 8:29am Generalized anxiety disorder May 20 025 8:02am Reason for Visit Admit Date Internal derangement of right knee February 19, 2025 9:34am Dusky discoloration of skin March 04, 2025 9:30am Internal derangement of right knee March 04, 2025 9:30am Osteoarthritis of knees, bilateral March 04, 2025 9:30am Tear of meniscus of right knee February 9:30am Osteoarthritis of knees, bilateral March 162024 2:32pm Osteoarthritis of knees, bilateral March 122024 3:04pm Tear of meniscus of right knee March 24, 2025 3:04pm Venous stasis March 31, 2025 9:32a m Osteoarthritis of knees, bilateral March 132024 10:30am Tear of meniscus of right knee April 01, 2025 10:30am Fibromyalgia April 14, 2025 1:59p m Generalized anxiety disorder April 14 025 1:59pm Osteoarthritis of knees, bilateral April 30, 2025 8:29am Tear of meniscus of right knee April 8:29am Fibromyalgia May 20, 2025 8:02a m Generalized anxiety disorder May 20 025 8:02am Additional Source Comments INFORMATION SOURCE (unrecogn ized section and content) DATE CREATED AUTHOR 02/01/2021 [facility] ([place]) DATE CREATED AUTHOR AUTHOR'S ORGANIZ ATION 09/01/2023 [facility] DATE CREATED AUTHOR AUTHOR'S ORGANIZ ATION 12/18/2024 [facility] DATE CREATED AUTHOR AUTHOR'S ORGANIZ ATION 05/22/2025 [facility] DATE CREATED AUTHOR AUTHOR'S ORGANIZ ATION 05/28/2025 [facility] Goals (unrecognized section and content) Goals may be documented in a n alternate sectionGoals may be documented in an alternate sectionGoals may be documented in an alternate sectionGoals may be documented in an alternate sectionGoals may be documented in an alternate sectionGoals may be documented in an alternate sectionGoals may be documented in an alternate sectionGoals may be documented in an alternate sectionGoals may be documented in an alternate sectionGoals may be documented in an alternate sectionGoals may be documented in an alternate sectionGoals may be documented in an alternate sectionGoals may be documented in an alternate sectionGoals may be documented in an alternate sectionGoals may be documented in an alternate sectionGoals may be documented in an alternate sectionGoals may be documented in an alternate section No data available for this section Care Teams (unrecognized sec tion and content) Team Status: Active Member Role Status Dates Dr. Anselmo Bender DO Family Provider Active Dr. Aayush Frederick MD Primary Care Provider Active Team Status: Inactive Member Role Status Dates Dr. Aayush Frederick MD Primary Care Provider, Refer ring Provider Active MECHELLE Wakefield Attending Provider Active Team Status: Inactive Member Role Status Dates Dr. Aayush Frederick MD Primary Care Provider, Refer ring Provider Active Lesly Boone CONTROLS TECHNICIAN, CONTROLS TECHNICIAN-C Attending Provider Active Team Status: Active Member Role Status Dates Dr. Aayush Frederick MD Primary Care Provider Active Dasia Guerrero Attending Provider Active Team Status: Active Member Role Status Dates Dr. Aayush Frederick MD Primary Care Provider Active MECHELLE Wakefield Attending Provider, Referring Pro vider Active Team Status: Inactive Member Role Status Dates Dr. Aayush Frederick MD Primary Care Provider Active MECHELLE Wakefield Attending Provider, Referring Pro vider Active Team Status: Active Member Role Status Dates Dr. Aayush Frederick MD Primary Care Provider Active Dr. Anselmo Morales MD Attending Provider, Referrin g Provider Active Team Status: Inactive Member Role Status Dates Dr. Aayush Frederick MD Primary Care Provider Active Lesly Boone CONTROLS TECHNICIAN, CONTROLS TECHNICIAN-C Attending Provider Active Team Status: Inactive Member Role Status Dates Dr. Aayush Frederick MD Primary Care Provider Active Lesly Boone CONTROLS TECHNICIAN, CONTROLS TECHNICIAN-C Attending Provider, Referring Provider Active Team Status: Inactive Member Role Status Dates Dr. Aayush Frederick MD Primary Care Provider, Refer ring Provider Active Dr. Carolina Cool MD Attending Provider Active Team Status: Inactive Member Role Status Dates Dr. Aayush Frederick MD Primary Care Provider Active Dr. Anselmo Morales MD Attending Provider, Referrin g Provider Active Team Status: Active Member Role Status Dates Dr. Aayush Frederick MD Primary Care Provider, Refer ring Provider Active Dr. Amilcar Montero DO Attending Provider, Other Prov ider Active Team Status: Inactive Member Role Status Dates Dr. Aayush Frederick MD Primary Care Provider, Refer ring Provider Active Dr. Amilcar Montero DO Attending Provider Active Team Status: Active Member Role Status Dates Dr. Aayush Frederick MD Primary Care Provider Active Dr. Carolina Cool MD Attending Pr ovider, Referring Provider, Other Provider Active Team Status: Active Member Role Status Dates Dr. Aayush Frederick MD Primary Care Provider Active Dr. Carolina Cool MD Admit Provid er, Attending Provider, Referring Provider, Other Provider Active Team Status: Inactive Member Role Status Dates Dr. Aayush Frederick MD Primary Care Provider Active Dr. Carolina Cool MD Admit Provid er, Attending Provider, Referring Provider Active Team Status: Inactive Member Role Status Dates Dr. Aayush Frederick MD Primary Care Provider Active Dr. Carolina Cool MD Attending Provider, Referr ing Provider Active Team Status: Inactive Member Role Status Dates Dr. Aayush Frederick MD Primary Care P rovider, Attending Provider, Referring Provider Active Team Status: Inactive Member Role Status Dates Dr. Aayush Frederick MD Primary Care Provider Active BONY STUART Attending Provider, Referring Provid er Active Team Status: Active Member Role Status Dates Dr. Aayush Frederick MD Primary Care P rovider, Attending Provider, Referring Provider Active Team Status: Inactive Member Role Status Dates Dr. Aayush Frederick MD Primary Care Provider Active Dr. Ga Lazar DO Emergency Provider Active Quality Control Assessor Relationship Specialty Start Date End Date Ady Bardales [address] [place] [address] PCP - General 08/19/07 Quality Control Assessor Relationship Specialty Start Date End Date Ady Bardales MD [address] [place] [address] PCP - General 08/19/07 Quality Control Assessor Relationship Specialty Start Date End Date Ady Bardales MD [address] [place] [address] PCP - General 08/19/07 Quality Control Assessor Relationship Specialty Start Date End Date Ady Bardales MD [address] [place] [address] PCP - General 08/19/07 Team Status: Inactive Member Role Status Dates Dr. Aayush Frederick MD Primary Care Provider Active Start: November 27, 2024 End: November 27, 2024 Dr. Aayush Frederick MD Referring Provider Active Start: November 27, 2024 End: November 27, 2024 GORGE Tuttle Attending Provider Active Start: November 27, 2024 End: November 27, 2024 Team Status: Inactive Member Role Status Dates Dr. Aayush Frederick MD Primary Care Provider Active Start: November 28, 2024 End: November 28, 2024 Dr. Carolina Cool MD Attending Provider Active Start: November 28, 2024 End: November 28, 2024 Dr. Carolina Cool MD Referring Provider Active Start: November 28, 2024 End: November 28, 2024 Team Status: Inactive Member Role Status Dates Dr. Aayush Frederick MD Primary Care Provider Active Start: January 05, 2025 End: January 05, 2025 Dr. Aayush Frederick MD Attending Provider Active Start: January 05, 2025 End: January 05, 2025 Dr. Aayush Frederick MD Referring Provider Active Start: January 05, 2025 End: January 05, 2025 Team Status: Active Member Role Status Dates Dr. Aayush Frederick MD Primary Care Provider Active Team Status: Inactive Member Role Status Dates Dr. Aayush Frederick MD Primary Care Provider Active Start: February 19, 2025 End: February 19, 2025 Dr. Aayush Frederick MD Referring Provider Active Start: February 19, 2025 End: February 19, 2025 GORGE Salas Attending Provider Active Start: February 19, 2025 End: February 19, 2025 Team Status: Inactive Member Role Status Dates Dr. Aayush Frederick MD Primary Care Provider Active Start: February 19, 2025 End: February 19, 2025 Dr. Krishna Fritz MD Attending Provider Active S tart: February 19, 2025 End: February 19, 2025 Team Status: Inactive Member Role Status Dates Dr. Aayush Frederick MD Primary Care Provider Active Start: March 04, 2025 End: March 04, 2025 Dr. Aayush Frederick MD Referring Provider Active Start: March 04, 2025 End: March 04, 2025 GORGE Salas Attending Provider Active Start: March 04, 2025 End: March 04, 2025 Team Status: Inactive Member Role Status Dates Dr. Aayush Frederick MD Primary Care Provider Active Start: March 16, 2025 End: March 16, 2025 Dr. Aayush Frederick MD Referring Provider Active Start: March 16, 2025 End: March 16, 2025 GORGE Salas Attending Provider Active Start: March 16, 2025 End: March 16, 2025 Team Status: Active Member Role Status Dates Dr. Aayush Frederick MD Primary Care Provider Active Start: March 23, 2025 GORGE Salas Attending Provider Active Start: March 23, 2025 GORGE Salas Referring Provider Active Start: March 23, 2025 Team Status: Inactive Member Role Status Dates Dr. Aayush Frederick MD Primary Care Provider Active Start: March 24, 2025 End: March 24, 2025 Dr. Aayush Frederick MD Referring Provider Active Start: March 24, 2025 End: March 24, 2025 GORGE Salas Attending Provider Active Start: March 24, 2025 End: March 24, 2025 Team Status: Active Member Role Status Dates Dr. Aayush Fredreick MD Primary Care Provider Active Start: March 30, 2025 GORGE Salas Attending Provider Active Start: March 30, 2025 GORGE Salas Referring Provider Active Start: March 30, 2025 Team Status: Inactive Member Role Status Dates Dr. Aayush Frederick MD Primary Care Provider Active Start: March 31, 2025 End: March 31, 2025 Dr. Aayush Frederick MD Referring Provider Active Start: March 31, 2025 End: March 31, 2025 MECHELLE Watson Attending Provider Active Star t: March 31, 2025 End: March 31, 2025 Team Status: Active Member Role Status Dates Dr. Aayush Frederick MD Primary Care Provider Active Start: April 01, 2025 GORGE Salas Attending Provider Active Start: April 01, 2025 GORGE Salas Referring Provider Active Start: April 01, 2025 Team Status: Inactive Member Role Status Dates Dr. Aayush Frederick MD Primary Care Provider Active Start: April 01, 2025 End: April 01, 2025 Dr. Aayush Frederick MD Referring Provider Active Start: April 01, 2025 End: April 01, 2025 GORGE Salas Attending Provider Active Start: April 01, 2025 End: April 01, 2025 Team Status: Inactive Member Role Status Dates Dr. Aayush Frederick MD Primary Care Provider Active Start: April 14, 2025 End: April 14, 2025 Dr. Aayush Frederick MD Referring Provider Active Start: April 14, 2025 End: April 14, 2025 MECHELLE Vargas Attending Provider Active St art: April 14, 2025 End: April 14, 2025 Team Status: Inactive Member Role Status Dates Dr. Aayush Ferderick MD Primary Care Provider Active Start: April 30, 2025 End: April 30, 2025 Dr. Aayush Frederick MD Referring Provider Active Start: April 30, 2025 End: April 30, 2025 Rodo Gaona MD Attending Provider Active St art: April 30, 2025 End: April 30, 2025 Team Status: Active Member Role/Relationship Status Dates Dr. Aayush Frederick MD Primary Care Provider Active Team Status: Inactive Member Role/Relationship Status Dates Dr. Aayush Frederick MD Primary Care Provider Active Start: February 19, 2025 End: February 19, 2025 Dr. Aayush Frederick MD Referring Provider Active Start: February 19, 2025 End: February 19, 2025 GORGE Salas Attending Provider Active Start: February 19, 2025 End: February 19, 2025 Team Status: Inactive Member Role/Relationship Status Dates Dr. Aayush Frederick MD Primary Care Provider Active Start: February 19, 2025 End: February 19, 2025 Dr. Krishna Fritz MD Attending Provider Active S tart: February 19, 2025 End: February 19, 2025 Team Status: Inactive Member Role/Relationship Status Dates Dr. Aayush Frederick MD Primary Care Provider Active Start: March 04, 2025 End: March 04, 2025 Dr. Aayush Frederick MD Referring Provider Active Start: March 04, 2025 End: March 04, 2025 GORGE Salas Attending Provider Active Start: March 04, 2025 End: March 04, 2025 Team Status: Inactive Member Role/Relationship Status Dates Dr. Aayush Frederick MD Primary Care Provider Active Start: March 16, 2025 End: March 16, 2025 Dr. Aayush Frederick MD Referring Provider Active Start: March 16, 2025 End: March 16, 2025 GORGE Salas Attending Provider Active Start: March 16, 2025 End: March 16, 2025 Team Status: Inactive Member Role/Relationship Status Dates Dr. Aayush Frederick MD Primary Care Provider Active Start: March 24, 2025 End: March 24, 2025 Dr. Aayush Frederick MD Referring Provider Active Start: March 24, 2025 End: March 24, 2025 GORGE Salas Attending Provider Active Start: March 24, 2025 End: March 24, 2025 Team Status: Inactive Member Role/Relationship Status Dates Dr. Aayush Frederick MD Primary Care Provider Active Start: March 31, 2025 End: March 31, 2025 Dr. Aayush Frederick MD Referring Provider Active Start: March 31, 2025 End: March 31, 2025 MECHELLE Watson Attending Provider Active Star t: March 31, 2025 End: March 31, 2025 Team Status: Active Member Role/Relationship Status Dates Dr. Aayush Frederick MD Primary Care Provider Active Start: April 01, 2025 GORGE Salas Attending Provider Active Start: April 01, 2025 GORGE Salas Referring Provider Active Start: April 01, 2025 Team Status: Inactive Member Role/Relationship Status Dates Dr. Aayush Frederick MD Primary Care Provider Active Start: April 01, 2025 End: April 01, 2025 Dr. Aayush Frederick MD Referring Provider Active Start: April 01, 2025 End: April 01, 2025 GORGE Salas Attending Provider Active Start: April 01, 2025 End: April 01, 2025 Team Status: Inactive Member Role/Relationship Status Dates Dr. Aayush Frederick MD Primary Care Provider Active Start: April 14, 2025 End: April 14, 2025 Dr. Aayush Frederick MD Referring Provider Active Start: April 14, 2025 End: April 14, 2025 MECHELLE Vargas Attending Provider Active St art: April 14, 2025 End: April 14, 2025 Team Status: Inactive Member Role/Relationship Status Dates Dr. Aayush Frederick MD Primary Care Provider Active Start: April 30, 2025 End: April 30, 2025 Dr. Aayush Frederick MD Referring Provider Active Start: April 30, 2025 End: April 30, 2025 Rodo Gaona MD Attending Provider Active St art: April 30, 2025 End: April 30, 2025 Team Status: Active Member Role/Relationship Status Dates Dr. Aayush Frederick MD Primary Care Provider Active Start: May 18, 2025 Griffin MIN PA Attending Provider Active St art: May 18, 2025 Griffin MIN PA Referring Provider Active St art: May 18, 2025 Team Status: Inactive Member Role/Relationship Status Dates Dr. Aayush Frederick MD Primary Care Provider Active Start: May 20, 2025 End: May 20, 2025 Dr. Aayush Frederick MD Referring Provider Active Start: May 20, 2025 End: May 20, 2025 MECHELLE Vargas Attending Provider Active St art: May 20, 2025 End: May 20, 2025 Team Status: Inactive Member Role/Relationship Status Dates Dr. Aayush Frederick MD Primary Care Provider Active Start: May 18, 2025 End: May 18, 2025 MECHELLE Vargas Attending Provider Active St art: May 18, 2025 End: May 18, 2025 MECHELLE Vargas Referring Provider Active St art: May 18, 2025 End: May 18, 2025 Source Comments (unrecognize d section and content) In the event this informatio n is protected by the Federal Confidentiality of Alcohol and Drug Abuse Patient Records regulations: The Federal rules restrict any use of the information to criminally investigate or prosecute any alcohol or drug abuse patient.[facility] the event this information is protected by the Federal Confidentiality of Alcohol and Drug Abuse Patient Records regulations: The Federal rules restrict any use of the information to criminally investigate or prosecute any alcohol or drug abuse patient.[facility] the event this information is protected by the Federal Confidentiality of Alcohol and Drug Abuse Patient Records regulations: The Federal rules restrict any use of the information to criminally investigate or prosecute any alcohol or drug abuse patient.[facility] the event this information is protected by the Federal Confidentiality of Alcohol and Drug Abuse Patient Records regulations: The Federal rules restrict any use of the information to criminally investigate or prosecute any alcohol or drug abuse patient.[facility] Reason for Visit (unrecogniz ed section and content) Reason Comments Consult Reason Comments New Patient Present for ongoing left breast pain x 7 yrs. Thought she felt something in her breast, had a mammo and US and both came back negative. Reason Comments Results FOR RECORDS PERTAINING TO PATIENTS WHO ARE OR HAVE BEEN ENROLLED IN A CHEMICAL DEPENDENCY/SUBSTANCEABUSE PROGRAM, SOME INFORMATION MAY BE OMITTED. This clinical summary was aggregated from multiple sources. Caution should be exercised in using it in the provision of clinical care. This summary normalizes information from multiple sources, and as a consequence, information in this document may materially change the coding, format and clinical context of patient data. In addition, data may be omitted in some cases. CLINICAL DECISIONS SHOULD BE BASED ON THE PRIMARY CLINICAL RECORDS. [facility]. provides no warranty or guarantee of the accuracy or completeness of information in this document.
== END | disposition home or self-care (01) ==
LOC: MTLAB 12:56
PROVIDERS: PCP Internal Medicine; Referring Provider Physician Assistant; Visit Provider Physician Assistant
DX: R74.8 Abnormal levels of other serum enzymes (principal)
CPT/HCPCS: 36415; 80053; 80061

== ENCOUNTER → 2025-08-21 | Outpatient (CLI) | payer OTHER, SELFPAY ==
[2025-08-21 12:29] LABS: AST(SGOT) 18 U/L (<=31); Alanine Aminotransfer ALT/SGPT 18 U/L (<=34); Albumin, Serum 4.4 g/dL (3.5-5.0); Alkaline Phosphatase 72 U/L (35-104); Anion Gap 11 (5-15); BUN 14 mg/dL (4-19); BUN/Creat Ratio 20.8 RATIO (10-20); Calcium,Total 9.7 mg/dL (7.6-11.0); Carbon Dioxide 25.5 mmol/L (21.0-32.0); Chloride 103 mmol/L (98-108); Globulin 2.5 g/dL (2.2-4.2); Glucose 87 mg/dL (70-99); Potassium 4.1 mmol/L (3.3-5.1)
== END | disposition home or self-care (01) ==
LOC: MTLAB 08:55
PROVIDERS: PCP Internal Medicine; Referring Provider Internal Medicine; Visit Provider Internal Medicine
DX: F41.1 Generalized anxiety disorder (principal); E78.5 Hyperlipidemia, unspecified
CPT/HCPCS: 36415; 80053

== ENCOUNTER → 2025-10-02 | Outpatient (CLI) | payer OTHER, SELFPAY ==
[2025-10-02 12:15] LABS: Hematocrit 42.6 % (37-47); Hemoglobin 14.4 g/dL (12.0-15.0); Immature Granulocytes Count 0.010 X10^3/uL (0.0-0.0); Mean Corp Hgb Conc 33.8 g/dL (32-36); Mean Corpuscular Volume 89.9 fL (81-99); Mean Platelet Vol. 11.5 fl (6.2-12.0); NRBC Flagged by Analyzer 0 % (0-5); Platelet Count 204 K/mm3 (150-450); RBC Distribution Width CV 12.6 % (11.6-14.6); RBC Distribution Width SD 41.5 fl (35.1-43.9); Red Blood Count 4.74 M/mm3 (4.2-5.4); White Blood Count 5.5 K/mm3 (4.4-11.0)
[2025-10-02 12:52] LABS: AST(SGOT) 22 U/L (<=31); Alanine Aminotransfer ALT/SGPT 19 U/L (<=34); Albumin, Serum 4.0 g/dL (3.5-5.0); Alkaline Phosphatase 65 U/L (35-104); Anion Gap 9 (5-15); BUN 18 mg/dL (4-19); BUN/Creat Ratio 24.7 RATIO (10-20); Calcium,Total 9.5 mg/dL (7.6-11.0); Carbon Dioxide 25.7 mmol/L (21.0-32.0); Chloride 104 mmol/L (98-108); Globulin 2.5 g/dL (2.2-4.2); Glucose 74 mg/dL (70-99); Potassium 4.4 mmol/L (3.3-5.1); Vitamin B12 1172 pg/mL (180-914); Vitamin D,25 Hydroxy 107.0 ng/mL (30-100)
== END | disposition home or self-care (01) ==
LOC: MTLAB 09:45
PROVIDERS: PCP Internal Medicine; Referring Provider Internal Medicine; Visit Provider Internal Medicine
DX: D50.9 Iron deficiency anemia, unspecified (principal); L65.9 Nonscarring hair loss, unspecified; F41.1 Generalized anxiety disorder
CPT/HCPCS: 36415; 80053; 82306; 82607; 84439; 84443; 85025